=== PATIENT | male | born 1945 | race Caucasian/White ===

== ENCOUNTER 2021-04-29 19:44 | Inpatient (IN) ==
--- NOTE | 2021-04-29 19:47 | Emergency Department Note ---
Impression & Plan Fracture of hip, CKD (chronic kidney disease), Fall, Leukocytosis ED Provider Note NAME: MICHEAL BERRIOS AGE: 75 SEX: M : 1945 ARRIVES VIA: Ambulance INFORMANT: Patient, ED PROVIDER(S): Mata Figueroa MD Chief Complaint: Fall, left hip and thigh pain HPI: She presents from home after a fall that occurred prior to arrival. The patient does complain of left-sided hip and thigh pain. The patient believes he may have struck his head but he is unsure. The patient states that he was walking along a slightly gravel area and did fall onto his left side. Patient denies any LOC or amnesia to the event. The patient denies any fevers chills chest pains or shortness of breath. The patient does not take any blood thinning medications. Patient denies any alcohol tobacco or drug use. Patient states that the pain is been constant worse with movement is primarily localized over the left hip with a chronic ache occasionally sharp in nature. Patient denies any sensory deficits ROS: See HPI for pertinent positives and negatives. A total of 10 systems were reviewed and otherwise negative. Past medical history: See below Surgical history: See below Social history: See below Physical Exam: GENERAL: NAD, [wearing glasses,][wearing a mask,] non-toxic. EYE EXAM: Normal conjunctiva. PERRL, no anisocoria and EOM's grossly intact w/o pain. Head: Normocephalic atraumatic without any laceration or obvious deformity. NECK: Supple, no nuchal rigidity, no adenopathy, non-tender. No signs of meningismus. No TTP or obvious deformity. LUNGS: Clear to auscultation. Normal chest wall mechanics. HEART: NSR, no MRG. ABDOMEN: Abdomen soft, non-tender, normo-active bowel sounds, no masses, no rebound or guarding. BACK: No CVA TTP. No pain to palpation or obvious deformity. SKIN: No rashes and no bruising. UPPER EXTREMITIES: Upper extremities are grossly normal. No TTP. LOWER EXTREMITIES: Left lower extremity held in flexion at the knee and they be slightly short compared to the right, neurovascular tact with good DP pulse and sensation to DP, SP, tibialis nerves. No pain to palpation of right lower extremity. NEURO EXAM: A&O x3, cranial nerves II-XII grossly intact, normal speech, moves all 4 extremities on command w/o issue. Differential diagnoses: Fracture, subluxation, dislocation, contusion, ligamentous injury, neurovascular, compartment syndrome, rhabdomyolysis, as well as other pathologies. Course: Patient was seen and evaluated the bedside. Full history physical exam was per formed. [EKG interpreted by me] Normal sinus rhythm, rate of 97, normal intervals, normal axis, T wave version in lead III, no obvious ST elevations. No significant change from comparison EKG November 2008 Imaging Studies: See Below [Cardiac monitoring: An order was placed for continuous cardiac monitoring. The monitor shows a rate of 89 with sinus rhythm.] MDM: Patient did present due to concern for fall and left-sided hip pain. Blood work was obtained along with left hip and femur x-rays. Patient did state that he had a mild head strike but denies any LOC and does not take blood thinners. Patient did have a CT of the head completed. Patient's blood shows a white count of 15 but is denied any infectious symptoms. The patient has a normal H&H and platelet count. Kidney function with a creat of 2.2. The patient's LFTs unremarkable. I did speak with the on-call hospitalist due to concern for the patient's left hip fracture Dr. Stone said that the patient would be evaluated in the morning. I did speak to the on-call hospitalist Dr. Knutson who and the patient was admitted to the medicine service. Past Med/Surg History Social History Smoking Status: Never smoker Feels Safe at Home: Yes Allergies Allergies Allergy/AdvReac Type Severity Reaction Status Date / Time No Known Allergies Allergy NONE Verified 04/29/21 21:45 Home Meds Home Medications Medication Instructions Recorded Confirmed aspirin 81 mg tablet,delayed 81 mg PO DAILY 04/29/21 04/29/21 release cholecalciferol (vitamin D3) 1,250 1,250 mcg PO WK 04/29/21 04/29/21 mcg (50,000 unit) capsule cyanocobalamin (vitamin B-12) 1,000 mcg PO DAILY 04/29/21 04/29/21 1,000 mcg tablet (Vitamin B-12) dulaglutide 0.75 mg/0.5 mL 0.75 mg SUBCUT WK 04/29/21 04/29/21 subcutaneous pen injector (Trulicity) furosemide 20 mg tablet 20 mg PO DAILY 04/29/21 04/29/21 lisinopril 10 mg tablet 10 mg PO DAILY 04/29/21 04/29/21 metformin 500 mg tablet,extended 500 mg PO DAILY 04/29/21 04/29/21 release 24 hr metoprolol tartrate 25 mg tablet 25 mg PO BID 04/29/21 04/29/21 simvastatin 40 mg tablet 40 mg PO HS 04/29/21 04/29/21 tamsulosin 0.4 mg capsule 0.4 mg PO DAILY 04/29/21 04/29/21 Results & Data (ED) Vital Signs Vital Signs - 24 hr 04/29/21 19:28 04/29/21 19:50 04/29/21 21:28 Temperature 36.7 C Temperature Source Oral Pulse Rate 87 Pulse Rate [Apical] 89 86 Respiratory Rate 20 20 18 Respiratory Effort / Characteristics Non-Labored Spontaneous Non-Labored Spontaneous Non-Labored Spontaneous Respiratory Depth Normal Normal Normal Respiratory Pattern Regular Regular Regular Blood Pressure 111/64 Blood Pressure [Right Arm] 108/58 L 106/56 L Blood Pressure Mean 79 Blood Pressure Mean [Right Arm] 74 72 Blood Pressure Position Sitting Blood Pressure Position [Right Arm] Sitting Sitting Pulse Oximetry 97 99 97 Oxygen Delivery Method Room Air Room Air Room Air Sepsis Recent Fever Within 48 Hours No Sepsis New/Unexplained Change in Mental Status No Sepsis Action Taken by Nursing No Action Required Home Medications Current Medication List: was personally reviewed by me Laboratory Data Attestation: I reviewed the patient's lab results. Result diagrams: 04/30/21 05:08 04/30/21 05:08 Lab Results 04/29/21 04/29/21 04/29/21 Range/Units 20:12 20:12 20:12 WBC 15.03 H (4.8-10.8) K/uL RBC 4.50 L (4.7-6.1) M/uL Hgb 14.5 (14.0-18.0) g/dL Hct 43.9 (42-52) % MCV 97.6 (80-100) fL MCH 32.2 (25-34) pg MCHC 33.0 (32-36) g/dL RDW Std Deviation 47.5 H (36.4-46.3) fL RDW Coeff of Zenaida 13.4 (11.5-14.5) % Plt Count 221 (130-400) K/uL MPV 10.7 H (7.4-10.4) fL Immature Gran % (Auto) 0.5 % Neut % (Auto) 66.1 % Lymph % (Auto) 24.8 % Amelia % (Auto) 6.7 % Eos % (Auto) 1.6 % Baso % (Auto) 0.3 % Neut # (Auto) 9.94 H (1.4-6.5) K/uL Lymph # (Auto) 3.73 H (1.2-3.4) K/uL Amelia # (Auto) 1.01 H (0.11-0.59) K/uL Eos # (Auto) 0.24 (0-0.5) K/uL Baso # (Auto) 0.04 (0-0.2) K/uL Immature Gran # (Auto) 0.07 H (0.00-0.02) K/uL PT 10.7 (9.0-12.0) Seconds INR 1.1 (0.9-1.1) APTT 25.7 (21.0-31.0) Seconds PTT Ratio 1.0 Sodium 134 L (136-145) mmol/L Potassium (3.5-5.1) mmol/L Chloride 102 (98-107) mmol/L Carbon Dioxide 22 (21-32) mmol/L Anion Gap 10 (3-11) BUN 32 H (6-23) mg/dl Creatinine 2.24 H (0.6-1.4) mg/dl Est Cr Clr Drug Dosing 39.8 ml/min Est GFR ( Amer) 32.0 ml/min Est GFR (Non-Af Amer) 27.6 ml/min BUN/Creatinine Ratio 14.3 (10-20) Glucose 260 H (70-99(Fasting)) mg/dl Calcium 9.0 (8.5-10.1) mg/dl Total Bilirubin 0.1 L (0.2-1.0) mg/dl AST (13-39) U/L ALT 13 (7-52) U/L Alkaline Phosphatase 46 (34-104) U/L Total Protein 7.0 (6.0-8.3) gm/dl Albumin 3.6 (3.4-5.0) gm/dl Globulin 3.4 (2.5-4.0) gm/dl Albumin/Globulin Ratio 1.1 (0.9-2) 04/29/21 Range/Units 21:00 WBC (4.8-10.8) K/uL RBC (4.7-6.1) M/uL Hgb (14.0-18.0) g/dL Hct (42-52) % MCV (80-100) fL MCH (25-34) pg MCHC (32-36) g/dL RDW Std Deviation (36.4-46.3) fL RDW Coeff of Zenaida (11.5-14.5) % Plt Count (130-400) K/uL MPV (7.4-10.4) fL Immature Gran % (Auto) % Neut % (Auto) % Lymph % (Auto) % Amelia % (Auto) % Eos % (Auto) % Baso % (Auto) % Neut # (Auto) (1.4-6.5) K/uL Lymph # (Auto) (1.2-3.4) K/uL Amelia # (Auto) (0.11-0.59) K/uL Eos # (Auto) (0-0.5) K/uL Baso # (Auto) (0-0.2) K/uL Immature Gran # (Auto) (0.00-0.02) K/uL PT (9.0-12.0) Seconds INR (0.9-1.1) APTT (21.0-31.0) Seconds PTT Ratio Sodium (136-145) mmol/L Potassium 4.4 (3.5-5.1) mmol/L Chloride (98-107) mmol/L Carbon Dioxide (21-32) mmol/L Anion Gap (3-11) BUN (6-23) mg/dl Creatinine (0.6-1.4) mg/dl Est Cr Clr Drug Dosing ml/min Est GFR ( Amer) ml/min Est GFR (Non-Af Amer) ml/min BUN/Creatinine Ratio (10-20) Glucose (70-99(Fasting)) mg/dl Calcium (8.5-10.1) mg/dl Total Bilirubin (0.2-1.0) mg/dl AST 21 (13-39) U/L ALT (7-52) U/L Alkaline Phosphatase (34-104) U/L Total Protein (6.0-8.3) gm/dl Albumin (3.4-5.0) gm/dl Globulin (2.5-4.0) gm/dl Albumin/Globulin Ratio (0.9-2) Administered Medications Aspirin (Aspirin 81 Mg Ectab) 81 mg PO DAILY SHAE Stop: 05/30/21 08:59 Last Admin: 04/30/21 09:16 Dose: 81 mg Documented by: [id number] Cyanocobalamin (Cyanocobalamin (B-12) 500 Mcg Tablet) 1,000 mcg PO DAILY SHAE Stop: 05/30/21 08:59 Last Admin: 04/30/21 09:16 Dose: 1,000 mcg Documented by: [id number] Gabapentin (Gabapentin 100 Mg Cap) 100 mg PO BID SHAE Stop: 05/30/21 10:29 Last Admin: 04/30/21 12:02 Dose: 100 mg Documented by: [id number] Sodium Chloride (Nss 1000ml) 1,000 mls @ 125 mls/hr IV .Q8H SHAE Stop: 05/30/21 06:59 Last Admin: 04/30/21 10:57 Dose: Not Given Documented by: [id number] Sodium Chloride (Nss 1000ml) 1,000 mls @ 125 mls/hr IV .Q8H [facility] Stop: 05/30/21 09:44 Last Admin: 04/30/21 11:25 Dose: 125 mls/hr Documented by: [id number] Insulin Aspart (Insulin Aspart Per Unit) 0 units SC Q6 SHAE Stop: 05/30/21 05:59 Last Admin: 04/30/21 05:24 Dose: 4 units Documented by: [id number] Cosigned by: [id number] Risperidone (Risperidone 0.5 Mg Tablet) 0.5 mg PO QAM SHAE Stop: 05/30/21 11:59 Last Admin: 04/30/21 12:27 Dose: 0.5 mg Documented by: [id number] Tamsulosin HCl (Tamsulosin Hcl 0.4 Mg Cap) 0.4 mg PO DAILY SHAE Stop: 05/30/21 08:59 Last Admin: 04/30/21 09:16 Dose: 0.4 mg Documented by: [id number] Tramadol HCl (Tramadol Hcl 50 Mg Tablet) 100 mg PO Q6 PRN PRN Reason: severe pain Stop: 05/30/21 11:59 Last Admin: 04/30/21 09:53 Dose: 100 mg Documented by: [id number] Discontinued Medications Acetaminophen (Acetaminophen 325 Mg Tab) 650 mg PO Q4H PRN PRN Reason: pain/fever Stop: 05/30/21 02:14 Last Admin: 04/30/21 04:15 Dose: 650 mg Documented by: [id number] Haloperidol Lactate (Haloperidol Lactate 5 Mg/Ml 1 Ml Vial) 2.5 mg IM NOW STA Stop: 04/30/21 01:11 Last Admin: 04/30/21 01:14 Dose: 2.5 mg Documented by: [id number] Hydromorphone HCl (Hydromorphone Inj 0.5 Mg/0.5 Ml Syr) 0.5 mg IV Q3H PRN PRN Reason: Pain Stop: 05/13/21 23:41 Last Admin: 04/29/21 23:45 Dose: 0.5 mg Documented by: [id number] Sodium Chloride (Nss 1000ml) 1,000 mls @ 999 mls/hr IV .Q1H1M SHAE Stop: 04/30/21 02:45 Last Infusion: 04/30/21 02:19 Dose: 0 mls/hr Documented by: [id number] Admin: 04/30/21 01:47 Dose: 999 mls/hr Documented by: [id number] Sodium Chloride (Nss 1000ml) 1,000 mls @ 80 mls/hr IV .[id number] [facility] Stop: 05/30/21 01:45 Last Admin: 04/30/21 01:48 Dose: 80 mls/hr Documented by: [id number] Piperacillin Sod/Tazobactam (Sod 4.5 gm/ Dextrose) 120 mls @ 200 mls/hr IV NOW STA; Protocol Stop: 04/30/21 06:37 Last Infusion: 04/30/21 08:00 Dose: 0 mls/hr Documented by: [id number] Admin: 04/30/21 06:38 Dose: 200 mls/hr Documented by: [id number] Magnesium Sulfate/Dextrose (Magnesium Sulfate / D5w) 1 gm in 100 mls @ 50 mls/hr IV Q2H SHAE Stop: 04/30/21 10:14 Last Admin: 04/30/21 09:16 Dose: 50 mls/hr Documented by: [id number] Infusion: 04/30/21 09:16 Dose: 50 mls/hr Documented by: [id number] Admin: 04/30/21 08:15 Dose: 50 mls/hr Documented by: [id number] Vancomycin HCl 1,000 mg/ (Sodium Chloride) 270 mls @ 200 mls/hr IV Q12H SHAE; Protocol Stop: 05/02/21 06:59 Last Admin: 04/30/21 09:30 Dose: Not Given Documented by: [id number] Sodium Chloride (Nss) 500 mls @ 500 mls/hr IV .Q1H SHAE Stop: 04/30/21 07:59 Last Infusion: 04/30/21 09:30 Dose: 0 mls/hr Documented by: [id number] Admin: 04/30/21 08:20 Dose: 500 mls/hr Documented by: [id number] Metoprolol Tartrate (Metoprolol Tartrate 25 Mg Tab) 25 mg PO BID SHAE Stop: 05/30/21 08:59 Last Admin: 04/30/21 09:07 Dose: Not Given Documented by: [id number] Morphine Sulfate (Morphine Sulfate 2 Mg/Ml Carp) 2 mg IV Q1H PRN PRN Reason: Moderate Pain (Rating 3,4,5,6) Stop: 05/13/21 19:59 Last Admin: 04/29/21 22:43 Dose: 2 mg Documented by: [id number] Admin: 04/29/21 20:16 Dose: 2 mg Documented by: [id number] Morphine Sulfate (Morphine Sulfate 4 Mg/Ml 1 Ml Carp\Vial) 4 mg IV NOW STA Stop: 04/29/21 20:49 Last Admin: 04/29/21 21:29 Dose: 4 mg Documented by: [id number] Imaging Data Radiologist's Impression: Head CT 04/29/21 21:31 CT head/brain wo con CLINICAL HISTORY: 75 years-old Male with fall. Acute head trauma status post fall TECHNIQUE: Multiple axial CT images of the head were obtained without contrast. A dose lowering technique was utilized adhering to the principles of ALARA. CT DOSE: 773.57 mGy.cm COMPARISON: None. FINDINGS: No acute intracranial hemorrhage, midline shift, intracranial mass, hydrocephalus, territorial ischemia or abnormal extra-axial collection. Age-rel ated involutional changes. Mild white matter hypodensities suggest chronic microvascular ischemic disease. Cerebral vascular calcifications. The study is mildly motion degraded. The calvarium is intact. The paranasal sinuses, mastoid air cells, and middle ear cavities are clear. IMPRESSION: No acute intracranial abnormality or calvarial fracture. ACT 112: Negative or not required by law. The above report was generated using voice recognition software. It may contain grammatical, syntax or spelling errors. Electronically signed by: Ryan Hood M.D. 04/30/2021 6:32 AM Femur X-Ray 04/29/21 20:00 XR pelvis 1-2V routine, XR femur LT 2V routine CLINICAL HISTORY: s/p fall TECHNIQUE: A single frontal view of the pelvis was obtained. 2 views of the left femur were obtained. Comparison: None available at the time of this dictation. FINDINGS: There is an impacted fracture of left femur below the trochanter. Overriding of fragments is seen.The pubic symphysis measures 6 mm in width. Degenerative changes are seen in the lower lumbar spine. No soft tissue abnormality is seen. IMPRESSION: Impacted fracture of the left femur below the trochanter. Likely distraction of the pubic symphysis. ACT 112: Negative or not required by law. Electronically signed by: Rishi Bowden M.D. 04/29/2021 8:54 PM Pelvis X-Ray 04/29/21 20:00 XR pelvis 1-2V routine, XR femur LT 2V routine CLINICAL HISTORY: s/p fall TECHNIQUE: A single frontal view of the pelvis was obtained. 2 views of the left femur were obtained. Comparison: None available at the time of this dictation. FINDINGS: There is an impacted fracture of left femur below the trochanter. Overriding of fragments is seen.The pubic symphysis measures 6 mm in width. Degenerative changes are seen in the lower lumbar spine. No soft tissue abnormality is seen. IMPRESSION: Impacted fracture of the left femur below the trochanter. Likely distraction of the pubic symphysis. ACT 112: Negative or not required by law. Electronically signed by: Rishi Bowden M.D. 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 Comparison: Comparison is made to chest one view 12/01/2018 FINDINGS: No lines and tubes are seen. Cardiomegaly is noted. The lungs are clear. No evidence of pleural effusion or pneumothorax. IMPRESSION: No acute chest disease. ACT 112: Negative or not required by law. Electronically signed by: Rishi Bowden M.D. 04/29/2021 8:[address] 04/29/21 21:31 CT head/brain wo con CLINICAL HISTORY: 75 years-old Male with fall. Acute head trauma status post fall TECHNIQUE: Multiple axial CT images of the head were obtained without contrast. A dose lowering technique was utilized adhering to the principles of ALARA. CT DOSE: 773.57 mGy.cm COMPARISON: None. FINDINGS: No acute intracranial hemorrhage, midline shift, intracranial mass, hydrocephalus, territorial ischemia or abnormal extra-axial collection. Age- related involutional changes. Mild white matter hypodensities suggest chronic microvascular ischemic disease. Cerebral vascular calcifications. The study is mildly motion degraded. The calvarium is intact. The paranasal sinuses, mastoid air cells, and middle ear cavities are clear. IMPRESSION: No acute intracranial abnormality or calvarial fracture. ACT 112: Negative or not required by law. The above report was generated using voice recognition software. It may contain grammatical, syntax or spelling errors. Electronically signed by: Ryan Hood M.D. 04/30/2021 6:32 AM Discharge Plan Visit Data Chief Complaint: Leg Injury/Pain ED Provider: Mata Figueroa Discharge Problem: Fracture of hip, CKD (chronic kidney disease), Fall, Leukocytosis Discharge Instructions Interventions: ED Discharge Assessment Last Done: 04/30/21 02:18
[2021-04-29] MEDS: MoRPHine SULFATE 2 MG/ML CARP IV PRN ×2 (20:16→22:43)
[2021-04-29 20:20] LABS: Basophils # (auto) 0.04 K/uL (0-0.2); Basophils % (auto) 0.3 %; Eosinophils # (auto) 0.24 K/uL (0-0.5); Eosinophils % (auto) 1.6 %; Hematocrit (blood only) 43.9 % (42-52); Hemoglobin 14.5 g/dL (14.0-18.0); Immature Granulocytes # (auto) 0.07 K/uL (0.00-0.02); Immature Granulocytes % (auto) 0.5 %; Lymphocytes # (auto) 3.73 K/uL (1.2-3.4); Lymphocytes % (auto) 24.8 %; Mean Corpuscular Hemoglobin 32.2 pg (25-34); Mean Corpuscular Volume 97.6 fL (80-100); Mean Platelet Volume 10.7 fL (7.4-10.4); Monocytes # (auto) 1.01 K/uL (0.11-0.59); Monocytes % (auto) 6.7 %; Neutrophils # (auto) 9.94 K/uL (1.4-6.5); Neutrophils % (auto) 66.1 %; Platelet Count 221 K/uL (130-400); RDW Coefficient of Variation 13.4 % (11.5-14.5); RDW Standard Deviation 47.5 fL (36.4-46.3); White Blood Count 15.03 K/uL (4.8-10.8)
[2021-04-29 20:32] LABS: INR 1.1 (0.9-1.1); Partial Thromboplastin Time 25.7 Seconds (21.0-31.0); Prothrombin Time 10.7 Seconds (9.0-12.0)
[2021-04-29 20:45] LABS: Albumin Globulin Ratio 1.1 (0.9-2); Albumin Level 3.6 gm/dl (3.4-5.0); BUN Creatinine Ratio 14.3 (10-20); Bilirubin,Total 0.1 mg/dl (0.2-1.0); Creatinine Clr Calc Pharmacy 39.8 ml/min; Est GFR (Non-African American) 27.6 ml/min; Globulin 3.4 gm/dl (2.5-4.0)
[2021-04-29] MEDS ORDERED: MoRPHine SULFATE 4 MG/ML 1 ML CARP\\VIAL IV STA (20:48)
--- NOTE | 2021-04-29 20:52 | XRay Report ---
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 Comparison: Comparison is made to chest one view 12/01/2018 FINDINGS: No lines and tubes are seen. Cardiomegaly is noted. The lungs are clear. No evidence of pleural effus ion or pneumothorax. IMPRESSION: No acute chest disease. ACT 112: Negative or not required by law. Electronically signed by: Rishi Bowden M.D. 04/29/2021 8:50 PM
--- NOTE | 2021-04-29 20:55 | XRay Report ---
XR pelvis 1-2V routine, XR femur LT 2V routine CLINICAL HISTORY: s/p fall TECHNIQUE: A single frontal view of the pelvis was obtained. 2 views of the left femur were obtained. Comparison: None available at the time of this dictation. FINDINGS: There is an impacted fracture of left femur below the trochanter. Overriding of fragments is seen.The pubic symphysis measures 6 mm in width. Degenerative changes are seen in the lower lumbar spine. No soft tissue abnormality is seen. IMPRESSION: Impacted fracture of the left femur below the trochanter. Likely distraction of the pubic symphysis. ACT 112: Negative or not required by law. Electronically signed by: Rishi Bowden M.D. 04/29/2021 8:54 PM
[2021-04-29 21:29] LABS: Potassium 4.4 mmol/L (3.5-5.1)
[2021-04-29] MEDS ORDERED: HYDROmorphone INJ 0.5 MG/0.5 ML SYR IV PRN (23:42)
[2021-04-30] MEDS ORDERED: HALOPERIDOL LACTATE 5 MG/ML 1 ML VIAL IM STA (01:10)
--- NOTE | 2021-04-30 01:36 | History and Physical Report ---
DATE OF ADMISSION: 04/29/2021. CHIEF COMPLAINT: Status post fall, left hip fracture. HISTORY OF PRESENT ILLNESS: This is a 75-year-old male with past medical history significant for type 2 diabetes, hyperlipidemia, obstructive sleep apnea, hypertension, paroxysmal atrial fibrillation, vitamin B12 deficiency, morbid obesity, stage III chronic kidney disease, history of dementia, who presents with a fall. The patient states he slipped on the grass in his yard and fell down and could not get up. Family helped him p and brought him here and found to have left hip fracture. The patient states he did not lose any consciousness, did not hit his head. Denies any chest pain. He has some mild headache. No blurred visions, no earache, no runny nose, no sore throat, no cough, no nausea, no abdominal pain, no chest pain, no shortness of breath. Normal bowel and bladder movements. Appetite is okay. Currently, hemodynamically stable. ALLERGIES: No known drug allergies. PAST MEDICAL HISTORY: As mentioned above. PAST SURGICAL HISTORY: Appendectomy. MEDICATIONS: The patient is on aspirin 81 mg p.o. daily, vitamin D 1250 mcg p.o. weekly, vitamin B12 1000 mcg p.o. daily, Trulicity 0.75 mg subcutaneous weekly, furosemide 20 mg p.o. daily, lisinopril 10 mg p.o. daily, metformin 500 mg p.o. daily, metoprolol tartrate 25 mg p.o. b.i.d., simvastatin 40 mg p.o. at bedtime, Flomax 0.4 mg p.o. daily. FAMILY HISTORY: Significant for brother had cancer, father has Alzheimer's disease. SOCIAL HISTORY: , no smoking, no alcohol, no drug use. REVIEW OF SYSTEMS: As per HPI. Rest of review of systems is negative. PHYSICAL EXAMINATION: GENERAL: The patient is morbidly obese, not in acute distress. VITAL SIGNS: Temperature 36.7, pulse 86, respiratory rate 18, blood pressure 106/56, oxygen 97% on room air. HEENT: Pupils equal, round and reactive to light. Oral mucosa moist. NECK: No JVD, no neck masses. CARDIOVASCULAR: S1 and S2 heard. Regular rate and rhythm. No murmur, no gallop. RESPIRATORY SYSTEM: Normal AP diameter. No accessory muscle use. No wheezing, no crackles. ABDOMEN: Soft, bowel sounds present, nontender, no distention. CENTRAL NERVOUS SYSTEM: Cranial nerves II through XII are grossly intact, nonfocal. EXTREMITIES: Left lower extremity shortened and externally rotated. No edema seen, no erythema seen. LABORATORY DATA: WBC 15, hemoglobin 14.5, hematocrit 43.9, platelets 221. PT 10.7, INR 1.1, APTT 25.7. Sodium 134, potassium 4.4, chloride 102, bicarbonate 22, BUN 32, creatinine 2.2, serum glucose 216, calcium 9, total bilirubin 0.1, AST 21, ALT 13, alkaline phosphatase 46. IMAGING DATA: Chest x-ray, no acute disease in the chest. Pelvic x-ray, impacted fracture of the left femur below the trochanter, likely distraction of the pubic symphysis. Left femur x-ray, impacted fracture of the left femur below the trochanter. CT of the head, preliminary report, no acute findings. ASSESSMENT AND PLAN: This is a 75-year-old male who presents with fall and found to have left femur fracture. 1. Left femur fracture, mechanical fracture: Pain control. Will keep him n.p.o., IV fluids, gentle fluids. Consult orthopedics in the a.m. The patient says he ambulated fine before the fall. . Monitor in the medical floor. His chest x-ray and labs are okay. Needs EKG prior to the procedure. If EKG looks okay, he will be an acceptable risk to proceed with surgery. 2. History of atrial fibrillation: The patient was initially diagnosed with atrial fibrillation in 2008. He was initially placed on Cardizem and metoprolol. He underwent direct cardioversion and BLAKE and he had a 7-day monitor performed in October of 2010 that revealed no evidence of atrial fibrillation or atrial flutter. At that point, Coumadin was stopped and transitioned to aspirin. Currently on aspirin and metoprolol. Will monitor. 3. Hyperlipidemia: On statin. 4. Hypertension: On metoprolol . Holding lisinopril for GABRIELLA. Monitor the blood pressure. 5. Diabetes: Will hold his metformin and Trulicity. Will place on insulin sliding scale. Will follow the blood sugars. 6. Morbid obesity: Sleep apnea. Will place him on CPAP at bedtime. 7. Acute kidney injury on chronic kidney disease stage III: Baseline creatinine of 1.5-1.7, currently creatinine of 2.2. Getting gentle fluids. Will hold lisinopril and Lasix. Monitor the labs in the a.m. 8. History of dementia without behavioral disturbance: Monitor for any delirium. 9. Deep venous thrombosis prophylaxis: Could not give anticoagulation in anticipation of any procedure. Could not place on sequential compression devices because of left femur fracture. Anticoagulation as per orthopedics. DISPOSITION: Closely monitor in the medical floor. PT/OT prior to discharge. Social service to help with discharge planning. Level 1 full code. Addendum: Patient later became confused Received a dose of Haldol. His BP dropped and received fluid bolus. Morning labs showed worsening leukocytosis and also CR increased to 3.1. Ordered lactic acid, ct abd/pelvis, blood culture, UA and empirically started on iv Zosyn. Needs close monitor. Job ID: [id number] MTDD
[2021-04-30] MEDS ORDERED: SODIUM CHLORIDE 0.9% 1000ML 1,000 ML IV SCH ×2 (01:45→01:46)
[2021-04-30] MEDS ORDERED: ACETAMINOPHEN 325 MG TAB PO PRN (02:15)
[2021-04-30] MEDS ORDERED: POLYETHYLENE (MIRALAX) 17 GM PACK PO PRN (02:15)
[2021-04-30] MEDS ORDERED: GLUCOSE 10 TABS/TUBE PO PRN (03:00)
[2021-04-30] MEDS ORDERED: DEXTROSE 50% 50 ML SYRINGE IV PRN (03:00)
[2021-04-30] MEDS ORDERED: CARBOHYDRATES FOR HYPOGLYCEMIA PO PRN (03:00)
[2021-04-30] MEDS ORDERED: GLUCAGON FOR INJ 1 MG VIAL IM PRN (03:00)
[2021-04-30] MEDS ORDERED: GLUCOSE 40% GEL 15 GM TUBE PO PRN (03:00)
[2021-04-30] MEDS: INSULIN ASPART PER UNIT SC SCH ×4 (05:24→23:45)
[2021-04-30 05:31] LABS: Basophils # (auto) 0.02 K/uL (0-0.2); Basophils % (auto) 0.1 %; Eosinophils # (auto) 0.01 K/uL (0-0.5); Hematocrit (blood only) 36.7 % (42-52); Hemoglobin 11.8 g/dL (14.0-18.0); Immature Granulocytes # (auto) 0.05 K/uL (0.00-0.02); Immature Granulocytes % (auto) 0.2 %; Lymphocytes # (auto) 3.18 K/uL (1.2-3.4); Lymphocytes % (auto) 15.9 %; Mean Corpuscular Hemoglobin 31.6 pg (25-34); Mean Corpuscular Hgb Conc 32.2 g/dL (32-36); Mean Corpuscular Volume 98.4 fL (80-100); Mean Platelet Volume 10.7 fL (7.4-10.4); Monocytes # (auto) 2.04 K/uL (0.11-0.59); Monocytes % (auto) 10.2 %; Neutrophils # (auto) 14.73 K/uL (1.4-6.5); Neutrophils % (auto) 73.6 %; Platelet Count 233 K/uL (130-400); RDW Coefficient of Variation 13.6 % (11.5-14.5); RDW Standard Deviation 48.7 fL (36.4-46.3); Red Blood Count 3.73 M/uL (4.7-6.1); White Blood Count 20.03 K/uL (4.8-10.8)
[2021-04-30] MEDS ORDERED: PIPERACILL/TAZOBAC CONSULT ACTIVE PRN (05:42)
[2021-04-30 05:52] LABS: BUN Creatinine Ratio 11.5 (10-20); Calcium 7.9 mg/dl (8.5-10.1); Creatinine Clr Calc Pharmacy 28.5 ml/min; Est GFR (African American) 21.4 ml/min; Est GFR (Non-African American) 18.4 ml/min; Magnesium 1.4 mg/dl (1.7-2.4); Potassium 4.7 mmol/L (3.5-5.1)
[2021-04-30] MEDS ORDERED: PIPERACILLIN/TAZOBACTAM 4.5 GM in DEXTROSE 5% 100 ML IV STA (06:02)
--- NOTE | 2021-04-30 06:34 | CT Scan Report ---
CT head/brain wo con CLINICAL HISTORY: 75 years-old Male with fall. Acute head trauma status post fall TECHNIQUE: Multiple axial CT images of the head were obtained without contrast. A dose lowering tech nique was utilized adhering to the principles of ALARA. CT DOSE: 773.57 mGy.cm COMPARISON: None. FINDINGS: No acute intracranial hemorrhage, midline shift, intracranial mass, hydrocephalus, territorial ischem ia or abnormal extra-axial collection. Age-related involutional changes. Mild white matter hypodensit ies suggest chronic microvascular ischemic disease. Cerebral vascular calcifications. The study is mi ldly motion degraded. The calvarium is intact. The paranasal sinuses, mastoid air cells, and middle ear cavities are clear . IMPRESSION: No acute intracranial abnormality or calvarial fracture. ACT 112: Negative or not required by law. The above report was generated using voice recognition software. It may contain grammatical, syntax o r spelling errors. Electronically signed by: Ryan Hood M.D. 04/30/2021 6:32 AM
[2021-04-30] MEDS ORDERED: VANCOMYCIN CONSULT ACTIVE PRN (06:51)
[2021-04-30] MEDS ORDERED: SODIUM CHLORIDE 0.9% 500 ML IV SCH (07:00)
[2021-04-30] MEDS ORDERED: VANCOMYCIN HCL 1,000 MG in SODIUM CHLORIDE 0.9% 250 ML IV SCH (07:00)
[2021-04-30 07:37] LABS: Appearance Urine Cloudy (Clear); Bilirubin Urine Negative (Negative); Blood Urine 2+ (Negative); Color Urine Dark Yellow; Epithelial Cell Urine Auto >30 /lpf (0-5); Glucose Urine UA Negative (Negative); Ketones Urine Trace (Negative); Leukocyte Esterase Urine 2+ (Negative); Nitrite Urine Negative (Negative); Protein Urine Trace (Negative); RBC Urine Automated >30 /hpf (0-4); Specific Gravity Urine 1.019 (1.000-1.030); Urobilinogen Urine Negative (Negative)
[2021-04-30 07:41] LABS: Estimated Average Glucose 171 mg/dl; Hemoglobin A1C 7.6 % (4.5-5.6)
[2021-04-30 07:49] LABS: Bacteria Urine Automated 1+ (Negative); Calcium Oxalate Crystals Urine Present (None Prsent)
--- NOTE | 2021-04-30 07:58 | Hospitalist Progress Note ---
Date of Service April 30, 2021 Assessment & Plan Admission and Anticipated Discharge Date Admission Date: April 29, 2021 Subjective Patient seems to be in Sepsis. To hold surgery for now until patient is more stable. IV abx vanco and zosyn. will follow cultures. Follow repeat lactic acid, iv fluids.Transferring to [facility].Thank you Results & Data Results & Data ([facility]) Vital Signs (Past 12 Hours) Vital Signs Pulse Pulse Resp BP Pulse Ox 04/30/21 03:41 98 H 16 100 04/30/21 03:37 97 H 20 95/57 L 98 04/30/21 01:30 87 20 86/59 L 96 04/29/21 23:55 89 20 84/60 L 96 04/29/21 21:28 86 18 106/56 L 97
[2021-04-30] MEDS: MAGNESIUM SULFATE / D5W 1 GM/100 ML BAG IV SCH ×2 (08:15→09:16)
--- NOTE | 2021-04-30 08:21 | CT Scan Report ---
CT abd pelvis wo con CLINICAL HISTORY: mario, sepsis? TECHNIQUE: Helical axial images of the abdomen and pelvis were obtained. Automated dose lowering tech niques and/or adjustment according to patient size were utilized for this exam. This exam was perfor med without intravenous contrast. COMPARISON: Comparison is made to pelvis and humeral radiographs 04/29/2021 FINDINGS: Lower chest: No acute abnormality Liver: Unremarkable. No focal lesions are seen. Gallbladder and biliary tree: No calcified gallstones. Normal caliber wall. No intra- or extrahepatic biliary ductal dilation. Pancreas: Unremarkable, no focal lesions. Spleen: Unremarkable. Adrenals: Unremarkable. Kidneys and ureters: Unremarkable. Bladder: Limited evaluation due to underdistention. Reproductive organs: Prostatic calcifications are seen which may represent prior hemorrhage or granul omatous disease. Bowel: Unremarkable. Lymph nodes Retroperitoneal: Unremarkable. Mesenteric: Unremarkable. Pelvic: Unremarkable. Peritoneum: Normal. Vessels: Atherosclerotic calcifications are seen. Abdominal wall: A fat-containing umbilical hernia is seen. Bones: Degenerative changes in the visualized spine. Redemonstration of a comminuted and impacted fra cture of the left femur at the level of the greater trochanter. Distraction of the pubic symphysis is less evident on this exam. IMPRESSION: Redemonstration of comminuted fracture of the left femur. Distraction of the pubic symphysis is less evident on this exam and may have been artifactual. No acute intra-abdominal abnormality is seen. ACT 112: Negative or not required by law. Electronically signed by: Rishi Bowden M.D. 04/30/2021 8:19 AM
[2021-04-30] MEDS ORDERED: METOPROLOL TARTRATE 25 MG TAB PO SCH (09:00)
[2021-04-30] MEDS: TAMSULOSIN HCL 0.4 MG CAP PO SCH (09:16)
[2021-04-30] MEDS: CYANOCOBALAMIN (B-12) 500 MCG TABLET PO SCH (09:16)
[2021-04-30] MEDS: ASPIRIN 81 MG ECTAB PO SCH (09:16)
[2021-04-30] MEDS: traMADol HCL 50 MG TABLET PO PRN ×2 (09:53→18:55)
--- NOTE | 2021-04-30 10:05 | Hospitalist Progress Note ---
Date of Service April 30, 2021 Assessment & Plan Plan: Concern for severe sepsis -Present on admission with Leukocytosis, hypotension, elevated lactic acid and evidence of end organ damage (GABRIELLA) -No clear source of infection. UA appears contaminated -s/p zosyn. Vancomycin was ordered--> will discontinue Vancomycin and zosyn to avoid worsening renal failure. Will continue on Cefepime for empiric coverage for now -s/p 1L NSS in ER. Another 1L bolus is underway. Will then place on NSS 125 cc/hr -repeat lactic later today, blood culture and urine culture pending -covid scren negative -will obtain TTE to help with fluid management Left hip fracture -Surgical management per Surgery -Patient appears to be an unreliable historian, unable to reach for additional history. Will attempt later. -He currently is at least a moderate risk (renal failure) for surgery, final risk stratification pending additional history if family can be reached later today. -will need further optimization prior to OR -Inadequate pain control, avoid IV narcotics for now due to hypotension and risk for delirum. Start Acetaminophen 1000mg TID, gabapentin 100mg BID. D/c IV dilaudid. Start Tramadol 50-100mg PO Q6PRN for mod-severe pain. On day of surgery, can switch back to IV dilaudid. GABRIELLA on CKD stage 3 -Appears prerenal based on exam -CT A/P without contrast shows unremarkable bilateral kidneys and ureter -Send urine studies and repeat BMP later this afternoon -avoid nephrotoxins, avoid hypotension HTN -hold lisinopril, metoprolol, lasixfor now due to sepsis, hypotension, GABRIELLA T2DM -hold metformin, trulicity -basal/bolus insuln HLD-continue statin BPH -continue flomax -s/p felix--will continue for accurate I/O and while he is immobilized. Can d/c felix post op History of Dementia -listed on chart, at risk for delirium. Risperdal PRN for agitation. Avoid BZDs. AMBER -cpap ordered Morbid Obesity -BMI 43. Would benefit from [facility] weight loss counseling DVT ppx SCDs for now in anticipation of OR tomorrow Admission and Anticipated Discharge Date Admission Date: April 29, 2021 Subjective Per Nursing, overnight he received Haldol (presumably for agitation) with resulting hypotension Patient reports left hip pain. Denies chest pain, shortness of breath, fever, chills, urinary problems, or recent illness Reports diarrhea but can not quantify or elaborate on duration/frequency Unable to reach for collaboratory history Physical Exam Physical Exam: Morbidly obese, appears restless, non toxic ENMT: mucous membrane dry, neck thick, normocephalic/atraumatic Respiratory: breathing comfortably on room air, no wheezing/rhonchi/rales Cardiovascular: regular rate and rhythm, no murmurs/rubs/gallops Gastrointestinal (Abdomen): obese, soft, non tender, non distended Musculoskeletal: no edema, left hip tender Neurologic: awake, spontaneously moving extremities, poor historian Psychiatric: calm Results & Data Results & Data ([facility]) Vital Signs (Past 12 Hours) Vital Signs Temp Pulse Pulse Resp BP Pulse Ox 04/30/21 09:31 99 H 20 90/38 L 95 04/30/21 07:59 36.4 C L 102 H 100/80 95 04/30/21 03:41 98 H 16 100 04/30/21 03:37 97 H 20 95/57 L 98 04/30/21 01:30 87 20 86/59 L 96 04/29/21 23:55 89 20 84/60 L 96 Laboratory Results Short CBC 04/29/21 04/30/21 Range/Units 20:12 05:08 WBC 15.03 H 20.03 H (4.8-10.8) K/uL Hgb 14.5 11.8 L (14.0-18.0) g/dL Hct 43.9 36.7 L (42-52) % Plt Count 221 233 (130-400) K/uL BMP 04/29/21 04/29/21 04/30/21 20:12 21:00 05:08 Sodium 134 L 134 L Potassium 4.4 4.7 Chloride 102 104 Carbon Dioxide 22 18 L BUN 32 H 36 H Creatinine 2.24 H 3.13 H D Glucose 260 H 248 H Calcium 9.0 7.9 L Liver Function 04/29/21 04/29/21 Range/Units 20:12 21:00 Total Bilirubin 0.1 L (0.2-1.0) mg/dl AST 21 (13-39) U/L ALT 13 (7-52) U/L Alkaline Phosphatase 46 (34-104) U/L Albumin 3.6 (3.4-5.0) gm/dl Urine 04/30/21 Range/Units 07:25 Urine Color Dark Yellow Urine Appearance Cloudy A (Clear) Urine pH 5.0 (4.5-7.5) Ur Specific [place] 1.019 (1.000-1.030) Urine Protein Trace H (Negative) Urine Glucose (UA) Negative (Negative) Medications Administered Current Inpatient Medications Acetaminophen (Acetaminophen 500 Mg Tab) 1,000 mg PO TID SHAE Stop: 05/30/21 13:59 Aspirin (Aspirin 81 Mg Ectab) 81 mg PO DAILY SHAE Stop: 05/30/21 08:59 Last Admin: 04/30/21 09:16 Dose: 81 mg Documented by: Cyanocobalamin (Cyanocobalamin (B-12) 500 Mcg Tablet) 1,000 mcg PO DAILY SHAE Stop: 05/30/21 08:59 Last Admin: 04/30/21 09:16 Dose: 1,000 mcg Documented by: Dextrose (Dextrose 50% 50 Ml Syringe) 25 - 50 ml IV UD PRN; Protocol PRN Reason: Hypoglycemia Protocol Stop: 05/30/21 02:59 Ergocalciferol (Ergocalciferol 50,000 Units 1250 Mcg Cap) 50,000 units PO Mo@0900 SHAE Stop: 06/03/21 08:59 Gabapentin (Gabapentin 100 Mg Cap) 100 mg PO BID SHAE Stop: 05/30/21 20:59 Glucagon (Glucagon For Inj 1 Mg Vial) 1 mg IM UD PRN; Protocol PRN Reason: Hypoglycemia Protocol Stop: 05/30/21 02:59 Glucose (Glucose 40% Gel 15 Gm Tube) 15 - 30 gm PO UD PRN; Protocol PRN Reason: Hypoglycemia Protocol Stop: 05/30/21 02:59 Glucose (Glucose 10 Tabs/Tube) 4 - 8 tabs PO UD PRN; Protocol PRN Reason: Hypoglycemia Protocol Stop: 05/30/21 02:59 Magnesium Sulfate/Dextrose (Magnesium Sulfate / D5w) 1 gm in 100 mls @ 50 mls/hr IV Q2H SHAE Stop: 04/30/21 10:14 Last Admin: 04/30/21 09:16 Dose: 50 mls/hr Documented by: Sodium Chloride (Nss 1000ml) 1,000 mls @ 125 mls/hr IV .Q8H SHAE Stop: 05/30/21 06:59 Cefepime HCl 2,000 mg/ Syringe 20 mls @ 5 mls/min IV Q24H [facility]; Protocol Stop: 05/02/21 13:59 Sodium Chloride (Nss 1000ml) 1,000 mls @ 125 mls/hr IV .Q8H [facility] Stop: 05/30/21 09:44 Insulin Aspart (Insulin Aspart Per Unit) 0 units SC Q6 [facility] Stop: 05/30/21 05:59 Last Admin: 04/30/21 05:24 Dose: 4 units Documented by: Metoprolol Tartrate (Metoprolol Tartrate 25 Mg Tab) 25 mg PO BID [facility] Stop: 05/30/21 08:59 Last Admin: 04/30/21 09:07 Dose: Not Given Documented by: Miscellaneous (Carbohydrates For Hypoglycemia ) 15 - 30 gm PO UD PRN PRN Reason: Hypoglycemia Treatment Stop: 05/30/21 02:59 Ondansetron HCl (Ondansetron Inj 2 Mg/Ml 2 Ml Vial) 4 mg IV Q6H PRN PRN Reason: Nausea Stop: 05/30/21 02:14 Polyethylene Glycol (Polyethylene (Miralax) 17 Gm Pack) 17 gm PO DAILY PRN PRN Reason: Constipation Stop: 05/30/21 02:14 Saccharomyces Boulardii (Saccharomyces Boulardii 250 Mg Cap) 250 mg PO BID [facility] Stop: 05/30/21 20:59 Simvastatin (Simvastatin 40 Mg Tab) 40 mg PO HS [facility] Stop: 05/30/21 20:59 Tamsulosin HCl (Tamsulosin Hcl 0.4 Mg Cap) 0.4 mg PO DAILY [facility] Stop: 05/30/21 08:59 Last Admin: 04/30/21 09:16 Dose: 0.4 mg Documented by: Tramadol HCl (Tramadol Hcl 50 Mg Tablet) 100 mg PO Q6 PRN PRN Reason: severe pain Stop: 05/30/21 11:59 Last Admin: 04/30/21 09:53 Dose: 100 mg Documented by: Tramadol HCl (Tramadol Hcl 50 Mg Tablet) 50 mg PO Q6 PRN PRN Reason: moderate pain Stop: 05/30/21 11:59 Critical Care Time Patient is at high risk for further deterioration. A total of 35 minutes crit ical care time was spent. 50% of time was spent on direct patient encounter. 50% of time was spent on coordination of care.
[2021-04-30] MEDS: SODIUM CHLORIDE 0.9% 1000ML 1,000 ML IV SCH ×3 (10:57→18:51)
[2021-04-30] MEDS ORDERED: risperiDONE 0.5 MG TABLET PO SCH (11:15)
[2021-04-30] MEDS ORDERED: PIPERACILLIN/TAZOBACTAM 4.5 GM in DEXTROSE 5% 100 ML IV SCH (12:00)
[2021-04-30] MEDS: GABAPENTIN 100 MG CAP PO SCH ×2 (12:02→21:43)
[2021-04-30] MEDS: risperiDONE 0.5 MG TABLET PO SCH (12:27)
--- NOTE | 2021-04-30 14:26 | Electrocardiogram Report ---
Test Reason : Blood Pressure : / mmHG Vent. Rate : 097 BPM Atrial Rate : 097 BPM P-R Int : 138 ms QRS Dur : 082 ms QT Int : 350 ms P-R-T Axes : 013 004 004 degrees QTc Int : 444 ms Normal sinus rhythm Low voltage QRS Nonspecific ST abnormality antlt Abnormal ECG When compared with ECG of 01-DEC-2008 06:50, Nonspecific ST abnormality Anterolateral leads now present Confirmed by Gurpreet Mars ([id number]) on 04/30/2021 2:26:25 PM Referred By: REFERRED SELF Confirmed By:Gurpreet Mars
[2021-04-30] MEDS: ONDANSETRON INJ 2 MG/ML 2 ML VIAL IV PRN ×2 (14:31→20:05)
[2021-04-30] MEDS: CEFEPIME 2,000 MG in SYRINGE 0 ML IV SCH (14:32)
[2021-04-30] MEDS: ACETAMINOPHEN 500 MG TAB PO SCH ×2 (14:33→20:05)
--- NOTE | 2021-04-30 14:44 | Orthopedic Consultation ---
Date of Consultation April 30, 2021 Assessment & Plan (1) Fracture of hip: Left proximal femur fracture with subtrochanteric extension. Question of pubic symphysis widening on plain film however CT scan showing less of widening and likely artifactual. X-rays reviewed. Patient will require a long trochanteric femoral nail. Possible need for cable device as well. I have discussed the case with Dr. Brannon. They are currently doing a sepsis work-up for the patient at this time. No surgery for the patient at this time until he is cleared by the medicine team. I will discuss the case with Dr. Stone who will be here tomorrow. If patient is cleared for surgery, we can plan for the OR tomorrow at some point if time and OR availability exists. Supervising Physician Co-Signing Physician Notes Patient seen and examined. Agree with MAAME Padron's note as above. He is morbidly obese, with a significantly displaced and comminuted left hip intertrochanteric/subtrochanteric femur fracture. This will require surgical fixation. However, patient is currently septic with hypotension, high lactic acid, and renal failure. These medical issues are being managed by the internal medicine team, and he is not yet cleared to go to the OR for surgical fixation of his fracture. He currently has a one-on-one sitter due to confusion, trying to get out of bed, removing his monitors, etc. We will plan to proceed with surgical fixation of his fracture once cleared by the internal medicine team. History of Present Illness Reason for Consultation: Left proximal femur fracture with subtrochanteric extension Attending Physician: Jeet Brannon MD History of Present Illness Patient is a 75-year-old male with past medical history significant for type 2 diabetes, hyperlipidemia, obstructive sleep apnea, hypertension, paroxysmal atrial fibrillation, vitamin B12 deficiency, morbid obesity, stage III chronic kidney disease, history of dementia, who presents with a fall. Patient states that he was walking up through the yard and ended up slipping and falling onto his left side. He denies any loss of consciousness at the time. Denies any shortness of breath, chest pain, lightheaded prior to the fall. He states that he was somewhat dizzy after the fall. He had moderate pain in his left thigh and was unable to ambulate. His family apparently was trying to help him and was brought into the emergency room here. X-rays were taken and was found that he had a left proximal femur fracture. [facility] was felt that the patient was possibly septic. They are in the process of a septic work-up. Patient is currently awake and alert and states he does not have much in the way of pain in the left thigh unless he tries to move his leg. He had some mild nausea prior to my entering the room. Nursing is present and just gave him some Zofran. Allergies Allergy/AdvReac Type Severity Reaction Status Date / Time No Known Allergies Allergy NONE Verified 04/29/21 21:45 Home Medications Medication Instructions Recorded Confirmed Type aspirin 81 mg tablet,delayed 81 mg PO DAILY 04/29/21 04/29/21 History release cholecalciferol (vitamin D3) 1,250 1,250 mcg PO WK 04/29/21 04/29/21 History mcg (50,000 unit) capsule cyanocobalamin (vitamin B-12) 1,000 mcg PO DAILY 04/29/21 04/29/21 History 1,000 mcg tablet (Vitamin B-12) dulaglutide 0.75 mg/0.5 mL 0.75 mg SUBCUT WK 04/29/21 04/29/21 History subcutaneous pen injector (Trulicity) furosemide 20 mg tablet 20 mg PO DAILY 04/29/21 04/29/21 History lisinopril 10 mg tablet 10 mg PO DAILY 04/29/21 04/29/21 History metformin 500 mg tablet,extended 500 mg PO DAILY 04/29/21 04/29/21 History release 24 hr metoprolol tartrate 25 mg tablet 25 mg PO BID 04/29/21 04/29/21 History simvastatin 40 mg tablet 40 mg PO HS 04/29/21 04/29/21 History tamsulosin 0.4 mg capsule 0.4 mg PO DAILY 04/29/21 04/29/21 History Patient History Social History Smoking Status: Never smoker Feels Safe at Home: Yes Physical Exam Physical Exam: Patient is a 75-year-old obese white male who is currently awake and alert. He is oriented to person and place. No acute distress, pleasant and cooperative. On examination of his left lower extremity, it is shortened and externally rotated compared to the right. No attempts were made to do left hip or knee range of motion secondary to proximal femur fracture. His left knee is nontender at this time on palpation. There is no noted effusion. He has good range of motion of his left ankle and toes. He states he has some slight tingling in his toes at this time but it sensation is otherwise intact. Right lower extremity is unaffected and range of motion is within normal limits. Upper extremities are unaffected at this time and he is nontender at the shoulders, elbows, and wrists. 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 Distal pulses are equal bilaterally of the upper and lower extremities. There is no gross motor or sensory loss at this time. Results & Data ([facility]) Vital Signs (Past 12 Hours) Vital Signs Temp Pulse Pulse Resp BP Pulse Ox 04/30/21 14:00 86 16 70/40 L 96 04/30/21 09:31 99 H 20 90/38 L 95 04/30/21 07:59 36.4 C L 102 H 100/80 95 04/30/21 03:41 98 H 16 100 04/30/21 03:37 97 H 20 95/57 L 98 Diagnostic Findings Laboratory Results WBC 20.03 K/uL (4.8-10.8) H 04/30/21 05:08 RBC 3.73 M/uL (4.7-6.1) L 04/30/21 05:08 Hgb 11.8 g/dL (14.0-18.0) L 04/30/21 05:08 Hct 36.7 % (42-52) L 04/30/21 05:08 MCV 98.4 fL (80-100) 04/30/21 05:08 MCH 31.6 pg (25-34) 04/30/21 05:08 MCHC 32.2 g/dL (32-36) 04/30/21 05:08 RDW Std Deviation 48.7 fL (36.4-46.3) H 04/30/21 05:08 RDW Coeff of [place] 13.6 % (11.5-14.5) 04/30/21 05:08 Plt Count 233 K/uL (130-400) 04/30/21 05:08 MPV 10.7 fL (7.4-10.4) H 04/30/21 05:08 Immature Gran % (Auto) 0.2 % 04/30/21 05:08 Neut % (Auto) 73.6 % 04/30/21 05:08 Lymph % (Auto) 15.9 % 04/30/21 05:08 Hall % (Auto) 10.2 % 04/30/21 05:08 Eos % (Auto) 0.0 % 04/30/21 05:08 Baso % (Auto) 0.1 % 04/30/21 05:08 Neut # (Auto) 14.73 K/uL (1.4-6.5) H 04/30/21 05:08 Lymph # (Auto) 3.18 K/uL (1.2-3.4) 04/30/21 05:08 Hall # (Auto) 2.04 K/uL (0.11-0.59) H 04/30/21 05:08 Eos # (Auto) 0.01 K/uL (0-0.5) 04/30/21 05:08 Baso # (Auto) 0.02 K/uL (0-0.2) 04/30/21 05:08 Immature Gran # (Auto) 0.05 K/uL (0.00-0.02) H 04/30/21 05:08 PT 10.7 Seconds (9.0-12.0) 04/29/21 20:12 INR 1.1 (0.9-1.1) 04/29/21 20:12 APTT 25.7 Seconds (21.0-31.0) 04/29/21 20:12 PTT Ratio 1.0 04/29/21 20:12 Sodium 134 mmol/L (136-145) L 04/30/21 05:08 Potassium 4.7 mmol/L (3.5-5.1) 04/30/21 05:08 Chloride 104 mmol/L (98-107) 04/30/21 05:08 Carbon Dioxide 18 mmol/L (21-32) L 04/30/21 05:08 Anion Gap 12 (3-11) H 04/30/21 05:08 BUN 36 mg/dl (6-23) H 04/30/21 05:08 Creatinine 3.13 mg/dl (0.6-1.4) H D 04/30/21 05:08 Est Cr Clr Drug Dosing 28.5 ml/min 04/30/21 05:08 Est GFR ( Amer) 21.4 ml/min 04/30/21 05:08 Est GFR (Non-Af Amer) 18.4 ml/min 04/30/21 05:08 BUN/Creatinine Ratio 11.5 (10-20) 04/30/21 05:08 Glucose 248 mg/dl (70-99(Fasting)) H 04/30/21 05:08 POC Glucose 197 mg/dl (70-99) H 04/30/21 12:41 Estimat Average Glucose 171 mg/dl 04/30/21 05:08 Hemoglobin A1c 7.6 % (4.5-5.6) H 04/30/21 05:08 Lactate 4.8 mmol/L (0.4-2.0) H* 04/30/21 08:07 Calcium 7.9 mg/dl (8.5-10.1) L 04/30/21 05:08 Magnesium 1.4 mg/dl (1.7-2.4) L 04/30/21 05:08 Total Bilirubin 0.1 mg/dl (0.2-1.0) L 04/29/21 20:12 AST 21 U/L (13-39) 04/29/21 21:00 ALT 13 U/L (7-52) 04/29/21 20:12 Alkaline Phosphatase 46 U/L (34-104) 04/29/21 20:12 Total Protein 7.0 gm/dl (6.0-8.3) 04/29/21 20:12 Albumin 3.6 gm/dl (3.4-5.0) 04/29/21 20:12 Globulin 3.4 gm/dl (2.5-4.0) 04/29/21 20:12 Albumin/Globulin Ratio 1.1 (0.9-2) 04/29/21 20:12 Urine Color Dark Yellow 04/30/21 07:25 Urine Appearance Cloudy (Clear) A 04/30/21 07:25 Urine pH 5.0 (4.5-7.5) 04/30/21 07:25 Ur Specific [place] 1.019 (1.000-1.030) 04/30/21 07:25 Urine Protein Trace (Negative) H 04/30/21 07:25 Urine Glucose (UA) Negative (Negative) 04/30/21 07:25 Urine Ketones Trace (Negative) H 04/30/21 07:25 Urine Blood 2+ (Negative) H 04/30/21 07:25 Urine Nitrite Negative (Negative) 04/30/21 07:25 Urine Bilirubin Negative (Negative) 04/30/21 07:25 Urine Urobilinogen Negative (Negative) 04/30/21 07:25 Ur Leukocyte Esterase 2+ (Negative) H 04/30/21 07:25 Urine WBC (Auto) 10-30 /hpf (0-5) H 04/30/21 07:25 Urine RBC (Auto) >30 /hpf (0-4) H 04/30/21 07:25 U Hyaline Cast (Auto) 5-10 /lpf (0-5) H 04/30/21 07:25 U Epithel Cells (Auto) >30 /lpf (0-5) H 04/30/21 07:25 Urine Bacteria (Auto) 1+ (Negative) H 04/30/21 07:25 Ur Renal Epithelial Cell Not Reportable 04/30/21 07:25 Calcium Oxalate Crystal Present (None Prsent) A 04/30/21 07:25 SARS-CoV-2, RNA, NAAT NEGATIVE (NEGATIVE) 04/30/21 02:00 Impressions Femur X-Ray 04/29/21 20:00 XR pelvis 1-2V routine, XR femur LT 2V routine CLINICAL HISTORY: s/p fall TECHNIQUE: A single frontal view of the pelvis was obtained. 2 views of the left femur were obtained. Comparison: None available at the time of this dictation. FINDINGS: There is an impacted fracture of left femur below the trochanter. Overriding of fragments is seen.The pubic symphysis measures 6 mm in width. Degenerative changes are seen in the lower lumbar spine. No soft tissue abnormality is seen. IMPRESSION: Impacted fracture of the left femur below the trochanter. Likely distraction of the pubic symphysis. ACT 112: Negative or not required by law. Electronically signed by: Rishi Bowden M.D. 04/29/2021 8:54 PM Pelvis X-Ray 04/29/21 20:00 XR pelvis 1-2V routine, XR femur LT 2V routine CLINICAL HISTORY: s/p fall TECHNIQUE: A single frontal view of the pelvis was obtained. 2 views of the left femur were obtained. Comparison: None available at the time of this dictation. FINDINGS: There is an impacted fracture of left femur below the trochanter. Overriding of fragments is seen.The pubic symphysis measures 6 mm in width. Degenerative changes are seen in the lower lumbar spine. No soft tissue abnormality is seen. IMPRESSION: Impacted fracture of the left femur below the trochanter. Likely distraction of the pubic symphysis. ACT 112: Negative or not required by law. Abdomen/Pelvis CT 04/30/21 06:09 CT abd pelvis wo con CLINICAL HISTORY: mario, sepsis? TECHNIQUE: Helical axial images of the abdomen and pelvis were obtained. Automated dose lowering techniques and/or adjustment according to patient size were utilized for this exam. This exam was performed without intravenous contrast. COMPARISON: Comparison is made to pelvis and humeral radiographs 04/29/2021 FINDINGS: Lower chest: No acute abnormality Liver: Unremarkable. No focal lesions are seen. Gallbladder and biliary tree: No calcified gallstones. Normal caliber wall. No intra- or extrahepatic biliary ductal dilation. Pancreas: Unremarkable, no focal lesions. Spleen: Unremarkable. Adrenals: Unremarkable. Kidneys and ureters: Unremarkable. Bladder: Limited evaluation due to underdistention. Reproductive organs: Prostatic calcifications are seen which may represent prior hemorrhage or granulomatous disease. Bowel: Unremarkable. Lymph nodes Retroperitoneal: Unremarkable. Mesenteric: Unremarkable. Pelvic: Unremarkable. Peritoneum: Normal. Vessels: Atherosclerotic calcifications are seen. Abdominal wall: A fat-containing umbilical hernia is seen. Bones: Degenerative changes in the visualized spine. Redemonstration of a comminuted and impacted fracture of the left femur at the level of the greater trochanter. Distraction of the pubic symphysis is less evident on this exam. IMPRESSION: Redemonstration of comminuted fracture of the left femur. Distraction of the pubic symphysis is less evident on this exam and may have been artifactual. No acute intra-abdominal abnormality is seen. ACT 112: Negative or not required by law. Electronically signed by: Rishi Bowden M.D. 04/30/2021 8:19 AM (1) Fracture of hip Encounter type: initial encounter Fracture type: closed Laterality: left Q ualified Code(s): S72.002A - Fracture of unspecified part of neck of left femur, initial encounter for closed fracture
[2021-04-30 14:47] LABS: BUN Creatinine Ratio 10.6 (10-20); Calcium 7.5 mg/dl (8.5-10.1); Creatinine Clr Calc Pharmacy 24.2 ml/min; Est GFR (African American) 17.5 ml/min; Est GFR (Non-African American) 15.1 ml/min; Potassium 4.8 mmol/L (3.5-5.1)
[2021-04-30 20:17] LABS: Creatinine Urine Random 268.2 mg/dl
[2021-04-30] MEDS ORDERED: SIMVASTATIN 40 MG TAB PO SCH (21:00)
[2021-04-30] MEDS ORDERED: GABAPENTIN 100 MG CAP PO SCH (21:00)
[2021-04-30] MEDS: SACCHAROMYCES BOULARDII 250 MG CAP PO SCH (21:43)
[2021-04-30] MEDS ORDERED: oxyCODONE HCL IR 5 MG TAB (IMMEDIATE RELEASE) PO STA (23:28)
[2021-05-01] MEDS: traMADol HCL 50 MG TABLET PO PRN (01:15)
[2021-05-01] MEDS: SODIUM CHLORIDE 0.9% 1000ML 1,000 ML IV SCH ×4 (02:51→17:50)
[2021-05-01] MEDS: INSULIN ASPART PER UNIT SC SCH ×3 (05:34→18:33)
[2021-05-01 06:28] LABS: Basophils # (auto) 0.03 K/uL (0-0.2); Basophils % (auto) 0.1 %; Eosinophils # (auto) 0.04 K/uL (0-0.5); Eosinophils % (auto) 0.2 %; Hematocrit (blood only) 28.5 % (42-52); Hemoglobin 9.4 g/dL (14.0-18.0); Immature Granulocytes # (auto) 0.04 K/uL (0.00-0.02); Immature Granulocytes % (auto) 0.2 %; Lymphocytes # (auto) 3.72 K/uL (1.2-3.4); Lymphocytes % (auto) 16.6 %; Mean Corpuscular Volume 96.9 fL (80-100); Mean Platelet Volume 10.3 fL (7.4-10.4); Monocytes # (auto) 2.16 K/uL (0.11-0.59); Monocytes % (auto) 9.6 %; Neutrophils # (auto) 16.48 K/uL (1.4-6.5); Neutrophils % (auto) 73.3 %; Platelet Count 186 K/uL (130-400); RDW Coefficient of Variation 13.9 % (11.5-14.5); RDW Standard Deviation 48.9 fL (36.4-46.3); Red Blood Count 2.94 M/uL (4.7-6.1); White Blood Count 22.47 K/uL (4.8-10.8)
[2021-05-01 06:39] LABS: INR 1.1 (0.9-1.1); Prothrombin Time 11.4 Seconds (9.0-12.0)
[2021-05-01 06:56] LABS: BUN Creatinine Ratio 10.5 (10-20); Calcium 7.5 mg/dl (8.5-10.1); Creatinine Clr Calc Pharmacy 21.1 ml/min; Est GFR (African American) 14.7 ml/min; Est GFR (Non-African American) 12.7 ml/min; Potassium 4.6 mmol/L (3.5-5.1)
--- NOTE | 2021-05-01 07:48 | Nephrology Consultation ---
Date of Consultation May 01, 2021 Assessment & Plan (1) Acute renal failure superimposed on stage 3 chronic kidney disease: baseline creatinine 1.5-1.7 as recently as 01/2021. Presented at creatinine 2.2 and has climbed ever since. no I/0 charted until this am when he had 350 mL UOP so not likely oliguric though difficult to say. inflamed urinalysis with no bacteria; imaging unremarkable from standpoint. No IV contrast, no obviously nephrotoxic meds have been given. 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 concern at this time for lactic or other acidosis; mild hyponatremia likely prerenal, c/w uptrend in BUN as well >support BP to maintain map >65; hydrate as aggressively as tolerated -needs strict I/O; keep felix >no indication for urgent dialysis at this time but cannot rule out need this admission -labs as below and f/u cxs Care coordinated w/ Dr Brannon (2) Lactic acidosis: -recommend rechecking lactate levels stat and ABG, CK; add liver enzymes to today's labs; AG on lower side (3) At risk for septic shock: no source of infection identified; but he has elevated lactate, worsening GABRIELLA on CKD, hypotension, climbing WBC. -repeat CXR -low threshold for ICU transfer/BP support; push IVF -on empiric cefepime/dapto; f/u pending cxs History of Present Illness Reason for Consultation: Renal failure Requesting Physician: Dr Brannon Attending Physician: Jeet Brannon MD History of Present Illness 75-year-old male whom I am asked to evaluate for renal failure was admitted late April 29 with a left hip fracture after a fall. Past medical history includes stage III CKD, diabetes, hypertension, paroxysmal atrial fibrillation, class III obesity, dementia. Concern for sepsis shortly after presentation: His white count was 15,000 on presentation and has climbed to 22,000 today. Lactate 5.8 AM after presentation. He has been afebrile but insistently hypotensive with blood pressures in the 70s to 90s generally since presentation with about 5 hours of readings in the 100s evening. SBP as OP run consistently in 120s. He is currently receiving normal saline 1 L bolus and since yesterday a.m. same IVF at 125 an hour; also started on albumin this morning. Zosyn was changed to cefepime yesterday. Vanco changed to dapto to be added this AM. I/O incomplete > felix placed yesterday am w/ 50 ML uop; this AM first UOP documented as 350 mL. Echocardiogram done last evening was clinically challenging, particularly with regard to evaluating valves but did show grossly normal LV function. However imaging not sufficient to evaluate regional wall motion or right ventricle. His baseline creatinine is 1.5-1.7 stable 05/2019 through 01/2021 and with 300 mg proteinuria; does not follow w/ nephro as OP. He presented with a creatinine of 2.2. This has rapidly increased since admission to 4.3 this morning. Felix catheter was placed today. Orthopedics is following and long trochanteric femoral nail plus or minus cable device is under consideration once patient is cleared for surgery. he was quite confused and combative / non compliant per report yesterday >> this AM he is calm; c/o warm temp in room and some L hip pain; denies sob/cough/w heeze; denies n/v; + thirst; no chest pain or palpitations. has been in NSR yesterday/ON/today. no rash/itch/edema reported. Allergies Allergy/AdvReac Type Severity Reaction Status Date / Time No Known Allergies Allergy NONE Verified 04/29/21 21:45 Home Medications Medication Instructions Recorded Confirmed Type aspirin 81 mg tablet,delayed 81 mg PO DAILY 04/29/21 04/29/21 History release cholecalciferol (vitamin D3) 1,250 1,250 mcg PO WK 04/29/21 04/29/21 History mcg (50,000 unit) capsule cyanocobalamin (vitamin B-12) 1,000 mcg PO DAILY 04/29/21 04/29/21 History 1,000 mcg tablet (Vitamin B-12) dulaglutide 0.75 mg/0.5 mL 0.75 mg SUBCUT WK 04/29/21 04/29/21 History subcutaneous pen injector (Trulicity) furosemide 20 mg tablet 20 mg PO DAILY 04/29/21 04/29/21 History lisinopril 10 mg tablet 10 mg PO DAILY 04/29/21 04/29/21 History metformin 500 mg tablet,extended 500 mg PO DAILY 04/29/21 04/29/21 History release 24 hr metoprolol tartrate 25 mg tablet 25 mg PO BID 04/29/21 04/29/21 History simvastatin 40 mg tablet 40 mg PO HS 04/29/21 04/29/21 History tamsulosin 0.4 mg capsule 0.4 mg PO DAILY 04/29/21 04/29/21 History Patient History Medical History (Updated 05/01/21 @ 10:13 by Meredith Tejada MD, PhD) Atrial fibrillation CKD (chronic kidney disease) stage 3, GFR 30-59 ml/min Dementia Diabetes mellitus Hyperlipidemia Obesity BMI 44 04/2021 Obstructive sleep apnea reports he wears no cpap/bipap Surgical History History of appendectomy Family History Father Alzheimer disease Brother Cancer Social History Smoking Status: Never smoker Second Hand Exposure: No; Hx Alcohol Use: Yes Alcohol type: beer and hard liquor Hx Substance Use: No Preferred Language: Russian Communication Ability: Effective Receiver Bulk System Required: No Beliefs That Will Affect Care: None Current Living Situation: Spouse and Family Feels Safe at Home: Yes Assistive Devices: Glasses Review of Systems Review of Systems: All systems reviewed & are unremarkable except as noted in HPI & below Physical Exam Constitutional: well developed, well nourished, + morbidly obese and cooperati ve; no acute distress Eyes: EOM intact bilaterally ENMT: Ears: no external ear abnormality Nose: no external nose abnormality Mouth: + dry oral mucous membranes Neck: no nuchal rigidity Respiratory: normal respiratory effort Auscultation: + diminished lung sounds Cardiovascular: Rate/Rhythm: regular rate and regular rhythm Extremities: no edema Gastrointestinal (Abdomen): Inspection/Auscultation: normal bowel sounds Percussion/Palpation: abdomen soft; abdomen nontender Musculoskeletal: Extremities: strength 5/5 throughout Skin: no rashes, warm and dry Neurologic: santos, fluent speech, no tremor Psychiatric: Orientation: oriented to person, oriented to place and cooperative Genitourinary: felix w/ scant urine Results & Data ([facility]) Vital Signs (Past 12 Hours) Vital Signs Temp Pulse Pulse Resp BP BP Pulse Ox 05/01/21 07:45 37.1 C 87 16 93/69 L 95 05/01/21 04:16 36.6 C 76 18 98/60 L 96 05/01/21 02:53 83 04/30/21 23:10 36.7 C 82 18 102/60 04/30/21 22:19 85 Laboratory Results 05/01/21 05:56 05/01/21 05:56 Urinalysis April 30 Dark yellow cloudy urine with a pH of 5 specific gravity 1019. Trace protein no glucose trace ketones 2+ blood. 2+ leukocyte Estrace 10-30 white cells greater than 30 red cells greater than 30 epithelial cells 1+ bacteria no Treitz bilirubin or urobilinogen. No renal epithelial cells. Random urine sodium 44 No urine osmolality blood, urine cxs ngtd Diagnostic Findings CT a/p no con FINDINGS: Lower chest: No acute abnormality Liver: Unremarkable. No focal lesions are seen. Gallbladder and biliary tree: No calcified gallstones. Normal caliber wall. No intra- or extrahepatic biliary ductal dilation. Pancreas: Unremarkable, no focal lesions. Spleen: Unremarkable. Adrenals: Unremarkable. Kidneys and ureters: Unremarkable. Bladder: Limited evaluation due to underdistention. Reproductive organs: Prostatic calcifications are seen which may represent prior hemorrhage or granulomatous disease. Bowel: Unremarkable. Lymph nodes Retroperitoneal: Unremarkable. Mesenteric: Unremarkable. Pelvic: Unremarkable. Peritoneum: Normal. Vessels: Atherosclerotic calcifications are seen. Abdominal wall: A fat-containing umbilical hernia is seen. Bones: Degenerative changes in the visualized spine. Redemonstration of a commin uted and impacted fracture of the left femur at the level of the greater trochanter. Distraction of the pubic symphysis is less evident on this exam. IMPRESSION: Redemonstration of comminuted fracture of the left femur. Distraction of the pubic symphysis is less evident on this exam and may have been artifactual. No acute intra-abdominal abnormality is seen.
[2021-05-01] MEDS ORDERED: SODIUM CHLORIDE 0.9% 1000ML 1,000 ML IV ONE ×2 (08:45→13:22)
[2021-05-01] MEDS ORDERED: VANCOMYCIN CONSULT ACTIVE PRN (08:47)
[2021-05-01 09:50] LABS: Troponin I 0.03 ng/ml (0-0.04)
[2021-05-01] MEDS ORDERED: DAPTOmycin 600 MG in SYRINGE 0 ML IV SCH (10:00)
[2021-05-01 10:21] LABS: Albumin Level 2.7 gm/dl (3.4-5.0); BUN Creatinine Ratio 9.8 (10-20); Bilirubin,Total 0.7 mg/dl (0.2-1.0); Calcium 7.2 mg/dl (8.5-10.1); Creatinine Clr Calc Pharmacy 19.7 ml/min; Est GFR (African American) 13.5 ml/min; Est GFR (Non-African American) 11.7 ml/min; Globulin 2.6 gm/dl (2.5-4.0); Total Protein 5.3 gm/dl (6.0-8.3)
[2021-05-01] MEDS: CYANOCOBALAMIN (B-12) 500 MCG TABLET PO SCH (10:39)
[2021-05-01] MEDS: ASPIRIN 81 MG ECTAB PO SCH (10:40)
[2021-05-01] MEDS: risperiDONE 0.5 MG TABLET PO SCH (10:40)
[2021-05-01] MEDS: SACCHAROMYCES BOULARDII 250 MG CAP PO SCH (10:41)
[2021-05-01] MEDS: ACETAMINOPHEN 500 MG TAB PO SCH (10:41)
[2021-05-01 10:42] LABS: Base Excess ABG -8.1 mEq/L (-9-1.8); HCO3 ABG 17 mmol/L (19-24); PCO2 ABG 31 mmHg (35-46); PO2 ABG 80 mmHg (80-95); pH ABG 7.35 (7.35-7.45)
[2021-05-01] MEDS: TAMSULOSIN HCL 0.4 MG CAP PO SCH (10:42)
[2021-05-01] MEDS: GABAPENTIN 100 MG CAP PO SCH ×2 (10:42→21:25)
[2021-05-01 10:43] LABS: Allen Test Pos (Pos)
[2021-05-01] MEDS: ALBUMIN 25% 100 mL 25 GM/100 ML VIAL IV SCH ×2 (11:27→16:53)
[2021-05-01] MEDS ORDERED: STAT IV STA (11:28)
[2021-05-01] MEDS ORDERED: STAT IV Infusion **Titration per Protocol STA (11:30)
[2021-05-01] MEDS ORDERED: PHENYLEPHRINE HCL 20 MG in DEXTROSE 5% 500 ML IV SCH (11:40)
[2021-05-01] MEDS ORDERED: fentaNYL citrate 100 MCG/2 ML VIAL ONE (11:41)
[2021-05-01] MEDS ORDERED: CALCIUM GLUCONATE 10% 3,000 MG in DEXTROSE 5% 100 ML IV ONE (11:45)
[2021-05-01] MEDS ORDERED: SODIUM BICARB 8.4% INJ 50 MEQ/50 ML SYR IV ONE (11:45)
--- NOTE | 2021-05-01 12:01 | Hospitalist Progress Note ---
Date of Service May 01, 2021 Assessment & Plan Plan: Concern for severe sepsis and shock -Present on admission with Leukocytosis, hypotension, elevated lactic acid and evidence of end organ damage (GABRIELLA) -No clear source of infection. UA appears contaminated -continue cefepime, daptomycin added -TTE shows grossly normal LV but was otherwise poor study -consented for central access, will transfer to ICU for pressor support Left hip fracture -Surgical management per Surgery -patient not medically stable for surgery GABRIELLA on CKD stage 3 -Appears prerenal based on exam but with ongoing hypotension likely component of ATN as well -appreciate nephrology input HTN -hold lisinopril, metoprolol, lasix due to sepsis, hypotension, GABRIELLA T2DM -hold metformin, trulicity -basal/bolus insuln HLD-continue statin BPH -continue flomax -s/p felix--will continue for accurate I/O and while he is immobilized. History of Dementia -listed on chart, at risk for delirium. Risperdal PRN for agitation. Avoid BZDs. AMBER -cpap ordered Morbid Obesity -BMI 43. Would benefit from terminal manager weight loss counseling DVT ppx SCDs Family was updated on care plan throughout the day Admission and Anticipated Discharge Date Admission Date: April 29, 2021 Subjective Patient reports ongoing left hip pain More alert today--Consented for PICC. Confirmed with him he is full code Physical Exam Physical Exam: Obese, no acute distress, answering questions appropriately Respiratory: breathing comfortably on room air, no wheezing/rhonchi/rales Cardiovascular: regular rate and rhythm Gastrointestinal (Abdomen): Obese, soft, non tender Musculoskeletal: no edema, left hip tenderness Neurologic: awake, alert, (knows he is in the hospital, knows his full name, knows it is 2021) Psychiatric: affect normal, speech linear, non pressured Results & Data Results & Data ([place]) Vital Signs (Past 12 Hours) Vital Signs Temp Pulse Pulse Resp BP BP Pulse Ox 05/01/21 09:03 80/50 L 05/01/21 09:00 70/50 L 05/01/21 08:47 62/40 L 05/01/21 08:46 84/55 L 74/51 L 05/01/21 07:45 37.1 C 87 16 93/69 L 95 05/01/21 04:16 36.6 C 76 18 98/60 L 96 05/01/21 02:53 83 Laboratory Results Short CBC 05/01/21 Range/Units 05:56 WBC 22.47 H (4.8-10.8) K/uL Hgb 9.4 L (14.0-18.0) g/dL Hct 28.5 L (42-52) % Plt Count 186 (130-400) K/uL BMP 04/30/21 05/01/21 05/01/21 14:16 05:56 09:11 Sodium 131 L 130 L 130 L Potassium 4.8 4.6 5.0 Chloride 103 103 104 Carbon Dioxide 17 L 19 L 18 L BUN 39 H 45 H 45 H Creatinine 3.69 H D 4.27 H D 4.57 H* D Glucose 186 H 155 H 169 H Calcium 7.5 L 7.5 L 7.2 L Cardiac Enzymes 05/01/21 05/01/21 Range/Units 09:11 09:11 Total Creatine Kinase 807 H (30-223) U/L Troponin I 0.03 (0-0.04) ng/ml Liver Function 05/01/21 Range/Units 09:11 Total Bilirubin 0.7 D (0.2-1.0) mg/dl AST 27 (13-39) U/L ALT 12 (7-52) U/L Alkaline Phosphatase 26 L (34-104) U/L Albumin 2.7 L (3.4-5.0) gm/dl Medications Administered Current Inpatient Medications Acetaminophen (Acetaminophen 500 Mg Tab) 1,000 mg PO TID SHAE Stop: 05/30/21 13:59 Last Admin: 05/01/21 10:41 Dose: 1,000 mg Documented by: Aspirin (Aspirin 81 Mg Ectab) 81 mg PO DAILY SHAE Stop: 05/30/21 08:59 Last Admin: 05/01/21 10:40 Dose: 81 mg Documented by: Cyanocobalamin (Cyanocobalamin (B-12) 500 Mcg Tablet) 1,000 mcg PO DAILY SHAE Stop: 05/30/21 08:59 Last Admin: 05/01/21 10:39 Dose: 1,000 mcg Documented by: Dextrose (Dextrose 50% 50 Ml Syringe) 25 - 50 ml IV UD PRN; Protocol PRN Reason: Hypoglycemia Protocol Stop: 05/30/21 02:59 Ergocalciferol (Ergocalciferol 50,000 Units 1250 Mcg Cap) 50,000 units PO M o@0900 [facility] Stop: 06/03/21 08:59 Fentanyl Citrate (Fentanyl Citrate 100 Mcg/2 Ml Vial) 50 mcg IV Q15M PRN PRN Reason: Pain Stop: 05/15/21 11:39 Gabapentin (Gabapentin 100 Mg Cap) 100 mg PO BID SHAE Stop: 05/30/21 10:29 Last Admin: 05/01/21 10:42 Dose: 100 mg Documented by: Glucagon (Glucagon For Inj 1 Mg Vial) 1 mg IM UD PRN; Protocol PRN Reason: Hypoglycemia Protocol Stop: 05/30/21 02:59 Glucose (Glucose 40% Gel 15 Gm Tube) 15 - 30 gm PO UD PRN; Protocol PRN Reason: Hypoglycemia Protocol Stop: 05/30/21 02:59 Glucose (Glucose 10 Tabs/Tube) 4 - 8 tabs PO UD PRN; Protocol PRN Reason: Hypoglycemia Protocol Stop: 05/30/21 02:59 Cefepime HCl 2,000 mg/ Syringe 20 mls @ 5 mls/min IV Q24H [facility]; Protocol Stop: 05/02/21 13:59 Last Admin: 04/30/21 14:32 Dose: 5 mls/min Documented by: Sodium Chloride (Nss 1000ml) 1,000 mls @ 125 mls/hr IV .Q8H [facility] Stop: 05/30/21 09:44 Last Admin: 05/01/21 02:51 Dose: 125 mls/hr Documented by: Albumin Human (Albumin 25% 100 Ml) 25 gm in 100 mls @ 50 mls/hr IV Q8H [facility] Stop: 05/04/21 08:59 Last Admin: 05/01/21 11:27 Dose: 50 mls/hr Documented by: Daptomycin 600 mg/ Syringe 12 mls @ 6 mls/min IV Q48H [facility]; Protocol Stop: 05/08/21 09:59 Last Admin: 05/01/21 11:27 Dose: 6 mls/min Documented by: Calcium Gluconate 3,000 mg/ (Dextrose) 130 mls @ 65 mls/hr IV ONE ONE Stop: 05/01/21 13:44 Last Admin: 05/01/21 12:00 Dose: 65 mls/hr Documented by: Phenylephrine HCl 20 mg/ (Dextrose) 502 mls @ 105.044 mls/hr IV .Q4H47M [facility]; Protocol Stop: 05/31/21 11:39 Insulin Aspart (Insulin Aspart Per Unit) 0 units SC Q6 [facility] Stop: 05/30/21 05:59 Last Admin: 05/01/21 05:34 Dose: 1 units Documented by: Miscellaneous (Carbohydrates For Hypoglycemia ) 15 - 30 gm PO UD PRN PRN Reason: Hypoglycemia Treatment Stop: 05/30/21 02:59 Miscellaneous Information (Daptomycin Consult Active) 1 ea N/A UD PRN PRN Reason: Consult Stop: 05/31/21 09:29 Ondansetron HCl (Ondansetron Inj 2 Mg/Ml 2 Ml Vial) 4 mg IV Q6H PRN PRN Reason: Nausea Stop: 05/30/21 02:14 Last Admin: 04/30/21 20:05 Dose: 4 mg Documented by: Polyethylene Glycol (Polyethylene (Miralax) 17 Gm Pack) 17 gm PO DAILY PRN PRN Reason: Constipation Stop: 05/30/21 02:14 Risperidone (Risperidone 0.5 Mg Tablet) 0.5 mg PO QAM [facility] Stop: 05/30/21 11:59 Last Admin: 05/01/21 10:40 Dose: 0.5 mg Documented by: Saccharomyces Boulardii (Saccharomyces Boulardii 250 Mg Cap) 250 mg PO BID [facility] Stop: 05/30/21 20:59 Last Admin: 05/01/21 10:41 Dose: 250 mg Documented by: Tamsulosin HCl (Tamsulosin Hcl 0.4 Mg Cap) 0.4 mg PO DAILY [facility] Stop: 05/30/21 08:59 Last Admin: 05/01/21 10:42 Dose: 0.4 mg Documented by: Tramadol HCl (Tramadol Hcl 50 Mg Tablet) 100 mg PO Q6 PRN PRN Reason: severe pain Stop: 05/30/21 11:59 Last Admin: 05/01/21 01:15 Dose: 100 mg Documented by: Tramadol HCl (Tramadol Hcl 50 Mg Tablet) 50 mg PO Q6 PRN PRN Reason: moderate pain Stop: 05/30/21 11:59 Critical Care Time 45 minutes. At least 50% of time was spent on direct patient care. Remaining time was spent on coordination of care.
[2021-05-01] MEDS: fentaNYL citrate 100 MCG/2 ML VIAL IV PRN ×2 (12:05→12:58)
--- NOTE | 2021-05-01 12:35 | XRay Report ---
XR chest 1V portable CLINICAL HISTORY: central line TECHNIQUE: Single frontal radiograph of the chest was obtained. Comparison: Comparison is made to chest one view 04/29/2021 FINDINGS: A right jugular venous catheter tip is in the mid SVC. The cardiomediastinal silhouette is normal. Maria L ngs are underinflated but clear. No evidence of pleural effusion or pneumothorax. IMPRESSION: Satisfactory position of right jugular venous catheter. ACT 112: Negative or not required by law. Electronically signed by: Rishi Bowden M.D. 05/01/2021 12:33 PM
[2021-05-01 12:44] LABS: Basophils # (auto) 0.02 K/uL (0-0.2); Basophils % (auto) 0.1 %; Eosinophils # (auto) 0.05 K/uL (0-0.5); Eosinophils % (auto) 0.2 %; Hematocrit (blood only) 24.3 % (42-52); Immature Granulocytes # (auto) 0.05 K/uL (0.00-0.02); Immature Granulocytes % (auto) 0.2 %; Lymphocytes % (auto) 12.7 %; Mean Corpuscular Hemoglobin 31.7 pg (25-34); Mean Corpuscular Hgb Conc 32.9 g/dL (32-36); Mean Corpuscular Volume 96.4 fL (80-100); Monocytes # (auto) 2.39 K/uL (0.11-0.59); Monocytes % (auto) 11.3 %; Neutrophils % (auto) 75.5 %; Platelet Count 163 K/uL (130-400); RDW Standard Deviation 49.3 fL (36.4-46.3); Red Blood Count 2.52 M/uL (4.7-6.1); White Blood Count 21.21 K/uL (4.8-10.8)
[2021-05-01 12:54] LABS: Fibrinogen 411 mg/dl (184-400)
--- NOTE | 2021-05-01 13:05 | Procedure Note ---
Procedure Note Date of Service May 01, 2021 Note CENTRAL LINE PROCEDURE NOTE: Procedure: Central Line Placement Provider: Pankaj Francis MD Indication: Central Drug Administration, Poor Venous Access, Multiple Lab Draws Necessary, etc. Anesthesia: 4 mL lidocaine 1% Site: Right internal jugular Verbal consent was obtained from the patient prior to commencement of the procedure. Risks and benefits were explained. Questions were answered. He agreed to proceed. Due to urgency of the situation, written consent was not obtained. A time-out was completed verifying correct patient, procedure, site, positioning, and implants(s) or special equipment if applicable. Patients right neck was cleansed and draped in the typical sterile fashion using Chloraprep. The Internal Jugular Vein and Carotid Artery were identified using ultrasound. The internal jugular vein demonstrated complete collapse with respiration suggestive of low filling pressures. The superficial tissue was anesthetized using 4mL of 1% lidocaine without epinephrine under direct visualization with the ultrasound. After adequate anesthetization was achieved, the Internal Jugular vein was cannulated under direct ultrasound guidance using an introducer needle on a syringe. Good venous blood return was maintained prior to removal of syringe from introducer needle. Using Seldinger Technique, a guide wire was advanced through the introducer needle without resistance. The introducer needle was removed and ultrasound images were obtained of the guide wire within the Internal Jugular Vein and saved to the patients medical record. A small incision was made in penetrating fashion at the guide wire insertion site utilizing an 11 blade scalpel. The dilator was advanced to the vessel without resistance. The dilator was exchanged for the triple lumen catheter which was advanced into the vessel without resistance. The guide wire was removed intact from the catheter without issue. Claves were placed on each catheter tip with confirmation of good blood flow from each lumen. Each port was easily flushed with sterile saline. The catheter was placed at 15cm and sutured in place. BioPatch was applied to the catheter and a sterile Tegaderm dressing was applied over the catheter with careful attention to sterility. Patient tolerated procedure well. No immediate complications were met. Post procedure x-ray was completed, placement was appropriate and no pneumothorax was noted. Estimated blood loss: 5 mL Coding CPT Codes Tubes, Drains, and Vasc Access - Tubes, Drains, and Vasc Access: [id number] Place catheter in vein superior or inferior vena cava ([id number]) Tubes, Drains, and Vasc Access - Tubes, Drains, and Vasc Access: [id number] Ultrasound Guidance For Vascular ([id number]) [facility] Procedure Codes (Charges) Tubes, Drains, and Vasc Access Procedure 1: Tubes, Drains, and Vasc Access: [id number] Place catheter in vein superior or inferior vena cava Procedure 2: Tubes, Drains, and Vasc Access: [id number] Ultrasound Guidance For Vascular
--- NOTE | 2021-05-01 13:06 | Procedure Note ---
Procedure Note Date of Service May 01, 2021 Note ARTERIAL LINE PROCEDURE NOTE: Procedure: Arterial Line Placement Provider: Pankaj Francis MD Indication: Monitoring on Pressors Anesthesia: None Verbal consent was obtained from the patient. Due to urgency of the situation, written consent was not available. Questions were answered. Risks and benefits were discussed with the patient. A time-out was completed verifying correct patient, procedure, site, positioning, and implant(s) or special equipment if applicable. Allens test was performed to ensure adequate perfusion. Patients rightwrist was prepped and draped in the usual sterile fashion. Ultrasound guidance was used to aid needle placement. A 20g Arrow arterial line was introduced into the right radial artery. Catheter was threaded, and the needle was removed with appropriate blood return. Good waveform was observed. The patient tolerated the procedure well. Estimated blood loss: Less than 3 mL Coding CPT Codes Tubes, Drains, and Vasc Access - Tubes, Drains, and Vasc Access: [id number] Insertion Catheter, Artery ([id number]) Tubes, Drains, and Vasc Access - Tubes, Drains, and Vasc Access: [id number] Ultrasound Guidance For Vascular ([id number]) [facility] [place] Procedure Codes (Charges) Tubes, Drains, and Vasc Access Procedure 1: Tubes, Drains, and Vasc Access: [id number] Insertion Catheter, Artery Procedure 2: Tubes, Drains, and Vasc Access: [id number] Ultrasound Guidance For Vascular
--- NOTE | 2021-05-01 13:48 | Critical Care Consultation ---
Date of Consultation May 01, 2021 Assessment & Plan (1) Fall: (2) CKD (chronic kidney disease): (3) Fracture of hip: (4) Dementia: (5) Diabetes mellitus: (6) Acute renal failure superimposed on stage 3 chronic kidney disease: (7) Leukocytosis: This is a 75-year-old male status post fall 1930 6 hours ago resulting in a left femur fracture. Patient's blood pressure has been low with a mean arterial pressure in the mid 50s despite resuscitation efforts with fluid boluses. Patient ultimately had a central line as well as an arterial line placed for large fluid resuscitation and pressure monitoring. Patient is currently stabilized on fluids and phenylephrine. Neuro: Patient seems to have a baseline dementia that could be exacerbated due to low perfusion as well as pain management. Will require PT and OT when stabilized and medically cleared by Ortho. Cardio: Patient arrived with a mean arterial pressure of 55 despite fluid resuscitation. A central venous line was placed and arterial line was established. Fluid bolus is currently running in the central venous line as well as phenylephrine for pressure support. Based off of physical exam and visualization of internal jugular vein collapse during inspiration, hypotension likely due to hypovolemia secondary to blood loss from hip fracture. Continue to monitor mean arterial pressure utilizing arterial line. Ordered CT of hip and femur to evaluate for hematoma, discussed with radiology, there is a hematoma present likely indicating active bleeding. Continue to hold blood pressure medications. Respiratory: No problems at this time. Saturating well at 96% on room air. Renal: Patient has acute renal failure likely secondary to poor perfusion due to hypovolemia secondary to bleeding from femur fracture. Currently receiving fluid boluses and phenylephrine to maintain perfusion. Creatinine currently at 4.57. Nephrology is already consulted and will make recommendations regarding care and indications for dialysis. Appreciate recommendations. Continue to hold nephrotoxic agents. Infectious disease: Patient is only met one of the SIRS criteria. Patient has not been tachycardic, febrile, or tachypneic. Blood cultures have been drawn as well as urine cultures. Both of which have been negative within the first 24 hours. Due to current hypotension, however, will cover for urosepsis as patient had a white count as well as positive leuk esterase on UA. Discontinue cefepime, start Rocephin 2 g every 24 hour until cultures are negative after 48 hours. Heme-onc: Hemoglobin downtrending from 14.5 down to 8.0 most recently. Drop in hemoglobin due to active bleeding at femur fracture site resulting in hematoma. Due to active bleeding, consented patient to receive 1 unit of blood currently. Repeat H&H after blood transfusion. Repeat CBC in a.m. INR at 1.1. Platelets at 163. Fibrinogen pending. Endocrine: ICU glycemic protocol for his diabetes. TSH normal MSK: We will discuss fracture with active bleed with orthopedics as well as anesthesiology and discussed plan about what needs to be done about left femur fracture with associated bleed whether it needs to be fixation of the femur or embolization. Appreciate Ortho recommendations. May require transfer to higher level of care depending on recommendations. CODE STATUS: Full code Disposition: ICU for phenylephrine drip to maintain pressures Diet: N.p.o. until Ortho recommendations Supervising Physician Co-Signing Physician Notes Patient seen and examined. EMR reviewed. Discussed with family practice resident as well as with bedside critical care nurse. Agree with assessment plan as noted. I assessed the patient on arrival to the ICU. He had a wide pulse pressure. He had significant internal jugular venous collapse suggestive of volume depletion. Additional crystalloid was administered. He failed to respond and an arterial line and central line were placed. In light of his decreasing hemoglobin, CT of the thigh was performed which revealed extensive hematoma in the piriformis, left gluteus minimus, and left adductor compartment and quadriceps compartments. His coagulation panel and fibrinogen were normal. He received bicarb for mild acidosis. Discussed with nephrology. No plans for immediate dialysis. Calcium was repleted as well. Discussed with orthopedics. They would like to have CT angiogram and/or embol ization performed prior to consideration of surgery. Discussed with interventional cardiology who states this is not something that can be done here. They recommended interventional radiology. Again reviewed with orthopedics who agreed with transfer to facility capable of IR intervention. Discussed with hospitalist service recommendations to transfer to tertiary care facility. We will continue to monitor blood counts and wean pressors as tolerated. The patient may progress to renal failure requiring dialysis. I do not think the patient is in septic shock. Antibiotics will be deescalated and can likely be discontinued in the next 24 to 48 hours depending on culture data. A total of 95 minutes critical care time was spent in evaluation management and stabilization of this patient exclusive of procedures including discussion with multiple consultants. History of Present Illness Reason for Consultation: Hypotension despite fluid resuscitation. Attending Physician: Jeet Brannon MD History of Present Illness Patient is a 75-year-old male with past medical history for type 2 diabetes, hyperlipidemia, obstructive sleep apnea, hypertension, paroxysmal atrial fibrillation, vitamin B12 deficiency, morbid obesity, stage III chronic kidney disease, and dementia presenting to the hospital status post fall approximately 36 hours ago. The fall resulted in a left femur fracture. Patient was at home when he had taken the fall his had taken him to the emergency room where he was diagnosed. He was admitted to the hospital to have orthopedic consultation. While he was in the hospital he started having increasing creatinine as well as low blood pressures that were nonresponsive to fluid resuscitation. ICU services were consulted due to the fact that he was getting boluses of fluid (2 L as far as I had seen) without any response in hypotension. Patient is currently alert and oriented, however, there seems to be some baseline dementia and his history. He does remember having the fall but cannot accurately tell me when it was. He cannot tell me what he was feeling prior to the fall or if he hit his head. Patient is pleasant but seems to be a little bit confused about situation. Patient is reporting some pain in his left hip that he is saying is becoming unbearable. Otherwise patient reports that he is not having any shortness of breath or chest pain. No other complaints currently at this time. Allergies Allergy/AdvReac Type Severity Reaction Status Date / Time No Known Allergies Allergy NONE Verified 04/29/21 21:45 Home Medications Medication Instructions Recorded Confirmed Type aspirin 81 mg tablet,delayed 81 mg PO DAILY 04/29/21 04/29/21 History release cholecalciferol (vitamin D3) 1,250 1,250 mcg PO WK 04/29/21 04/29/21 History mcg (50,000 unit) capsule cyanocobalamin (vitamin B-12) 1,000 mcg PO DAILY 04/29/21 04/29/21 History 1,000 mcg tablet (Vitamin B-12) dulaglutide 0.75 mg/0.5 mL 0.75 mg SUBCUT WK 04/29/21 04/29/21 History subcutaneous pen injector (Trulicity) furosemide 20 mg tablet 20 mg PO DAILY 04/29/21 04/29/21 History lisinopril 10 mg tablet 10 mg PO DAILY 04/29/21 04/29/21 History metformin 500 mg tablet,extended 500 mg PO DAILY 04/29/21 04/29/21 History release 24 hr metoprolol tartrate 25 mg tablet 25 mg PO BID 04/29/21 04/29/21 History simvastatin 40 mg tablet 40 mg PO HS 04/29/21 04/29/21 History tamsulosin 0.4 mg capsule 0.4 mg PO DAILY 04/29/21 04/29/21 History Patient History Medical History (Updated 05/01/21 @ 10:13 by Meredith Tejada MD, PhD) Atrial fibrillation CKD (chronic kidney disease) stage 3, GFR 30-59 ml/min Dementia Diabetes mellitus Hyperlipidemia Obesity BMI 44 04/2021 Obstructive sleep apnea reports he wears no cpap/bipap Surgical History History of appendectomy Family History Father Alzheimer disease Brother Cancer Social History Smoking Status: Never smoker Second Hand Exposure: No; Hx Alcohol Use: Yes Alcohol type: beer and hard liquor Hx Substance Use: No Preferred Language: Thai Communication Ability: Effective Network Technician Required: No Beliefs That Will Affect Care: None Current Living Situation: Spouse and Family Feels Safe at Home: Yes Assistive Devices: Glasses Review of Systems Review of Systems: All systems reviewed & are unremarkable except as noted in HPI & below Physical Exam Constitutional: well developed, well nourished, + ill appearing and + morbidly obese Eyes: PERRL, conjunctivae normal, anicteric sclerae ENMT: Mallampati Class: IV Throat: uvula midline Neck: trachea midline, no thyromegaly normal visual inspection Respiratory: normal respiratory effort, lungs clear to auscultation Cardiovascular: RRR, no murmur, no edema Vessels: no JVD Gastrointestinal (Abdomen): normal bowel sounds, soft, nontender, no hepatosplenomegaly Musculoskeletal: Head/Neck/Chest: normocephalic Increased tissue size and hyperemia of the thigh on the left compared to the right. Tenderness to palpation of the left hip. Skin: no rashes, warm and dry + turgor decreased Neurologic: moves all extremities Cranial Nerves: PERRL and tongue midline Psychiatric: Orientation: alert, oriented to person and cooperative Results & Data Results & Data ([facility]) Vital Signs (Past 12 Hours) Vital Signs Temp Pulse Pulse Resp BP BP Pulse Ox 05/01/21 09:03 80/50 L 05/01/21 09:00 70/50 L 05/01/21 08:47 62/40 L 05/01/21 08:46 84/55 L 74/51 L 05/01/21 07:45 37.1 C 87 16 93/69 L 95 05/01/21 04:16 36.6 C 76 18 98/60 L 96 05/01/21 02:53 83 Resident Activity Tracking Resident Involvement: Resident Care Provided Care Provided: Adult Hospital Medicine (1) Fracture of hip Encounter type: initial encounter Fracture type: closed Laterality: left Qualified Code(s): S72.002A - Fracture of unspecified part of neck of left femu r, initial encounter for closed fracture (2) Leukocytosis Leukocytosis type: unspecified Qualified Code(s): D72.829 - Elevated white blood cell count, unspecified (3) CKD (chronic kidney disease) Chronic kidney disease stage: unspecified stage Qualified Code(s): N18.9 - Chronic kidney disease, unspecified (4) Fall Encounter type: initial encounter Qualified Code(s): W19.XXXA - Unspecified fall, initial encounter
[2021-05-01] MEDS ORDERED: SODIUM CHLORIDE 0.9% 250 ML IV PRN (13:52)
[2021-05-01] MEDS ORDERED: ICU PROTOCOL FOR HYPERGLYCEMIA PRN (14:11)
[2021-05-01] MEDS: ONDANSETRON INJ 2 MG/ML 2 ML VIAL IV PRN (15:04)
[2021-05-01] MEDS: CEFEPIME 2,000 MG in SYRINGE 0 ML IV SCH (15:09)
--- NOTE | 2021-05-01 15:14 | CT Scan Report ---
CT abd pelvis wo con CLINICAL HISTORY: Recent fall with left hip fracture. Evaluate for hematoma. COMPARISON STUDY: 04/30/2021 CT DOSE: TECHNIQUE: Standard CT of the Abdomen and Pelvis was performed without IV contrast. The patient did not receive oral contrast. A dose lowering technique was utilized adhering to the principles of FIDENCIO Gagnon. FINDINGS: Lung base: There is minimal left basilar atelectasis. The lung bases are otherwise clear. Abdominal cavity: There is no evidence for abdominal mass, adenopathy or ascites. A small umbilical h ernia containing mesenteric fat is again seen. Liver: The liver is homogeneous in attenuation on these limited noncontrast images.. Spleen: The spleen is homogeneous in attenuation on these limited noncontrast images. Pancreas: The pancreas is homogeneous in attenuation on these limited noncontrast images. Gall Bladder: The gallbladder is well distended with no evidence for cholelithiasis, wall thickening or pericholecystic edema.. Adrenal glands: The adrenal glands are normal in size and attenuation on these limited noncontrast im ages. Kidneys: The kidneys are homogeneous in attenuation on these limited noncontrast images. There is no evidence for gross renal mass, calculus or hydronephrosis bilaterally. Bowel: The bowel loops are normally placed within the abdomen and pelvis without evidence for dilatat ion or obstruction. There is no evidence for mass lesion. There are no inflammatory changes present. There is no evidence for free air. Bladder: There is no evidence for focal bladder wall thickening, calculus or diverticulum. : There is no evidence for pelvic mass or adenopathy. Vasculature: There is no evidence for focal aneurysmal dilatation of the abdominal aorta. Osseous structures: Comminuted intertrochanteric fracture of the left femoral neck is again seen. The re is diffuse edema of the muscles surrounding the left hip. However, no focal fluid collection or he matoma is identified on these limited noncontrast images. IMPRESSION: 1. Comminuted, intertrochanteric fracture left femoral neck is again seen with diffuse edema of the m uscle surrounding the hip. However, no focal fluid collection or definite hematomas identified on the se limited noncontrast images. 2. Otherwise, no acute intra-abdominal or pelvic abnormality on these limited noncontrast images. 3. Additional nonacute findings are delineated above. ACT 112: Negative or not required by law. Electronically signed by: Andrew Jerez M.D. 05/01/2021 3:13 PM
--- NOTE | 2021-05-01 15:26 | CT Scan Report ---
CT SCAN OF THE LEFT FEMUR WITHOUT IV CONTRAST CLINICAL HISTORY: Femoral fracture. Drop in hematocrit. COMPARISON STUDY: Pelvic CT dated 04/30/2021. Left femoral radiographs dated 04/29/2021. TECHNIQUE: CT scan of the left femur is performed from the bony pelvis to the knee. Images are review ed in the axial, sagittal, and coronal planes. IV contrast was not administered for this examination. A dose lowering technique was utilized adhering to the principles of ALARA. CT DOSE: 3384.15 mGycm FINDINGS: The skeletal structures are osteopenic. Again seen is a comminuted intertrochanteric/subtrochanteric fracture of the left femur with displaced fragments and surrounding hemorrhage. There is likely exter nal rotation of the femoral shaft. The distal femur appears intact, as does the visualized left hemip lali. No lytic or blastic lesion is seen. Sclerotic change is noted in the left sacroiliac joint. There is generalized atrophy of the regional musculature. Intramuscular hemorrhage is seen involving the left piriformis muscle and the gluteus minimus muscle. There is significant hemorrhage throughout the adductor compartment/musculature, with milder hemorrhage seen throughout the quadriceps compartm ent. No free fluid is seen within the visualized pelvis. The bladder is decompressed around a Byrnes c atheter. IMPRESSION: 1. Again seen is a comminuted intertrochanteric/subtrochanteric fracture of the left femur with displ aced fragments and surrounding hemorrhage. 2. Intramuscular hemorrhage is noted within the left piriformis and the left gluteus minimus muscles. 3. There is also significant hemorrhage throughout the left adductor compartment with milder hemorrha ge throughout the quadriceps compartment. ACT 112: Negative or not required by law. Dictated: 05/01/2021 2:40 PM Transcribed: 05/01/2021 3:01 PM Veronica [id number] [email or web address] Electronically signed by: Bonifacio Kennedy M.D. 05/01/2021 3:25 PM
[2021-05-01] MEDS: PHENYLEPHRINE HCL 40 MG in DEXTROSE 5% 500 ML IV SCH ×3 (15:54→21:17)
--- NOTE | 2021-05-01 15:54 | Billing Data ---
Date of Service May 01, 2021 Coding Level of Care Code Critical Care ea addt'l 30 min Time Spent (min) 95 Comment [id number] and [id number]
[2021-05-01 15:58] LABS: Magnesium 1.7 mg/dl (1.7-2.4); Phosphorus 4.3 mg/dl (2.5-4.9)
[2021-05-01] MEDS ORDERED: cefTRIAXone SODIUM 2,000 MG in DEXTROSE 5% 50 ML IV SCH (16:00)
[2021-05-01] MEDS ORDERED: MAGNESIUM SULFATE / D5W 1 GM/100 ML BAG IV ONE (16:20)
[2021-05-01 17:22] LABS: Hematocrit (blood only) 29.3 % (42-52); Hemoglobin 9.7 g/dL (14.0-18.0)
[2021-05-01] MEDS ORDERED: OPTIRAY 320 125ml IV ONE (17:41)
[2021-05-01 17:48] LABS: Albumin Globulin Ratio 1.1 (0.9-2); Albumin Level 2.9 gm/dl (3.4-5.0); BUN Creatinine Ratio 10.4 (10-20); Bilirubin,Total 0.6 mg/dl (0.2-1.0); Calcium 7.4 mg/dl (8.5-10.1); Creatinine Clr Calc Pharmacy 21.7 ml/min; Est GFR (African American) 15.2 ml/min; Est GFR (Non-African American) 13.2 ml/min; Globulin 2.7 gm/dl (2.5-4.0); Potassium 4.6 mmol/L (3.5-5.1); Total Protein 5.6 gm/dl (6.0-8.3)
--- NOTE | 2021-05-01 18:40 | CT Scan Report ---
CT angio femur LT wo/w con HISTORY: 75 years-old Male concern for active bleed. [Extravasation COMPARISON: CT abdomen and pelvis and CT left femur of same day TECHNIQUE: CTA of the left femur was obtained both with and without the use of 120 mL Optiray 320. 3- D coronal and sagittal MIPS were obtained from the axial data set and were submitted for review. A do se lowering technique was used consistent with the principals of JIMY. FINDINGS: CTA: Patent imaged left external iliac artery with mild atherosclerosis. The common femoral, profunda femo ris, superficial femoral and popliteal arteries are patent. No high-grade stenosis or arterial occlus ion. No active extravasation. CT: A comminuted intertrochanteric/subtrochanteric fracture of the left femur is redemonstrated with disp laced fragments and surrounding soft tissue and intramuscular hemorrhage. Unchanged alignment from pr ior. Numerous tiny fracture fragments extend into the adjacent musculature as seen on image 143 for e xample which are unchanged. The distal femur appears intact. No acute fracture of the imaged left hem ipelvis. No lytic or blastic lesion is seen. Sclerotic change is noted in the left sacroiliac joint. There is generalized atrophy of the regional musculature. Intramuscular hemorrhage is seen involving the left piriformis muscle and the gluteus minimus muscle. There is significant hemorrhage throughout the adductor compartment/musculature, with less extensive hemorrhage seen throughout the quadriceps compartment. No free fluid is seen within the visualized pelvis. The bladder is decompressed around a Byrnes catheter. Left hydrocele. Atrophy of the hamstring musculature. Small left knee joint effusion . IMPRESSION: 1. Acute comminuted, displaced and angulated intertrochanteric/subtrochanteric fracture of the left f emur redemonstrated with unchanged alignment. 2. Left pelvic and thigh perifascial and intramuscular hemorrhage and edema redemonstrated. No eviden ce of active extravasation. ACT 112: Negative or not required by law. The above report was generated using voice recognition software. It may contain grammatical, syntax o r spelling errors. Electronically signed by: Ryan Hood M.D. 05/01/2021 6:39 PM
--- NOTE | 2021-05-01 19:17 | Communication Note ---
Date of Service: May 01, [address] Francis earlier this evening. Patient was having bleeding into his left thigh. Question of arterial bleed. Patient had dropped his hemoglobin down from 14-8 and was being transfused. Blood pressures remaining low. Patient currently with resting comfortably. CTA was performed. Results below. Dr. Stone to review the case this evening. CT angio femur LT wo/w con HISTORY: 75 years-old Male concern for active bleed. [Extravasation COMPARISON: CT abdomen and pelvis and CT left femur of same day TECHNIQUE: CTA of the left femur was obtained both with and without the use of 120 mL Optiray 320. 3-D coronal and sagittal MIPS were obtained from the axial data set and were submitted for review. A dose lowering technique was used consistent with the principals of JIMY. FINDINGS: CTA: Patent imaged left external iliac artery with mild atherosclerosis. The common femoral, profunda femoris, superficial femoral and popliteal arteries are patent. No high-grade stenosis or arterial occlusion. No active extravasation. CT: A comminuted intertrochanteric/subtrochanteric fracture of the left femur is redemonstrated with displaced fragments and surrounding soft tissue and intramuscular hemorrhage. Unchanged alignment from prior. Numerous tiny fracture fragments extend into the adjacent musculature as seen on image 143 for example which are unchanged. The distal femur appears intact. No acute fracture of the imaged left hemipelvis. No lytic or blastic lesion is seen. Sclerotic change is noted in the left sacroiliac joint. There is generalized atrophy of the regional musculature. Intramuscular hemorrhage is seen involving the left piriformis muscle and the gluteus minimus muscle. There is significant hemorrhage throughout the adductor compartment/musculature, with less extensive hemorrhage seen throughout the quadriceps compartment. No free fluid is seen within the visualized pelvis. The bladder is decompressed around a Byrnes catheter. Left hydrocele. Atrophy of the hamstring musculature. Small left knee joint effusion. IMPRESSION: 1. Acute comminuted, displaced and angulated intertrochanteric/subtrochanteric fracture of the left femur redemonstrated with unchanged alignment. 2. Left pelvic and thigh perifascial and intramuscular hemorrhage and edema re demonstrated. No evidence of active extravasation.
[2021-05-01] MEDS ORDERED: Nursing to Pharmacy Communication SCH (20:45)
[2021-05-01] MEDS: SODIUM BICARBONATE 8.4% 75 MEQ in SODIUM CHLORIDE 0.45 % 1,000 ML IV SCH (21:23)
[2021-05-01 22:42] LABS: Hematocrit (blood only) 29.5 % (42-52); Hemoglobin 9.7 g/dL (14.0-18.0)
[2021-05-01 23:00] LABS: BUN Creatinine Ratio 10.7 (10-20); Calcium 7.5 mg/dl (8.5-10.1); Creatinine Clr Calc Pharmacy 22.9 ml/min; Est GFR (African American) 16.2 ml/min; Magnesium 1.8 mg/dl (1.7-2.4); Phosphorus 4.1 mg/dl (2.5-4.9); Potassium 4.5 mmol/L (3.5-5.1)
[2021-05-02] MEDS: PHENYLEPHRINE HCL 40 MG in DEXTROSE 5% 500 ML IV SCH ×4 (00:30→06:12)
[2021-05-02] MEDS: INSULIN ASPART PER UNIT SC SCH ×4 (00:36→18:44)
[2021-05-02] MEDS: SODIUM CHLORIDE 0.9% 1000ML 1,000 ML IV SCH ×4 (00:42→18:22)
[2021-05-02] MEDS: ALBUMIN 25% 100 mL 25 GM/100 ML VIAL IV SCH ×3 (01:00→16:36)
[2021-05-02 02:24] LABS: Mean Corpuscular Hemoglobin 32.3 pg (25-34); Mean Corpuscular Hgb Conc 33.3 g/dL (32-36); Mean Corpuscular Volume 96.8 fL (80-100); Mean Platelet Volume 10.4 fL (7.4-10.4); Platelet Count 164 K/uL (130-400); RDW Coefficient of Variation 14.2 % (11.5-14.5); RDW Standard Deviation 50.5 fL (36.4-46.3); Red Blood Count 2.79 M/uL (4.7-6.1); White Blood Count 22.27 K/uL (4.8-10.8)
[2021-05-02 02:50] LABS: Albumin Level 3.1 gm/dl (3.4-5.0); Bilirubin Direct 0.2 mg/dl (0-0.2); Bilirubin,Total 0.7 mg/dl (0.2-1.0); Calcium 7.5 mg/dl (8.5-10.1); Creatinine Clr Calc Pharmacy 24.6 ml/min; Est GFR (African American) 17.8 ml/min; Est GFR (Non-African American) 15.3 ml/min; Magnesium 1.7 mg/dl (1.7-2.4); Phosphorus 3.6 mg/dl (2.5-4.9); Potassium 4.1 mmol/L (3.5-5.1); Total Protein 5.5 gm/dl (6.0-8.3)
[2021-05-02 02:53] LABS: Basophils # (auto) 0.03 K/uL (0-0.2); Basophils % (auto) 0.1 %; Eosinophils # (auto) 0.19 K/uL (0-0.5); Eosinophils % (auto) 0.9 %; Immature Granulocytes # (auto) 0.07 K/uL (0.00-0.02); Immature Granulocytes % (auto) 0.3 %; Lymphocytes # (auto) 3.06 K/uL (1.2-3.4); Lymphocytes % (auto) 13.7 %; Monocytes # (auto) 2.11 K/uL (0.11-0.59); Monocytes % (auto) 9.5 %; Neutrophils # (auto) 16.81 K/uL (1.4-6.5); Neutrophils % (auto) 75.5 %; RBC Morphology Unremarkable
[2021-05-02] MEDS ORDERED: STAT IV STA (03:21)
[2021-05-02] MEDS: SODIUM BICARBONATE 8.4% 75 MEQ in SODIUM CHLORIDE 0.45 % 1,000 ML IV SCH ×2 (03:21→13:05)
[2021-05-02] MEDS ORDERED: CALCIUM GLUCONATE 10% 2,000 MG in DEXTROSE 5% 50 ML IV ONE (03:30)
[2021-05-02] MEDS ORDERED: PHENYLEPHRINE HCL 80 MG in DEXTROSE 5% 500 ML IV SCH (05:00)
[2021-05-02] MEDS: PHENYLEPHRINE HCL 80 MG in SODIUM CHLORIDE 0.9% 500 ML IV SCH ×8 (06:12→20:08)
[2021-05-02 06:44] LABS: Hematocrit (blood only) 27.7 % (42-52); Hemoglobin 9.3 g/dL (14.0-18.0)
[2021-05-02 07:14] LABS: BUN Creatinine Ratio 10.8 (10-20); Calcium 7.8 mg/dl (8.5-10.1); Creatinine Clr Calc Pharmacy 27.5 ml/min; Est GFR (African American) 19.8 ml/min; Est GFR (Non-African American) 17.1 ml/min; Magnesium 1.7 mg/dl (1.7-2.4); Phosphorus 3.3 mg/dl (2.5-4.9); Potassium 4.1 mmol/L (3.5-5.1)
[2021-05-02] MEDS: GABAPENTIN 100 MG CAP PO SCH ×3 (08:30→20:31)
--- NOTE | 2021-05-02 08:30 | Critical Care Progress Note ---
Date of Service May 02, 2021 Assessment & Plan (1) Fall: (2) CKD (chronic kidney disease): (3) Fracture of hip: (4) Dementia: (5) Diabetes mellitus: (6) Acute renal failure superimposed on stage 3 chronic kidney disease: (7) Leukocytosis: Plan: Impression: 75-year-old male status post fall resulting in a left femur fracture. Transferred to the ICU 05/01/2021 for progressive renal failure and hypotension. 24-hour events: Patient transferred to the ICU. Central line and arterial line were placed. Repeat imaging of the thigh demonstrated extensive hematoma. CT angiogram failed to demonstrate active extravasation. He was volume resuscitated and received 1 unit of packed cells. He was started on phenylephrine. Extensive discussions were held with interventional radiology, orthopedics, and the primary service. Tertiary facility was contacted for potential transfer however they felt transfer was not indicated. Orthopedics at [facility] recommended placing the patient in traction. Recommendations: Neuro: Likely underlying dementia. Appears to be doing well clinically. Continue to maintain sleep-wake cycles and avoid medications which could potentially add to the patient's delirium. Analgesia with fentanyl appears to be adequate. Cardio: Hemorrhagic shock secondary to bleeding in the thigh. No extravasation on CT scan in the patient's hemoglobin has been stable overnight. Continue to wean Jared-Synephrine as tolerated. Continue to hold all the patient's outpatient antihypertensive regimens. We will see if low-dose midodrine might be helpful in getting him off pressors. No indication for glucagon currently Respiratory: No current issues. Oxygen as needed Renal: Acute renal failure likely secondary to ATN and possible continued use of DOMENICA inhibitor in the outpatient setting. Urine output and creatinine are improving today. Continues on the bicarb infusion and will defer to nephrology. Will replace calcium this morning. Appreciate nephrology assistance Infectious disease: Cultures negative to date. Will discontinue antibiotics at this point time and follow clinically Heme-onc: Acute hemorrhage in the thigh. Hemoglobin hematocrit of been stable. Coagulation profiles are stable. Continue to follow clinically Endocrine: ICU glycemic protocol for his diabetes. Random cortisol at 25. As he does not appear septic, no indication for treatment of relative adrenal insufficiency. GI: Patient is currently n.p.o. pending decision regarding operative intervention of the hip fracture. Can restart diet MSK: Per orthopedic surgery. From a medical standpoint, the patient appears to be stabilized and from a critical care standpoint I think he is stable to undergo surgical repair of his hip fracture. Delaying repair would likely increase the patient's morbidity and mortality at this point time. CODE STATUS: Full code Disposition: ICU for phenylephrine drip to maintain pressures Diet: N.p.o. until Ortho recommendations Admission and Anticipated Discharge Date Admission Date: April 29, 2021 Subjective Patient reports that he is feeling better than yesterday. He denies chest pain palpitations or shortness of breath. No cough or sputum production. He continues to have pain at the femoral neck fracture site however this is improved with the use of fentanyl. He has been put in traction overnight Review of Systems Review of Systems: All systems reviewed & are unremarkable except as noted in Subjective Physical Exam Constitutional: WD/WN, vitals as above Neck: trachea midline, no thyromegaly Respiratory: normal respiratory effort, lungs clear to auscultation Cardiovascular: RRR, no murmur, no edema Gastrointestinal (Abdomen): normal bowel sounds, soft, nontender, no hepatosplenomegaly Musculoskeletal: Extremities: extremities normal to inspection Skin: no rashes, warm and dry Neurologic: Nonfocal exam Lymphatic: no cervical lymphadenopathy Results & Data Results & Data ([facility]) Vital Signs (Past 12 Hours) Vital Signs Temp Pulse Resp BP Pulse Ox 05/02/21 06:00 77 15 125/67 96 05/02/21 05:00 78 17 127/84 96 05/02/21 04:43 78 14 117/76 05/02/21 04:30 85 19 05/02/21 04:00 36.9 C 83 12 129/81 05/02/21 03:30 84 20 05/02/21 03:00 83 13 126/78 95 05/02/21 02:42 71 20 93 05/02/21 02:30 81 18 95 05/02/21 02:00 77 13 119/70 97 05/02/21 01:30 84 18 100 05/02/21 01:00 87 19 106/74 95 05/02/21 00:57 86 16 114/69 96 05/02/21 00:30 86 23 98 05/02/21 00:15 79 05/02/21 00:00 77 21 121/83 97 05/01/21 23:50 81 15 92 05/01/21 23:40 78 16 97 05/01/21 23:30 81 15 97 05/01/21 23:20 84 17 98 05/01/21 23:10 83 16 95 05/01/21 23:01 83 28 H 100/64 87 L 05/01/21 23:00 86 20 90 05/01/21 22:50 86 22 87 L 05/01/21 22:45 78 20 94 05/01/21 22:40 88 17 96 05/01/21 22:30 92 H 22 93 05/01/21 22:20 86 18 85 L 05/01/21 22:10 87 19 80 L 05/01/21 22:00 87 28 H 119/80 99 05/01/21 21:30 82 15 97 05/01/21 21:00 76 12 114/79 98 05/01/21 20:30 74 21 95 Critical Care Results & Data Vital Signs (Past 12 Hours) Vital Signs Temp Pulse Resp BP Pulse Ox 05/02/21 06:00 77 15 125/67 96 05/02/21 05:00 78 17 127/84 96 05/02/21 04:43 78 14 117/76 05/02/21 04:30 85 19 05/02/21 04:00 36.9 C 83 12 129/81 05/02/21 03:30 84 20 05/02/21 03:00 83 13 126/78 95 05/02/21 02:42 71 20 93 05/02/21 02:30 81 18 95 05/02/21 02:00 77 13 119/70 97 05/02/21 01:30 84 18 100 05/02/21 01:00 87 19 106/74 95 05/02/21 00:57 86 16 114/69 96 05/02/21 00:30 86 23 98 05/02/21 00:15 79 05/02/21 00:00 77 21 121/83 97 05/01/21 23:50 81 15 92 05/01/21 23:40 78 16 97 05/01/21 23:30 81 15 97 05/01/21 23:20 84 17 98 05/01/21 23:10 83 16 95 05/01/21 23:01 83 28 H 100/64 87 L 05/01/21 23:00 86 20 90 05/01/21 22:50 86 22 87 L 05/01/21 22:45 78 20 94 0218/22 22:40 88 17 96 05/01/21 22:30 92 H 22 93 05/01/21 22:20 86 18 85 L 05/01/21 22:10 87 19 80 L 05/01/21 22:00 87 28 H 119/80 99 05/01/21 21:30 82 15 97 05/01/21 21:00 76 12 114/79 98 05/01/21 20:30 74 21 95 Lab & Micro Results (Past 24 Hours) RBC 2.79 M/uL (4.7-6.1) L 05/02/21 WBC 22.27 K/uL (4.8-10.8) H 05/02/21 Hgb 9.3 g/dL (14.0-18.0) L 05/02/21 Hct 27.7 % (42-52) L 05/02/21 MCV 96.8 fL (80-100) 05/02/21 MCH 32.3 pg (25-34) 05/02/21 MCHC 33.3 g/dL (32-36) 05/02/21 RDW Standard Deviation 50.5 fL (36.4-46.3) H 05/02/21 RDW Coefficient of Variation 14.2 % (11.5-14.5) 05/02/21 Plt Count 164 K/uL (130-400) 05/02/21 MPV 10.4 fL (7.4-10.4) 05/02/21 Neutrophils (%) (Auto) 75.5 % 05/02/21 Lymphocytes (%) (Auto) 13.7 % 05/02/21 Monocytes # (Auto) 2.11 K/uL (0.11-0.59) H 05/02/21 Eosinophils # (Auto) 0.19 K/uL (0-0.5) 05/02/21 Immature Granulocyte % (Auto) 0.3 % 05/02/21 Neutrophils # (Auto) 16.81 K/uL (1.4-6.5) H 05/02/21 Lymphocytes # (Auto) 3.06 K/uL (1.2-3.4) 05/02/21 Monocytes # (Auto) 2.11 K/uL (0.11-0.59) H 05/02/21 Eosinophils # (Auto) 0.19 K/uL (0-0.5) 05/02/21 Basophils # (Auto) 0.03 K/uL (0-0.2) 05/02/21 Immature Granulocyte # (Auto) 0.07 K/uL (0.00-0.02) H 05/02/21 Red Blood Cell Morphology Unremarkable 05/02/21 Na 128 mmol/L (136-145) L 05/02/21 K 4.1 mmol/L (3.5-5.1) 05/02/21 Cl 103 mmol/L (98-107) 05/02/21 CO2 18 mmol/L (21-32) L 05/02/21 Anion Gap 7 (3-11) 05/02/21 BUN 36 mg/dl (6-23) H 05/02/21 Creatinine 3.34 mg/dl (0.6-1.4) H 05/02/21 Estimated GFR ( Amer) 19.8 ml/min 05/02/21 Estimated GFR (Non-Af Amer) 17.1 ml/min 05/02/21 BUN/Creatinine Ratio 10.8 (10-20) 05/02/21 Glu 218 mg/dl (70-99(Fasting)) H 05/02/21 Ca 7.8 mg/dl (8.5-10.1) L 05/02/21 Phosphorus Level 3.3 mg/dl (2.5-4.9) 05/02/21 Total Bilirubin 0.7 mg/dl (0.2-1.0) 05/02/21 Direct Bilirubin 0.2 mg/dl (0-0.2) 05/02/21 AST 21 U/L (13-39) 05/02/21 ALT 9 U/L (7-52) 05/02/21 Alkaline Phosphatase 28 U/L (34-104) L 05/02/21 TP 5.5 gm/dl (6.0-8.3) L 05/02/21 Albumin 3.1 gm/dl (3.4-5.0) L 05/02/21 Globulin 2.7 gm/dl (2.5-4.0) 05/01/21 Albumin/Globulin Ratio 1.1 (0.9-2) 05/01/21 Mg 1.7 mg/dl (1.7-2.4) 05/02/21 06:31 05/02/21 Calcium Level 7.8 mg/dl (8.5-10.1) L 05/02/21 06:31 05/02/21 Blood Gas Barometric Pressure 731.6 mm/Hg 05/01/21 10:29 05/01/21 Arterial Blood pH 7.35 (7.35-7.45) 05/01/21 10:29 05/01/21 Arterial Blood Partial Pressure CO2 31 mmHg (35-46) L 05/01/21 10:29 05/01/21 Arterial Blood Partial Pressure O2 80 mmHg (80-95) 05/01/21 10:05/01/21 Arterial Blood HCO3 17 mmol/L (19-24) L 05/01/21 10:05/01/21 Arterial Blood Base Excess -8.1 mEq/L (-9-1.8) 05/01/21 10:29 05/01/21 Arterial Blood Oxygen Saturation 96.0 % (90-95) H 05/01/21 10:29 05/01/21 Blood Gas Oxygen Given RA 05/01/21 10:29 05/01/21 David Test Pos (Pos) 05/01/21 10:29 05/01/21 Blood Gas Barometric Pressure 731.6 mm/Hg 05/01/21 10:29 05/01/21 Microbiology 04/30/21 06:11 Aerobic Blood Culture - Preliminary Blood No growth in Aerobic bottle after 48 hours. Anaerobic Blood Culture - Preliminary No growth in Anaerobic bottle after 48 hours. 04/30/21 06:06 Aerobic Blood Culture - Preliminary Blood No growth in Aerobic bottle after 48 hours. Anaerobic Blood Culture - Preliminary No growth in Anaerobic bottle after 48 hours. 04/30/21 07:25 Urine Culture - Preliminary Urine,Straight Cath No growth - Less than 1,000 colonies/mL, Final report to follow. Diagnostic Findings (Past 24 Hours) Abdomen/Pelvis CT 05/01/21 11:35 CT abd pelvis wo con CLINICAL HISTORY: Recent fall with left hip fracture. Evaluate for hematoma. COMPARISON STUDY: 04/30/2021 CT DOSE: TECHNIQUE: Standard CT of the Abdomen and Pelvis was performed without IV contrast. The patient did not receive oral contrast. A dose lowering technique was utilized adhering to the principles of ALARA. FINDINGS: Lung base: There is minimal left basilar atelectasis. The lung bases are otherwise clear. Abdominal cavity: There is no evidence for abdominal mass, adenopathy or ascites. A small umbilical hernia containing mesenteric fat is again seen. Liver: The liver is homogeneous in attenuation on these limited noncontrast images.. Spleen: The spleen is homogeneous in attenuation on these limited noncontrast images. Pancreas: The pancreas is homogeneous in attenuation on these limited noncontrast images. Gall Bladder: The gallbladder is well distended with no evidence for cholelithiasis, wall thickening or pericholecystic edema.. Adrenal glands: The adrenal glands are normal in size and attenuation on these limited noncontrast images. Kidneys: The kidneys are homogeneous in attenuation on these limited noncontrast images. There is no evidence for gross renal mass, calculus or hydronephrosis bilaterally. Bowel: The bowel loops are normally placed within the abdomen and pelvis without evidence for dilatation or obstruction. There is no evidence for mass lesion. There are no inflammatory changes present. There is no evidence for free air. Bladder: There is no evidence for focal bladder wall thickening, calculus or diverticulum. : There is no evidence for pelvic mass or adenopathy. Vasculature: There is no evidence for focal aneurysmal dilatation of the abdominal aorta. Osseous structures: Comminuted intertrochanteric fracture of the left femoral neck is again seen. There is diffuse edema of the muscles surrounding the left hip. However, no focal fluid collection or hematoma is identified on these limited noncontrast images. IMPRESSION: 1. Comminuted, intertrochanteric fracture left femoral neck is again seen with diffuse edema of the muscle surrounding the hip. However, no focal fluid collection or definite hematomas identified on these limited noncontrast images. 2. Otherwise, no acute intra-abdominal or pelvic abnormality on these limited noncontrast images. 3. Additional nonacute findings are delineated above. ACT 112: Negative or not required by law. Electronically signed by: Andrew Jerez M.D. 05/01/2021 3:[address] 05/01/21 11:35 CT SCAN OF THE LEFT FEMUR WITHOUT IV CONTRAST CLINICAL HISTORY: Femoral fracture. Drop in hematocrit. COMPARISON STUDY: Pelvic CT dated 04/30/2021. Left femoral radiographs dated 04/29/2021. TECHNIQUE: CT scan of the left femur is performed from the bony pelvis to the knee. Images are reviewed in the axial, sagittal, and coronal planes. IV contrast was not administered for this examination. A dose lowering technique was utilized adhering to the principles of ALARA. CT DOSE: 3384.15 mGycm FINDINGS: The skeletal structures are osteopenic. Again seen is a comminuted intertrochanteric/subtrochanteric fracture of the left femur with displaced fragments and surrounding hemorrhage. There is likely external rotation of the femoral shaft. The distal femur appears intact, as does the visualized left hemipelvis. No lytic or blastic lesion is seen. Sclerotic change is noted in the left sacroiliac joint. There is generalized atrophy of the regional musculature. Intramuscular hemorrhage is seen involving the left piriformis muscle and the gluteus minimus muscle. There is significant hemorrhage throughout the adductor compartment/musculature, with milder hemorrhage seen throughout the quadriceps compartment. No free fluid is seen within the visualized pelvis. The bladder is decompressed around a Byrnes catheter. IMPRESSION: 1. Again seen is a comminuted intertrochanteric/subtrochanteric fracture of the left femur with displaced fragments and surrounding hemorrhage. 2. Intramuscular hemorrhage is noted within the left piriformis and the left gluteus minimus muscles. 3. There is also significant hemorrhage throughout the left adductor compartment with milder hemorrhage throughout the quadriceps compartment. ACT 112: Negative or not required by law. Dictated: 05/01/2021 2:40 PM Transcribed: 05/01/2021 3:01 PM Veronica [id number] [email or web address] Electronically signed by: Bonifacio Kennedy M.D. 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 Comparison: Comparison is made to chest one view 04/29/2021 FINDINGS: A right jugular venous catheter tip is in the mid SVC. The cardiomediastinal silhouette is normal. Lungs are underinflated but clear. No evidence of pleural effusion or pneumothorax. IMPRESSION: Satisfactory position of right jugular venous catheter. ACT 112: Negative or not required by law. Electronically signed by: Rishi Bowden M.D. 05/01/2021 12:33 PM Lower Extremity CTA 05/01/21 16:56 CT angio femur LT wo/w con HISTORY: 75 years-old Male concern for active bleed. [Extravasation COMPARISON: CT abdomen and pelvis and CT left femur of same day TECHNIQUE: CTA of the left femur was obtained both with and without the use of 120 mL Optiray 320. 3-D coronal and sagittal MIPS were obtained from the axial data set and were submitted for review. A dose lowering technique was used consistent with the principals of JIMY. FINDINGS: CTA: Patent imaged left external iliac artery with mild atherosclerosis. The common femoral, profunda femoris, superficial femoral and popliteal arteries are patent. No high-grade stenosis or arterial occlusion. No active extravasation. CT: A comminuted intertrochanteric/subtrochanteric fracture of the left femur is redemonstrated with displaced fragments and surrounding soft tissue and intramuscular hemorrhage. Unchanged alignment from prior. Numerous tiny fracture fragments extend into the adjacent musculature as seen on image 143 for example which are unchanged. The distal femur appears intact. No acute fracture of the imaged left hemipelvis. No lytic or blastic lesion is seen. Sclerotic change is noted in the left sacroiliac joint. There is generalized atrophy of the regional musculature. Intramuscular hemorrhage is seen involving the left piriformis muscle and the gluteus minimus muscle. There is significant hemorrhage throughout the adductor compartment/musculature, with less extensive hemorrhage seen throughout the quadriceps compartment. No free fluid is seen within the visualized pelvis. The bladder is decompressed around a Byrnes catheter. Left hydrocele. Atrophy of the hamstring musculature. Small left knee joint effusion. IMPRESSION: 1. Acute comminuted, displaced and angulated intertrochanteric/subtrochanteric fracture of the left femur redemonstrated with unchanged alignment. 2. Left pelvic and thigh perifascial and intramuscular hemorrhage and edema redemonstrated. No evidence of active extravasation. ACT 112: Negative or not required by law. The above report was generated using voice recognition software. It may contain grammatical, syntax or spelling errors. Electronically signed by: Ryan Hood M.D. 05/01/2021 6:39 PM I & O Totals 24 Hours 05/01/21 05/02/21 05/03/21 06:59 06:59 06:59 Intake Total 4093.750 / 4093.750 8393.000 / 8393.000 210.417 / 210.417 Output Total 350 / 350 2800 / 2800 Balance 3743.750 / 3743.750 5593.000 / 5593.000 210.417 / 210.417 Cumulative 04/29/21 19:28 thru 05/02/21 08:17 Intake Total 96149.167 Output Total 3150 Balance 27191.167 RT Ventilator Mngmt (Last Documented) Ventilator Ordered Settings Respiratory Rate 15 05/02/21 06:00 Ventilator - PT Measurements Respiratory Rate 15 Coding Level of Care Code 19646 Subseq Hosp Care Lvl 3 Diagnoses Fall W19.XXXA Encounter type: initial encounter CKD (chronic kidney disease) N18.9 Chronic kidney disease stage: unspecified stage Fracture of hip S72.002A Encounter type: initial encounter Fracture type: closed Laterality: left Dementia F03.90 Diabetes mellitus E11.9 Acute renal failure superimposed on stage 3 chronic kidney disease N17.9; N18.30 Leukocytosis D72.829 Leukocytosis type: unspecified (1) Fall Encounter type: initial encounter Qualified Code(s): W19.XXXA - Unspecified fall, initial encounter (2) CKD (chronic kidney disease) Chronic kidney disease stage: unspecified stage Qualified Code(s): N18.9 - Chronic kidney disease, unspecified (3) Fracture of hip Encounter type: initial encounter Fracture type: closed Laterality: left Qualified Code(s): S72.002A - Fracture of unspecified part of neck of left femur, initial encounter for closed fracture (4) Leukocytosis Leukocytosis type: unspecified Qualified Code(s): D72.829 - Elevated white blood cell count, unspecified
[2021-05-02] MEDS ORDERED: CALCIUM CHLORIDE 10% 1,000 MG in DEXTROSE 5% 50 ML IV STA (08:32)
[2021-05-02] MEDS: TAMSULOSIN HCL 0.4 MG CAP PO SCH ×2 (08:36→16:33)
[2021-05-02] MEDS: CYANOCOBALAMIN (B-12) 500 MCG TABLET PO SCH ×2 (08:36→13:04)
[2021-05-02] MEDS: risperiDONE 0.5 MG TABLET PO SCH ×2 (08:38→16:32)
[2021-05-02 09:01] LABS: Urea Nitrogen, Random Urine 301 mg/dL
--- NOTE | 2021-05-02 09:48 | Anesthesiology Consultation ---
Date of Service May 02, 2021 Assessment & Plan (1) Encounter for pre-operative examination: Chart Review Chart Review: entry manager initiated History Surgery Operation Date: 05/02/21 11:00 Proposed Procedures p Intramedullary Felipe Femur Left Long(Left) - Pascual Stone DO Height/Weight Height: 5 ft 10 in Weight: 144.4 kg Allergies Allergy/AdvReac Type Severity Reaction Status Date / Time No Known Allergies Allergy NONE Verified 04/29/21 21:45 Medications Home Medications Medication Instructions Recorded Confirmed Last Taken aspirin 81 mg tablet,delayed 81 mg PO DAILY 04/29/21 04/29/21 04/29/21 release cholecalciferol (vitamin D3) 1,250 1,250 mcg PO WK 04/29/21 04/29/21 04/27/21 mcg (50,000 unit) capsule cyanocobalamin (vitamin B-12) 1,000 mcg PO DAILY 04/29/21 04/29/21 04/29/21 1,000 mcg tablet (Vitamin B-12) dulaglutide 0.75 mg/0.5 mL 0.75 mg SUBCUT WK 04/29/21 04/29/21 04/27/21 subcutaneous pen injector (Trulicity) furosemide 20 mg tablet 20 mg PO DAILY 04/29/21 04/29/21 04/29/21 lisinopril 10 mg tablet 10 mg PO DAILY 04/29/21 04/29/21 04/29/21 metformin 500 mg tablet,extended 500 mg PO DAILY 04/29/21 04/29/21 04/29/21 release 24 hr metoprolol tartrate 25 mg tablet 25 mg PO BID 04/29/21 04/29/21 04/29/21 simvastatin 40 mg tablet 40 mg PO HS 04/29/21 04/29/21 04/28/21 tamsulosin 0.4 mg capsule 0.4 mg PO DAILY 04/29/21 04/29/21 04/29/21 Active Medications Generic Name Dose Route Start Last Admin Trade Name Freq PRN Reason Stop Dose Admin Cyanocobalamin 1,000 mcg 04/30/21 09:00 05/01/21 10:39 Cyanocobalamin (B-12) 500 Mcg Tablet PO 05/30/21 08:59 1,000 mcg DAILY SHAE Administration Fentanyl Citrate 50 mcg 05/01/21 11:40 05/01/21 12:58 Fentanyl Citrate 100 Mcg/2 Ml Vial IV 05/15/21 11:39 50 mcg Q15M PRN Administration Pain Gabapentin 100 mg 04/30/21 10:30 05/01/21 21:25 Gabapentin 100 Mg Cap PO 05/30/21 10:29 100 mg BID SHAE Administration Sodium Chloride 1,000 mls @ 150 mls/hr 04/30/21 09:45 05/02/21 00:42 Nss 1000ml IV 05/30/21 09:44 Not Given .Q6H40M SHAE Albumin Human 25 gm in 100 mls @ 50 mls/hr 05/01/21 09:00 05/02/21 08:26 Albumin 25% 100 Ml IV 05/04/21 08:59 50 mls/hr Q8H SHAE Administration Sodium Bicarbonate 75 meq/ 1,075 mls @ 100 mls/hr 05/01/21 19:30 05/02/21 03:21 Sodium Chloride IV 05/31/21 19:29 150 mls/hr .[id number] SHAE Administration Phenylephrine HCl 80 mg/ 508 mls @ 122.244 mls/hr 05/02/21 05:00 05/02/21 09:44 Sodium Chloride IV 06/01/21 04:59 2.3 mcg/kg/min .Q4H10M SHAE 122.2 mls/hr Titration Protocol 2.3 MCG/KG/MIN Insulin Aspart 0 units 04/30/21 06:00 05/02/21 06:19 Insulin Aspart Per Unit SC 05/30/21 05:59 3 units Q6 SHAE Administration Ondansetron HCl 4 mg 04/30/21 02:15 05/01/21 15:04 Ondansetron Inj 2 Mg/Ml 2 Ml Vial IV 05/30/21 02:14 4 mg Q6H PRN Administration Nausea Risperidone 0.5 mg 04/30/21 12:00 05/01/21 10:40 Risperidone 0.5 Mg Tablet PO 05/30/21 11:59 0.5 mg QAM SHAE Administration Tamsulosin HCl 0.4 mg 04/30/21 09:00 05/01/21 10:42 Tamsulosin Hcl 0.4 Mg Cap PO 05/30/21 08:59 0.4 mg DAILY SHAE Administration Tramadol HCl 100 mg 04/30/21 09:37 05/01/21 01:15 Tramadol Hcl 50 Mg Tablet PO 05/30/21 11:59 100 mg Q6 PRN Administration severe pain Past Medical History Medical History Atrial fibrillation CKD (chronic kidney disease) stage 3, GFR 30-59 ml/min Dementia Diabetes mellitus Hyperlipidemia Obesity BMI 44 04/2021 Obstructive sleep apnea reports he wears no cpap/bipap Past Family History Family History Father Alzheimer disease Brother Cancer Past Surgical History Surgical History History of appendectomy Social History Smoking Status: Never smoker Do You Dip or Chew Tobacco: No Hx Alcohol Use: Yes Alcohol type: beer and hard liquor alcohol intake frequency: holidays/special occasions only Hx Substance Use: No Physical Exam Vital Signs Last Vital Signs Temp 98.4 F 05/02/21 09:00 Pulse 90 05/02/21 08:23 Resp 27 H 05/02/21 08:23 BP 109/43 L 05/02/21 08:23 Pulse Ox 91 05/02/21 08:23 Testing Laboratory Results 05/02/21 06:31 05/02/21 06:31 PT 11.4 Seconds (9.0-12.0) 05/01/21 05:56 INR 1.1 (0.9-1.1) 05/01/21 05:56 APTT 25.7 Seconds (21.0-31.0) 04/29/21 20:12 Hemoglobin A1c 7.6 % (4.5-5.6) H 04/30/21 05:08 Urine Color Dark Yellow 04/30/21 07:25 Urine Appearance Cloudy (Clear) A 04/30/21 07:25 Urine pH 5.0 (4.5-7.5) 04/30/21 07:25 Ur Specific Rock 1.019 (1.000-1.030) 04/30/21 07:25 Urine Protein Trace (Negative) H 04/30/21 07:25 Urine Glucose (UA) Negative (Negative) 04/30/21 07:25 Urine Ketones Trace (Negative) H 04/30/21 07:25 Urine Nitrite Negative (Negative) 04/30/21 07:25 Ur Leukocyte Esterase 2+ (Negative) H 04/30/21 07:25 Urine WBC (Auto) 10-30 /hpf (0-5) H 04/30/21 07:25 Urine RBC (Auto) >30 /hpf (0-4) H 04/30/21 07:25 U Hyaline Cast (Auto) 5-10 /lpf (0-5) H 04/30/21 07:25 U Epithel Cells (Auto) >30 /lpf (0-5) H 04/30/21 07:25 Urine Bacteria (Auto) 1+ (Negative) H 04/30/21 07:25 Blood Type O Positive 05/01/21 05:56 Antibody Screen NEGATIVE 05/01/21 05:56 04/30/21 06:11 Aerobic Blood Culture - Preliminary Blood No growth in Aerobic bottle after 48 hours. Anaerobic Blood Culture - Preliminary No growth in Anaerobic bottle after 48 hours. 04/30/21 06:06 Aerobic Blood Culture - Preliminary Blood No growth in Aerobic bottle after 48 hours. Anaerobic Blood Culture - Preliminary No growth in Anaerobic bottle after 48 hours. 04/30/21 07:25 Urine Culture - Preliminary Urine,Straight Cath No growth - Less than 1,000 colonies/mL, Final report to follow. 05/02/21 05/02/21 06:10 00:31 POC Glucose (other) 225 H 197 H Laboratory Tests 04/30/21 02:00 SARS-CoV-2, RNA, NAAT NEGATIVE Electrocardiogram Date: 04/30/21 Normal sinus rhythm, rate 97 bpm Low voltage QRS Nonspecific ST abnormality Abnormal ECG When compared with ECG of 01-DEC-2008 06:50, Nonspecific ST abnormality Anterolateral leads now present Confirmed by Gurpreet Mars ([id number]) on 04/30/2021 2:26:25 PM Chest X-Ray Date: 05/01/21 FINDINGS: A right jugular venous catheter tip is in the mid SVC. The cardiomediastinal silhouette is normal. Lungs are underinflated but clear. No evidence of pleural effusion or pneumothorax. IMPRESSION: Satisfactory position of right jugular venous catheter. Echocardiogram Date: 04/30/21 Study is technically limited due to patient characteristics, poor acoustic windows. LV systolic function is grossly normal on technically limited evaluation. The images are insufficient to allow for analysis of regional wall motion. RV is not well visualized The study is technically insufficient to allow comment with regards to valvular structure and function
--- NOTE | 2021-05-02 10:18 | Nephrology Progress Note ---
Date of Service May 02, 2021 Assessment & Plan (1) Acute renal failure superimposed on stage 3 chronic kidney disease: Plan: baseline creatinine 1.5-1.7 as recently as 01/2021. Presented at creatinine 2.2 and has climbed ever since., inflamed urinalysis with no bacteria; imaging unremarkable from standpoint. 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 - concern at this time for lactic or other acidosis; mild hyponatremia likely prerenal, c/w uptrend in BUN as well -Thankfully renal functions have started showing signs of improvement. -Sodium should improve once he becomes fluid replete. >support BP to maintain map >65; hydrate as aggressively as tolerated -needs strict I/O; keep felix -Continue with sodium bicarb drip for a total of 1 L, can start normal saline after this to maintain MAP more than 65. -He is making good amounts of urine and volume should not be an issue >no indication for urgent dialysis and I do not think so he will need IT. Care coordinated w/ Dr Brannon (2) Lactic acidosis: (3) At risk for septic shock: Plan: no source of infection identified; but he has elevated lactate, worsening GABRIELLA on CKD, hypotension, climbing WBC. -on empiric cefepime/dapto; f/u pending cxs Admission and Anticipated Discharge Date Admission Date: April 29, 2021 Subjective Patient reports that he is feeling better than yesterday. Pain better Making good amounts of urine Still on pressor support Review of Systems Review of Systems: Comfortable, not in distress No pedal edema Passing urine Physical Exam Physical Exam: GENERAL: Comfortable, not in distress EYE EXAM: normal conjunctiva, PERRL and EOM's grossly intact OROPHARYNX: Dry mucous membrane LUNGS: Clear to auscultation. Normal chest wall mechanics, no w/r/r HEART: no murmurs, S1 normal and S2 normal ABDOMEN: abdomen soft, non-tender, normo-active bowel sounds LOWER EXTREMITIES: No pitting edema. Leg in traction NEURO EXAM: Alert oriented. Results & Data ([facility]) Vital Signs (Past 12 Hours) Vital Signs Temp Pulse Resp BP Pulse Ox 02/19/22 09:00 36.9 C 05/02/21 08:23 90 27 H 109/43 L 91 05/02/21 08:01 84 24 149/95 H 91 05/02/21 07:01 89 17 136/106 H 90 05/02/21 06:00 77 15 125/67 96 05/02/21 05:00 78 17 127/84 96 05/02/21 04:43 78 14 117/76 05/02/21 04:30 85 19 05/02/21 04:00 36.9 C 83 12 129/81 05/02/21 03:30 84 20 05/02/21 03:00 83 13 126/78 95 05/02/21 02:42 71 20 93 05/02/21 02:30 81 18 95 05/02/21 02:00 77 13 119/70 97 05/02/21 01:30 84 18 100 05/02/21 01:00 87 19 106/74 95 05/02/21 00:57 86 16 114/69 96 05/02/21 00:30 86 23 98 05/02/21 00:15 79 05/02/21 00:00 77 21 121/83 97 05/01/21 23:50 81 15 92 05/01/21 23:40 78 16 97 05/01/21 23:30 81 15 97 05/01/21 23:20 84 17 98 05/01/21 23:10 83 16 95 05/01/21 23:01 83 28 H 100/64 87 L 05/01/21 23:00 86 20 90 05/01/21 22:50 86 22 87 L 05/01/21 22:45 78 20 94 05/01/21 22:40 88 17 96 05/01/21 22:30 92 H 22 93 05/01/21 22:20 86 18 85 L 05/01/21 22:10 87 19 80 L Laboratory Results 05/02/21 06:31 05/02/21 06:31
--- NOTE | 2021-05-02 11:06 | Hospitalist Progress Note ---
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 Risperdal PRN for agitation. Avoid BZDs. AMBER -cpap ordered (family denies this history), will need further investigation Morbid Obesity -BMI 43. Would benefit from [facility] weight [facility] counseling DVT ppx SCDs Admission and Anticipated Discharge Date Admission Date: April 29, 2021 Subjective Feels better Transferred to ICU yesterday s/p 1unit packed RBC yesterday Physical Exam Physical Exam: appears well, obese, non toxic Respiratory: breathing comfortably on room air, no wheezing/rhonchi/rales Cardiovascular: regular rate and rhythm, no murmurs/rubs/gallops Gastrointestinal (Abdomen): soft, non tender Musculoskeletal: left hip tenderness Neurologic: awake, spontaneously moving extremities Psychiatric: affect normal, speech linear Results & Data Results & Data ([facility]) Vital Signs (Past 12 Hours) Vital Signs Temp Pulse Resp BP Pulse Ox 05/02/21 10:30 91 H 22 105/67 95 05/02/21 10:01 91 H 21 96 05/02/21 10:00 90 26 H 119/79 99 05/02/21 09:30 92 H 22 121/80 94 05/02/21 09:02 88 21 98/53 L 93 05/02/21 09:00 36.9 C 05/02/21 08:23 90 27 H 109/43 L 91 05/02/21 08:01 84 24 149/95 H 91 05/02/21 07:01 89 17 136/106 H 90 05/02/21 06:00 77 15 125/67 96 05/02/21 05:00 78 17 127/84 96 05/02/21 04:43 78 14 117/76 05/02/21 04:30 85 19 05/02/21 04:00 36.9 C 83 12 129/81 05/02/21 03:30 84 20 05/02/21 03:00 83 13 126/78 95 05/02/21 02:42 71 20 93 05/02/21 02:30 81 18 95 05/02/21 02:00 77 13 119/70 97 05/02/21 01:30 84 18 100 05/02/21 01:00 87 19 106/74 95 05/02/21 00:57 86 16 114/69 96 05/02/21 00:30 86 23 98 05/02/21 00:15 79 05/02/21 00:00 77 21 121/83 97 05/01/21 23:50 81 15 92 05/01/21 23:40 78 16 97 05/01/21 23:30 81 15 97 05/01/21 23:20 84 17 98 05/01/21 23:10 83 16 95 Laboratory Results Short CBC 05/01/21 05/01/21 05/01/21 Range/Units 12:26 17:16 22:17 WBC 21.21 H (4.8-10.8) K/uL Hgb 8.0 L 9.7 L 9.7 L (14.0-18.0) g/dL Hct 24.3 L 29.3 L 29.5 L (42-52) % Plt Count 163 (130-400) K/uL 05/02/21 05/02/21 Range/Units 02:01 06:31 WBC 22.27 H (4.8-10.8) K/uL Hgb 9.0 L 9.3 L (14.0-18.0) g/dL Hct 27.0 L 27.7 L (42-52) % Plt Count 164 (130-400) K/uL BMP 05/01/21 05/01/21 05/02/21 17:16 22:17 02:01 Sodium 128 L 129 L 129 L Potassium 4.6 4.5 4.1 Chloride 103 104 104 Carbon Dioxide 17 L 17 L 18 L BUN 43 H 42 H 40 H Creatinine 4.14 H D 3.93 H 3.65 H Glucose 207 H 179 H 200 H Calcium 7.4 L 7.5 L 7.5 L 05/02/21 06:31 Sodium 128 L Potassium 4.1 Chloride 103 Carbon Dioxide 18 L BUN 36 H Creatinine 3.34 H D Glucose 218 H Calcium 7.8 L Cardiac Enzymes 05/01/21 Range/Units 09:11 Total Creatine Kinase 807 H (30-223) U/L Liver Function 05/01/21 05/02/21 Range/Units 17:16 02:01 Total Bilirubin 0.6 0.7 (0.2-1.0) mg/dl Direct Bilirubin 0.2 (0-0.2) mg/dl AST 27 21 (13-39) U/L ALT 11 9 (7-52) U/L Alkaline Phosphatase 28 L 28 L (34-104) U/L Albumin 2.9 L 3.1 L (3.4-5.0) gm/dl Medications Administered Current Inpatient Medications Cyanocobalamin (Cyanocobalamin (B-12) 500 Mcg Tablet) 1,000 mcg PO DAILY SHAE Stop: 05/30/21 08:59 Last Admin: 05/01/21 10:39 Dose: 1,000 mcg Documented by: Dextrose (Dextrose 50% 50 Ml Syringe) 25 - 50 ml IV UD PRN; Protocol PRN Reason: Hypoglycemia Protocol Stop: 05/30/21 02:59 Ergocalciferol (Ergocalciferol 50,000 Units 1250 Mcg Cap) 50,000 units PO Mo@0900 SHAE Stop: 06/03/21 08:59 Fentanyl Citrate (Fentanyl Citrate 100 Mcg/2 Ml Vial) 50 mcg IV Q15M PRN PRN Reason: Pain Stop: 05/15/21 11:39 Last Admin: 05/01/21 12:58 Dose: 50 mcg Documented by: Gabapentin (Gabapentin 100 Mg Cap) 100 mg PO BID SHAE Stop: 05/30/21 10:29 Last Admin: 05/02/21 10:29 Dose: Not Given Documented by: Glucagon (Glucagon For Inj 1 Mg Vial) 1 mg IM UD PRN; Protocol PRN Reason: Hypoglycemia Protocol Stop: 05/30/21 02:59 Glucose (Glucose 40% Gel 15 Gm Tube) 15 - 30 gm PO UD PRN; Protocol PRN Reason: Hypoglycemia Protocol Stop: 05/30/21 02:59 Glucose (Glucose 10 Tabs/Tube) 4 - 8 tabs PO UD PRN; Protocol PRN Reason: Hypoglycemia Protocol Stop: 05/30/21 02:59 Sodium Chloride (Nss 1000ml) 1,000 mls @ 150 mls/hr IV .Q6H40M [facility] Stop: 05/30/21 09:44 Last Admin: 05/02/21 00:42 Dose: Not Given Documented by: Albumin Human (Albumin 25% 100 Ml) 25 gm in 100 mls @ 50 mls/hr IV Q8H [facility] Stop: 05/04/21 08:59 Last Infusion: 05/02/21 10:29 Dose: Infused Documented by: Sodium Bicarbonate 75 meq/ (Sodium Chloride) 1,075 mls @ 100 mls/hr IV .[id number] [facility] Stop: 05/02/21 23:59 Last Admin: 05/02/21 03:21 Dose: 150 mls/hr Documented by: Phenylephrine HCl 80 mg/ (Sodium Chloride) 508 mls @ 122.244 mls/hr IV .Q4H10M [facility]; Protocol Stop: 06/01/21 04:59 Last Titration: 05/02/21 09:44 Dose: 2.3 mcg/kg/min, 122.2 mls/hr Documented by: Insulin Aspart (Insulin Aspart Per Unit) 0 units SC Q6 [facility] Stop: 05/30/21 05:59 Last Admin: 05/02/21 06:19 Dose: 3 units Documented by: Midodrine (Midodrine Hcl 2.5 Mg Tab) 5 mg PO TID@0800,1200,1700 [facility] Stop: 06/01/21 11:59 Miscellaneous (Carbohydrates For Hypoglycemia ) 15 - 30 gm PO UD PRN PRN Reason: Hypoglycemia Treatment Stop: 05/30/21 02:59 Miscellaneous (Icu Protocol For Hyperglycemia) 1 ea N/A PRN PRN; Protocol PRN Reason: Hyperglycemia Protocol Stop: 05/03/21 14:10 Ondansetron HCl (Ondansetron Inj 2 Mg/Ml 2 Ml Vial) 4 mg IV Q6H PRN PRN Reason: Nausea Stop: 05/30/21 02:14 Last Admin: 05/01/21 15:04 Dose: 4 mg Documented by: Polyethylene Glycol (Polyethylene (Miralax) 17 Gm Pack) 17 gm PO DAILY PRN PRN Reason: Constipation Stop: 05/30/21 02:14 Risperidone (Risperidone 0.5 Mg Tablet) 0.5 mg PO QAM [facility] Stop: 05/30/21 11:59 Last Admin: 05/01/21 10:40 Dose: 0.5 mg Documented by: Tamsulosin HCl (Tamsulosin Hcl 0.4 Mg Cap) 0.4 mg PO DAILY [facility] Stop: 05/30/21 08:59 Last Admin: 05/01/21 10:42 Dose: 0.4 mg Documented by: Tramadol HCl (Tramadol Hcl 50 Mg Tablet) 100 mg PO Q6 PRN PRN Reason: severe pain Stop: 05/30/21 11:59 Last Admin: 05/01/21 01:15 Dose: 100 mg Documented by: Tramadol HCl (Tramadol Hcl 50 Mg Tablet) 50 mg PO Q6 PRN PRN Reason: moderate pain Stop: 05/30/21 11:59
[2021-05-02] MEDS: MIDODRINE HCL 2.5 MG TAB PO SCH ×3 (11:35→20:30)
[2021-05-02] MEDS ORDERED: LIDOCAINE 2% 2 ML VIAL/AMP(20MG/ML) INFIL ONE (11:51)
[2021-05-02] MEDS ORDERED: fentaNYL citrate 100 MCG/2 ML VIAL ONE (11:51)
[2021-05-02] MEDS ORDERED: ONDANSETRON INJ 2 MG/ML 2 ML VIAL ONE (11:51)
[2021-05-02] MEDS ORDERED: CISATRACURIUM BESYLATE IV SOLN 2 MG/ML 10 ML VIAL IV ONE (11:51)
[2021-05-02] MEDS ORDERED: PROPOFOL IV EMULSION 10 MG/ML 20 ML VIAL IV ONE (11:51)
--- NOTE | 2021-05-02 12:03 | History & Physical Bridge Note ---
Date of Service May 02, 2021 History & Physical Bridge Note I have examined the patient, reviewed the History & Physical and in the interval since the performance of the History & Physical I have noted the following changes of clinical significance: We will require open reduction internal fixation left comminuted, displaced, impacted intertrochanteric/subtrochanteric proximal femur fracture with a long trochanteric fixation device.
[2021-05-02] MEDS ORDERED: CALCIUM CHLORIDE 10% 10 ML SYR IV ONE (12:23)
[2021-05-02] MEDS ORDERED: PHENYLEPHRINE 100MCG/ML 5ML SYR ONE (12:29)
[2021-05-02] MEDS ORDERED: VASOPRESSIN 20 UNIT/ML VIAL ONE (12:29)
[2021-05-02] MEDS ORDERED: KETAMINE 50 MG/5 ML SYRINGE ONE (12:29)
[2021-05-02] MEDS ORDERED: ETOMIDATE 2 MG/ML 20 ML VIAL IV ONE (13:04)
[2021-05-02] MEDS ORDERED: BUPIVACAINE 0.5 % 5 MG/1 ML MPF 30ML VIAL ONE (15:21)
--- NOTE | 2021-05-02 16:07 | Post Operative Brief Note ---
Immediate Post Op Note v1 Date of Surgery May 02, 2021 Pre & Post Diagnosis Operation Date: 05/02/21 11:00 Pre-Op Diagnosis: Left displaced, comminuted, impacted, subtrochanteric/inotrope femur fracture fracture of Left Hip Post-Op Diagnosis: Left displaced, comminuted, impacted, subtrochanteric/inotrope femur fracture fracture of Left Hip I identified the patient and participated in the time-out.: Yes Procedure Operation Date: 05/02/21 11:00 Actual Procedures p left open reduction internal fixation displaced, comminuted, impacted subtrochanteric/intertrochanteric femur fracture with Synthes long Intramedullary Felipe Left Femur(Left) - Pascual Stone DO Surgeon Pascual Stone DO [employer] Manager Pavan Olivarez PA-C Estimated Blood Loss 350 Findings Consistent with Post-Op Diagnosis Anesthesia Type General Regional Complications none Disposition Accompanied Patient To Recovery: No
[2021-05-02 16:30] LABS: iSTAT Hemoglobin 9.2 g/dl (14.0-18.0); iSTAT Ionized Calcium 1.37 mmol/l (1.12-1.32); iSTAT Potassium 4.4 mmol/L (3.3-5.0)
--- NOTE | 2021-05-02 16:36 | Anesthesiology Progress Note ---
Date of Service May 02, 2021 Anesthesia Post Procedure Vital Signs Vital Signs: Temp Pulse Resp BP Pulse Ox 05/02/21 16:26 81 17 137/114 H 95 05/02/21 16:21 82 18 151/104 H 95 05/02/21 16:20 82 17 99 05/02/21 16:17 83 16 118/74 74 L 05/02/21 16:15 85 23 96 05/02/21 16:11 85 19 111/67 95 05/02/21 16:10 82 16 96 05/02/21 16:06 82 17 139/68 95 05/02/21 16:05 86 18 95 05/02/21 16:04 80 17 117/78 92 05/02/21 16:02 95 05/02/21 16:00 97.9 F 05/02/21 12:02 92 H 23 90 05/02/21 12:00 94 H 23 110/78 90 05/02/21 11:30 93 H 21 107/72 95 05/02/21 11:00 93 H 20 110/63 93 05/02/21 10:30 91 H 22 105/67 95 05/02/21 10:01 91 H 21 96 05/02/21 10:00 90 26 H 119/79 99 05/02/21 09:30 92 H 22 121/80 94 05/02/21 09:02 88 21 98/53 L 93 05/02/21 09:00 98.4 F 05/02/21 08:23 90 27 H 109/43 L 91 05/02/21 08:01 84 24 149/95 H 91 05/02/21 07:01 89 17 136/106 H 90 05/02/21 06:00 77 15 125/67 96 05/02/21 05:00 78 17 127/84 96 05/02/21 04:43 78 14 117/76 05/02/21 04:30 85 19 05/02/21 04:00 98.4 F 83 12 129/81 05/02/21 03:30 84 20 05/02/21 03:00 83 13 126/78 95 05/02/21 02:42 71 20 93 05/02/21 02:30 81 18 95 05/02/21 02:00 77 13 119/70 97 05/02/21 01:30 84 18 100 05/02/21 01:00 87 19 106/74 95 05/02/21 00:57 86 16 114/69 96 05/02/21 00:30 86 23 98 05/02/21 00:15 79 05/02/21 00:00 77 21 121/83 97 05/01/21 23:50 81 15 92 05/01/21 23:40 78 16 97 05/01/21 23:30 81 15 97 05/01/21 23:20 84 17 98 05/01/21 23:10 83 16 95 05/01/21 23:01 83 28 H 100/64 87 L 05/01/21 23:00 86 20 90 05/01/21 22:50 86 22 87 L 05/01/21 22:45 78 20 94 05/01/21 22:40 88 17 96 05/01/21 22:30 92 H 22 93 05/01/21 22:20 86 18 85 L 05/01/21 22:10 87 19 80 L 05/01/21 22:00 87 28 H 119/80 99 05/01/21 21:30 82 15 97 05/01/21 21:00 76 12 114/79 98 05/01/21 20:30 74 21 95 05/01/21 20:00 73 15 123/80 97 05/01/21 19:30 97.9 F 81 16 99 05/01/21 19:00 83 12 107/79 98 05/01/21 18:00 87 18 99/71 L 95 05/01/21 17:56 83 14 99/61 L 97 05/01/21 17:09 87 17 116/59 L 95 05/01/21 17:00 80 26 H 115/80 98 Pain Intensity Left Knee: Pain Intensity: 7 Transfer of Care Handoff Completed per policy Notes Mental Status: alert / awake / arousable and participated in evaluation Patient Amnestic to Procedure: Yes Nausea / Vomiting: adequately controlled Pain: adequately controlled Airway Patency, RR, SpO2: stable & adequate BP & HR: stable & adequate Hydration State: stable & adequate Anesthetic Complications: no major complications apparent and Pt Satisfied with anesthetic care
--- NOTE | 2021-05-02 16:43 | Fluoroscopy Report ---
INTRAOPERATIVE RADIOGRAPHS CLINICAL HISTORY: Open reduction and internal fixation of the left proximal femur. Fluoroscopy time: 656 seconds. FINDINGS: 10 spot fluoroscopic views of the left femur are compared to radiographs dated 04/29/2021. I ntertrochanteric and intramedullary nails have been placed transfixing a comminuted fracture of the l eft proximal femur. Near-anatomic alignment is restored. 2 cortical lag screws transfix the distal en d of the intramedullary nail. The orthopedic hardware appears intact. IMPRESSION: Intraoperative images from open reduction and internal fixation of the left proximal femu r as above. Electronically signed by: Bonifacio Kennedy M.D. 05/02/2021 4:42 PM
--- NOTE | 2021-05-02 17:39 | XRay Report ---
LEFT FEMUR 2 VIEWS CLINICAL HISTORY: Postoperative examination. Open reduction and internal fixation of the left proxima l femur. FINDINGS: AP and crosstable lateral portable views of the left femur are compared to study dated 04/29. The skeletal structures are osteopenic. There has been intertrochanteric and intramedullary na il fixation of a comminuted intertrochanteric/subtrochanteric fracture of the left proximal femur. Ne ar-anatomic alignment has been restored. 2 cortical lag screws transfix the distal end of the nail. T he orthopedic hardware appears intact. The left hip and knee joints are grossly maintained. The visua lized left hemipelvis appears intact. Soft tissue edema, skin clips, and soft tissue gas throughout t he left thigh are expected postoperative findings. IMPRESSION: Expected postoperative findings status post open reduction and internal fixation of the l eft proximal femur. No new fracture is seen. Electronically signed by: Bonifacio Kennedy M.D. 05/02/2021 5:38 PM
--- NOTE | 2021-05-02 17:44 | Operative Report (OR) ---
DATE OF PROCEDURE: 05/02/2021. PREOPERATIVE DIAGNOSIS: Left displaced comminuted impacted subtrochanteric/intertrochanteric femur fracture. POSTOPERATIVE DIAGNOSIS: Left displaced comminuted impacted subtrochanteric/intertrochanteric femur fracture. PROCEDURE: Left open reduction and internal fixation of displaced, comminuted, impacted subtrochanteric/intertrochanteric femur fracture with a Synthes 360 mm x 11 mm long trochanteric fixation nail with an 11 mm x 120 mm helical blade and two 5.0 mm locking screws. SURGEON: Pascual Stone DO. MEAL ROOM HAND: Pavan Olivarez PA-C who was present for patient positioning, sterile prep and drape, management of retractors and instruments. He was present through the critical portions of the case including wound closure, application of sterile dressing and transport of the patient to recovery. ANESTHESIA: General, regional. SPECIMENS: None. DRAINS: None. COMPLICATIONS: None. BLOOD LOSS: 350 mL PERTINENT HISTORY: This is an obese 75-year-old gentleman who sustained a fall resulting in a displaced comminuted impacted subtrochanteric intertrochanteric femur fracture of the left lower extremity. Patient tried to walk on the extremity and fell again. He presented to [facility], possibly thought to be septic. He was in hypovolemic hemorrhagic shock. He was resuscitated in the ER and stabilized in the ICU. He had advanced imaging performed to determine whether there was active bleeding or not, there was noted to be no active bleeding. No compartment syndrome, and the patient was then stabilized with blood and fluid resuscitation to optimize for surgery. The patient was then scheduled for surgery as indicated when stable. All potential risks, benefits, complications, alternatives, rehab potential for incomplete relief of symptoms, need for further surgery, DVT, PE, , persistent pain, swelling, scarring, weakness, neurovascular injury, wound complications, hardware failure, nonunion, malunion, bone fracture were discussed with the patient. The patient decided to proceed with the procedure as indicated. PROCEDURE: The patient was transferred to the operative suite. The proper left operative site was identified. The consent was reviewed, the patient was then administered sedation and and then anesthetized. The patient then transferred to the fracture table where the left lower extremity was placed in fracture table traction and the nonoperative leg was placed in the well leg oliver. All bony prominences were properly padded and protected. The padded post was placed in the peroneal and the patient was positioned appropriately. Next the left leg was placed on traction and reduction of the fracture was performed under fluoroscopic control. Next the operative hip was then sterilely prepped and draped in the usual fashion. Next a 10-blade scalpel incision was used to make an incision proximal to the greater trochanter. The incision was deepened through the abundant adipose and subcutaneous tissue and fascia with a 10 blade scalpel and the tip of the greater trochanter was then palpated followed by placement of a guide pin under fluoroscopic control driven into the greater trochanter down to the level of the less trochanter. To accomplish passage of the sharp guidewire, an accessory incision had to be made under fluoroscopic control at the proximal aspect of the top of the subtrochanteric fracture to allow placement of a Fernández elevator to reduce the fracture and elevate the fracture fragment to allow passage of the guidewire. This was confirmed in AP and lateral projections followed by placement of the proximal reamer over the cannulated guide pin. Next the reamer was then removed using the soft tissue protector, which was also removed. Next the ball tip guide josh was placed into the proximal femur under fluoroscopic control confirmed with AP and lateral fluoroscope projections to the level of the knee. Next the trochanteric nail was then passed over the guide josh into the femur, to the level of the suprapatellar region of the knee. Measurement was performed for trochanteric nail length. Sequential reaming was performed to 12.5 mm. The guide josh was removed and then under fluoroscopic control appropriate level of the femoral nail was then placed in AP projections. Next the targeting device was then fixed to the driving handle and 10-blade scalpel incision was made in the lateral aspect of the thigh. Next the tissue protector and cannulated guide system was then passed into the soft tissue until it was securely fixed against a lateral aspect of the femoral cortex. This was also confirmed under C-arm. Next the guide pin for the spiral blade was driven into the lateral aspect of the femur confirming this with AP lateral projections until the guide pin was in the center of the femoral neck and head approximately 5 mm from the subcortical bone of the femur. Next the spiral blade was then measured and then the lateral cortex was then drilled with the cortex reamer followed by use of the triple reamer with the depth stop set at appropriate depth. In this case a Synthes 360 mm x 11 mm long trochanteric fixation nail with an 11 mm x 120 mm helical blade was then inserted over the cannulated guide josh under fluoroscopic control. This was seated appropriately then traction was reduced from the limb and the fracture was then gently compressed and then locked proximally with the flexible screwdriver. Next the spiral blade was then disengaged from its insertion handle, insertion handle was then removed and the guide pin was removed from the femoral neck and head. Next the C arm was positioned to achieve perfect circles of the distal locking screws at the level of the knee. Under fluoroscopic control freehand technique was utilized to target the screw holes with 2 percutaneous 10 blade scalpel incisions. Distal locking screws were applied to stabilize distal aspect of the nail and the static and dynamic holes. The insertion arm was then removed from the nail and final x-rays were obtained in AP and lateral projections. All incisions were then copiously irrigated with sterile normal saline. All incisions were injected with 0.5% Marcaine plain. The proximal gluteus fascia was then closed using interrupted #1 Vicryl, the dermis was closed using buried interrupted 2-0 Vicryl sutures in all 5 incisions and the skin was then closed using skin ortega. A sterile compressive dressing consisting of Xeroform gauze, sterile 4 x 4's and foam tape was applied. The patient was then awakened, transferred from the fracture table to the hospital bed and taken to recovery in stable condition. Job ID: [id number] [facility]
[2021-05-02] MEDS: traMADol HCL 50 MG TABLET PO PRN (20:34)
[2021-05-02 20:52] LABS: Hematocrit (blood only) 25.4 % (42-52); Hemoglobin 8.6 g/dL (14.0-18.0)
[2021-05-02 21:14] LABS: BUN Creatinine Ratio 10.6 (10-20); Calcium 8.4 mg/dl (8.5-10.1); Creatinine Clr Calc Pharmacy 33.5 ml/min; Est GFR (African American) 25.1 ml/min; Est GFR (Non-African American) 21.7 ml/min; Potassium 4.3 mmol/L (3.5-5.1)
[2021-05-02 23:59] LABS: Hematocrit (blood only) 25.4 % (42-52); Hemoglobin 8.4 g/dL (14.0-18.0)
[2021-05-03] MEDS: ALBUMIN 25% 100 mL 25 GM/100 ML VIAL IV SCH ×2 (00:02→07:48)
[2021-05-03] MEDS: INSULIN ASPART PER UNIT SC SCH ×5 (00:03→22:40)
[2021-05-03] MEDS: PHENYLEPHRINE HCL 80 MG in SODIUM CHLORIDE 0.9% 500 ML IV SCH ×5 (01:22→12:52)
[2021-05-03] MEDS: SODIUM CHLORIDE 0.9% 1000ML 1,000 ML IV SCH (04:09)
[2021-05-03 05:37] LABS: Basophils # (auto) 0.03 K/uL (0-0.2); Basophils % (auto) 0.2 %; Eosinophils # (auto) 0.27 K/uL (0-0.5); Eosinophils % (auto) 1.7 %; Hematocrit (blood only) 23.6 % (42-52); Hemoglobin 7.8 g/dL (14.0-18.0); Immature Granulocytes # (auto) 0.03 K/uL (0.00-0.02); Immature Granulocytes % (auto) 0.2 %; Lymphocytes # (auto) 2.17 K/uL (1.2-3.4); Lymphocytes % (auto) 13.8 %; Mean Corpuscular Hemoglobin 31.8 pg (25-34); Mean Corpuscular Hgb Conc 33.1 g/dL (32-36); Mean Corpuscular Volume 96.3 fL (80-100); Mean Platelet Volume 10.1 fL (7.4-10.4); Monocytes # (auto) 1.71 K/uL (0.11-0.59); Monocytes % (auto) 10.9 %; Neutrophils # (auto) 11.47 K/uL (1.4-6.5); Neutrophils % (auto) 73.2 %; Platelet Count 164 K/uL (130-400); RDW Coefficient of Variation 14.3 % (11.5-14.5); RDW Standard Deviation 49.2 fL (36.4-46.3); Red Blood Count 2.45 M/uL (4.7-6.1); White Blood Count 15.68 K/uL (4.8-10.8)
[2021-05-03 06:04] LABS: RBC Morphology Unremarkable
[2021-05-03 06:08] LABS: BUN Creatinine Ratio 11.8 (10-20); Calcium 8.2 mg/dl (8.5-10.1); Creatinine Clr Calc Pharmacy 40.2 ml/min; Est GFR (African American) 31.4 ml/min; Est GFR (Non-African American) 27.1 ml/min; Magnesium 1.5 mg/dl (1.7-2.4); Phosphorus 1.8 mg/dl (2.5-4.9)
[2021-05-03] MEDS ORDERED: SODIUM CHLORIDE 0.9% 250 ML IV PRN (06:24)
[2021-05-03] MEDS ORDERED: POTASSIUM PHOS 3 MMOL/1 ML INFUSION IV STA (06:24)
[2021-05-03] MEDS ORDERED: POTASSIUM PHOSPHATE 15 MMOL in SODIUM CHLORIDE 0.9% 250 ML IV ONE (07:30)
[2021-05-03] MEDS: CYANOCOBALAMIN (B-12) 500 MCG TABLET PO SCH (07:42)
[2021-05-03] MEDS: risperiDONE 0.5 MG TABLET PO SCH (07:42)
[2021-05-03] MEDS: GABAPENTIN 100 MG CAP PO SCH ×2 (07:43→20:25)
[2021-05-03] MEDS: TAMSULOSIN HCL 0.4 MG CAP PO SCH (07:43)
[2021-05-03] MEDS: MIDODRINE HCL 2.5 MG TAB PO SCH ×3 (07:43→17:59)
[2021-05-03] MEDS ORDERED: MAGNESIUM SULFATE / D5W 1 GM/100 ML BAG IV SCH (07:45)
[2021-05-03] MEDS: MAGNESIUM SULFATE / D5W 1 GM/100 ML BAG IV SCH ×2 (07:48→10:01)
[2021-05-03] MEDS: traMADol HCL 50 MG TABLET PO PRN ×2 (07:59→18:13)
--- NOTE | 2021-05-03 08:08 | Critical Care Progress Note ---
Date of Service May 03, 2021 Assessment & Plan (1) Fall: (2) CKD (chronic kidney disease): (3) Fracture of hip: (4) Dementia: (5) Diabetes mellitus: (6) Acute renal failure superimposed on stage 3 chronic kidney disease: (7) Leukocytosis: Plan: Impression: 75-year-old male status post fall resulting in a left femur fracture. Transferred to the ICU 05/01/2021 for progressive renal failure and hypotension. 24-hour events: Patient was taken to the OR yesterday for ORIF/nail placement. His pressor requirements have been weaned over the last 24 hours but he remains on low-dose Jared-Synephrine. Hemoglobin was low this morning. He is receiving additional transfusion currently. He is tolerating a diet. His pain control is adequate. Urine output remains good. Recommendations: Neuro: Some delirium over the last 24 hours, better this morning. Continue to maintain sleep-wake cycles and avoid medications which could potentially add to the patient's delirium. Analgesia with fentanyl appears to be adequate. Cardio: Hemorrhagic shock secondary to bleeding in the thigh. No extravasation on CT scan. Receiving an additional unit of packed cells this morning and will follow up with posttransfusion hematocrit Continue to wean Jared-Synephrine as tolerated. Continue to hold all the patient's outpatient antihypertensive regimens. Continue midodrine. Discontinue albumin infusions. Given the fact that he is taking adequate p.o. currently we will discontinue IV fluids and follow Respiratory: No current issues. Oxygen as needed Renal: Acute renal failure likely secondary to ATN and possible continued use of DOMENICA inhibitor in the outpatient setting. Urine output and creatinine are continue to improve. Off bicarb. Electrolytes being replaced. If kidney function continues to improve, will discontinue Byrnes catheter. Infectious disease: Cultures negative to date. Off antibiotics and following clinically. Low-grade fever this morning, however white count is decreasing. Continue to hold antibiotics and follow clinically Heme-onc: Acute hemorrhage in the thigh. Receiving additional packed cells this morning. We will repeat coagulation panel. SCDs in place. Holding additional DVT prophylaxis until bleeding issues appear stabilized Endocrine: ICU glycemic protocol for his diabetes. Random cortisol at 25. As he does not appear septic, no indication for treatment of relative adrenal insufficiency. GI: Tolerating diet. MSK: Status post ORIF. Per orthopedics. PT and OT. Out of bed to chair as tolerated. CODE STATUS: Full code Disposition: ICU for phenylephrine drip to maintain pressures. Once off of Jared- Synephrine, can transfer back to the floor. Critical care will sign off once he leaves ICU status Admission and Anticipated Discharge Date Admission Date: April 29, 2021 Subjective Patient complains of some mild pain in his left hip. No chest pain or palpitations. He is tolerating a diet. He is somewhat anxious about getting up and mobilizing. Review of Systems Review of Systems: All systems reviewed & are unremarkable except as noted in Subjective Physical Exam Constitutional: WD/WN, vitals as above Neck: trachea midline, no thyromegaly Respiratory: normal respiratory effort, lungs clear to auscultation Cardiovascular: RRR, no murmur, no edema Gastrointestinal (Abdomen): normal bowel sounds, soft, nontender, no hepatosplenomegaly Musculoskeletal: Left hip operative site dressed. The thigh is slightly tense compared to the right. No numbness and tingling in the lower extremities. Able to move toes appropriately. Skin: no rashes, warm and dry Lymphatic: no cervical lymphadenopathy Results & Data Results & Data ([facility]) Vital Signs (Past 12 Hours) Vital Signs Temp Pulse Resp BP Pulse Ox 05/03/21 07:29 37.8 C H 105 H 19 129/53 L 95 05/03/21 06:30 98 H 15 123/85 94 05/03/21 06:00 104 H 18 109/92 95 05/03/21 05:30 107 H 20 136/78 95 05/03/21 05:00 101 H 18 118/80 97 05/03/21 04:30 102 H 17 118/79 97 05/03/21 04:00 97 H 17 129/101 H 96 05/03/21 03:30 94 H 15 116/79 94 05/03/21 03:14 96 H 16 95 05/03/21 03:00 95 H 19 123/82 95 05/03/21 02:30 95 H 16 139/86 97 05/03/21 02:00 99 H 17 121/78 96 05/03/21 01:30 96 H 17 123/83 98 05/03/21 01:01 102 H 18 119/77 98 05/03/21 01:00 102 H 18 99 05/03/21 00:41 103 H 05/03/21 00:30 105 H 18 120/86 100 05/03/21 00:00 105 H 17 100 05/02/21 23:50 102 H 23 97 05/02/21 23:30 37 C 104 H 25 H 127/92 98 05/02/21 23:02 103 H 24 115/49 L 05/02/21 23:00 102 H 22 96 05/02/21 22:30 103 H 21 153/74 H 93 05/02/21 22:01 101 H 21 131/68 95 05/02/21 22:00 100 H 22 99 05/02/21 21:31 99 H 20 119/80 98 05/02/21 21:30 101 H 27 H 94 05/02/21 21:00 97 H 18 120/82 100 05/02/21 20:31 95 H 23 116/74 93 05/02/21 20:00 114/88 Critical Care Results & Data Vital Signs (Past 12 Hours) Vital Signs Temp Pulse Resp BP Pulse Ox 05/03/21 07:29 37.8 C H 105 H 19 129/53 L 95 05/03/21 06:30 98 H 15 123/85 94 05/03/21 06:00 104 H 18 109/92 95 05/03/21 05:30 107 H 20 136/78 95 05/03/21 05:00 101 H 18 118/80 97 05/03/21 04:30 102 H 17 118/79 97 05/03/21 04:00 97 H 17 129/101 H 96 05/03/21 03:30 94 H 15 116/79 94 05/03/21 03:14 96 H 16 95 05/03/21 03:00 95 H 19 123/82 95 05/03/21 02:30 95 H 16 139/86 97 05/03/21 02:00 99 H 17 121/78 96 05/03/21 01:30 96 H 17 123/83 98 05/03/21 01:01 102 H 18 119/77 98 05/03/21 01:00 102 H 18 99 05/03/21 00:41 103 H 05/03/21 00:30 105 H 18 120/86 100 05/03/21 00:00 105 H 17 100 05/02/21 23:50 102 H 23 97 05/02/21 23:30 37 C 104 H 25 H 127/92 98 05/02/21 23:02 103 H 24 115/49 L 05/02/21 23:00 102 H 22 96 05/02/21 22:30 103 H 21 153/74 H 93 05/02/21 22:01 101 H 21 131/68 95 05/02/21 22:00 100 H 22 99 05/02/21 21:31 99 H 20 119/80 98 05/02/21 21:30 101 H 27 H 94 05/02/21 21:00 97 H 18 120/82 100 05/02/21 20:31 95 H 23 116/74 93 Lab & Micro Results (Past 24 Hours) RBC 2.45 M/uL (4.7-6.1) L 05/03/21 WBC 15.68 K/uL (4.8-10.8) H 05/03/21 Hgb 7.8 g/dL (14.0-18.0) L 05/03/21 Hct 23.6 % (42-52) L 05/03/21 MCV 96.3 fL (80-100) 05/03/21 MCH 31.8 pg (25-34) 05/03/21 MCHC 33.1 g/dL (32-36) 05/03/21 RDW Standard Deviation 49.2 fL (36.4-46.3) H 05/03/21 RDW Coefficient of Variation 14.3 % (11.5-14.5) 05/03/21 Plt Count 164 K/uL (130-400) 05/03/21 MPV 10.1 fL (7.4-10.4) 05/03/21 Neutrophils (%) (Auto) 73.2 % 05/03/21 Lymphocytes (%) (Auto) 13.8 % 05/03/21 Monocytes # (Auto) 1.71 K/uL (0.11-0.59) H 05/03/21 Eosinophils # (Auto) 0.27 K/uL (0-0.5) 05/03/21 Immature Granulocyte % (Auto) 0.2 % 05/03/21 Neutrophils # (Auto) 11.47 K/uL (1.4-6.5) H 05/03/21 Lymphocytes # (Auto) 2.17 K/uL (1.2-3.4) 05/03/21 Monocytes # (Auto) 1.71 K/uL (0.11-0.59) H 05/03/21 Eosinophils # (Auto) 0.27 K/uL (0-0.5) 05/03/21 Basophils # (Auto) 0.03 K/uL (0-0.2) 05/03/21 Immature Granulocyte # (Auto) 0.03 K/uL (0.00-0.02) H 05/03/21 Red Blood Cell Morphology Unremarkable 05/03/21 Na 137 mmol/L (136-145) 05/03/21 K 4.0 mmol/L (3.5-5.1) 05/03/21 Cl 111 mmol/L (98-107) H 05/03/21 CO2 18 mmol/L (21-32) L 05/03/21 Anion Gap 8 (3-11) 05/03/21 BUN 27 mg/dl (6-23) H 05/03/21 Creatinine 2.28 mg/dl (0.6-1.4) H 05/03/21 Estimated GFR ( Amer) 31.4 ml/min 05/03/21 Estimated GFR (Non-Af Amer) 27.1 ml/min 05/03/21 BUN/Creatinine Ratio 11.8 (10-20) 05/03/21 Glu 166 mg/dl (70-99(Fasting)) H 05/03/21 Ca 8.2 mg/dl (8.5-10.1) L 05/03/21 Phosphorus Level 1.8 mg/dl (2.5-4.9) L 05/03/21 Mg 1.5 mg/dl (1.7-2.4) L 05/03/21 05:00 05/03/21 Calcium Level 8.2 mg/dl (8.5-10.1) L 05/03/21 05:00 05/03/21 Microbiology 04/30/21 07:25 Urine Culture - Final Urine,Straight Cath No growth - less than 1,000 colonies/mL. 04/30/21 06:11 Aerobic Blood Culture - Preliminary Blood No growth in Aerobic bottle after 48 hours. Anaerobic Blood Culture - Preliminary No growth in Anaerobic bottle after 48 hours. 04/30/21 06:06 Aerobic Blood Culture - Preliminary Blood No growth in Aerobic bottle after 48 hours. Anaerobic Blood Culture - Preliminary No growth in Anaerobic bottle after 48 hours. Diagnostic Findings (Past 24 Hours) Hip X-Ray 05/02/21 00:00 INTRAOPERATIVE RADIOGRAPHS CLINICAL HISTORY: Open reduction and internal fixation of the left proximal femur. Fluoroscopy time: 656 seconds. FINDINGS: 10 spot fluoroscopic views of the left femur are compared to radiographs dated 04/29/2021. Intertrochanteric and intramedullary nails have been placed transfixing a comminuted fracture of the left proximal femur. Near- anatomic alignment is restored. 2 cortical lag screws transfix the distal end of the intramedullary nail. The orthopedic hardware appears intact. IMPRESSION: Intraoperative images from open reduction and internal fixation of the left proximal femur as above. Electronically signed by: Bonifacio Kennedy M.D. 05/02/2021 4:42 PM Femur X-Ray 05/02/21 16:32 LEFT FEMUR 2 VIEWS CLINICAL HISTORY: Postoperative examination. Open reduction and internal fixation of the left proximal femur. FINDINGS: AP and crosstable lateral portable views of the left femur are compared to study dated 04/29/2021. The skeletal structures are osteopenic. There has been intertrochanteric and intramedullary nail fixation of a comminuted intertrochanteric/subtrochanteric fracture of the left proximal femur. Near- anatomic alignment has been restored. 2 cortical lag screws transfix the distal end of the nail. The orthopedic hardware appears intact. The left hip and knee joints are grossly maintained. The visualized left hemipelvis appears intact. Soft tissue edema, skin clips, and soft tissue gas throughout the left thigh are expected postoperative findings. IMPRESSION: Expected postoperative findings status post open reduction and internal fixation of the left proximal femur. No new fracture is seen. Electronically signed by: Bonifacio Kennedy M.D. 05/02/2021 5:38 PM I & O Totals 24 Hours 05/02/21 05/03/21 05/04/21 06:59 06:59 06:59 Intake Total 8393.000 / 8393.000 5924.256 / 5924.256 0 / 0 Output Total 2800 / 2800 3550 / 3550 Balance 5593.000 / 5593.000 2374.256 / 2374.256 0 / 0 Cumulative 04/29/21 19:28 thru 05/03/21 07:37 Intake Total 68666.006 Output Total 6700 Balance 74054.006 RT Ventilator Mngmt (Last Documented) Ventilator Ordered Settings Respiratory Rate 19 05/03/21 07:29 Ventilator - PT Measurements Respiratory Rate 19 Coding Level of Care Code 40389 Subseq Hosp Care Lvl 3 Diagnoses Fall W19.XXXA Encounter type: initial encounter CKD (chronic kidney disease) N18.9 Chronic kidney disease stage: unspecified stage Fracture of hip S72.002A Encounter type: initial encounter Fracture type: closed Laterality: left Dementia F03.90 Diabetes mellitus E11.9 Acute renal failure superimposed on stage 3 chronic kidney disease N17.9; N18.30 Leukocytosis D72.829 Leukocytosis type: unspecified (1) Fall Encounter type: initial encounter Qualified Code(s): W19.XXXA - Unspecified fall, initial encounter (2) CKD (chronic kidney disease) Chronic kidney disease stage: unspecified stage Qualified Code(s): N18.9 - Chronic kidney disease, unspecified (3) Fracture of hip Encounter type: initial encounter Fracture type: closed Laterality: left Qualified Code(s): S72.002A - Fracture of unspecified part of neck of left femur, initial encounter for closed fracture (4) Leukocytosis Leukocytosis type: unspecified Qualified Code(s): D72.829 - Elevated white blood cell count, unspecified
--- NOTE | 2021-05-03 08:08 | Orthopedic Progress Note ---
Date of Service May 03, 2021 Assessment & Plan (1) Fracture of hip: Plan: Postop day #1 left trochanteric femoral nailing -PT/OT: Toe-touch weightbearing left lower extremity -Pain management as written -DVT prophylaxis: SCDs, as per medicine -A.m. labs: Hemoglobin dropped to 7.8 this morning. Transfuse per medicine. Kidney function improving. -Discharge planning: Plan on discharge when stable, likely will need inpatient rehab versus SNF upon discharge. Admission and Anticipated Discharge Date Admission Date: April 29, 2021 Subjective Patient is postop day 1 left trochanteric femoral nailing. He is having some pain this morning but otherwise feels well. Denies any other complaints. No chest pain, shortness of breath, dizziness, headache, fever/chills. Review of Systems Review of Systems: All systems reviewed & are unremarkable except as noted in Subjective Physical Exam Physical Exam: Left hip: Dressings are clean dry and intact. No erythema. Moderate amount of swelling to left thigh. Compartments are soft. Minimal tenderness. No calf tenderness. Toes are mobile, good dorsiflexion. Distally neurovascular status and sensation intact. Constitutional: WD/WN, vitals as above Results & Data ([facility]) Vital Signs (Past 12 Hours) Vital Signs Temp Pulse Resp BP Pulse Ox 05/03/21 07:29 37.8 C H 105 H 19 129/53 L 95 05/03/21 06:30 98 H 15 123/85 94 05/03/21 06:00 104 H 18 109/92 95 05/03/21 05:30 107 H 20 136/78 95 05/03/21 05:00 101 H 18 118/80 97 05/03/21 04:30 102 H 17 118/79 97 05/03/21 04:00 97 H 17 129/101 H 96 05/03/21 03:30 94 H 15 116/79 94 05/03/21 03:14 96 H 16 95 05/03/21 03:00 95 H 19 123/82 95 05/03/21 02:30 95 H 16 139/86 97 05/03/21 02:00 99 H 17 121/78 96 05/03/21 01:30 96 H 17 123/83 98 05/03/21 01:01 102 H 18 119/77 98 05/03/21 01:00 102 H 18 99 05/03/21 00:41 103 H 05/03/21 00:30 105 H 18 120/86 100 05/03/21 00:00 105 H 17 100 05/02/21 23:50 102 H 23 97 05/02/21 23:30 37 C 104 H 25 H 127/92 98 05/02/21 23:02 103 H 24 115/49 L 05/02/21 23:00 102 H 22 96 05/02/21 22:30 103 H 21 153/74 H 93 05/02/21 22:01 101 H 21 131/68 95 05/02/21 22:00 100 H 22 99 05/02/21 21:31 99 H 20 119/80 98 05/02/21 21:30 101 H 27 H 94 05/02/21 21:00 97 H 18 120/82 100 05/02/21 20:31 95 H 23 116/74 93 (1) Fracture of hip Encounter type: initial encounter Fracture type: closed Laterality: left Qualified Code(s): S72.002A - Fracture of unspecified part of neck of left femur, initial encounter for closed fracture
[2021-05-03] MEDS ORDERED: CALCIUM CHLORIDE 10% 1,000 MG in DEXTROSE 5% 50 ML IV STA (08:18)
[2021-05-03] MEDS: fentaNYL citrate 100 MCG/2 ML VIAL IV PRN (08:53)
[2021-05-03] MEDS: POT PHOSPHATE MONOBASIC W/ SOD TAB PO SCH ×4 (08:54→20:25)
--- NOTE | 2021-05-03 12:10 | Hospitalist Progress Note ---
Date of Service May 03, 2021 Assessment & Plan Plan: Hemorrhagic Shock Left thigh hematoma -Hb 14--> 8 with left thigh and pelvis hematoma -CTA left LE shows large hematoma but no active extravasation -s/p 1 unit pRBC 05/01 with appropriate response -s/p 1 unit pRBC today -Surgical management per Surgery -s/p OR yesterday: Left open reduction and internal fixation of displaced, comminuted, impacted subtrochanteric/intertrochanteric femur fracture with a Synthes 360 mm x 11 mm long trochanteric fixation nail with an 11 mm x 120 mm helical blade and two 5.0 mm locking screws. Leukocytosis -likely reactive -no evidence of active infection -broad spectrum antibiotics discontinued GABRIELLA on CKD stage 3 -combination of prerenal and ATN from ongoing hypotension -s/p bicarbonate drip for SOLANGE ppx now discontinued -improved -appreciate Nephrology input HTN -hold lisinopril, metoprolol, lasix due to sepsis, hypotension, GABRIELLA T2DM -hold metformin, trulicity -correctional scale insulin ordered HLD-continue statin BPH -continue flomax -s/p felix--will continue for accurate I/O History of Dementia -listed on chart, at risk for delirium. -Was started Risperdal 0.5mg daily here due to delirium and attempts to climb out of bed, would continue for now--he is doing well on Risperdal. At discharge, would consider changing it to PRN AMBER -cpap ordered (family denies this history), will need further investigation Morbid Obesity -BMI 43. Would benefit from longterm weight loss counseling Hypomagnesemia Hypophosphatemia -repleted DVT ppx SCDs Admission and Anticipated Discharge Date Admission Date: April 29, 2021 Subjective OR yesterday Phenylephrine weaned down s/p 1 unit pRBC today Patient reports feeling terrible, ongoing left leg pain Physical Exam Physical Exam: appears in pain, non toxic Respiratory: breathing comfortably on room air, no wheezing/rhonchi/rales Cardiovascular: regular rate and rhythm, no murmurs/rubs/gallops Gastrointestinal (Abdomen): soft, non tender Musculoskeletal: no edema, left hip tenderness Neurologic: awake, alert Results & Data Results & Data ([facility]) Vital Signs (Past 12 Hours) Vital Signs Temp Pulse Resp BP Pulse Ox 05/03/21 10:30 104 H 21 122/80 93 02/20/22 10:15 37.6 C H 104 H 21 138/54 L 95 05/03/21 10:00 110 H 22 135/89 94 05/03/21 09:30 104 H 20 94 05/03/21 08:38 106 H 05/03/21 08:37 37.7 C H 110 H 20 103/43 L 96 05/03/21 08:30 107 H 24 135/81 96 05/03/21 08:07 37.4 C 106 H 21 109/48 L 94 05/03/21 08:00 108 H 23 152/93 H 96 05/03/21 07:52 37.4 C 106 H 21 106/48 L 94 05/03/21 07:30 119 H 29 H 91 05/03/21 07:29 37.8 C H 105 H 19 129/53 L 95 05/03/21 07:00 100 H 16 128/88 95 05/03/21 06:30 98 H 15 123/85 94 05/03/21 06:00 104 H 18 109/92 95 05/03/21 05:30 107 H 20 136/78 95 05/03/21 05:00 101 H 18 118/80 97 05/03/21 04:30 102 H 17 118/79 97 05/03/21 04:00 97 H 17 129/101 H 96 05/03/21 03:30 94 H 15 116/79 94 05/03/21 03:14 96 H 16 95 05/03/21 03:00 95 H 19 123/82 95 05/03/21 02:30 95 H 16 139/86 97 05/03/21 02:00 99 H 17 121/78 96 05/03/21 01:30 96 H 17 123/83 98 05/03/21 01:01 102 H 18 119/77 98 05/03/21 01:00 102 H 18 99 05/03/21 00:41 103 H 05/03/21 00:30 105 H 18 120/86 100 Laboratory Results Short CBC 05/02/21 05/02/21 05/03/21 Range/Units 20:44 23:46 05:00 WBC 15.68 H (4.8-10.8) K/uL Hgb 8.6 L 8.4 L 7.8 L (14.0-18.0) g/dL Hct 25.4 L 25.4 L 23.6 L (42-52) % Plt Count 164 (130-400) K/uL BMP 05/02/21 05/03/21 20:44 05:00 Sodium 134 L 137 Potassium 4.3 4.0 Chloride 109 H 111 H Carbon Dioxide 17 L 18 L BUN 29 H 27 H Creatinine 2.74 H D 2.28 H D Glucose 190 H 166 H Calcium 8.4 L 8.2 L Cardiac Enzymes 05/03/21 Range/Units 11:31 Total Creatine Kinase 771 H (30-223) U/L Medications Administered Current Inpatient Medications Cyanocobalamin (Cyanocobalamin (B-12) 500 Mcg Tablet) 1,000 mcg PO DAILY [facility] Stop: 05/30/21 08:59 Last Admin: 05/03/21 07:42 Dose: 1,000 mcg Documented by: Dextrose (Dextrose 50% 50 Ml Syringe) 25 - 50 ml IV UD PRN; Protocol PRN Reason: Hypoglycemia Protocol Stop: 05/30/21 02:59 Ergocalciferol (Ergocalciferol 50,000 Units 1250 Mcg Cap) 50,000 units PO Mo@0900 [facility] Stop: 06/03/21 08:59 Fentanyl Citrate (Fentanyl Citrate 100 Mcg/2 Ml Vial) 50 mcg IV Q15M PRN PRN Reason: Pain Stop: 05/15/21 11:39 Last Admin: 05/03/21 08:53 Dose: 50 mcg Documented by: Gabapentin (Gabapentin 100 Mg Cap) 100 mg PO BID SHAE Stop: 05/30/21 10:29 Last Admin: 05/03/21 07:43 Dose: 100 mg Documented by: Glucagon (Glucagon For Inj 1 Mg Vial) 1 mg IM UD PRN; Protocol PRN Reason: Hypoglycemia Protocol Stop: 05/30/21 02:59 Glucose (Glucose 40% Gel 15 Gm Tube) 15 - 30 gm PO UD PRN; Protocol PRN Reason: Hypoglycemia Protocol Stop: 05/30/21 02:59 Glucose (Glucose 10 Tabs/Tube) 4 - 8 tabs PO UD PRN; Protocol PRN Reason: Hypoglycemia Protocol Stop: 05/30/21 02:59 Phenylephrine HCl 80 mg/ (Sodium Chloride) 508 mls @ 15.945 mls/hr IV .Q24H SHAE; Protocol Stop: 06/01/21 04:59 Last Admin: 05/03/21 10:55 Dose: 0.3 mcg/kg/min, 15.9 mls/hr Documented by: Sodium Chloride (Nss) 250 mls @ 15 mls/hr IV .[id number] PRN PRN Reason: For Transfusion Stop: 05/03/21 16:25 Last Admin: 05/03/21 08:00 Dose: 15 mls/hr Documented by: Insulin Aspart (Insulin Aspart Per Unit) 0 units SC Q6 [facility] Stop: 05/30/21 05:59 Last Admin: 05/03/21 11:43 Dose: 8 units Documented by: Midodrine (Midodrine Hcl 2.5 Mg Tab) 5 mg PO TID@0800,1200,1700 [facility] Stop: 06/01/21 11:59 Last Admin: 05/03/21 11:43 Dose: 5 mg Documented by: Miscellaneous (Carbohydrates For Hypoglycemia ) 15 - 30 gm PO UD PRN PRN Reason: Hypoglycemia Treatment Stop: 05/30/21 02:59 Miscellaneous (Icu Protocol For Hyperglycemia) 1 ea N/A PRN PRN; Protocol PRN Reason: Hyperglycemia Protocol Stop: 05/03/21 14:10 Ondansetron HCl (Ondansetron Inj 2 Mg/Ml 2 Ml Vial) 4 mg IV Q6H PRN PRN Reason: Nausea Stop: 05/30/21 02:14 Last Admin: 05/01/21 15:04 Dose: 4 mg Documented by: Polyethylene Glycol (Polyethylene (Miralax) 17 Gm Pack) 17 gm PO DAILY PRN PRN Reason: Constipation Stop: 05/30/21 02:14 Potassium Phosphate (Pot Phosphate Monobasic W/ Sod Tab) 2 tab PO QID [facility] Stop: 05/04/21 08:59 Last Admin: 05/03/21 11:44 Dose: 2 tab Documented by: Risperidone (Risperidone 0.5 Mg Tablet) 0.5 mg PO QAM [facility] Stop: 05/30/21 11:59 Last Admin: 05/03/21 07:42 Dose: 0.5 mg Documented by: Tamsulosin HCl (Tamsulosin Hcl 0.4 Mg Cap) 0.4 mg PO DAILY [facility] Stop: 05/30/21 08:59 Last Admin: 05/03/21 07:43 Dose: 0.4 mg Documented by: Tramadol HCl (Tramadol Hcl 50 Mg Tablet) 100 mg PO Q6 PRN PRN Reason: severe pain Stop: 05/30/21 11:59 Last Admin: 05/03/21 07:59 Dose: 100 mg Documented by: Tramadol HCl (Tramadol Hcl 50 Mg Tablet) 50 mg PO Q6 PRN PRN Reason: moderate pain Stop: 05/30/21 11:59 Last Admin: 05/02/21 20:34 Dose: 50 mg Documented by:
[2021-05-03 12:21] LABS: Fibrinogen 550 mg/dl (184-400); INR 1.2 (0.9-1.1); Prothrombin Time 12.3 Seconds (9.0-12.0)
--- NOTE | 2021-05-03 14:41 | Nephrology Progress Note ---
Date of Service May 03, 2021 Assessment & Plan (1) Acute renal failure superimposed on stage 3 chronic kidney disease: Plan: baseline creatinine 1.5-1.7 as recently as 01/2021. Presented at creatinine 2.2 and has climbed ever since., inflamed urinalysis with no bacteria; imaging unremarkable from standpoint. 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 >support BP to maintain map >65 - No need for Iv alkalie therapy for now, can be started on sodium bicarbonate 650 mg BID, if his oral intake improves. >no indication for urgent dialysis and I do not think so he will need IT. (2) Lactic acidosis: (3) At risk for septic shock: Plan: no source of infection identified; but he has elevated lactate, worsening GABRIELLA on CKD, hypotension, climbing WBC. -on empiric cefepime/dapto; f/u pending cxs Admission and Anticipated Discharge Date Admission Date: April 29, 2021 Subjective c/o pain at the surgical site. s/p 1 unit pRBC today Review of Systems Review of Systems: Comfortable, not in distress, c/o pain at the surgical site, No pedal edema Passing urine Physical Exam Physical Exam: GENERAL: Comfortable, not in distress EYE EXAM: normal conjunctiva, PERRL and EOM's grossly intact OROPHARYNX: Dry mucous membrane LUNGS: Clear to auscultation. Normal chest wall mechanics, no w/r/r HEART: no murmurs, S1 normal and S2 normal ABDOMEN: abdomen soft, non-tender, normo-active bowel sounds LOWER EXTREMITIES: No pitting edema. no soaking at the surgical site, NEURO EXAM: Alert oriented. Results & Data ([facility]) Vital Signs (Past 12 Hours) Vital Signs Temp Pulse Resp BP Pulse Ox 05/03/21 13:45 92 05/03/21 10:30 104 H 21 122/80 93 05/03/21 10:15 37.6 C H 104 H 21 138/54 L 95 05/03/21 10:00 110 H 22 135/89 94 05/03/21 09:30 104 H 20 94 05/03/21 08:38 106 H 05/03/21 08:37 37.7 C H 110 H 20 103/43 L 96 05/03/21 08:30 107 H 24 135/81 96 05/03/21 08:07 37.4 C 106 H 21 109/48 L 94 05/03/21 08:00 108 H 23 152/93 H 96 05/03/21 07:52 37.4 C 106 H 21 106/48 L 94 05/03/21 07:30 119 H 29 H 91 05/03/21 07:29 37.8 C H 105 H 19 129/53 L 95 05/03/21 07:00 100 H 16 128/88 95 05/03/21 06:30 98 H 15 123/85 94 05/03/21 06:00 104 H 18 109/92 95 05/03/21 05:30 107 H 20 136/78 95 05/03/21 05:00 101 H 18 118/80 97 05/03/21 04:30 102 H 17 118/79 97 05/03/21 04:00 97 H 17 129/101 H 96 05/03/21 03:30 94 H 15 116/79 94 05/03/21 03:14 96 H 16 95 05/03/21 03:00 95 H 19 123/82 95 Laboratory Results 05/03/21 05:00 05/03/21 05:00
--- NOTE | 2021-05-03 20:00 | Hospitalist Progress Note ---
Date of Service May 03, 2021 Assessment & Plan Admission and Anticipated Discharge Date Admission Date: April 29, 2021 Subjective Patient being managed for acute renal failure with ATN Results & Data Results & Data ([facility]) Vital Signs (Past 12 Hours) Vital Signs Temp Pulse Resp BP Pulse Ox Pulse Ox 05/03/21 19:00 115 H 19 108/76 95 05/03/21 18:00 37 C 112 H 18 123/81 94 05/03/21 17:00 112 H 19 145/83 H 95 05/03/21 16:00 22 126/77 95 05/03/21 15:00 100 H 14 117/77 93 05/03/21 14:45 91 05/03/21 14:30 102 H 14 115/76 93 05/03/21 14:00 105 H 16 106/77 93 05/03/21 13:45 92 05/03/21 13:30 105 H 17 128/79 90 05/03/21 13:00 107 H 19 116/78 94 05/03/21 12:30 103 H 30 H 124/74 95 05/03/21 12:01 109 H 20 92 05/03/21 12:00 29 H 125/65 94 05/03/21 11:30 107 H 25 H 131/79 94 05/03/21 11:00 108 H 20 126/79 93 05/03/21 10:30 104 H 21 122/80 93 05/03/21 10:15 37.6 C H 104 H 21 138/54 L 95 05/03/21 10:00 110 H 22 135/89 94 05/03/21 09:30 104 H 20 94 05/03/21 08:38 106 H 05/03/21 08:37 37.7 C H 110 H 20 103/43 L 96 05/03/21 08:30 107 H 24 135/81 96 05/03/21 08:07 37.4 C 106 H 21 109/48 L 94 05/03/21 08:00 108 H 23 152/93 H 96
[2021-05-03 23:03] LABS: Hematocrit (blood only) 26.6 % (42-52); Hemoglobin 8.8 g/dL (14.0-18.0)
[2021-05-04 05:35] LABS: Basophils # (auto) 0.02 K/uL (0-0.2); Basophils % (auto) 0.1 %; Eosinophils # (auto) 0.72 K/uL (0-0.5); Eosinophils % (auto) 4.7 %; Hematocrit (blood only) 27.2 % (42-52); Immature Granulocytes # (auto) 0.04 K/uL (0.00-0.02); Immature Granulocytes % (auto) 0.3 %; Lymphocytes # (auto) 2.93 K/uL (1.2-3.4); Mean Corpuscular Hemoglobin 31.8 pg (25-34); Mean Corpuscular Hgb Conc 33.1 g/dL (32-36); Mean Corpuscular Volume 96.1 fL (80-100); Mean Platelet Volume 9.6 fL (7.4-10.4); Monocytes % (auto) 12.3 %; Neutrophils # (auto) 9.84 K/uL (1.4-6.5); Neutrophils % (auto) 63.6 %; Platelet Count 170 K/uL (130-400); RDW Coefficient of Variation 14.7 % (11.5-14.5); RDW Standard Deviation 50.9 fL (36.4-46.3); Red Blood Count 2.83 M/uL (4.7-6.1); White Blood Count 15.45 K/uL (4.8-10.8)
[2021-05-04 05:55] LABS: Calcium 8.1 mg/dl (8.5-10.1); Creatinine Clr Calc Pharmacy 53.7 ml/min; Est GFR (African American) 44.4 ml/min; Est GFR (Non-African American) 38.3 ml/min; Magnesium 1.5 mg/dl (1.7-2.4); Phosphorus 2.4 mg/dl (2.5-4.9); Potassium 3.5 mmol/L (3.5-5.1)
--- NOTE | 2021-05-04 07:41 | Orthopedic Progress Note ---
Date of Service May 04, 2021 Assessment & Plan (1) Fracture of hip: Plan: Postop day #2 left trochanteric femoral nailing -PT/OT: Toe-touch weightbearing left lower extremity -Pain management as written -DVT prophylaxis: SCDs, as per medicine -A.m. labs: Hemoglobin dropped to 7.8 yesterday received 1 unit of packed red blood cells. 9 this morning -Discharge planning: Plan on discharge when stable, likely will need inpatient rehab versus SNF upon discharge. Admission and Anticipated Discharge Date Admission Date: April 29, 2021 Subjective Patient is postop day #2 left hip. Pain is controlled. Denies other complaints. Not having any chest pain, shortness of breath, headache/dizziness, chills, nausea/vomitingdiarrhea. Review of Systems Review of Systems: All systems reviewed & are unremarkable except as noted in Subjective Physical Exam Physical Exam: Left hip: Dressings are clean dry and intact. No erythema. Moderate amount of swelling to left thigh. Compartments are soft. Minimal tenderness. No calf tenderness. Toes are mobile, good dorsiflexion. Distally neurovascular status and sensation intact. Constitutional: WD/WN, vitals as above Results & Data ([facility]) Vital Signs (Past 12 Hours) Vital Signs Pulse Resp BP Pulse Ox 05/04/21 04:00 115 H 113/76 05/04/21 00:00 115 H 113/76 05/03/21 23:41 107 H 05/03/21 23:00 115 H 17 113/76 93 05/03/21 22:33 16 94 05/03/21 22:00 105 H 21 107/53 L 93 05/03/21 21:00 103 H 13 134/80 96 05/03/21 20:00 102 H 13 120/72 95 (1) Fracture of hip Encounter type: initial encounter Fracture type: closed Laterality: left Qualified Code(s): S72.002A - Fracture of unspecified part of neck of left femur, initial encounter for closed fracture
[2021-05-04] MEDS ORDERED: SODIUM PHOSPHATE 3 MMOL/1 ML INFUSION IV STA (07:42)
[2021-05-04] MEDS ORDERED: SODIUM PHOSPHATE 15 MMOL in DEXTROSE 5% 250 ML IV ONE (08:00)
[2021-05-04] MEDS: MAGNESIUM SULFATE / D5W 1 GM/100 ML BAG IV SCH ×3 (08:19→11:12)
[2021-05-04] MEDS: INSULIN ASPART PER UNIT SC SCH ×4 (08:19→20:47)
[2021-05-04] MEDS: TAMSULOSIN HCL 0.4 MG CAP PO SCH (08:20)
[2021-05-04] MEDS: GABAPENTIN 100 MG CAP PO SCH ×2 (08:20→20:47)
[2021-05-04] MEDS: ERGOCALCIFEROL 50,000 UNITS 1250 MCG CAP PO SCH (08:20)
[2021-05-04] MEDS: risperiDONE 0.5 MG TABLET PO SCH (08:20)
[2021-05-04] MEDS: CYANOCOBALAMIN (B-12) 500 MCG TABLET PO SCH (08:20)
[2021-05-04] MEDS: MIDODRINE HCL 2.5 MG TAB PO SCH (08:20)
--- NOTE | 2021-05-04 08:44 | Critical Care Progress Note ---
Date of Service May 04, 2021 Assessment & Plan (1) Acute renal failure superimposed on stage 3 chronic kidney disease: (2) Obstructive sleep apnea: (3) Diabetes mellitus: (4) Atrial fibrillation: (5) Fracture of hip: Plan: This is a 75-year-old male status post fall resulting in a left femur fracture that has since been repaired with ORIF postop day 2. Patient has been receiving fluids and blood products due to hypovolemia secondary to left femur fracture. Patient was on phenylephrine up until yesterday, but this has been discontinued and patient is hemodynamically stable. Neuro: Patient seems to have a baseline dementia that could be exacerbated due to low perfusion as well as pain management. Will require PT and OT when stabilized and medically cleared by Ortho. Cardio: Hemorrhagic shock secondary to bleeding in the thigh. No extravasation on CT scan. Receiving an additional unit of packed cells this yesterday and AM hgb stable at 9.0. Jared-Synephrine successfully weaned at 9 PM yesterday. Discontinue midodrine. Continue to hold all the patient's outpatient antihypertensive regimens. Patient is net 14 L positive, so no IV fluids at this time. Will give 40 mg of Lasix to aid in pulling out fluid. Respiratory: Saturating well at 96% on room air. Supplemental oxygen at night for obstructive sleep apnea. Renal: Patient has acute renal failure likely secondary to poor perfusion due to hypovolemia secondary to bleeding from femur fracture. Status post fluid repletion. Creatinine currently at 1.7 which is near baseline. Nephrology continues to follow. RINKU Felix. Continue to recheck morning creatinine. Infectious disease: Patient is only met one of the SIRS criteria. Patient has not been tachycardic, febrile, or tachypneic. Blood cultures have been drawn as well as urine cultures. Both of which have been negative within the first 24 hours. Due to current hypotension, however, will cover for urosepsis as patient had a white count as well as positive leuk esterase on UA. Discontinue cefepime, start Rocephin 2 g every 24 hour until cultures are negative after 48 hours. Heme-onc: Hemoglobin responded to 1 unit of blood yesterday going from 7.8 to 9.0 this morning. Bleeding has stabilized. Coagulation panel and fibrinogen are within normal limits. Continue to withhold chemical DVT prophylaxis at this time. SCDs for DVT prophylaxis. Continue recheck morning CBC. Endocrine: ICU glycemic protocol for his diabetes. MSK: Status post ORIF of the left femur postop day 2. Follow recommendations per orthopedics. PT and OT orders in. Out of bed to chair as tolerated with toe- touch of the left lower extremity. CODE STATUS: Full code Disposition: Downgrade to telemetry as pressures and hemoglobin are stable. Critical care sign off. Diet: Carb consistent diet. Admission and Anticipated Discharge Date Admission Date: April 29, 2021 Supervising Physician Co-Signing Physician Notes Dr. Kern was resident physician during care of patient. I separately evaluated patient for rushing portions of the history and the exam. I was present during the critical portion of medical decision making, and I discussed the case with the resident. I generally agree with the findings and plan. D/C midodrine, 40mg Lasix x1 today. Off pressors over 12 hours. Stable for downgrade out of ICU. D/C felix later today, D/C CVC today. Subjective Patient seen at bedside this morning. No overnight events reported. Patient is status post left ORIF postop day 2. Since seeing him on Tuesday, patient seems to become more agitated than he was last week. Feels that the staff are trying to hurt him. Seems to be more confused than he typically is but is for the most part reasonable and able to be consoled. Reports that he is having some pain with changing positions in bed but otherwise if he is lying at rest does not have any pain. Patient denies any chest pain, shortness of breath, nausea, or vomiting at this time. Review of Systems Review of Systems: All systems reviewed & are unremarkable except as noted in HPI & below Physical Exam Constitutional: well developed, well nourished, + ill appearing and + morbidly obese Eyes: PERRL, conjunctivae normal, anicteric sclerae ENMT: Mallampati Class: IV Throat: uvula midline Neck: trachea midline, no thyromegaly normal visual inspection Respiratory: normal respiratory effort, lungs clear to auscultation Cardiovascular: Rate/Rhythm: regular rate and regular rhythm Heart Sounds: normal S1 and normal S2 Vessels: no JVD Extremities: + edema (3+ pitting edema on the L 2+ on the R) Gastrointestinal (Abdomen): normal bowel sounds, soft, nontender, no hepatosplenomegaly Musculoskeletal: Head/Neck/Chest: normocephalic Skin: no rashes, warm and dry Neurologic: moves all extremities Cranial Nerves: PERRL and tongue midline Psychiatric: Orientation: alert, oriented to person and cooperative Results & Data Results & Data ([facility]) Vital Signs (Past 12 Hours) Vital Signs Pulse Resp BP Pulse Ox 05/04/21 04:00 115 H 113/76 05/04/21 00:00 115 H 113/76 05/03/21 23:41 107 H 05/03/21 23:00 115 H 17 113/76 93 05/03/21 22:33 16 94 05/03/21 22:00 105 H 21 107/53 L 93 05/03/21 21:00 103 H 13 134/80 96 Resident Activity Tracking Resident Involvement: Resident Care Provided Care Provided: Adult Hospital Medicine (1) Fracture of hip Encounter type: initial encounter Fracture type: closed Laterality: left Qualified Code(s): S72.002A - Fracture of unspecified part of neck of left femur, initial encounter for closed fracture
[2021-05-04] MEDS ORDERED: FUROSEMIDE 40 MG/4 ML VIAL IV ONE ×2 (09:31→09:34)
[2021-05-04] MEDS: INSULIN GLARGINE SOLOSTAR 100 UNITS/ML 3 ML PEN SC SCH (10:33)
--- NOTE | 2021-05-04 10:48 | Nephrology Progress Note ---
Date of Service May 04, 2021 Assessment & Plan Admission and Anticipated Discharge Date Admission Date: April 29, 2021 Subjective [facility], [id number] Nephrology Progress Note Signed Patient:MICHEAL BERRIOS Admit Date:04/29/21 MR#:[id number] Att Phy:Salud Jeet MCMAHON Acct ID:[id number] Madeline Phy:PCP,NO Date:1945 Fam Phy: Age:75 Location:1E Sex:M Room/Bed:[facility] cc: ~ *NOTICE TO RECEIVING LIBERTARIAN/AGENCY This information is strictly Confidential and protected under [place] law. [place] law prohibits you from making any further disclosure of this information unless further disclosure is expressly permitted by the written consent of the person to whom it pertains or is authorized by law. A general authorization for the release of medical or other information is not sufficient for this purpose. Hospital accepts no responsibility if the information is made available to any other person, INCLUDING THE PATIENT. Assessment & Plan (1) Acute renal failure superimposed on stage 3 chronic kidney disease: Plan: baseline creatinine 1.5-1.7 as recently as 01/2021. Presented at creatinine 2.2 and has climbed ever since., inflamed urinalysis with no bacteria; imaging unremarkable from standpoint. Gabriella--Sec to ATN /Contrast caused by Persistent Hypotension. Creat has peaked and now getting better. UOP abput 1300 ml per day. Does have massive edema and + 15 kilo Wt gain. Agree with iv lasix./ getting 40 iv now. Can give 40 iv bid. Can give more if no increased UOP. Support BP and o2 level. mag, Phos k etc. 2 At risk for septic shock: no source of infection identified; but he has elevated lactate, worsening GABRIELLA on CKD, hypotension, climbing WBC. -on empiric cefepime/dapto; f/u pending cxs Admission and Anticipated Discharge Date Admission Date: April 29, 2021 Subjective Overall better. Urine +. Labs better. No pressors now. BP fine Review of Systems Review of Systems: Comfortable, not in distress, c/o pain at the surgical site, 1+ pedal edema Passing urine Physical Exam Physical Exam: GENERAL: Comfortable, not in distress EYE EXAM: normal conjunctiva, PERRL and EOM's grossly intact OROPHARYNX: Dry mucous membrane LUNGS: Clear to auscultation. Normal chest wall mechanics, no w/r/r HEART: no murmurs, S1 normal and S2 normal ABDOMEN: abdomen soft, non-tender, normo-active bowel sounds LOWER EXTREMITIES: No pitting edema. no soaking at the surgical site, NEURO EXAM: Alert oriented. Results & Data ([facility]) Vital Signs (Past 12 Hours) Vital Signs Pulse Resp BP Pulse Ox 05/04/21 09:01 109 H 17 108/86 95 05/04/21 09:00 118 H 17 93 05/04/21 08:01 129 H 25 H 146/81 H 05/04/21 08:00 153 H 25 H 05/04/21 07:00 120 H 17 110/71 92 05/04/21 06:00 113 H 15 107/84 92 05/04/21 05:00 22 133/96 92 05/04/21 04:10 115 H 22 148/98 H 96 05/04/21 04:00 108 H 24 113/76 94 05/04/21 03:01 109 H 18 133/78 93 05/04/21 03:00 124 H 17 92 05/04/21 02:00 97 H 14 103/80 94 05/04/21 01:00 104 H 13 115/73 94 05/04/21 00:00 100 H 14 120/96 93 05/03/21 23:41 112 H 27 H 115/86 97 05/03/21 23:00 115 H 17 113/76 93
--- NOTE | 2021-05-04 17:13 | Hospitalist Progress Note ---
Date of Service May 04, 2021 Assessment & Plan (1) Acute renal failure superimposed on stage 3 chronic kidney disease: (2) Femur fracture, left: (3) Acute blood loss anemia: Plan: 75-year-old male withPMH of type 2 diabetes, hyperlipidemia, obstructive sleep apnea, hypertension, paroxysmal atrial fibrillation, vitamin B12 deficiency, morbid obesity, stage III chronic kidney disease, history of dementia presented w/ fall 04/30/21. The patient states he slipped on the grass in his yard and fell down and could not get up. He is being managed for the following: #. Hemorrhagic Shock - resolved #. Left thigh hematoma #. Acute blood loss anemia - 04/15 above #. Left Femur Fracture #. Fall -Hb 14--> 8 with left thigh and pelvis hematoma -CTA left LE shows large hematoma but no active extravasation -s/p 1 unit pRBC 05/01 with appropriate response -s/p 1 unit pRBC 05/03 - Hb 9.0, continue to monitor daily or as needed. -Continue with pain management -Surgical management, PT/OT, DVT Px per Surgery -s/p OR 05/02:Left open reduction and internal fixation of displaced, comminuted, impacted subtrochanteric/intertrochanteric femur fracture with a Synthes 360 mm x 11 mm long trochanteric fixation nail with an 11 mm x 120 mm helical blade and two 5.0 mm locking screws. #. Leukocytosis -likely reactive -no evidence of active infection -broad spectrum antibiotics discontinued #. GABRIELLA on CKD stage 3 -combination of prerenal and ATN from ongoing hypotension -baseline Cr around 1.5-1.7; improving -appreciate Nephrology input HTN -hold lisinopril, lasix due to hypotension, GABRIELLA -Resume metoprolol as blood pressure is holding up T2DM -hold metformin, trulicity -correctional scale insulin ordered HLD-continue statin BPH -continue flomax -s/p felix--will continue for accurate I/O History of Dementia -listed on chart, at risk for delirium. -Was started Risperdal 0.5mg daily here due to delirium and attempts to climb out of bed, would continue for now--he is doing well on Risperdal. At discharge, would consider changing it to PRN AMBER -cpap ordered (family denies this history), will need further investigation Morbid Obesity -BMI 43. Would benefit from alf weight loss counseling Hypomagnesemia Hypophosphatemia -Replete and monitor as appropriate. DVT ppx SCDs Admission and Anticipated Discharge Date Admission Date: April 29, 2021 Subjective Patient seen and examined at bedside for left thigh hematoma and hemorrhagic shock. Patient lying in bed, on room air, NAD, no new acute events overnight. Patient reports feeling better. Patient reports pain at left thigh under control with pain medications. Patient denies any fever/chills/headache/chest pain/palpitation/cough/sore throat/belly pain/other review of symptoms. Per RN, no new acute events overnight, patient is off of midodrine, and is also off of Jared-Synephrine since 9 PM last night. Physical Exam Physical Exam: GENERAL: Alert and oriented x3. NAD, on RA. HEENT: No pallor, no icterus. Pupils equal, round and reactive to light. Oral mucosa moist. NECK: No JVD, no neck masses. HEART: S1 and S2 heard. Regular rate and rhythm. No murmur, no gallop. RESPIRATORY SYSTEM: Normal AP diameter. No accessory muscle use. No wheezing, no crackles. ABDOMEN: Soft, bowel sounds present, nontender, no distention. CENTRAL NERVOUS SYSTEM: No facial droop. Speech is clear. Obeys simple commands. Moves extremities. EXTREMITIES: 1-2+ LLE edema, 1+ RLE edema, no erythema seen. Left lateral thigh with clean dressing without soakage. Left thigh tenderness. Results & Data Results & Data ([facility]) Vital Signs (Past 12 Hours) Vital Signs Pulse Resp BP Pulse Ox 05/04/21 16:00 112 H 20 125/82 89 L 05/04/21 15:01 113 H 17 115/81 77 L 05/04/21 15:00 119 H 17 66 L 05/04/21 14:00 124 H 22 131/78 96 05/04/21 13:00 101 H 20 107/73 05/04/21 12:00 101 H 21 110/78 05/04/21 11:00 115 H 18 132/93 96 05/04/21 10:01 123 H 24 118/89 93 05/04/21 10:00 114 H 18 93 05/04/21 09:01 109 H 17 108/86 95 05/04/21 09:00 118 H 17 93 05/04/21 08:01 129 H 25 H 146/81 H 05/04/21 08:00 153 H 25 H 05/04/21 07:00 120 H 17 110/71 92 05/04/21 06:00 113 H 15 107/84 92
[2021-05-04] MEDS: METOPROLOL TARTRATE 25 MG TAB PO SCH (20:47)
[2021-05-05 05:56] LABS: Basophils # (auto) 0.02 K/uL (0-0.2); Basophils % (auto) 0.1 %; Eosinophils # (auto) 0.23 K/uL (0-0.5); Eosinophils % (auto) 1.3 %; Hematocrit (blood only) 29.5 % (42-52); Hemoglobin 9.8 g/dL (14.0-18.0); Immature Granulocytes # (auto) 0.08 K/uL (0.00-0.02); Immature Granulocytes % (auto) 0.5 %; Lymphocytes % (auto) 17.2 %; Mean Corpuscular Hemoglobin 31.8 pg (25-34); Mean Corpuscular Hgb Conc 33.2 g/dL (32-36); Mean Corpuscular Volume 95.8 fL (80-100); Mean Platelet Volume 9.8 fL (7.4-10.4); Monocytes # (auto) 1.81 K/uL (0.11-0.59); Monocytes % (auto) 10.4 %; Neutrophils # (auto) 12.28 K/uL (1.4-6.5); Neutrophils % (auto) 70.5 %; Platelet Count 186 K/uL (130-400); RDW Coefficient of Variation 14.9 % (11.5-14.5); RDW Standard Deviation 51.2 fL (36.4-46.3); Red Blood Count 3.08 M/uL (4.7-6.1); White Blood Count 17.42 K/uL (4.8-10.8)
[2021-05-05] MEDS: traMADol HCL 50 MG TABLET PO PRN ×2 (05:57→15:59)
[2021-05-05 06:17] LABS: BUN Creatinine Ratio 16.7 (10-20); Calcium 7.9 mg/dl (8.5-10.1); Creatinine Clr Calc Pharmacy 61.5 ml/min; Est GFR (Non-African American) 44.9 ml/min; Magnesium 1.6 mg/dl (1.7-2.4); Phosphorus 2.6 mg/dl (2.5-4.9); Potassium 3.4 mmol/L (3.5-5.1)
[2021-05-05] MEDS: risperiDONE 0.5 MG TABLET PO SCH (07:44)
[2021-05-05] MEDS: GABAPENTIN 100 MG CAP PO SCH ×2 (07:45→20:16)
[2021-05-05] MEDS: CYANOCOBALAMIN (B-12) 500 MCG TABLET PO SCH (07:45)
[2021-05-05] MEDS: METOPROLOL TARTRATE 25 MG TAB PO SCH ×2 (07:45→20:18)
[2021-05-05] MEDS: INSULIN GLARGINE SOLOSTAR 100 UNITS/ML 3 ML PEN SC SCH (07:45)
[2021-05-05] MEDS: TAMSULOSIN HCL 0.4 MG CAP PO SCH (07:45)
[2021-05-05] MEDS ORDERED: POTASSIUM CHLORIDE CRTAB 20 MEQ TABCR PO STA (07:53)
[2021-05-05] MEDS: MAGNESIUM OXIDE 400 MG TAB PO SCH ×2 (08:44→20:16)
[2021-05-05] MEDS: INSULIN ASPART PER UNIT SC SCH ×4 (08:44→20:21)
[2021-05-05] MEDS: MAGNESIUM SULFATE / D5W 1 GM/100 ML BAG IV SCH ×3 (08:45→12:19)
[2021-05-05] MEDS: lisinopril 10 MG TAB PO SCH (10:28)
--- NOTE | 2021-05-05 10:31 | Nephrology Progress Note ---
Date of Service May 05, 2021 Assessment & Plan Admission and Anticipated Discharge Date Admission Date: April 29, 2021 Subjective Assessment & Plan (1) Acute renal failure superimposed on stage 3 chronic kidney disease: Plan: baseline creatinine 1.5-1.7 as recently as 01/2021. Presented at creatinine 2.2 and has climbed ever since., inflamed urinalysis with no bacteria; imaging unremarkable from standpoint. Miguel--Sec to ATN /Contrast caused by Persistent Hypotension. Creat has peaked and now getting better. UOP went up to 3500 ml yesterday Does have massive edema and + 15 kilo Wt gain. Agree with iv lasix. Can give 40 iv bid for few doses and then record changer tester to home dose Support BP and o2 level. mag, Phos k etc. Subjective Overall better. Urine +. Labs better. No pressors now. BP fine Review of Systems Review of Systems: Comfortable, not in distress, c/o pain at the surgical site, 2+ pedal edema Passing urine Physical Exam Physical Exam: GENERAL: Comfortable, not in distress EYE EXAM: normal conjunctiva, PERRL and EOM's grossly intact OROPHARYNX: Dry mucous membrane LUNGS: Clear to auscultation. Normal chest wall mechanics, no w/r/r HEART: no murmurs, S1 normal and S2 normal ABDOMEN: abdomen soft, non-tender, normo-active bowel sounds LOWER EXTREMITIES: No pitting edema. no soaking at the surgical site, NEURO EXAM: Alert oriented. Results & Data ([facility]) Vital Signs (Past 12 Hours) Vital Signs Temp Pulse Resp BP Pulse Ox 05/05/21 09:01 97 H 18 130/89 97 05/05/21 08:00 104 H 20 141/85 H 05/05/21 07:00 98 H 15 127/82 96 05/05/21 06:12 37 C 96 H 18 130/87 97 05/05/21 06:00 96 H 18 130/87 97 05/05/21 05:50 100 H 15 97 05/05/21 05:40 105 H 23 96 05/05/21 05:30 106 H 20 96 05/05/21 05:20 94 H 27 H 96 05/05/21 05:10 100 H 19 93 05/05/21 05:00 103 H 20 88 L 05/05/21 04:50 92 H 18 95 02/22/22 04:40 110 H 18 98 02/22 04:30 105 H 23 99 02/22 04:20 98 H 19 96 22 04:10 100 H 18 96 05/05/22 04:00 90 23 111/79 93 22 03:50 110 H 23 96 02/22 03:40 106 H 18 97 05/05/22 03:30 100 H 20 97 0222 03:20 100 H 18 96 05/05/22 03:10 103 H 22 96 0222 03:00 102 H 20 131/75 97 05/05/21 02:50 105 H 31 H 97 05/05/ 02:40 93 H 18 96 05/05/21 02:30 103 H 23 96 05/05/21 02:20 91 H 20 97 05/05/21 02:10 105 H 23 97 05/05/21 02:00 95 H 27 H 122/83 96 05/05/21 01:50 99 H 20 96 05/05/21 01:40 90 24 98 22 01:30 106 H 17 98 05/05/21 01:20 98 H 25 H 97 05/05/22 01:10 99 H 18 97 05/05/22 01:00 100 H 21 134/84 05/05/ 00:50 110 H 15 94 05/05/22 00:40 100 H 31 H 97 05/05/22 00:30 104 H 18 97 02/22 00:20 92 H 19 97 02/22 00:10 101 H 23 97 05/05/22 00:01 99 H 19 141/88 H 97 0222/22 00:00 101 H 16 97 0221/22 23:50 99 H 16 96 02/21/22 23:40 100 H 16 96 0221/22 23:30 99 H 24 96 0221/22 23:29 108 H 02/22 23:20 105 H 16 96 0221/22 23:10 104 H 28 H 96 02/22 23:00 90 19 109/76 90 0221/22 22:50 100 H 19 96 0221/22 22:40 97 H 17 97
[2021-05-05] MEDS ORDERED: FUROSEMIDE 40 MG/4 ML VIAL IV ONE (10:45)
--- NOTE | 2021-05-05 12:30 | Orthopedic Progress Note ---
Date of Service May 05, 2021 Assessment & Plan (1) Fracture of hip: Plan: Postop day #3 left trochanteric femoral nailing -PT/OT: Toe-touch weightbearing left lower extremity -Pain management as written -DVT prophylaxis: SCDs, as per medicine -A.m. labs: Hgb 9.8, other labs as noted below. -Discharge planning: Plan on discharge when stable, likely will need inpatient rehab versus SNF upon discharge. Admission and Anticipated Discharge Date Admission Date: April 29, 2021 Subjective POD 3 Pt sitting up in bed awake, alert. States having pain when getting in and out of Bed. No other complaints currently. States not much of an appetite. Physical Exam Physical Exam: Dressings changed by nursing this AM. Team states mild serous drainage noted. Drainage consistent with surgery and hematoma. Calves soft, NT. NV intact. Toes mobile. Results & Data ([facility]) Vital Signs (Past 12 Hours) Vital Signs Temp Pulse Resp BP Pulse Ox 05/05/21 12:13 97 H 05/05/21 09:01 97 H 18 130/89 97 05/05/21 08:00 104 H 20 141/85 H 05/05/21 07:00 98 H 15 127/82 96 05/05/21 06:12 37 C 96 H 18 130/87 97 05/05/21 06:00 96 H 18 130/87 97 05/05/21 05:50 100 H 15 97 05/05/21 05:40 105 H 23 96 05/05/21 05:30 106 H 20 96 05/05/21 05:20 94 H 27 H 96 05/05/21 05:10 100 H 19 93 05/05/21 05:00 103 H 20 88 L 05/05/21 04:50 92 H 18 95 05/05/21 04:40 110 H 18 98 05/05/21 04:30 105 H 23 99 05/05/21 04:20 98 H 19 96 05/05/21 04:10 100 H 18 96 05/05/21 04:00 90 23 111/79 93 05/05/21 03:50 110 H 23 96 05/05/21 03:40 106 H 18 97 05/05/21 03:30 100 H 20 97 05/05/21 03:20 100 H 18 96 05/05/21 03:10 103 H 22 96 05/05/21 03:00 102 H 20 131/75 97 05/05/21 02:50 105 H 31 H 97 05/05/21 02:40 93 H 18 96 05/05/21 02:30 103 H 23 96 05/05/21 02:20 91 H 20 97 05/05/21 02:10 105 H 23 97 05/05/21 02:00 95 H 27 H 122/83 96 05/05/21 01:50 99 H 20 96 05/05/21 01:40 90 24 98 05/05/21 01:30 106 H 17 98 05/05/21 01:20 98 H 25 H 97 05/05/21 01:10 99 H 18 97 05/05/21 01:00 100 H 21 134/84 05/05/21 00:50 110 H 15 94 05/05/21 00:40 100 H 31 H 97 05/05/21 00:30 104 H 18 97 Laboratory Results 05/05/21 05/05/21 05/05/21 Range/Units 11:27 08:16 07:35 WBC (4.8-10.8) K/uL RBC (4.7-6.1) M/uL Hgb (14.0-18.0) g/dL Hct (42-52) % MCV (80-100) fL MCH (25-34) pg MCHC (32-36) g/dL RDW Std Deviation (36.4-46.3) fL RDW Coeff of Zenaida (11.5-14.5) % Plt Count (130-400) K/uL MPV (7.4-10.4) fL Immature Gran % (Auto) % Neut % (Auto) % Lymph % (Auto) % [place] % (Auto) % Eos % (Auto) % Baso % (Auto) % Neut # (Auto) (1.4-6.5) K/uL Lymph # (Auto) (1.2-3.4) K/uL [place] # (Auto) (0.11-0.59) K/uL Eos # (Auto) (0-0.5) K/uL Baso # (Auto) (0-0.2) K/uL Immature Gran # (Auto) (0.00-0.02) K/uL Sodium (136-145) mmol/L Potassium (3.5-5.1) mmol/L Chloride (98-107) mmol/L Carbon Dioxide (21-32) mmol/L Anion Gap (3-11) BUN (6-23) mg/dl Creatinine (0.6-1.4) mg/dl Est Cr Clr Drug Dosing ml/min Est GFR ( Amer) ml/min Est GFR (Non-Af Amer) ml/min BUN/Creatinine Ratio (10-20) Glucose (70-99(Fasting)) mg/dl POC Glucose 182 H 185 H (70-99) mg/dl POC Glucose (other) (70-99) mg/dl Calcium (8.5-10.1) mg/dl Phosphorus (2.5-4.9) mg/dl Magnesium (1.7-2.4) mg/dl Procalcitonin 0.54 H (0-0.5) ng/ml 05/05/21 05/05/21 05/04/21 Range/Units 05:09 05:09 20:34 WBC 17.42 H (4.8-10.8) K/uL RBC 3.08 L (4.7-6.1) M/uL Hgb 9.8 L (14.0-18.0) g/dL Hct 29.5 L (42-52) % MCV 95.8 (80-100) fL MCH 31.8 (25-34) pg MCHC 33.2 (32-36) g/dL RDW Std Deviation 51.2 H (36.4-46.3) fL RDW Coeff of Zenaida 14.9 H (11.5-14.5) % Plt Count 186 (130-400) K/uL MPV 9.8 (7.4-10.4) fL Immature Gran % (Auto) 0.5 % Neut % (Auto) 70.5 % Lymph % (Auto) 17.2 % [place] % (Auto) 10.4 % Eos % (Auto) 1.3 % Baso % (Auto) 0.1 % Neut # (Auto) 12.28 H (1.4-6.5) K/uL Lymph # (Auto) 3.00 (1.2-3.4) K/uL [place] # (Auto) 1.81 H (0.11-0.59) K/uL Eos # (Auto) 0.23 (0-0.5) K/uL Baso # (Auto) 0.02 (0-0.2) K/uL Immature Gran # (Auto) 0.08 H (0.00-0.02) K/uL Sodium 137 (136-145) mmol/L Potassium 3.4 L (3.5-5.1) mmol/L Chloride 107 (98-107) mmol/L Carbon Dioxide 22 (21-32) mmol/L Anion Gap 8 (3-11) BUN 25 H (6-23) mg/dl Creatinine 1.50 H (0.6-1.4) mg/dl Est Cr Clr Drug Dosing 61.5 ml/min Est GFR ( Amer) 52.0 ml/min Est GFR (Non-Af Amer) 44.9 ml/min BUN/Creatinine Ratio 16.7 (10-20) Glucose 169 H (70-99(Fasting)) mg/dl POC Glucose 196 H (70-99) mg/dl POC Glucose (other) (70-99) mg/dl Calcium 7.9 L (8.5-10.1) mg/dl Phosphorus 2.6 (2.5-4.9) mg/dl Magnesium 1.6 L (1.7-2.4) mg/dl Procalcitonin (0-0.5) ng/ml 05/04/21 05/02/21 Range/Units 16:31 23:57 WBC (4.8-10.8) K/uL RBC (4.7-6.1) M/uL Hgb (14.0-18.0) g/dL Hct (42-52) % MCV (80-100) fL MCH (25-34) pg MCHC (32-36) g/dL RDW Std Deviation (36.4-46.3) fL RDW Coeff of Zenaida (11.5-14.5) % Plt Count (130-400) K/uL MPV (7.4-10.4) fL Immature Gran % (Auto) % Neut % (Auto) % Lymph % (Auto) % [place] % (Auto) % Eos % (Auto) % Baso % (Auto) % Neut # (Auto) (1.4-6.5) K/uL Lymph # (Auto) (1.2-3.4) K/uL [place] # (Auto) (0.11-0.59) K/uL Eos # (Auto) (0-0.5) K/uL Baso # (Auto) (0-0.2) K/uL Immature Gran # (Auto) (0.00-0.02) K/uL Sodium (136-145) mmol/L Potassium (3.5-5.1) mmol/L Chloride (98-107) mmol/L Carbon Dioxide (21-32) mmol/L Anion Gap (3-11) BUN (6-23) mg/dl Creatinine (0.6-1.4) mg/dl Est Cr Clr Drug Dosing ml/min Est GFR ( Amer) ml/min Est GFR (Non-Af Amer) ml/min BUN/Creatinine Ratio (10-20) Glucose (70-99(Fasting)) mg/dl POC Glucose 168 H (70-99) mg/dl POC Glucose (other) 186 H (70-99) mg/dl Calcium (8.5-10.1) mg/dl Phosphorus (2.5-4.9) mg/dl Magnesium (1.7-2.4) mg/dl Procalcitonin (0-0.5) ng/ml (1) Fracture of hip Encounter type: initial encounter Fracture type: closed Laterality: left Qualified Code(s): S72.002A - Fracture of unspecified part of neck of left femur, initial encounter for closed fracture
[2021-05-05] MEDS: FUROSEMIDE 40 MG/4 ML VIAL IV SCH (16:00)
[2021-05-05] MEDS ORDERED: PIPERACILL/TAZOBAC CONSULT ACTIVE PRN (17:02)
--- NOTE | 2021-05-05 17:14 | Hospitalist Progress Note ---
Date of Service May 05, 2021 Assessment & Plan (1) Acute renal failure superimposed on stage 3 chronic kidney disease: (2) Femur fracture, left: (3) Acute blood loss anemia: Plan: 75-year-old male withPMH of type 2 diabetes, hyperlipidemia, obstructive sleep apnea, hypertension, paroxysmal atrial fibrillation, vitamin B12 deficiency, morbid obesity, stage III chronic kidney disease, history of dementia presented w/ fall 04/30/21. The patient states he slipped on the grass in his yard and fell down and could not get up. He is being managed for the following: #. Hemorrhagic Shock - resolved #. Left thigh hematoma #. Acute blood loss anemia - 04/15 above #. Left Femur Fracture #. Fall -Hb 14--> 8 with left thigh and pelvis hematoma -CTA left LE shows large hematoma but no active extravasation -s/p 1 unit pRBC 05/01 with appropriate response -s/p 1 unit pRBC 05/03 - Hb stable, continue to monitor daily or as needed. -Continue with pain management -Surgical management, PT/OT, DVT Px per Surgery -s/p OR 05/02:Left open reduction and internal fixation of displaced, comminuted, impacted subtrochanteric/intertrochanteric femur fracture with a Synthes 360 mm x 11 mm long trochanteric fixation nail with an 11 mm x 120 mm helical blade and two 5.0 mm locking screws. #. Leukocytosis -No source of infection as of now, procalcitonin elevated, WBC up trended again, was initially on broad-spectrum antibiotic which was discontinued [04/30 blood and urine culture negative for growth] -CXR, blood culture, urine analysis with reflex culture, Zosyn -Follow daily, continue to monitor. #. GABRIELLA on CKD stage 3 -combination of prerenal and ATN from ongoing hypotension -baseline Cr around 1.5-1.7; improved -appreciate Nephrology input, continue with IV Lasix for now for few doses and then change to home dose. HTN -Resume BP meds as able. -Continue with metoprolol. T2DM -hold metformin, trulicity -correctional scale insulin HLD-continue statin BPH -continue flomax -s/p felix--will continue for accurate I/O History of Dementia -listed on chart, at risk for delirium. -Was started Risperdal 0.5mg daily here due to delirium and attempts to climb out of bed, would continue for now--he is doing well on Risperdal. At discharge, would consider changing it to PRN AMBER -cpap ordered (family denies this history), will need further investigation Morbid Obesity -BMI 43. Would benefit from assisted weight loss counseling #. Hypomagnesemia #. Hypophosphatemia -Replete and monitor as appropriate. DVT ppx SCDs, Heparin Admission and Anticipated Discharge Date Admission Date: April 29, 2021 Subjective Patient seen and examined at bedside for left thigh hematoma and hemorrhagic shock. Patient lying in bed, on room air, NAD, no new acute events overnight. Patient reports feeling better. Patient reports improved pain at left thigh. Patient denies any fever/chills/headache/chest pain/palpitation/cough/sore throat/belly pain/other review of symptoms. Per RN, no new acute events overnight. Patient reports eating and moving bowels okay. Physical Exam Physical Exam: GENERAL: Alert and oriented x3. NAD, on RA. HEENT: No pallor, no icterus. Pupils equal, round and reactive to light. Oral mucosa moist. NECK: No JVD, no neck masses. HEART: S1 and S2 heard. Regular rate and rhythm. No murmur, no gallop. RESPIRATORY SYSTEM: Normal AP diameter. No accessory muscle use. No wheezing, no crackles. ABDOMEN: Soft, bowel sounds present, nontender, no distention. CENTRAL NERVOUS SYSTEM: No facial droop. Speech is clear. Obeys simple commands. Moves extremities. EXTREMITIES: 1-2+ LLE edema, 1+ RLE edema, no erythema seen. Left lateral thigh with clean dressing without soakage. Left thigh tenderness improving Results & Data Results & Data ([facility]) Vital Signs (Past 12 Hours) Vital Signs Temp Pulse Pulse Resp BP BP Pulse Ox 05/05/21 16:04 36.8 C 103 H 19 104/84 96 05/05/21 13:32 101 H 21 114/80 96 05/05/21 13:00 91 H 21 102/87 05/05/21 12:13 97 H 05/05/21 12:00 23 131/94 96 05/05/21 11:01 54 L 16 132/91 97 05/05/21 10:01 16 100/72 94 05/05/21 10:00 16 96 05/05/21 09:01 97 H 18 130/89 97 05/05/21 08:00 104 H 20 141/85 H 05/05/21 07:00 98 H 15 127/82 96 05/05/21 06:12 37 C 96 H 18 130/87 97 05/05/21 06:00 96 H 18 130/87 97 05/05/21 05:50 100 H 15 97 05/05/21 05:40 105 H 23 96 05/05/21 05:30 106 H 20 96 05/05/21 05:20 94 H 27 H 96 05/05/21 05:10 100 H 19 93
[2021-05-05] MEDS ORDERED: PIPERACILLIN/TAZOBACTAM 3.375 GM in DEXTROSE 5% 100 ML IV ONE (17:30)
[2021-05-05 19:01] LABS: Appearance Urine Clear (Clear); Bacteria Urine Automated Negative (Negative); Bilirubin Urine Negative (Negative); Blood Urine 1+ (Negative); Color Urine Yellow; Epithelial Cell Urine Auto 0-5 /lpf (0-5); Glucose Urine UA Negative (Negative); Ketones Urine Negative (Negative); Leukocyte Esterase Urine 1+ (Negative); Nitrite Urine Negative (Negative); Protein Urine Negative (Negative); Specific Gravity Urine 1.008 (1.000-1.030); Urobilinogen Urine Negative (Negative)
[2021-05-05] MEDS: HEPARIN SOD 5,000 UNIT/0.5 ML VIAL SQ SCH (20:17)
--- NOTE | 2021-05-05 20:23 | XRay Report ---
SINGLE VIEW CHEST CLINICAL HISTORY: Dyspnea. FINDINGS: An AP, portable, upright chest radiograph is compared to study dated 05/01/2021. The a right internal jugular central venous catheter has been removed. The heart is enlarged. The pulmonary vasc ulature is noncongested. Atelectasis is seen at the lung bases. The lungs and pleural spaces are othe rwise clear. No pneumothorax is seen. The skeletal structures are osteopenic. The bony thorax is humberto sly intact. Advanced arthritic change is noted in the shoulders. Distended bowel loops are noted in t he upper abdomen. IMPRESSION: 1. Cardiomegaly with no active disease in the chest. 2. Distended bowel loops are noted in the upper abdomen. Correlate clinically for evidence of ileus. ACT 112: Negative or not required by law. Electronically signed by: Bonifacio Kennedy M.D. 05/05/2021 8:22 PM
[2021-05-05] MEDS: PIPERACILLIN/TAZOBACTAM 4.5 GM in DEXTROSE 5% 100 ML IV SCH (21:15)
[2021-05-06] MEDS: ONDANSETRON INJ 2 MG/ML 2 ML VIAL IV PRN (03:25)
[2021-05-06] MEDS: PIPERACILLIN/TAZOBACTAM 4.5 GM in DEXTROSE 5% 100 ML IV SCH ×2 (05:03→14:10)
[2021-05-06 05:11] LABS: Hematocrit (blood only) 28.5 % (42-52); Hemoglobin 9.5 g/dL (14.0-18.0); Mean Corpuscular Hemoglobin 31.9 pg (25-34); Mean Corpuscular Hgb Conc 33.3 g/dL (32-36); Mean Corpuscular Volume 95.6 fL (80-100); Mean Platelet Volume 9.4 fL (7.4-10.4); Platelet Count 206 K/uL (130-400); RDW Coefficient of Variation 14.8 % (11.5-14.5); RDW Standard Deviation 51.2 fL (36.4-46.3); Red Blood Count 2.98 M/uL (4.7-6.1); White Blood Count 18.21 K/uL (4.8-10.8)
[2021-05-06 05:45] LABS: BUN Creatinine Ratio 17.7 (10-20); Calcium 7.7 mg/dl (8.5-10.1); Creatinine Clr Calc Pharmacy 58.4 ml/min; Est GFR (African American) 48.9 ml/min; Est GFR (Non-African American) 42.2 ml/min; Magnesium 1.7 mg/dl (1.7-2.4); Potassium 3.2 mmol/L (3.5-5.1)
[2021-05-06] MEDS: traMADol HCL 50 MG TABLET PO PRN ×2 (05:48→19:54)
[2021-05-06] MEDS: METOPROLOL TARTRATE 25 MG TAB PO SCH ×2 (06:02→19:54)
[2021-05-06] MEDS: CYANOCOBALAMIN (B-12) 500 MCG TABLET PO SCH (09:37)
[2021-05-06] MEDS ORDERED: POTASSIUM CHLORIDE CRTAB 20 MEQ TABCR PO STA ×2 (09:38→16:21)
[2021-05-06] MEDS: FUROSEMIDE 40 MG/4 ML VIAL IV SCH (09:40)
[2021-05-06] MEDS: GABAPENTIN 100 MG CAP PO SCH ×2 (09:40→19:54)
[2021-05-06] MEDS: HEPARIN SOD 5,000 UNIT/0.5 ML VIAL SQ SCH ×2 (09:41→21:02)
[2021-05-06] MEDS: lisinopril 10 MG TAB PO SCH (09:42)
[2021-05-06] MEDS: INSULIN GLARGINE SOLOSTAR 100 UNITS/ML 3 ML PEN SC SCH (09:42)
[2021-05-06] MEDS: MAGNESIUM OXIDE 400 MG TAB PO SCH ×2 (09:43→19:54)
[2021-05-06] MEDS: risperiDONE 0.5 MG TABLET PO SCH (09:43)
[2021-05-06] MEDS: TAMSULOSIN HCL 0.4 MG CAP PO SCH (09:43)
[2021-05-06] MEDS: INSULIN ASPART PER UNIT SC SCH ×4 (09:44→20:34)
[2021-05-06] MEDS ORDERED: MAGNESIUM SULFATE / D5W 1 GM/100 ML BAG IV ONE (10:00)
[2021-05-06 10:55] LABS: Procalcitonin 0.43 ng/ml (0-0.5)
[2021-05-06 11:01] LABS: Lyme Ab IgG w/WB Rflx Negative (Negative); Lyme Ab IgM w/WB Rflx Negative (Negative)
--- NOTE | 2021-05-06 13:08 | Nephrology Progress Note ---
Date of Service May 06, 2021 Assessment & Plan Admission and Anticipated Discharge Date Admission Date: April 29, 2021 Subjective Assessment & Plan (1) Acute renal failure superimposed on stage 3 chronic kidney disease: Plan: baseline creatinine 1.5-1.7 as recently as 01/2021. Presented at creatinine 2.2 and has climbed ever since., inflamed urinalysis with no bacteria; imaging unremarkable from standpoint. Miguel--Sec to ATN /Contrast caused by Persistent Hypotension. Creat has peaked and now back to baseline. UOPis good. Does have massive edema and + 15 kilo Wt gain. 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 Hold Lisinopril for now. Will restart in few days after some more diuresis Support BP and o2 level. mag, Phos k etc replacement Subjective Overall better. Urine +. Labs stable. No pressors now. BP fine Review of Systems Review of Systems: Comfortable, not in distress, c/o pain at the surgical site, 2+ pedal edemaPassing urine Physical Exam Physical Exam: GENERAL: Comfortable, not in distress EYE EXAM: normal conjunctiva, PERRL and EOM's grossly intact OROPHARYNX: Dry mucous membrane LUNGS: Clear to auscultation. Normal chest wall mechanics, no w/r/r HEART: no murmurs, S1 normal and S2 normal ABDOMEN: abdomen soft, non-tender, normo-active bowel sounds LOWER EXTREMITIES: No pitting edema. no soaking at the surgical site, NEURO EXAM: Alert oriented. Results & Data ([facility]) Vital Signs (Past 12 Hours) Vital Signs Temp Pulse Resp BP Pulse Ox 05/06/21 11:50 36.4 C L 91 H 22 105/68 94 05/06/21 07:57 36.7 C 83 22 114/63 97 05/06/21 04:00 36.8 C 105 H 19 120/74 94
--- NOTE | 2021-05-06 16:34 | Hospitalist Progress Note ---
Date of Service May 06, 2021 Assessment & Plan (1) Acute renal failure superimposed on stage 3 chronic kidney disease: (2) Femur fracture, left: (3) Acute blood loss anemia: Plan: 75-year-old male withPMH of type 2 diabetes, hyperlipidemia, obstructive sleep apnea, hypertension, paroxysmal atrial fibrillation, vitamin B12 deficiency, morbid obesity, stage III chronic kidney disease, history of dementia presented w/ fall 04/30/21. The patient states he slipped on the grass in his yard and fell down and could not get up. He is being managed for the following: #. Hemorrhagic Shock - resolved #. Left thigh hematoma #. Acute blood loss anemia - 04/15 above #. Left Femur Fracture #. Fall -Hb 14--> 8 with left thigh and pelvis hematoma -CTA left LE shows large hematoma but no active extravasation -s/p 1 unit pRBC 05/01 with appropriate response -s/p 1 unit pRBC 05/03 - Hb stable, continue to monitor daily or as needed. -Continue with pain management -Surgical management, PT/OT, DVT Px per Surgery -s/p OR 05/02:Left open reduction and internal fixation of displaced, comminuted, impacted subtrochanteric/intertrochanteric femur fracture with a Synthes 360 mm x 11 mm long trochanteric fixation nail with an 11 mm x 120 mm helical blade and two 5.0 mm locking screws. #. Leukocytosis -No source of infection as of now, procalcitonin elevated --> downtrending today, WBC up trended again though minimally, was initially on broad-spectrum antibiotic which was discontinued [04/30 blood and urine culture negative for growth] -05/05 CXR with no active pulmonary disease, follow-up with 05/05 blood culture -05/06 Lyme screen negative, remove Byrnes catheter 05/06, patient remains AOx4 -05/06 examination of operative wound reveals clean/stable/nonerythematous/nontender/healthy looking operative wound. -Continue with Zosyn 05/06, -Infectious disease consult -Follow daily, continue to monitor. #. GABRIELLA on CKD stage 3 -combination of prerenal and ATN from ongoing hypotension -baseline Cr around 1.5-1.7; improved -appreciate Nephrology input, p.o. Lasix increased dose, hold lisinopril --restart in few days. #. Other chronic medical conditions: HTN, T2DM, HLD, BPH, HTN, Dementia, AMBER on CPAP Resume/continue with BP meds with holding parameter Hold T2DM meds, correctional scale insulin Continue other meds as and when appropriate. Given history of dementia, patient at risk for delirium --> Was started Risperdal 0.5mg daily here due to delirium and attempts to climb out of bed, would continue for now-->he is doing well on Risperdal. At discharge, would consider changing it to PRN #. Hypomagnesemia #. Hypophosphatemia -Replete and monitor as appropriate. DVT ppx SCDs, Heparin Admission and Anticipated Discharge Date Admission Date: April 29, 2021 Subjective Patient seen and examined at bedside for left thigh hematoma and hemorrhagic shock. Patient lying in bed, on room air, NAD, no new acute events overnight. AOx4, Patient reports feeling better. Patient reports improved pain at left thigh. Per RN, no acute events overnight and no concern of overt signs and symptoms of infection. Patient denies any fever/chills/headache/chest pain/pa lpitation/cough/sore throat/belly pain/other review of symptoms.Patient reports eating and moving bowels okay. Physical Exam Physical Exam: GENERAL: Alert and oriented x3. NAD, on RA. HEENT: No pallor, no icterus. Pupils equal, round and reactive to light. Oral mucosa moist. NECK: No JVD, no neck masses. HEART: S1 and S2 heard. Regular rate and rhythm. No murmur, no gallop. RESPIRATORY SYSTEM: Normal AP diameter. No accessory muscle use. No wheezing, no crackles. ABDOMEN: Soft, bowel sounds present, nontender, no distention. CENTRAL NERVOUS SYSTEM: No facial droop. Speech is clear. Obeys simple commands. Moves extremities. EXTREMITIES: 1-2+ LLE edema, 1+ RLE edema, no erythema seen. Left lateral thigh --operative wounds clean, stapled, no erythema, no tenderness on exam. UC with yellow urine collection noted. Results & Data Results & Data ([facility]) Vital Signs (Past 12 Hours) Vital Signs Temp Pulse Resp BP Pulse Ox 05/06/21 15:59 36.6 C 84 20 95/72 L 99 05/06/21 11:50 36.4 C L 91 H 22 105/68 94 05/06/21 07:57 36.7 C 83 22 114/63 97
[2021-05-06] MEDS: FUROSEMIDE 40 MG TAB PO SCH (17:24)
[2021-05-06] MEDS: ceFAZolin 2000MG 2,000 MG/15 ML SYR IV SCH (20:53)
[2021-05-07] MEDS ORDERED: COUGH DROP (SUGAR FREE) LOZ 24 LOZ/1 BOX BUCCAL ONE (02:17)
[2021-05-07] MEDS ORDERED: COUGH DROP (SUGAR FREE) LOZ 24 LOZ/1 BOX BUCCAL PRN (04:17)
[2021-05-07] MEDS: ceFAZolin 2000MG 2,000 MG/15 ML SYR IV SCH ×3 (04:24→20:07)
[2021-05-07 05:44] LABS: Hematocrit (blood only) 27.6 % (42-52); Hemoglobin 9.7 g/dL (14.0-18.0); Mean Corpuscular Hemoglobin 33.9 pg (25-34); Mean Corpuscular Hgb Conc 35.1 g/dL (32-36); Mean Corpuscular Volume 96.5 fL (80-100); Mean Platelet Volume 9.5 fL (7.4-10.4); Platelet Count 252 K/uL (130-400); RDW Coefficient of Variation 15.2 % (11.5-14.5); Red Blood Count 2.86 M/uL (4.7-6.1)
[2021-05-07 06:14] LABS: BUN Creatinine Ratio 18.1 (10-20); Calcium 7.7 mg/dl (8.5-10.1); Creatinine Clr Calc Pharmacy 46.1 ml/min; Est GFR (Non-African American) 31.9 ml/min; Magnesium 1.9 mg/dl (1.7-2.4); Phosphorus 3.4 mg/dl (2.5-4.9); Potassium 3.4 mmol/L (3.5-5.1)
[2021-05-07] MEDS ORDERED: POTASSIUM CHLORIDE CRTAB 20 MEQ TABCR PO STA (07:24)
[2021-05-07] MEDS: INSULIN ASPART PER UNIT SC SCH ×4 (07:41→20:20)
[2021-05-07] MEDS: GABAPENTIN 100 MG CAP PO SCH ×2 (09:06→20:09)
[2021-05-07] MEDS: CYANOCOBALAMIN (B-12) 500 MCG TABLET PO SCH (09:06)
[2021-05-07] MEDS: FUROSEMIDE 40 MG TAB PO SCH (09:06)
[2021-05-07] MEDS: INSULIN GLARGINE SOLOSTAR 100 UNITS/ML 3 ML PEN SC SCH (09:07)
[2021-05-07] MEDS: HEPARIN SOD 5,000 UNIT/0.5 ML VIAL SQ SCH ×2 (09:07→20:10)
[2021-05-07] MEDS: METOPROLOL TARTRATE 25 MG TAB PO SCH ×2 (09:08→20:10)
[2021-05-07] MEDS: MAGNESIUM OXIDE 400 MG TAB PO SCH ×2 (09:08→20:10)
[2021-05-07] MEDS: risperiDONE 0.5 MG TABLET PO SCH (09:09)
[2021-05-07] MEDS: TAMSULOSIN HCL 0.4 MG CAP PO SCH (09:09)
--- NOTE | 2021-05-07 11:00 | Nephrology Progress Note ---
Date of Service May 07, 2021 Assessment & Plan Admission and Anticipated Discharge Date Admission Date: April 29, 2021 Subjective Assessment & Plan (1) Acute renal failure superimposed on stage 3 chronic kidney disease: Plan: baseline creatinine 1.5-1.7 as recently as 01/2021. Presented at creatinine 2.2 and has climbed ever since., inflamed urinalysis with no bacteria; imaging unremarkable from standpoint. Miguel--Sec to ATN /Contrast caused by Persistent Hypotension. Creat has peaked and now back to baseline. UOPis good. Does have massive edema and + 15 kilo Wt gain. Should get better with recovery of MIGUEL ARF was getting better but now with new bacteremia and rising WBC creat is up again. Stop lasix for now. Hold Lisinopril for now. Support BP and o2 level. mag, Phos k etc replacements needed Subjective Seems more confused as he did not know Urine + but now no felix so not sure amount. Labs stable. No pressors now. BP fine Review of Systems Review of Systems: Comfortable, not in distress, c/o pain at the surgical site, 2+ pedal edema Passing urine Physical Exam Physical Exam: GENERAL: Comfortable, not in distress EYE EXAM: normal conjunctiva, PERRL and EOM's grossly intact OROPHARYNX: Dry mucous membrane LUNGS: Clear to auscultation. Normal chest wall mechanics, no w/r/r HEART: no murmurs, S1 normal and S2 normal ABDOMEN: abdomen soft, non-tender, normo-active bowel sounds LOWER EXTREMITIES: No pitting edema. no soaking at the surgical site, NEURO EXAM: Confused. Results & Data ([facility]) Vital Signs (Past 12 Hours) Vital Signs Temp Pulse Pulse Resp BP Pulse Ox 05/07/21 09:12 103 H 109/87 05/07/21 08:00 36.6 C 88 15 126/79 97 05/07/21 04:16 36.4 C L 107/68 05/07/21 04:10 83 10 L 05/07/21 04:00 75 14 05/07/21 03:50 63 14 05/07/21 03:40 85 14 05/07/21 03:30 95 H 13 05/07/21 03:20 85 13 05/07/21 03:10 53 L 15 05/07/21 03:00 77 15 05/07/21 02:50 77 13 05/07/21 02:40 79 18 05/07/21 02:30 82 15 05/07/21 02:20 79 13 05/07/21 02:10 80 13 05/07/21 02:00 72 13 05/07/21 01:50 76 14 05/07/21 01:40 73 14 05/07/21 01:30 82 16 05/07/21 01:20 70 17 05/07/21 01:10 64 19 05/07/21 01:00 81 21 05/07/21 00:50 71 16 05/07/21 00:40 69 17 05/07/21 00:30 70 15 05/07/21 00:20 67 14 05/07/21 00:10 76 14 05/07/21 00:00 72 13 05/06/21 23:57 67 05/06/21 23:50 70 14 05/06/21 23:40 14 05/06/21 23:30 78 14 05/06/21 23:20 67 20 05/06/21 23:10 65 16 05/06/21 23:00 71 10 L
--- NOTE | 2021-05-07 13:12 | Hospitalist Progress Note ---
Date of Service May 07, 2021 Assessment & Plan (1) Acute renal failure superimposed on stage 3 chronic kidney disease: (2) Femur fracture, left: (3) Acute blood loss anemia: Plan: 75-year-old male withPMH of type 2 diabetes, hyperlipidemia, obstructive sleep apnea, hypertension, paroxysmal atrial fibrillation, vitamin B12 deficiency, morbid obesity, stage III chronic kidney disease, history of dementia presented w/ fall 04/30/21. The patient states he slipped on the grass in his yard and fell down and could not get up. He is being managed for the following: #. Hemorrhagic Shock - resolved #. Left thigh hematoma #. Acute blood loss anemia - 04/15 above #. Left Femur Fracture #. Fall -Hb 14--> 8 with left thigh and pelvis hematoma -CTA left LE shows large hematoma but no active extravasation -s/p 1 unit pRBC 05/01 with appropriate response -s/p 1 unit pRBC 05/03 - Hb stable, continue to monitor daily or as needed. -Continue with pain management -Surgical management, PT/OT, DVT Px per Surgery -s/p OR 05/02:Left open reduction and internal fixation of displaced, comminuted, impacted subtrochanteric/intertrochanteric femur fracture with a Synthes 360 mm x 11 mm long trochanteric fixation nail with an 11 mm x 120 mm helical blade and two 5.0 mm locking screws. #. Leukocytosis -No source of infection as of now, procalcitonin elevated --> f/u after antibiotic downtrending, WBC downtrending today though minimally, was initially on broad-spectrum antibiotic which was discontinued [04/30 blood and urine culture negative for growth] -05/05 CXR with no active pulmonary disease, follow-up with 05/05 blood culture -->GPC positive on 05/06--> 05/05 zosyn changed to cefazolin on 05/06 (MRSA negative)---> 05/07 f/u on Culture, likely contaminant but WBC downtrending, will continue with Cefazolin 05/06 until ID evals. -05/06 Lyme screen negative, removed Felix catheter 05/06, patient remains AOx3 -05/06 examination of operative wound reveals clean/stable/nonerythematou s/nontender/healthy looking operative wound. -Genitalia remains edematous but non tender / non erythematous. -Infectious disease consult, await recs -Follow daily, continue to monitor. #. GABRIELLA on CKD stage 3 -combination of prerenal and ATN from hypotension early in the course -baseline Cr around 1.5-1.7; Worsening again, 1.99 today. -d/w Nephrology 05/07 -- hold lasix and lisinopril -pt remains volume overloaded - low threshold for putting back felix. #. Other chronic medical conditions: HTN, T2DM, HLD, BPH, HTN, Dementia, AMBER on CPAP Resume/continue with BP meds with holding parameter Hold T2DM meds, correctional scale insulin Continue other meds as and when appropriate. Given history of dementia, patient at risk for delirium --> Was started Risperdal 0.5mg daily here due to delirium and attempts to climb out of bed, would continue for now-->he is doing well on Risperdal. At discharge, would consider changing it to PRN #. Hypomagnesemia #. Hypophosphatemia -Replete and monitor as appropriate. DVT ppx SCDs, Heparin 05/07--> patient's Dtr Neva was given a phone call and updated about current status of the patient, answered all her questions, she voiced understanding and was agreeable to the plan of care. Admission and Anticipated Discharge Date Admission Date: April 29, 2021 Subjective Patient seen and examined at bedside for left thigh hematoma and hemorrhagic shock. Patient sitting up in bed eating his lunch, on room air, NAD, no new acute events overnight. AOx3, Patient reports feeling same. Denies discomfort or pain, wanted to pee and I held the urinal (200ml urine output). Per RN, no acute events overnight and no concern of overt signs and symptoms of infection.Also per RN, not able to bladder scan properly given his body habitus and swelling. low threshold for felix back. Patient denies any fever/chills/headache/chest pain/palpitation/cough/sore throat/belly pain/other review of symptoms.Patient reports eating and moving bowels okay. Physical Exam Physical Exam: GENERAL: Alert and oriented x3. NAD, on RA. HEENT: No pallor, no icterus. Pupils equal, round and reactive to light. Oral mucosa moist. NECK: No JVD, no neck masses. HEART: S1 and S2 heard. Regular rate and rhythm. No murmur, no gallop. RESPIRATORY SYSTEM: Normal AP diameter. No accessory muscle use. No wheezing, no crackles. ABDOMEN: Soft, bowel sounds present, nontender, no distention. CENTRAL NERVOUS SYSTEM: No facial droop. Speech is clear. Obeys simple commands. Moves extremities. EXTREMITIES: 1-2+ LLE edema, 1+ RLE edema, no erythema seen. Left lateral thigh -- clean dressing without soakage. Non tender. UC with yellow urine collection noted. Swollen genitalia, non tender/non erythematous. Results & Data Results & Data ([facility]) Vital Signs (Past 12 Hours) Vital Signs Temp Pulse Pulse Resp BP Pulse Ox 05/07/21 12:14 36.6 C 85 16 128/87 99 05/07/21 09:12 103 H 109/87 05/07/21 08:00 36.6 C 88 15 126/79 97 05/07/21 04:16 36.4 C L 107/68 05/07/21 04:10 83 10 L 05/07/21 04:00 75 14 05/07/21 03:50 63 14 05/07/21 03:40 85 14 05/07/21 03:30 95 H 13 05/07/21 03:20 85 13 05/07/21 03:10 53 L 15 05/07/21 03:00 77 15 05/07/21 02:50 77 13 05/07/21 02:40 79 18 05/07/21 02:30 82 15 05/07/21 02:20 79 13 05/07/21 02:10 80 13 05/07/21 02:00 72 13 05/07/21 01:50 76 14 05/07/21 01:40 73 14 05/07/21 01:30 82 16 05/07/21 01:20 70 17 05/07/21 01:10 64 19
[2021-05-07] MEDS: ADVANCED PROBIOTIC 1250 MG CAPSULE PO SCH (14:35)
[2021-05-07] MEDS: traMADol HCL 50 MG TABLET PO PRN (17:36)
[2021-05-08] MEDS: ceFAZolin 2000MG 2,000 MG/15 ML SYR IV SCH ×2 (03:56→12:29)
[2021-05-08 04:52] LABS: Hematocrit (blood only) 28.3 % (42-52); Hemoglobin 9.2 g/dL (14.0-18.0); Mean Corpuscular Hemoglobin 31.5 pg (25-34); Mean Corpuscular Hgb Conc 32.5 g/dL (32-36); Mean Corpuscular Volume 96.9 fL (80-100); Mean Platelet Volume 9.4 fL (7.4-10.4); Platelet Count 266 K/uL (130-400); RDW Coefficient of Variation 15.1 % (11.5-14.5); RDW Standard Deviation 53.2 fL (36.4-46.3); Red Blood Count 2.92 M/uL (4.7-6.1); White Blood Count 13.54 K/uL (4.8-10.8)
[2021-05-08 05:17] LABS: BUN Creatinine Ratio 22.1 (10-20); Calcium 7.7 mg/dl (8.5-10.1); Est GFR (African American) 47.1 ml/min; Est GFR (Non-African American) 40.6 ml/min; Potassium 3.4 mmol/L (3.5-5.1)
[2021-05-08] MEDS ORDERED: POTASSIUM CHLORIDE CRTAB 20 MEQ TABCR PO STA (07:29)
[2021-05-08] MEDS: INSULIN ASPART PER UNIT SC SCH ×4 (07:45→20:42)
[2021-05-08] MEDS: traMADol HCL 50 MG TABLET PO PRN ×2 (07:46→20:26)
--- NOTE | 2021-05-08 08:27 | Billing Data ---
Date of Service May 04, 2021 Coding Level of Care Code Critical Care 1st - mins
[2021-05-08] MEDS: MAGNESIUM OXIDE 400 MG TAB PO SCH ×2 (08:31→20:19)
[2021-05-08] MEDS: CYANOCOBALAMIN (B-12) 500 MCG TABLET PO SCH (08:31)
[2021-05-08] MEDS: METOPROLOL TARTRATE 25 MG TAB PO SCH ×2 (08:31→20:15)
[2021-05-08] MEDS: risperiDONE 0.5 MG TABLET PO SCH (08:32)
[2021-05-08] MEDS: TAMSULOSIN HCL 0.4 MG CAP PO SCH (08:32)
[2021-05-08] MEDS: ADVANCED PROBIOTIC 1250 MG CAPSULE PO SCH (08:32)
[2021-05-08] MEDS: GABAPENTIN 100 MG CAP PO SCH ×2 (08:32→20:19)
[2021-05-08] MEDS: INSULIN GLARGINE SOLOSTAR 100 UNITS/ML 3 ML PEN SC SCH (08:37)
[2021-05-08] MEDS: HEPARIN SOD 5,000 UNIT/0.5 ML VIAL SQ SCH ×2 (09:15→20:20)
--- NOTE | 2021-05-08 12:06 | Nephrology Progress Note ---
Date of Service May 08, 2021 Assessment & Plan Admission and Anticipated Discharge Date Admission Date: April 29, 2021 Subjective Assessment & Plan (1) Acute renal failure superimposed on stage 3 chronic kidney disease: Plan: baseline creatinine 1.5-1.7 as recently as 01/2021. Presented at creatinine 2.2 and has climbed ever since., inflamed urinalysis with no bacteria; imaging unremarkable from standpoint. Miguel--Sec to ATN /Contrast caused by Persistent Hypotension. Creat has peaked and now back to baseline. UOPis good. Does have massive edema and + 15 kilo Wt gain. Should get better with recovery of MIGUEL ARF was getting better but with new bacteremia and rising WBC creat up again but today back to baseline Hold Lisinopril for now. Lasix 40 daily from now Support BP and o2 level. mag, Phos k etc replacements needed Also Needs bladder scan to make sure not Urine retention Subjective less confused today. Looks better. now no felix so not sure amount. Labs stable. No pressors now. BP fine Review of Systems Review of Systems: Comfortable, not in distress, c/o pain at the surgical site, 2+ pedal edema Passing urine Physical Exam Physical Exam: GENERAL: Comfortable, not in distress EYE EXAM: normal conjunctiva, PERRL and EOM's grossly intact OROPHARYNX: Dry mucous membrane LUNGS: Clear to auscultation. Normal chest wall mechanics, no w/r/r HEART: no murmurs, S1 normal and S2 normal ABDOMEN: abdomen soft, non-tender, normo-active bowel sounds LOWER EXTREMITIES: No pitting edema. no soaking at the surgical site, NEURO EXAM: Confused. Results & Data ([facility]) Vital Signs (Past 12 Hours) Vital Signs Temp Pulse Resp BP Pulse Ox 05/08/21 08:00 36.8 C 80 18 140/88 98 05/08/21 03:59 37 C 79 22 136/80 98
[2021-05-08] MEDS ORDERED: FUROSEMIDE 40 MG TAB PO ONE (14:46)
--- NOTE | 2021-05-08 15:18 | Hospitalist Progress Note ---
Date of Service May 08, 2021 Assessment & Plan (1) Acute renal failure superimposed on stage 3 chronic kidney disease: (2) Femur fracture, left: (3) Acute blood loss anemia: Plan: 75-year-old male withPMH of type 2 diabetes, hyperlipidemia, obstructive sleep apnea, hypertension, paroxysmal atrial fibrillation, vitamin B12 deficiency, morbid obesity, stage III chronic kidney disease, history of dementia presented w/ fall 04/30/21. The patient states he slipped on the grass in his yard and fell down and could not get up. He is being managed for the following: #. Hemorrhagic Shock - resolved #. Left thigh hematoma #. Acute blood loss anemia - 04/15 above #. Left Femur Fracture #. Fall -Hb 14--> 8 with left thigh and pelvis hematoma -CTA left LE shows large hematoma but no active extravasation -s/p 1 unit pRBC 05/01 with appropriate response -s/p 1 unit pRBC 05/03 - Hb stable, continue to monitor daily or as needed. -Continue with pain management -Surgical management, PT/OT, DVT Px per Ortho Surgery --> toe tough weight bearing -s/p OR 05/02:Left open reduction and internal fixation of displaced, comminuted, impacted subtrochanteric/intertrochanteric femur fracture with a Synthes 360 mm x 11 mm long trochanteric fixation nail with an 11 mm x 120 mm helical blade and two 5.0 mm locking screws. #. Leukocytosis -No source of infection as of now, procalcitonin elevated --> f/u after antibiotic downtrending, WBC downtrending today though minimally, was initially on broad-spectrum antibiotic which was discontinued [04/30 blood and urine culture negative for growth] -05/05 CXR with no active pulmonary disease, follow-up with 05/05 blood culture -->GPC positive on 05/06--> 05/05 zosyn changed to cefazolin on 05/06 (MRSA negative)---> 05/07 f/u on Culture, likely contaminant but WBC downtrending, will continue with Cefazolin 05/06 until ID evals. -05/06 Lyme screen negative, removed Byrnes catheter 05/06, patient remains AOx3 -05/06 examination of operative wound reveals clean/stable/nonerythematous/nontender/healthy looking operative wound. -Genitalia remains edematous but non tender / non erythematous. -Infectious disease consult, await recs - WBC trending down , Pt remains afebrile, Follow daily, continue to monitor. #. GABRIELLA on CKD stage 3 -combination of prerenal and ATN from hypotension early in the course -baseline Cr around 1.5-1.7; back to baseline today. -d/w Nephrology 05/08 -- resume lasix 40 mg daily and hold lisinopril -pt remains volume overloaded #. Other chronic medical conditions: HTN, T2DM, HLD, BPH, HTN, Dementia, AMBER on CPAP Resume/continue with BP meds with holding parameter Hold T2DM meds, correctional scale insulin Continue other meds as and when appropriate. Given history of dementia, patient at risk for delirium --> Was started Risperdal 0.5mg daily here due to delirium and attempts to climb out of bed, would continue for now-->he is doing well on Risperdal. At discharge, would consider changing it to PRN #. Hypomagnesemia #. Hypophosphatemia -Replete and monitor as appropriate. DVT ppx SCDs, Heparin 05/07--> patient's Dtr Neva was given a phone call and updated about current status of the patient, answered all her questions, she voiced understanding and was agreeable to the plan of care. Admission and Anticipated Discharge Date Admission Date: April 29, 2021 Subjective Patient seen and examined at bedside for left thigh hematoma and hemorrhagic shock. Patient sitting up in bed eating his lunch, on room air, NAD, no new acute events overnight. AOx3, Patient reports feeling same. Per RN, patient is making good urine output, overnight patient was incontinent. Per RN, no acute events overnight and no concern of overt signs and symptoms of infection. Patient reports eating okay and moving bowels okay. Patient denies any fever/chills/headache/chest pain/palpitation/cough/sore throat/belly pain/other review of symptoms. Patient does not have pain on palpation around the operative site. Physical Exam Physical Exam: GENERAL: Alert and oriented x3. NAD, on RA. HEENT: No pallor, no icterus. Pupils equal, round and reactive to light. Oral mucosa moist. NECK: No JVD, no neck masses. HEART: S1 and S2 heard. Regular rate and rhythm. No murmur, no gallop. RESPIRATORY SYSTEM: Normal AP diameter. No accessory muscle use. No wheezing, no crackles. ABDOMEN: Soft, bowel sounds present, nontender, no distention. CENTRAL NERVOUS SYSTEM: No facial droop. Speech is clear. Obeys simple commands. Moves extremities. EXTREMITIES: 1-2+ LLE edema, 1+ RLE edema, no erythema seen. Left lateral thigh -- clean dressing without soakage. Non tender. Swollen genitalia, non tender/non erythematous. Results & Data Results & Data ([facility]) Vital Signs (Past 12 Hours) Vital Signs Temp Pulse Resp BP Pulse Ox 05/08/21 08:00 36.8 C 80 18 140/88 98 05/08/21 03:59 37 C 79 22 136/80 98
[2021-05-08] MEDS: ONDANSETRON INJ 2 MG/ML 2 ML VIAL IV PRN (19:45)
[2021-05-09 05:40] LABS: Hematocrit (blood only) 30.1 % (42-52); Hemoglobin 9.6 g/dL (14.0-18.0); Mean Corpuscular Hemoglobin 31.3 pg (25-34); Mean Corpuscular Hgb Conc 31.9 g/dL (32-36); Mean Platelet Volume 10.2 fL (7.4-10.4); Platelet Count 290 K/uL (130-400); RDW Coefficient of Variation 15.3 % (11.5-14.5); RDW Standard Deviation 53.7 fL (36.4-46.3); Red Blood Count 3.07 M/uL (4.7-6.1)
[2021-05-09 06:04] LABS: BUN Creatinine Ratio 22.5 (10-20); Calcium 7.9 mg/dl (8.5-10.1); Creatinine Clr Calc Pharmacy 66.2 ml/min; Est GFR (African American) 57.6 ml/min; Est GFR (Non-African American) 49.7 ml/min; Magnesium 1.7 mg/dl (1.7-2.4); Potassium 3.4 mmol/L (3.5-5.1)
[2021-05-09] MEDS: INSULIN ASPART PER UNIT SC SCH ×4 (08:29→21:27)
[2021-05-09] MEDS: ADVANCED PROBIOTIC 1250 MG CAPSULE PO SCH (08:31)
[2021-05-09] MEDS: CYANOCOBALAMIN (B-12) 500 MCG TABLET PO SCH (08:31)
[2021-05-09] MEDS: TAMSULOSIN HCL 0.4 MG CAP PO SCH (08:31)
[2021-05-09] MEDS: risperiDONE 0.5 MG TABLET PO SCH (08:31)
[2021-05-09] MEDS: FUROSEMIDE 40 MG TAB PO SCH (08:31)
[2021-05-09] MEDS: GABAPENTIN 100 MG CAP PO SCH ×2 (08:31→21:27)
[2021-05-09] MEDS: MAGNESIUM OXIDE 400 MG TAB PO SCH ×2 (08:31→21:28)
[2021-05-09] MEDS: INSULIN GLARGINE SOLOSTAR 100 UNITS/ML 3 ML PEN SC SCH (08:32)
[2021-05-09] MEDS: HEPARIN SOD 5,000 UNIT/0.5 ML VIAL SQ SCH ×2 (08:34→21:28)
[2021-05-09] MEDS ORDERED: MAGNESIUM OXIDE 400 MG TAB PO SCH (09:00)
[2021-05-09] MEDS: POTASSIUM CHLORIDE CRTAB 20 MEQ TABCR PO SCH (10:26)
[2021-05-09] MEDS: METOPROLOL TARTRATE 25 MG TAB PO SCH ×2 (11:52→21:28)
--- NOTE | 2021-05-09 11:54 | Nephrology Progress Note ---
Date of Service May 09, 2021 Assessment & Plan (1) Acute renal failure superimposed on stage 3 chronic kidney disease: Plan: baseline creatinine 1.5-1.7 as recently as 01/2021. Presented at creatinine 2.2 and has climbed ever since., inflamed urinalysis with no bacteria; imaging unremarkable from standpoint. 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 Creatinine down to 1.4 which is close to his baseline. - Renal function continue to improve and his UOP is good. >support BP to maintain map >65 -Renal will sign off please reconsult if additional questions or concerns -Patient will need renal follow-up outpatient. Admission and Anticipated Discharge Date Admission Date: April 29, 2021 Subjective Seen in follow-up for acute kidney injury. Patient is making urine. No shortness of breath. Creatinine downtrending to 1.4 today. Review of Systems Review of Systems: All other systems were reviewed and negative except as noted in HPI Physical Exam Physical Exam: General exam: Appears comfortable, no acute distress HEENT: Pupils are equal and reactive to light Neck: No JVD, neck is supple trachea is midline Respiratory system: Clear breath sounds bilaterally. Gastrointestinal: Abdomen is soft, non distended, non tender, bowel sounds are present CVS: Regular rate and rhythm. No murmurs, rubs or gallops Musculoskeletal: No joint or muscle tenderness Extremities: Non tender, 1+ edema, peripheral pulses are present Neuro: Oriented, no tremors, no focal neurological deficits Skin: No rashes Results & Data ([facility]) Vital Signs (Past 12 Hours) Vital Signs Temp Pulse Pulse Resp BP BP Pulse Ox 05/09/21 08:12 36.7 C 81 20 104/67 97 05/09/21 07:24 86 05/09/21 04:00 82 21 165/103 H 98 05/09/21 00:25 77 05/09/21 00:00 36.8 C 80 21 129/83 98 Laboratory Results 05/09/21 05:09 05/09/21 05:09 WBC 15.80 H RBC 3.07 L MCV 98.0 MCH 31.3 MCHC 31.9 L RDW Std Deviation 53.7 H RDW Coeff of Zenaida 15.3 H Plt Count 290 MPV 10.2
--- NOTE | 2021-05-09 18:07 | Hospitalist Progress Note ---
Date of Service May 09, 2021 Assessment & Plan (1) Acute renal failure superimposed on stage 3 chronic kidney disease: (2) Femur fracture, left: (3) Acute blood loss anemia: Plan: 75-year-old male withPMH of type 2 diabetes, hyperlipidemia, obstructive sleep apnea, hypertension, paroxysmal atrial fibrillation, vitamin B12 deficiency, morbid obesity, stage III chronic kidney disease, history of dementia presented w/ fall 04/30/21. The patient states he slipped on the grass in his yard and fell down and could not get up. He is being managed for the following: #. Hemorrhagic Shock - resolved #. Left thigh hematoma #. Acute blood loss anemia - 04/15 above #. Left Femur Fracture #. Fall -Hb 14--> 8 with left thigh and pelvis hematoma -CTA left LE shows large hematoma but no active extravasation -s/p 1 unit pRBC 05/01 with appropriate response -s/p 1 unit pRBC 05/03 - Hb stable, continue to monitor daily or as needed. -Continue with pain management -Surgical management, PT/OT, DVT Px per Ortho Surgery --> toe touch weight bearing -s/p OR 05/02:Left open reduction and internal fixation of displaced, comminuted, impacted subtrochanteric/intertrochanteric femur fracture with a Synthes 360 mm x 11 mm long trochanteric fixation nail with an 11 mm x 120 mm helical blade and two 5.0 mm locking screws. #. Leukocytosis -For events upto 05/08, refer to progress note 05/08 -ID evaluated 05/08, monitoring patient off of ATB #. GABRIELLA on CKD stage 3 -combination of prerenal and ATN from hypotension early in the course -baseline Cr around 1.5-1.7; Resolved -d/w Nephrology 05/08 -- resume lasix 40 mg daily and hold lisinopril -pt remains volume overloaded -resume lisinopril when able, OP nephro f/u upon DC #. Other chronic medical conditions: HTN, T2DM, HLD, BPH, HTN, Dementia, AMBER on CPAP Resume/continue with BP meds with holding parameter Hold T2DM meds, correctional scale insulin Continue other meds as and when appropriate. Given history of dementia, patient at risk for delirium --> Was started Risperdal 0.5mg daily here due to delirium and attempts to climb out of bed, would continue for now-->he is doing well on Risperdal. At discharge, would consider changing it to PRN #. Hypomagnesemia #. Hypophosphatemia -Replete and monitor as appropriate. DVT ppx SCDs, Heparin 05/07--> patient's Dtr Neva was given a phone call and updated about current status of the patient, answered all her questions, she voiced understanding and was agreeable to the plan of care. Admission and Anticipated Discharge Date Admission Date: April 29, 2021 Subjective Patient seen and examined at bedside for left thigh hematoma and hemorrhagic shock. Patient lying in bed, on room air, NAD. Per RN, patient had five episodes of diarrhea overnight and 2 in the morning, C diff was sent and negative. AOx3, Patient reports feeling same. Patient reports eating okay. Patient denies any fever/chills/headache/chest pain/palpitation/cough/sore throat/belly pain/other review of symptoms. Patient does not have pain on palpation around the operative site. Physical Exam Physical Exam: GENERAL: Alert and oriented x3. NAD, on RA. HEENT: No pallor, no icterus. Pupils equal, round and reactive to light. Oral mucosa moist. NECK: No JVD, no neck masses. HEART: S1 and S2 heard. Regular rate and rhythm. No murmur, no gallop. RESPIRATORY SYSTEM: Normal AP diameter. No accessory muscle use. No wheezing, no crackles. ABDOMEN: Soft, bowel sounds present, nontender, no distention. CENTRAL NERVOUS SYSTEM: No facial droop. Speech is clear. Obeys simple commands. Moves extremities. EXTREMITIES: 1-2+ LLE edema, 1+ RLE edema, no erythema seen. Left lateral thigh -- clean dressing. Non tender. Swollen genitalia, non tender/non erythematous. Edema LE and scrotum ->improving Results & Data Results & Data ([facility]) Vital Signs (Past 12 Hours) Vital Signs Temp Pulse Pulse Resp BP Pulse Ox 05/09/21 15:35 36.7 C 76 20 126/79 97 05/09/21 15:00 75 05/09/21 12:27 36.6 C 85 19 114/73 98 05/09/21 08:12 36.7 C 81 20 104/67 97 05/09/21 07:24 86
[2021-05-10 07:11] LABS: BUN Creatinine Ratio 20.3 (10-20); Est GFR (Non-African American) 54.4 ml/min; Magnesium 1.7 mg/dl (1.7-2.4); Potassium 3.3 mmol/L (3.5-5.1)
[2021-05-10] MEDS ORDERED: POTASSIUM CHLORIDE CRTAB 20 MEQ TABCR PO STA (08:20)
[2021-05-10] MEDS: METOPROLOL TARTRATE 25 MG TAB PO SCH ×2 (08:58→21:10)
[2021-05-10] MEDS: ADVANCED PROBIOTIC 1250 MG CAPSULE PO SCH (08:59)
[2021-05-10] MEDS: MAGNESIUM OXIDE 400 MG TAB PO SCH ×2 (08:59→21:10)
[2021-05-10] MEDS: TAMSULOSIN HCL 0.4 MG CAP PO SCH (08:59)
[2021-05-10] MEDS: GABAPENTIN 100 MG CAP PO SCH ×2 (08:59→21:10)
[2021-05-10] MEDS: CYANOCOBALAMIN (B-12) 500 MCG TABLET PO SCH (08:59)
[2021-05-10] MEDS: POTASSIUM CHLORIDE CRTAB 20 MEQ TABCR PO SCH (08:59)
[2021-05-10] MEDS: FUROSEMIDE 40 MG TAB PO SCH (08:59)
[2021-05-10] MEDS: risperiDONE 0.5 MG TABLET PO SCH (08:59)
[2021-05-10] MEDS: HEPARIN SOD 5,000 UNIT/0.5 ML VIAL SQ SCH ×2 (09:00→21:11)
[2021-05-10] MEDS: INSULIN ASPART PER UNIT SC SCH ×4 (09:45→21:11)
[2021-05-10] MEDS: INSULIN GLARGINE SOLOSTAR 100 UNITS/ML 3 ML PEN SC SCH (09:46)
--- NOTE | 2021-05-10 18:48 | Hospitalist Progress Note ---
Date of Service May 10, 2021 Assessment & Plan (1) Acute renal failure superimposed on stage 3 chronic kidney disease: (2) Femur fracture, left: (3) Acute blood loss anemia: Plan: 75-year-old male withPMH of type 2 diabetes, hyperlipidemia, obstructive sleep apnea, hypertension, paroxysmal atrial fibrillation, vitamin B12 deficiency, morbid obesity, stage III chronic kidney disease, history of dementia presented w/ fall 04/30/21. The patient states he slipped on the grass in his yard and fell down and could not get up. He is being managed for the following: #. Hemorrhagic Shock - resolved #. Left thigh hematoma #. Acute blood loss anemia - 04/15 above #. Left Femur Fracture #. Fall -Hb 14--> 8 with left thigh and pelvis hematoma -CTA left LE shows large hematoma but no active extravasation -s/p 1 unit pRBC 05/01 with appropriate response -s/p 1 unit pRBC 05/03 - Hb stable, continue to monitor daily or as needed. -Continue with pain management -Surgical management, PT/OT, DVT Px per Ortho Surgery --> toe touch weight bearing -s/p OR 05/02:Left open reduction and internal fixation of displaced, comminuted, impacted subtrochanteric/intertrochanteric femur fracture with a Synthes 360 mm x 11 mm long trochanteric fixation nail with an 11 mm x 120 mm helical blade and two 5.0 mm locking screws. #. Leukocytosis -For events upto 05/08, refer to progress note 05/08 -ID evaluated 05/08, monitoring patient off of ATB #. GABRIELLA on CKD stage 3 -combination of prerenal and ATN from hypotension early in the course -baseline Cr around 1.5-1.7; Resolved -d/w Nephrology 05/08 -- resume lasix 40 mg daily and hold lisinopril -pt remains volume overloaded -resume lisinopril when able, OP nephro f/u upon DC #. Other chronic medical conditions: HTN, T2DM, HLD, BPH, HTN, Dementia, AMBER on CPAP Resume/continue with BP meds with holding parameter Hold T2DM meds, correctional scale insulin Continue other meds as and when appropriate. Given history of dementia, patient at risk for delirium --> Was started Risperdal 0.5mg daily here due to delirium and attempts to climb out of bed, would continue for now-->he is doing well on Risperdal. At discharge, would consider changing it to PRN #. Hypomagnesemia #. Hypophosphatemia -Replete and monitor as appropriate. DVT ppx SCDs, Heparin 05/07--> patient's Dtr Neva was given a phone call and updated about current status of the patient, answered all her questions, she voiced understanding and was agreeable to the plan of care. Admission and Anticipated Discharge Date Admission Date: April 29, 2021 Subjective Patient seen and examined at bedside for left thigh hematoma and hemorrhagic shock. Patient lying in bed, on room air, NAD. Per RN, patient incontinent of urine overnight, had diarrhea overnight but none in the morning. AOx3, Patient reports feeling same. Patient reports eating okay. Patient denies any fever/chills/headache/chest pain/palpitation/cough/sore thro at/belly pain/other review of symptoms. Patient does not have pain on palpation around the operative site. Physical Exam Physical Exam: GENERAL: Alert and oriented x3. NAD, on RA. HEENT: No pallor, no icterus. Pupils equal, round and reactive to light. Oral mucosa moist. NECK: No JVD, no neck masses. HEART: S1 and S2 heard. Regular rate and rhythm. No murmur, no gallop. RESPIRATORY SYSTEM: Normal AP diameter. No accessory muscle use. No wheezing, no crackles. ABDOMEN: Soft, bowel sounds present, nontender, no distention. CENTRAL NERVOUS SYSTEM: No facial droop. Speech is clear. Obeys simple commands. Moves extremities. EXTREMITIES: 1-2+ LLE edema, 1+ RLE edema, no erythema seen. Left lateral thigh -- clean dressing. Non tender. Swollen genitalia, non tender/non erythematous. Edema LE and scrotum ->improving Results & Data Results & Data ([facility]) Vital Signs (Past 12 Hours) Vital Signs Temp Pulse Pulse Resp BP BP Pulse Ox 05/10/21 16:00 36.9 C 05/10/21 15:34 37.6 C H 84 16 107/61 96 05/10/21 15:21 68 05/10/21 11:41 36.9 C 77 18 99/66 L 95 05/10/21 07:32 36.7 C 88 18 127/77 99 05/10/21 07:00 92 H
[2021-05-11 06:19] LABS: Hematocrit (blood only) 30.5 % (42-52); Hemoglobin 9.8 g/dL (14.0-18.0); Mean Corpuscular Hemoglobin 31.4 pg (25-34); Mean Corpuscular Hgb Conc 32.1 g/dL (32-36); Mean Corpuscular Volume 97.8 fL (80-100); Mean Platelet Volume 9.8 fL (7.4-10.4); Platelet Count 337 K/uL (130-400); RDW Coefficient of Variation 15.4 % (11.5-14.5); RDW Standard Deviation 53.8 fL (36.4-46.3); Red Blood Count 3.12 M/uL (4.7-6.1); White Blood Count 17.26 K/uL (4.8-10.8)
[2021-05-11 06:38] LABS: BUN Creatinine Ratio 17.8 (10-20); Calcium 7.8 mg/dl (8.5-10.1); Creatinine Clr Calc Pharmacy 76.5 ml/min; Est GFR (African American) 69.5 ml/min; Magnesium 1.6 mg/dl (1.7-2.4); Phosphorus 2.8 mg/dl (2.5-4.9); Potassium 2.9 mmol/L (3.5-5.1)
[2021-05-11] MEDS: HEPARIN SOD 5,000 UNIT/0.5 ML VIAL SQ SCH ×2 (08:23→20:57)
[2021-05-11] MEDS: MAGNESIUM OXIDE 400 MG TAB PO SCH ×2 (08:23→21:43)
[2021-05-11] MEDS: METOPROLOL TARTRATE 25 MG TAB PO SCH ×2 (08:23→21:43)
[2021-05-11] MEDS: FUROSEMIDE 40 MG TAB PO SCH (08:24)
[2021-05-11] MEDS: ADVANCED PROBIOTIC 1250 MG CAPSULE PO SCH (08:24)
[2021-05-11] MEDS: risperiDONE 0.5 MG TABLET PO SCH (08:24)
[2021-05-11] MEDS: TAMSULOSIN HCL 0.4 MG CAP PO SCH (08:24)
[2021-05-11] MEDS: CYANOCOBALAMIN (B-12) 500 MCG TABLET PO SCH (08:24)
[2021-05-11] MEDS: GABAPENTIN 100 MG CAP PO SCH ×2 (08:24→21:43)
[2021-05-11] MEDS: ERGOCALCIFEROL 50,000 UNITS 1250 MCG CAP PO SCH (08:24)
[2021-05-11] MEDS: POTASSIUM CHLORIDE CRTAB 20 MEQ TABCR PO SCH (08:24)
[2021-05-11] MEDS: INSULIN ASPART PER UNIT SC SCH ×4 (08:25→20:52)
[2021-05-11] MEDS: INSULIN GLARGINE SOLOSTAR 100 UNITS/ML 3 ML PEN SC SCH (08:25)
[2021-05-11] MEDS ORDERED: POTASSIUM CHLORIDE CRTAB 20 MEQ TABCR PO STA (09:33)
[2021-05-11] MEDS: traMADol HCL 50 MG TABLET PO PRN (09:50)
--- NOTE | 2021-05-11 17:59 | Hospitalist Progress Note ---
Date of Service May 11, 2021 Assessment & Plan (1) Acute renal failure superimposed on stage 3 chronic kidney disease: (2) Femur fracture, left: (3) Acute blood loss anemia: Plan: 75-year-old male withPMH of type 2 diabetes, hyperlipidemia, obstructive sleep apnea, hypertension, paroxysmal atrial fibrillation, vitamin B12 deficiency, morbid obesity, stage III chronic kidney disease, history of dementia presented w/ fall 04/30/21. The patient states he slipped on the grass in his yard and fell down and could not get up. He is being managed for the following: #. Hemorrhagic Shock - resolved #. Left thigh hematoma #. Acute blood loss anemia - 04/15 above #. Left Femur Fracture #. Fall -Hb 14--> 8 with left thigh and pelvis hematoma -CTA left LE shows large hematoma but no active extravasation -s/p 1 unit pRBC 05/01 with appropriate response -s/p 1 unit pRBC 05/03 - Hb stable, continue to monitor daily or as needed. -Continue with pain management -Surgical management, PT/OT, DVT Px per Ortho Surgery --> toe touch weight bearing -s/p OR 05/02:Left open reduction and internal fixation of displaced, comminuted, impacted subtrochanteric/intertrochanteric femur fracture with a Synthes 360 mm x 11 mm long trochanteric fixation nail with an 11 mm x 120 mm helical blade and two 5.0 mm locking screws. #. Leukocytosis -For events upto 05/08, refer to progress note 05/08 -ID evaluated 05/08, monitoring patient off of ATB #. GABRIELLA on CKD stage 3 -combination of prerenal and ATN from hypotension early in the course -baseline Cr around 1.5-1.7; Resolved -d/w Nephrology 05/08 -- c/w lasix 40 mg daily and hold lisinopril -pt remains volume overloaded, Potassium supplementation continued -resume lisinopril when able, OP nephro f/u upon DC #. Other chronic medical conditions: HTN, T2DM, HLD, BPH, HTN, Dementia, AMBER on CPAP Resume/continue with BP meds with holding parameter Hold T2DM meds, correctional scale insulin Continue other meds as and when appropriate. Given history of dementia, patient at risk for delirium --> Was started Risperdal 0.5mg daily here due to delirium and attempts to climb out of bed, would continue for now-->he is doing well on Risperdal. At discharge, would consider changing it to PRN #. Hypomagnesemia #. Hypophosphatemia -Replete and monitor as appropriate. DVT ppx SCDs, Heparin 05/07--> patient's Dtr Neva was given a phone call and updated about current status of the patient, answered all her questions, she voiced understanding and was agreeable to the plan of care. Admission and Anticipated Discharge Date Admission Date: April 29, 2021 Subjective Patient seen and examined at bedside for left thigh hematoma and hemorrhagic shock. Patient lying in bed, on room air, NAD. AOx3, Patient reports feeling same. Patient reports eating okay. Patient denies any fever/chills/headache/chest pain/palpitation/cough/sore throat/belly pain/other review of symptoms. Patient does not have pain on palpation around the operative site. Physical Exam Physical Exam: GENERAL: Alert and oriented x3. NAD, on RA. HEENT: No pallor, no icterus. Pupils equal, round and reactive to light. Oral mucosa moist. NECK: No JVD, no neck masses. HEART: S1 and S2 heard. Regular rate and rhythm. No murmur, no gallop. RESPIRATORY SYSTEM: Normal AP diameter. No accessory muscle use. No wheezing, no crackles. ABDOMEN: Soft, bowel sounds present, nontender, no distention. CENTRAL NERVOUS SYSTEM: No facial droop. Speech is clear. Obeys simple commands. Moves extremities. EXTREMITIES: 1-2+ LLE edema, 1+ RLE edema, no erythema seen. Left lateral thigh -- clean dressing. Non tender. Swollen genitalia, non tender/non erythematous. Edema LE and scrotum ->improving Results & Data Results & Data ([facility]) Vital Signs (Past 12 Hours) Vital Signs Temp Pulse Pulse Pulse Resp BP BP 05/11/21 15:29 37.2 C 96 H 18 114/77 05/11/21 15:28 89 05/11/21 14:58 36.5 C 96 H 16 106/67 05/11/21 14:55 89 05/11/21 10:49 37.5 C 87 20 110/73 05/11/21 07:01 37.4 C 90 18 121/68 Pulse Ox 05/11/21 15:29 95 05/11/21 15:28 05/11/21 14:58 96 05/11/21 14:55 05/11/21 10:49 97 05/11/21 07:01 96
[2021-05-12] MEDS: traMADol HCL 50 MG TABLET PO PRN ×2 (02:27→11:24)
[2021-05-12 07:09] LABS: BUN Creatinine Ratio 15.7 (10-20); Calcium 7.5 mg/dl (8.5-10.1); Creatinine Clr Calc Pharmacy 70.6 ml/min; Est GFR (African American) 63.6 ml/min; Est GFR (Non-African American) 54.9 ml/min; Magnesium 1.6 mg/dl (1.7-2.4); Potassium 2.8 mmol/L (3.5-5.1)
--- NOTE | 2021-05-12 08:06 | XRay Report ---
XR wrist LT min 3V routine CLINICAL HISTORY: Status post fall with pain. COMPARISON STUDY: No previous studies for comparison. TECHNIQUE: 3 left wrist views FINDINGS: Bones: There is no evidence for an acute fracture or dislocation. Degenerative cystic changes are pre sent within the scaphoid distal ulna. There is no lytic or blastic lesion. Joints: There is narrowing of the radiocarpal joint, the first CMC joint and triscaphe joint. The bon es are in anatomic alignment. Soft tissues: There is no focal soft tissue abnormality. There is no radiopaque foreign body. IMPRESSION: 1. No acute osseous pathology. 2. Osteoarthritis and degenerative changes. ACT 112: Negative or not required by law. Electronically signed by: Andrew Jerez M.D. 05/12/2021 8:05 AM
[2021-05-12] MEDS: INSULIN ASPART PER UNIT SC SCH ×4 (08:58→20:24)
[2021-05-12] MEDS: INSULIN GLARGINE SOLOSTAR 100 UNITS/ML 3 ML PEN SC SCH (09:00)
[2021-05-12] MEDS ORDERED: POTASSIUM CHLORIDE CRTAB 20 MEQ TABCR PO STA (09:21)
[2021-05-12] MEDS: METOPROLOL TARTRATE 25 MG TAB PO SCH ×3 (11:05→20:25)
[2021-05-12] MEDS: TAMSULOSIN HCL 0.4 MG CAP PO SCH (11:05)
[2021-05-12] MEDS: GABAPENTIN 100 MG CAP PO SCH ×2 (11:05→20:23)
[2021-05-12] MEDS: MAGNESIUM OXIDE 400 MG TAB PO SCH ×2 (11:06→20:24)
[2021-05-12] MEDS: ADVANCED PROBIOTIC 1250 MG CAPSULE PO SCH (11:06)
[2021-05-12] MEDS: HEPARIN SOD 5,000 UNIT/0.5 ML VIAL SQ SCH (11:17)
[2021-05-12] MEDS: risperiDONE 0.5 MG TABLET PO SCH (11:18)
[2021-05-12] MEDS: CYANOCOBALAMIN (B-12) 500 MCG TABLET PO SCH (11:18)
[2021-05-12] MEDS: FUROSEMIDE 40 MG TAB PO SCH (11:18)
[2021-05-12] MEDS: MAGNESIUM SULFATE / D5W 1 GM/100 ML BAG IV SCH ×2 (11:19→12:58)
[2021-05-12] MEDS: POTASSIUM CHLORIDE CRTAB 20 MEQ TABCR PO SCH (11:24)
[2021-05-12] MEDS ORDERED: METOPROLOL TARTRATE 1 MG/ML VIAL IV PRN (11:59)
[2021-05-12] MEDS ORDERED: Heparin IV Adult Wt-Based Standard *NO* Bolus Protocol IV STA (12:42)
[2021-05-12 12:50] LABS: Basophils # (auto) 0.03 K/uL (0-0.2); Basophils % (auto) 0.1 %; Eosinophils # (auto) 0.17 K/uL (0-0.5); Eosinophils % (auto) 0.8 %; Hematocrit (blood only) 30.1 % (42-52); Hemoglobin 9.6 g/dL (14.0-18.0); Immature Granulocytes # (auto) 0.15 K/uL (0.00-0.02); Immature Granulocytes % (auto) 0.7 %; Lymphocytes # (auto) 3.15 K/uL (1.2-3.4); Lymphocytes % (auto) 15.6 %; Mean Corpuscular Hemoglobin 31.2 pg (25-34); Mean Corpuscular Volume 97.7 fL (80-100); Mean Platelet Volume 10.4 fL (7.4-10.4); Monocytes # (auto) 2.18 K/uL (0.11-0.59); Monocytes % (auto) 10.8 %; Neutrophils # (auto) 14.48 K/uL (1.4-6.5); Platelet Count 374 K/uL (130-400); RDW Coefficient of Variation 15.4 % (11.5-14.5); RDW Standard Deviation 53.8 fL (36.4-46.3); Red Blood Count 3.08 M/uL (4.7-6.1); White Blood Count 20.16 K/uL (4.8-10.8)
[2021-05-12 12:54] LABS: Mean Corpuscular Hgb Conc 31.9 g/dL (32-36)
[2021-05-12] MEDS: DICLOFENAC SOD 1% GEL 100 GM TUBE EXT SCH ×3 (12:56→20:32)
--- NOTE | 2021-05-12 13:00 | Hospitalist Progress Note ---
Date of Service May 12, 2021 Assessment & Plan (1) Acute renal failure superimposed on stage 3 chronic kidney disease: (2) Femur fracture, left: (3) Acute blood loss anemia: Plan: 75-year-old male withPMH of type 2 diabetes, hyperlipidemia, obstructive sleep apnea, hypertension, paroxysmal atrial fibrillation, vitamin B12 deficiency, morbid obesity, stage III chronic kidney disease, history of dementia presented w/ fall 04/30/21. The patient states he slipped on the grass in his yard and fell down and could not get up. He is being managed for the following: #. Hemorrhagic Shock - resolved #. Left thigh hematoma #. Acute blood loss anemia - 04/15 above #. Left Femur Fracture #. Fall -Hb 14--> 8 with left thigh and pelvis hematoma -CTA left LE shows large hematoma but no active extravasation -s/p 1 unit pRBC 05/01 with appropriate response -s/p 1 unit pRBC 05/03 - Hb stable, continue to monitor daily or as needed. -Continue with pain management -Surgical management, PT/OT, DVT Px per Ortho Surgery --> toe touch weight bearing -s/p OR 05/02:Left open reduction and internal fixation of displaced, comminuted, impacted subtrochanteric/intertrochanteric femur fracture with a Synthes 360 mm x 11 mm long trochanteric fixation nail with an 11 mm x 120 mm helical blade and two 5.0 mm locking screws. -Will get BI LE doppler to r/o DVT. #. Left Wrist Pain #. Likely Gout flare up Patient has acute onset severe pain on left wrist overnight. Left wrist x-ray done, no acute findings. Osteoarthritis and degenerative changes present. 05/01 uric acid level 9.0, 05/12 uric acid level pending Discussed with orthopedics On examination, left wrist is warm and tender with movement and palpation. Some swelling present. No erythema noted. Pain management. Celecoxib. Oral steroid, taper once pain starts to be better over 7-10 days. PPI BID for GI protection #. A. fib RVR Patient turned A. fib RVR in 140s at 11:29 AM on 05/12/2021 He converted back to sinus rhythm at 12:32 PM on 05/12/2021 EKG stat done and reviewed. Stat labs sent, pending. Will get BI LE doppler to r/o DVT. Discussed with cardiology, will give iv metoprolol. Starting patient on heparin drip Replacing the electrolytes including potassium and magnesium #. Leukocytosis - For events upto 05/08, refer to progress note 05/08 - ID evaluated 05/08, monitoring patient off of ATB - Had one event of temp 38.4 C overnight, none before and after that. -Continue to monitor. #. GABRIELLA on CKD stage 3 -combination of prerenal and ATN from hypotension early in the course -baseline Cr around 1.5-1.7; Resolved -d/w Nephrology 05/12 -- c/w lasix 40 mg daily and ok w/ resuming lisinopril/KCL supplementation -pt remains volume overloaded, Potassium supplementation continued -lisinopril resumed, OP nephro f/u upon DC #. Other chronic medical conditions: HTN, T2DM, HLD, BPH, HTN, Dementia, AMBER on CPAP Resume/continue with BP meds with holding parameter Hold T2DM meds, correctional scale insulin Continue other meds as and when appropriate. Given history of dementia, patient at risk for delirium --> Was started Risperdal 0.5mg daily here due to delirium and attempts to climb out of bed, would continue for now-->he is doing well on Risperdal. At discharge, would consider changing it to PRN #. Hypomagnesemia #. Hypophosphatemia -Replete and monitor as appropriate. DVT ppx SCDs, Heparin 05/07--> patient's Dtr Neva was given a phone call and updated about current status of the patient, answered all her questions, she voiced understanding and was agreeable to the plan of care. 05/12 --> patient's daughter Neva was given a phone call to update about the current developments, went into voicemail, left voicemail to call us back and ask for Dr. Burgess. Also patient's was given a phone call, it kept on ringing for a long time, had to hang up, could not leave any voicemail. Admission and Anticipated Discharge Date Admission Date: April 29, 2021 Subjective Patient seen and examined at bedside for left thigh hematoma and hemorrhagic shock. Pt went into AFib at 11:29 am today, was on Sinus with PVCs overnight per telemetry review. Converted to sinus at 12:32 PM without metoprolol. Patient lying in bed, on room air, NAD. AOx3, Patient reports feeling same. Denies chest pain or "funny" sensation or palpitation. Patient reports eating okay. Patient denies any fever/chills/headache/chest pain/palpitation/cough/sore throat/belly pain/other review of symptoms. Physical Exam Physical Exam: GENERAL: Alert and oriented x3. NAD, on RA. HEENT: No pallor, no icterus. Pupils equal, round and reactive to light. Oral mucosa moist. NECK: No JVD, no neck masses. HEART: S1 and S2 heard. irregular rate and rhythm. No murmur, no gallop. RESPIRATORY SYSTEM: Normal AP diameter. No accessory muscle use. No wheezing, no crackles. ABDOMEN: Soft, bowel sounds present, nontender, no distention. CENTRAL NERVOUS SYSTEM: No facial droop. Speech is clear. Obeys simple commands. Moves extremities. EXTREMITIES: 1-2+ LLE edema, 1+ RLE edema, no erythema seen. Left lateral thigh -- clean dressing. Non tender. Swollen genitalia, non tender/non erythematous. Edema LE and scrotum ->improving Left wrist - tender, swollen minimally and decreased ROM. Non erythematous. Results & Data Results & Data ([facility]) Vital Signs (Past 12 Hours) Vital Signs Temp Pulse Resp BP Pulse Ox 05/12/21 08:23 37.4 C 94 H 18 137/81 96 05/12/21 03:35 36.9 C 80 20 112/71 95
--- NOTE | 2021-05-12 13:11 | Orthopedic Progress Note ---
Date of Service May 12, 2021 Assessment & Plan (1) Fracture of hip: Plan: No changes with hip fx instructions at this time Plan: Left wrist pain. X-ray results of the left wrist noted above. I have discussed the case with Dr. Burgess. Repeat laboratory values are being done at this time including a uric acid. This could likely be gout but we will have to watch it over the next several days. Would plan for elevation and warm moist compresses over the left wrist. Await uric acid level recheck. If uric acid continues to remain high consider initial dose of steroids. Consider MRI of left wrist with contrast if worsening symptoms or not resolving. Patient has been started on heparin IV drip after going back into A. fib, RVR. I have discussed the case with Dr. Greer who is seeing the patient for cardiology. Case we discussed with Dr. Stone as well. Admission and Anticipated Discharge Date Admission Date: April 29, 2021 Subjective Asked to see patient for left wrist pain. Patient currently sitting up in bed awake and alert. He states that he has had the pain in his left wrist for several days now. Patient is status post left IM TFN of femur fx and is postop day 10. He did not have the left wrist pain on his initial admission. He denies injuring hand during his stay. He states that it started to hurt several days ago and continued to progress. Patient with history of leukocytosis that he has had since his admission. Antibiotics were discontinued per infectious disease consult with no known source of infection. Denies fever or chills. Physical Exam Physical Exam: On examination of his left wrist, he has some noted swelling of the left wrist compared to the right. He has tenderness on palpation over the wrist joint and over some of the dorsum of the hand. The wrist and hand feel warmer to the touch compared to the right. Most of the pain on palpation is on the dorsum and the volar aspect does not seem to be as tender. Gentle passive range of motion of the left wrist causes him moderate pain. Patient is able to take his fingers through range of motion without difficulty. He states that it does cause some mild discomfort up into the wrist. No pain with passive extension or flexion of the fingers. He has 1 area that has some slight erythema over the distal ulna at the wrist. Otherwise there is no erythema noted. No overt pain in the forearm at this time on palpation. No pain in his left elbow. Continues with swelling of his left lower extremity secondary to fracture. Wound is well approximated. Results & Data ([facility]) Vital Signs (Past 12 Hours) Vital Signs Temp Pulse Resp BP Pulse Ox 05/12/21 11:15 36.8 C 78 20 143/73 H 97 05/12/21 08:23 37.4 C 94 H 18 137/81 96 05/12/21 03:35 36.9 C 80 20 112/71 95 Diagnostic Findings XR wrist LT min 3V routine CLINICAL HISTORY: Status post fall with pain. COMPARISON STUDY: No previous studies for comparison. TECHNIQUE: 3 left wrist views FINDINGS: Bones: There is no evidence for an acute fracture or dislocation. Degenerative cystic changes are present within the scaphoid distal ulna. There is no lytic or blastic lesion. Joints: There is narrowing of the radiocarpal joint, the first CMC joint and triscaphe joint. The bones are in anatomic alignment. Soft tissues: There is no focal soft tissue abnormality. There is no radiopaque foreign body. IMPRESSION: 1. No acute osseous pathology. 2. Osteoarthritis and degenerative changes. ACT 112: Negative or not required by law. Electronically signed by: Aurea Weiss (1) Fracture of hip Encounter type: initial encounter Fracture type: closed Laterality: left Qualified Code(s): S72.002A - Fracture of unspecified part of neck of left femur, initial encounter for closed fracture
--- NOTE | 2021-05-12 13:15 | Cardiology Consultation ---
Date of Consultation May 12, 2021 Assessment & Plan (1) Paroxysmal atrial fibrillation: (2) Hypokalemia: (3) Femur fracture, left: (4) Acute renal failure superimposed on stage 3 chronic kidney disease: (5) Leukocytosis: Patient is a 75-year-old male with convoluted course noted with ho spitalization following mechanical fall with femur fracture and left thigh hematoma. He carries a history of past paroxysmal atrial fibrillation with single episode in 2008 but today lapsed into atrial fibrillation transiently. Patient unable to give any additional information or symptoms. Baseline rhythm is sinus and sinus tachycardia with atrial ventricular ectopy. That may have been precipit ated by metabolic derangement with hypokalemia and hypomagnesemia. No hypoxia but patient at risk for thromboembolic disease Recommendations: IV metoprolol 5 mg given given frequent ectopy and elevated heart rate. We will increase metoprolol tartrate to 25 mg 3 times daily Supplement potassium magnesium. Additional 40 meq of potassium ordered If not contraindicated would anticoagulate patient at least during this admission and 30 days post Strong consideration for evaluation of thromboembolic disease. Patient compliance and recent acute renal insufficiency complicates evaluation. Agree with ultrasound of lower extremities. Presence of thrombus would indicate longer course of anticoagulant Cardiology will follow History of Present Illness Reason for Consultation: Paroxysmal atrial fibrillation Requesting Physician: Dr. Burgess Attending Physician: Rica Burgess MD History of Present Illness Patient is a 75-year-old male with complex recent history as well as underlying ongoing issues as noted below. Cardiac history is notable for 1. Remote paroxysmal atrial fibrillation 2008 2. Type 2 diabetes mellitus with stage IIIb chronic kidney disease 3. Dyslipidemia 4. Obstructive sleep apnea 5. Hypertension. 6. Morbid obesity Chart and records reviewed current course discussed with patient who is a poor historian. Patient notably suffered a mechanical fall on 04/30/2021 with femur fracture complicated by left thigh hematoma. Patient's been managed in hospital with extended stay due to debilitation and elevated white cell count Today patient lapsed into atrial fibrillation/flutter with rapid response but spontaneously returned to sinus rhythm. Baseline rhythm is sinus and sinus tachycardia with frequent atrial ventricular ectopy. Laboratory studies notable for persistent hypokalemia/hypomagnesemia Patient currently without complaint other than left wrist pain with focal tenderness and erythema Denies chest pains dizziness lightheadedness tachypalpitations. No overt history of bleeding, patient previously on warfarin for single episode of atrial fibrillation discontinued 2010 Allergies Allergy/AdvReac Type Severity Reaction Status Date / Time No Known Allergies Allergy NONE Verified 04/29/21 21:45 Home Medications Medication Instructions Recorded Confirmed Type aspirin 81 mg tablet,delayed 81 mg PO DAILY 04/29/21 04/29/21 History release cholecalciferol (vitamin D3) 1,250 1,250 mcg PO WK 04/29/21 04/29/21 History mcg (50,000 unit) capsule cyanocobalamin (vitamin B-12) 1,000 mcg PO DAILY 04/29/21 04/29/21 History 1,000 mcg tablet (Vitamin B-12) dulaglutide 0.75 mg/0.5 mL 0.75 mg SUBCUT WK 04/29/21 04/29/21 History subcutaneous pen injector (Trulicity) furosemide 20 mg tablet 20 mg PO DAILY 04/29/21 04/29/21 History lisinopril 10 mg tablet 10 mg PO DAILY 04/29/21 04/29/21 History metformin 500 mg tablet,extended 500 mg PO DAILY 04/29/21 04/29/21 History release 24 hr metoprolol tartrate 25 mg tablet 25 mg PO BID 04/29/21 04/29/21 History simvastatin 40 mg tablet 40 mg PO HS 04/29/21 04/29/21 History tamsulosin 0.4 mg capsule 0.4 mg PO DAILY 04/29/21 04/29/21 History Patient History Medical History Atrial fibrillation CKD (chronic kidney disease) stage 3, GFR 30-59 ml/min Dementia Diabetes mellitus Hyperlipidemia Obesity BMI 44 04/2021 Obstructive sleep apnea reports he wears no cpap/bipap Surgical History History of appendectomy Family History Father Alzheimer disease Brother Cancer Social History Smoking Status: Never smoker Second Hand Exposure: No; Hx Alcohol Use: Yes Alcohol type: beer and hard liquor Hx Substance Use: No Preferred Language: Gambian Communication Ability: Effective [place] Required: No Beliefs That Will Affect Care: None Current Living Situation: Spouse and Family Feels Safe at Home: Yes Assistive Devices: None Review of Systems Review of Systems: All systems reviewed & are unremarkable except as noted in HPI & below Physical Exam Constitutional: + obese; no acute distress Eyes: PERRL, conjunctivae normal, anicteric sclerae ENMT: external ear and nose normal, oropharynx normal Neck: trachea midline, no thyromegaly Respiratory: Auscultation: + diminished lung sounds Cardiovascular: Rate/Rhythm: regular rate and regular rhythm Heart Sounds: normal S1 and normal S2 Extremities: + edema (2-3+ left leg edema and presacral edema) Frequent atrial and ventricular ectopy are audible Chest (Breasts): normal inspection/palpation of breasts Gastrointestinal (Abdomen): normal bowel sounds, soft, nontender, no hepatosplenomegaly Musculoskeletal: Left wrist with focal erythema and tenderness to palpation Psychiatric: A+Ox3, euthymic affect Results & Data ([facility]) Vital Signs (Past 12 Hours) Vital Signs Temp Pulse Resp BP Pulse Ox 05/12/21 11:15 36.8 C 78 20 143/73 H 97 05/12/21 08:23 37.4 C 94 H 18 137/81 96 05/12/21 03:35 36.9 C 80 20 112/71 95 Laboratory Results Laboratory Results - last 24 hr 05/11/21 05/11/21 05/12/21 16:35 20:34 06:10 WBC RBC Hgb Hct MCV MCH MCHC RDW Std Deviation RDW Coeff of Zenaida Plt Count MPV Immature Gran % (Auto) Neut % (Auto) Lymph % (Auto) [place] % (Auto) Eos % (Auto) Baso % (Auto) Neut # (Auto) Lymph # (Auto) [place] # (Auto) Eos # (Auto) Baso # (Auto) Immature Gran # (Auto) PT INR Sodium 135 L Potassium 2.8 L Chloride 103 Carbon Dioxide 21 Anion Gap 11 BUN 20 Creatinine 1.27 Est Cr Clr Drug Dosing 70.6 Est GFR ( Amer) 63.6 Est GFR (Non-Af Amer) 54.9 BUN/Creatinine Ratio 15.7 Glucose 154 H POC Glucose 115 H 113 H Uric Acid Calcium 7.5 L Phosphorus Magnesium 1.6 L Total Bilirubin AST ALT Alkaline Phosphatase Troponin I Total Protein Albumin Globulin Albumin/Globulin Ratio Procalcitonin 05/12/21 05/12/2105/12/22 07:53 11:16 12:25 WBC 20.16 H RBC 3.08 L Hgb 9.6 L Hct 30.1 L MCV 97.7 MCH 31.2 MCHC 31.9 L RDW Std Deviation 53.8 H RDW Coeff of Zenaida 15.4 H Plt Count 374 MPV 10.4 Immature Gran % (Auto) 0.7 Neut % (Auto) 72.0 Lymph % (Auto) 15.6 [place] % (Auto) 10.8 Eos % (Auto) 0.8 Baso % (Auto) 0.1 Neut # (Auto) 14.48 H Lymph # (Auto) 3.15 [place] # (Auto) 2.18 H Eos # (Auto) 0.17 Baso # (Auto) 0.03 Immature Gran # (Auto) 0.15 H PT INR Sodium Potassium Chloride Carbon Dioxide Anion Gap BUN Creatinine Est Cr Clr Drug Dosing Est GFR ( Amer) Est GFR (Non-Af Amer) BUN/Creatinine Ratio Glucose POC Glucose 163 H 227 H Uric Acid Calcium Phosphorus Magnesium Total Bilirubin AST ALT Alkaline Phosphatase Troponin I Total Protein Albumin Globulin Albumin/Globulin Ratio Procalcitonin 05/12/21 05/12/21 05/12/21 12:25 13:14 13:14 WBC RBC Hgb Hct MCV MCH MCHC RDW Std Deviation RDW Coeff of Zenaida Plt Count MPV Immature Gran % (Auto) Neut % (Auto) Lymph % (Auto) [place] % (Auto) Eos % (Auto) Baso % (Auto) Neut # (Auto) Lymph # (Auto) [place] # (Auto) Eos # (Auto) Baso # (Auto) Immature Gran # (Auto) PT Pending INR Pending Sodium Pending Potassium Pending Chloride Pending Carbon Dioxide Pending Anion Gap Pending BUN Pending Creatinine Pending Est Cr Clr Drug Dosing Pending Est GFR ( Amer) Pending Est GFR (Non-Af Amer) Pending BUN/Creatinine Ratio Pending Glucose Pending POC Glucose Uric Acid Pending Calcium Pending Phosphorus Pending Magnesium Pending Total Bilirubin Pending AST Pending ALT Pending Alkaline Phosphatase Pending Troponin I Pending Total Protein Pending Albumin Pending Globulin Pending Albumin/Globulin Ratio Pending Procalcitonin Pending Diagnostic Findings Echocardiogram done this admission with severely limited windows grossly normal LV systolic function ECG Additional Comments: Atrial fibrillation 114 bpm with low voltage QRS (1) Leukocytosis Leukocytosis type: unspecified Qualified Code(s): D72.829 - Elevated white blood cell count, unspecified
[2021-05-12 13:23] LABS: Albumin Globulin Ratio 0.7 (0.9-2); Albumin Level 2.6 gm/dl (3.4-5.0); BUN Creatinine Ratio 16.5 (10-20); Bilirubin,Total 0.8 mg/dl (0.2-1.0); Calcium 8.3 mg/dl (8.5-10.1); Creatinine Clr Calc Pharmacy 70.6 ml/min; Est GFR (African American) 63.6 ml/min; Est GFR (Non-African American) 54.9 ml/min; Globulin 3.6 gm/dl (2.5-4.0); Magnesium 1.7 mg/dl (1.7-2.4); Phosphorus 2.8 mg/dl (2.5-4.9); Potassium 2.9 mmol/L (3.5-5.1); Total Protein 6.2 gm/dl (6.0-8.3); Uric Acid 5.7 mg/dl (2.6-7.2)
[2021-05-12] MEDS ORDERED: POTASSIUM CHLORIDE 20 MEQ/15 ML UDC PO ONE (13:30)
[2021-05-12 13:31] LABS: Troponin I 0.05 ng/ml (0-0.04)
[2021-05-12 13:32] LABS: INR 1.2 (0.9-1.1); Prothrombin Time 12.6 Seconds (9.0-12.0)
--- NOTE | 2021-05-12 13:34 | Electrocardiogram Report ---
Test Reason : Blood Pressure : / mmHG Vent. Rate : 114 BPM Atrial Rate : 129 BPM P-R Int : 000 ms QRS Dur : 092 ms QT Int : 350 ms P-R-T Axes : 000 001 -05 degrees QTc Int : 482 ms Atrial fibrillation with rapid ventricular response with premature ventricular or aberrantly conducte d complexes Low voltage QRS Nonspecific ST abnormality Abnormal ECG When compared with ECG of 30-APR-2021 08:58, Atrial fibrillation has replaced Sinus rhythm Confirmed by Kevin Cortez ([id number]) on 05/12/2021 1:34:03 PM Referred By: REFERRED SELF Confirmed By:Kevin Cortez
[2021-05-12] MEDS: predniSONE 20 MG TAB PO SCH ×2 (14:16→20:26)
[2021-05-12] MEDS: CeleBREX 200 MG CAP PO SCH ×2 (14:16→20:22)
[2021-05-12] MEDS: PANTOprazole 40 MG TAB PO SCH ×2 (14:16→20:26)
[2021-05-12] MEDS: HEPARIN SODIUM/DEXTROSE 25,000 UNITS/500 ML BAG IV SCH (14:17)
--- NOTE | 2021-05-12 15:17 | Ultrasound Report ---
US venous doppler LE BI CLINICAL HISTORY: Swelling and edema of the left leg COMPARISON: None available at the time of this dictation. TECHNIQUE: Left lower extremity real-time compression venous ultrasound with Color Doppler imaging. Utilizing real-time ultrasonic imaging multiple real time high-resolution ultrasonic images with comp ression and noncompression maneuvers of the deep venous system in addition to color doppler imaging w ere performed from the common femoral vein through the proximal calf veins. FINDINGS: Currently there is normal compressibility of the deep venous system from the common femoral vein thro ugh the proximal calf veins. No current evidence of acute thrombosis is identified. Impression: No evidence of deep venous thrombus. ACT 112: Negative or not required by law. Electronically signed by: Andrew Jerez M.D. 05/12/2021 3:16 PM
[2021-05-12] MEDS: MICONAZOLE NITRATE POWDER 43 GM EXT PRN (20:28)
[2021-05-12 20:31] LABS: Partial Thromboplastin Ratio 2.1
[2021-05-12 20:33] LABS: Partial Thromboplastin Time 56.4 Seconds (21.0-31.0)
[2021-05-13] MEDS: HEPARIN SODIUM/DEXTROSE 25,000 UNITS/500 ML BAG IV SCH ×2 (04:03→19:48)
[2021-05-13] MEDS: DICLOFENAC SOD 1% GEL 100 GM TUBE EXT SCH ×4 (04:42→22:26)
[2021-05-13 06:44] LABS: Hematocrit (blood only) 26.7 % (42-52); Hemoglobin 8.6 g/dL (14.0-18.0); Mean Corpuscular Hemoglobin 31.5 pg (25-34); Mean Corpuscular Hgb Conc 32.2 g/dL (32-36); Mean Corpuscular Volume 97.8 fL (80-100); Mean Platelet Volume 10.9 fL (7.4-10.4); Platelet Count 356 K/uL (130-400); RDW Coefficient of Variation 15.4 % (11.5-14.5); RDW Standard Deviation 54.3 fL (36.4-46.3); Red Blood Count 2.73 M/uL (4.7-6.1); White Blood Count 19.76 K/uL (4.8-10.8)
[2021-05-13 07:03] LABS: Partial Thromboplastin Ratio 1.5; Partial Thromboplastin Time 42.4 Seconds (21.0-31.0)
[2021-05-13] MEDS: lisinopril 10 MG TAB PO SCH (07:29)
[2021-05-13] MEDS: METOPROLOL TARTRATE 25 MG TAB PO SCH ×3 (07:29→20:31)
[2021-05-13] MEDS: TAMSULOSIN HCL 0.4 MG CAP PO SCH (07:29)
[2021-05-13] MEDS: CYANOCOBALAMIN (B-12) 500 MCG TABLET PO SCH (07:29)
[2021-05-13 07:30] LABS: BUN Creatinine Ratio 18.4 (10-20); Calcium 7.5 mg/dl (8.5-10.1); Creatinine Clr Calc Pharmacy 65.6 ml/min; Est GFR (African American) 58.6 ml/min; Est GFR (Non-African American) 50.5 ml/min; Magnesium 1.9 mg/dl (1.7-2.4); Phosphorus 3.3 mg/dl (2.5-4.9); Potassium 3.3 mmol/L (3.5-5.1)
[2021-05-13] MEDS: risperiDONE 0.5 MG TABLET PO SCH (07:30)
[2021-05-13] MEDS: ADVANCED PROBIOTIC 1250 MG CAPSULE PO SCH (07:30)
[2021-05-13] MEDS: FUROSEMIDE 40 MG TAB PO SCH (07:30)
[2021-05-13] MEDS: predniSONE 20 MG TAB PO SCH ×2 (07:31→20:35)
[2021-05-13] MEDS: GABAPENTIN 100 MG CAP PO SCH ×2 (07:31→20:27)
[2021-05-13] MEDS: MAGNESIUM OXIDE 400 MG TAB PO SCH ×2 (07:31→20:29)
[2021-05-13] MEDS: PANTOprazole 40 MG TAB PO SCH ×2 (07:31→20:32)
[2021-05-13] MEDS: CeleBREX 200 MG CAP PO SCH ×2 (07:32→20:26)
[2021-05-13] MEDS: POTASSIUM CHLORIDE CRTAB 20 MEQ TABCR PO SCH (07:42)
[2021-05-13] MEDS: INSULIN ASPART PER UNIT SC SCH ×4 (08:13→20:28)
[2021-05-13] MEDS: INSULIN GLARGINE SOLOSTAR 100 UNITS/ML 3 ML PEN SC SCH (08:14)
--- NOTE | 2021-05-13 08:44 | Cardiology Progress Note ---
Date of Service May 13, 2021 Assessment & Plan (1) Paroxysmal atrial fibrillation: (2) Hypokalemia: (3) Femur fracture, left: (4) Acute renal failure superimposed on stage 3 chronic kidney disease: (5) Leukocytosis: Plan: Patient is a 75-year-old male with convoluted course noted with hospitalization following mechanical fall with femur fracture and left thigh hematoma. He carries a history of past paroxysmal atrial fibrillation with single episode in 2008 but today lapsed into atrial fibrillation transiently. Patient unable to give any additional information or symptoms. Baseline rhythm is sinus and sinus tachycardia with atrial ventricular ectopy. That may have been precipitated by metabolic derangement with hypokalemia and hypomagnesemia. No hypoxia but patient at risk for thromboembolic disease Recommendations: Continue metoprolol tartrate to 25 mg 3 times daily Supplement potassium/mag as needed Continue IV heparin. If not contraindicated would anticoagulate patient at least during this admission and 30 days post. Cardiology will follow. Case discussed with cardiology. Admission and Anticipated Discharge Date Admission Date: April 29, 2021 Supervising Physician Co-Signing Physician Notes Patient seen and examined, chart medications reviewed. No further arrhythmias overnight. Patient appears clinically improved this morning possibly secondary to prednisone. No shortness of breath or chest discomfort. Plan as outlined above Would recommend supplementing potassium to greater than 4. Transition heparin to Coumadin for 30 to 90 days if no contraindication. Therapeutic INR not mandatory for as long as being followed Subjective Chart and records reviewed. Patient notably suffered a mechanical fall on 04/30/2021 with femur fracture complicated by left thigh hematoma. Patient's been managed in hospital with extended stay due to debilitation and elevated white cell count. Yesterday patient lapsed into atrial fibrillation/flutter with rapid response but spontaneously returned to sinus rhythm. Laboratory studies notable for persistent hypokalemia/hypomagnesemia Baseline rhythm is sinus and sinus tachycardia with frequent atrial/ventricular ectopy. DVT workup negative. Tele: SR with PVCs 80s, ? Junctional rhythm overnight, however appears that he is having short episodes of buried p-waves. No atrial fibrillation. Sodium: 135>>133>>133 Potassium: 2.8>>2.9>>3.3 (supplemented this am with 40 meq of KCL) Sitting up in bed, comfortable- no acute distress. No chest pain, shortness of breath, palpitations, dizziness, syncope or near syncope. No orthopnea, PND. Edema noted in the left leg, right leg improving. No overt history of bleeding, patient previously on warfarin for single episode of atrial fibrillation discontinued 2010 Review of Systems Review of Systems: All systems reviewed & are unremarkable except as noted in HPI & below Physical Exam Constitutional: + obese; no acute distress Eyes: PERRL, conjunctivae normal, anicteric sclerae ENMT: external ear and nose normal, oropharynx normal Neck: trachea midline, no thyromegaly Respiratory: Auscultation: + diminished lung sounds Cardiovascular: Rate/Rhythm: regular rate and regular rhythm Heart Sounds: normal S1 and normal S2 Extremities: + edema (2-3+ left leg edema and presacral edema) Chest (Breasts): normal inspection/palpation of breasts Gastrointestinal (Abdomen): normal bowel sounds, soft, nontender, no hepatosplenomegaly Psychiatric: A+Ox3, euthymic affect Results & Data ([facility]) Vital Signs (Past 12 Hours) Vital Signs Temp Pulse Pulse Resp BP Pulse Ox 05/13/21 07:43 36.5 C 67 20 113/62 96 05/13/21 03:45 36.5 C 70 20 126/81 97 05/12/21 23:10 37.0 C 76 20 121/80 95 05/12/21 22:28 78 Laboratory Results 05/13/21 05/13/21 05/13/21 Range/Units 07:28 05:49 05:49 WBC 19.76 H (4.8-10.8) K/uL RBC 2.73 L (4.7-6.1) M/uL Hgb 8.6 L (14.0-18.0) g/dL Hct 26.7 L (42-52) % MCV 97.8 (80-100) fL MCH 31.5 (25-34) pg MCHC 32.2 (32-36) g/dL RDW Std Deviation 54.3 H (36.4-46.3) fL RDW Coeff of Zenaida 15.4 H (11.5-14.5) % Plt Count 356 (130-400) K/uL MPV 10.9 H (7.4-10.4) fL Immature Gran % (Auto) % Neut % (Auto) % Lymph % (Auto) % [place] % (Auto) % Eos % (Auto) % Baso % (Auto) % Neut # (Auto) (1.4-6.5) K/uL Lymph # (Auto) (1.2-3.4) K/uL [place] # (Auto) (0.11-0.59) K/uL Eos # (Auto) (0-0.5) K/uL Baso # (Auto) (0-0.2) K/uL Immature Gran # (Auto) (0.00-0.02) K/uL PT (9.0-12.0) Seconds INR (0.9-1.1) APTT (21.0-31.0) Seconds PTT Ratio Sodium 133 L (136-145) mmol/L Potassium 3.3 L (3.5-5.1) mmol/L Chloride 103 (98-107) mmol/L Carbon Dioxide 21 (21-32) mmol/L Anion Gap 9 (3-11) BUN 25 H (6-23) mg/dl Creatinine 1.36 (0.6-1.4) mg/dl Est Cr Clr Drug Dosing 65.6 ml/min Est GFR ( Amer) 58.6 ml/min Est GFR (Non-Af Amer) 50.5 ml/min BUN/Creatinine Ratio 18.4 (10-20) Glucose 222 H (70-99(Fasting)) mg/dl POC Glucose 245 H (70-99) mg/dl Uric Acid (2.6-7.2) mg/dl Calcium 7.5 L (8.5-10.1) mg/dl Phosphorus 3.3 (2.5-4.9) mg/dl Magnesium 1.9 (1.7-2.4) mg/dl Total Bilirubin (0.2-1.0) mg/dl AST (13-39) U/L ALT (7-52) U/L Alkaline Phosphatase (34-104) U/L Troponin I (0-0.04) ng/ml Total Protein (6.0-8.3) gm/dl Albumin (3.4-5.0) gm/dl Globulin (2.5-4.0) gm/dl Albumin/Globulin Ratio (0.9-2) Procalcitonin (0-0.5) ng/ml 05/13/21 05/13/21 05/12/21 Range/Units 05:49 00:16 19:55 WBC (4.8-10.8) K/uL RBC (4.7-6.1) M/uL Hgb (14.0-18.0) g/dL Hct (42-52) % MCV (80-100) fL MCH (25-34) pg MCHC (32-36) g/dL RDW Std Deviation (36.4-46.3) fL RDW Coeff of Zenaida (11.5-14.5) % Plt Count (130-400) K/uL MPV (7.4-10.4) fL Immature Gran % (Auto) % Neut % (Auto) % Lymph % (Auto) % [place] % (Auto) % Eos % (Auto) % Baso % (Auto) % Neut # (Auto) (1.4-6.5) K/uL Lymph # (Auto) (1.2-3.4) K/uL [place] # (Auto) (0.11-0.59) K/uL Eos # (Auto) (0-0.5) K/uL Baso # (Auto) (0-0.2) K/uL Immature Gran # (Auto) (0.00-0.02) K/uL PT (9.0-12.0) Seconds INR (0.9-1.1) APTT 42.4 H (21.0-31.0) Seconds PTT Ratio 1.5 Sodium (136-145) mmol/L Potassium (3.5-5.1) mmol/L Chloride (98-107) mmol/L Carbon Dioxide (21-32) mmol/L Anion Gap (3-11) BUN (6-23) mg/dl Creatinine (0.6-1.4) mg/dl Est Cr Clr Drug Dosing ml/min Est GFR ( Amer) ml/min Est GFR (Non-Af Amer) ml/min BUN/Creatinine Ratio (10-20) Glucose (70-99(Fasting)) mg/dl POC Glucose 219 H (70-99) mg/dl Uric Acid (2.6-7.2) mg/dl Calcium (8.5-10.1) mg/dl Phosphorus (2.5-4.9) mg/dl Magnesium (1.7-2.4) mg/dl Total Bilirubin (0.2-1.0) mg/dl AST (13-39) U/L ALT (7-52) U/L Alkaline Phosphatase (34-104) U/L Troponin I 0.05 H* (0-0.04) ng/ml Total Protein (6.0-8.3) gm/dl Albumin (3.4-5.0) gm/dl Globulin (2.5-4.0) gm/dl Albumin/Globulin Ratio (0.9-2) Procalcitonin (0-0.5) ng/ml 05/12/21 05/12/21 05/12/21 Range/Units 19:51 19:51 16:34 WBC (4.8-10.8) K/uL RBC (4.7-6.1) M/uL Hgb (14.0-18.0) g/dL Hct (42-52) % MCV (80-100) fL MCH (25-34) pg MCHC (32-36) g/dL RDW Std Deviation (36.4-46.3) fL RDW Coeff of Zenaida (11.5-14.5) % Plt Count (130-400) K/uL MPV (7.4-10.4) fL Immature Gran % (Auto) % Neut % (Auto) % Lymph % (Auto) % [place] % (Auto) % Eos % (Auto) % Baso % (Auto) % Neut # (Auto) (1.4-6.5) K/uL Lymph # (Auto) (1.2-3.4) K/uL [place] # (Auto) (0.11-0.59) K/uL Eos # (Auto) (0-0.5) K/uL Baso # (Auto) (0-0.2) K/uL Immature Gran # (Auto) (0.00-0.02) K/uL PT (9.0-12.0) Seconds INR (0.9-1.1) APTT 56.4 H* (21.0-31.0) Seconds PTT Ratio 2.1 Sodium (136-145) mmol/L Potassium (3.5-5.1) mmol/L Chloride (98-107) mmol/L Carbon Dioxide (21-32) mmol/L Anion Gap (3-11) BUN (6-23) mg/dl Creatinine (0.6-1.4) mg/dl Est Cr Clr Drug Dosing ml/min Est GFR ( Amer) ml/min Est GFR (Non-Af Amer) ml/min BUN/Creatinine Ratio (10-20) Glucose (70-99(Fasting)) mg/dl POC Glucose 174 H (70-99) mg/dl Uric Acid (2.6-7.2) mg/dl Calcium (8.5-10.1) mg/dl Phosphorus (2.5-4.9) mg/dl Magnesium (1.7-2.4) mg/dl Total Bilirubin (0.2-1.0) mg/dl AST (13-39) U/L ALT (7-52) U/L Alkaline Phosphatase (34-104) U/L Troponin I 0.05 H* (0-0.04) ng/ml Total Protein (6.0-8.3) gm/dl Albumin (3.4-5.0) gm/dl Globulin (2.5-4.0) gm/dl Albumin/Globulin Ratio (0.9-2) Procalcitonin (0-0.5) ng/ml 05/12/21 05/12/21 05/12/21 Range/Units 13:14 13:14 12:25 WBC (4.8-10.8) K/uL RBC (4.7-6.1) M/uL Hgb (14.0-18.0) g/dL Hct (42-52) % MCV (80-100) fL MCH (25-34) pg MCHC (32-36) g/dL RDW Std Deviation (36.4-46.3) fL RDW Coeff of Zenaida (11.5-14.5) % Plt Count (130-400) K/uL MPV (7.4-10.4) fL Immature Gran % (Auto) % Neut % (Auto) % Lymph % (Auto) % [place] % (Auto) % Eos % (Auto) % Baso % (Auto) % Neut # (Auto) (1.4-6.5) K/uL Lymph # (Auto) (1.2-3.4) K/uL [place] # (Auto) (0.11-0.59) K/uL Eos # (Auto) (0-0.5) K/uL Baso # (Auto) (0-0.2) K/uL Immature Gran # (Auto) (0.00-0.02) K/uL PT 12.6 H (9.0-12.0) Seconds INR 1.2 H (0.9-1.1) APTT (21.0-31.0) Seconds PTT Ratio Sodium 133 L (136-145) mmol/L Potassium 2.9 L (3.5-5.1) mmol/L Chloride 101 (98-107) mmol/L Carbon Dioxide 22 (21-32) mmol/L Anion Gap 10 (3-11) BUN 21 (6-23) mg/dl Creatinine 1.27 (0.6-1.4) mg/dl Est Cr Clr Drug Dosing 70.6 ml/min Est GFR ( Amer) 63.6 ml/min Est GFR (Non-Af Amer) 54.9 ml/min BUN/Creatinine Ratio 16.5 (10-20) Glucose 203 H (70-99(Fasting)) mg/dl POC Glucose (70-99) mg/dl Uric Acid 5.7 (2.6-7.2) mg/dl Calcium 8.3 L (8.5-10.1) mg/dl Phosphorus 2.8 (2.5-4.9) mg/dl Magnesium 1.7 (1.7-2.4) mg/dl Total Bilirubin 0.8 (0.2-1.0) mg/dl AST 13 (13-39) U/L ALT 6 L (7-52) U/L Alkaline Phosphatase 58 (34-104) U/L Troponin I 0.05 H* (0-0.04) ng/ml Total Protein 6.2 (6.0-8.3) gm/dl Albumin 2.6 L (3.4-5.0) gm/dl Globulin 3.6 (2.5-4.0) gm/dl Albumin/Globulin Ratio 0.7 L (0.9-2) Procalcitonin 0.25 (0-0.5) ng/ml 05/12/21 05/12/21 Range/Units 12:25 11:16 WBC 20.16 H (4.8-10.8) K/uL RBC 3.08 L (4.7-6.1) M/uL Hgb 9.6 L (14.0-18.0) g/dL Hct 30.1 L (42-52) % MCV 97.7 (80-100) fL MCH 31.2 (25-34) pg MCHC 31.9 L (32-36) g/dL RDW Std Deviation 53.8 H (36.4-46.3) fL RDW Coeff of Zenaida 15.4 H (11.5-14.5) % Plt Count 374 (130-400) K/uL MPV 10.4 (7.4-10.4) fL Immature Gran % (Auto) 0.7 % Neut % (Auto) 72.0 % Lymph % (Auto) 15.6 % [place] % (Auto) 10.8 % Eos % (Auto) 0.8 % Baso % (Auto) 0.1 % Neut # (Auto) 14.48 H (1.4-6.5) K/uL Lymph # (Auto) 3.15 (1.2-3.4) K/uL [place] # (Auto) 2.18 H (0.11-0.59) K/uL Eos # (Auto) 0.17 (0-0.5) K/uL Baso # (Auto) 0.03 (0-0.2) K/uL Immature Gran # (Auto) 0.15 H (0.00-0.02) K/uL PT (9.0-12.0) Seconds INR (0.9-1.1) APTT (21.0-31.0) Seconds PTT Ratio Sodium (136-145) mmol/L Potassium (3.5-5.1) mmol/L Chloride (98-107) mmol/L Carbon Dioxide (21-32) mmol/L Anion Gap (3-11) BUN (6-23) mg/dl Creatinine (0.6-1.4) mg/dl Est Cr Clr Drug Dosing ml/min Est GFR ( Amer) ml/min Est GFR (Non-Af Amer) ml/min BUN/Creatinine Ratio (10-20) Glucose (70-99(Fasting)) mg/dl POC Glucose 227 H (70-99) mg/dl Uric Acid (2.6-7.2) mg/dl Calcium (8.5-10.1) mg/dl Phosphorus (2.5-4.9) mg/dl Magnesium (1.7-2.4) mg/dl Total Bilirubin (0.2-1.0) mg/dl AST (13-39) U/L ALT (7-52) U/L Alkaline Phosphatase (34-104) U/L Troponin I (0-0.04) ng/ml Total Protein (6.0-8.3) gm/dl Albumin (3.4-5.0) gm/dl Globulin (2.5-4.0) gm/dl Albumin/Globulin Ratio (0.9-2) Procalcitonin (0-0.5) ng/ml (1) Leukocytosis Leukocytosis type: unspecified Qualified Code(s): D72.829 - Elevated white blood cell count, unspecified
[2021-05-13] MEDS ORDERED: MENTHOL-ZINC OXIDE 360 APPLN/120 GM TUBE EXT SCH (10:30)
--- NOTE | 2021-05-13 12:52 | Orthopedic Progress Note ---
Date of Service May 13, 2021 Assessment & Plan (1) Fracture of hip: Plan: No changes with hip fx instructions at this time Plan: Left wrist pain. Marked improvement overnight. Prednisone started yesterday. Likely Gout vs Osteoarthritis flare. (Uric acid down to 5.9) Continue Prednisone for now. Wrist ROM as tolerated. Please call with any questions. Admission and Anticipated Discharge Date Admission Date: April 29, 2021 Subjective Pt sitting up in bed finishing his lunch. Pt noteably using his left hand and wrist today. He states it is feeling much better. He still has some mild pain with it but nothing like it was. Physical Exam Physical Exam: Pt markedly improved today with his left wrist pain. Swelling is noticeably less today. No erythema around the wrist. Much better ROM of the wrist today. Pt is able to use his left hand to eat his lunch. Sensation intact. Cap refill < 2 seconds. Results & Data ([facility]) Vital Signs (Past 12 Hours) Vital Signs Temp Pulse Pulse Resp BP BP Pulse Ox 05/13/21 12:14 36.4 C L 66 20 91/52 L 97 05/13/21 07:43 36.5 C 67 20 113/62 96 05/13/21 07:00 66 05/13/21 03:45 36.5 C 70 20 126/81 97 (1) Fracture of hip Encounter type: initial encounter Fracture type: closed Laterality: left Qualified Code(s): S72.002A - Fracture of unspecified part of neck of left femur, initial encounter for closed fracture
--- NOTE | 2021-05-13 13:48 | Hospitalist Progress Note ---
Date of Service May 13, 2021 Assessment & Plan (1) Acute renal failure superimposed on stage 3 chronic kidney disease: (2) Femur fracture, left: (3) Acute blood loss anemia: Plan: 75-year-old male withPMH of type 2 diabetes, hyperlipidemia, obstructive sleep apnea, hypertension, paroxysmal atrial fibrillation, vitamin B12 deficiency, morbid obesity, stage III chronic kidney disease, history of dementia presented w/ fall 04/30/21. The patient states he slipped on the grass in his yard and fell down and could not get up. He is being managed for the following: #. Hemorrhagic Shock - resolved #. Left thigh hematoma #. Acute blood loss anemia - 04/15 above #. Left Femur Fracture #. Fall -Hb 14--> 8 with left thigh and pelvis hematoma -CTA left LE shows large hematoma but no active extravasation -s/p 1 unit pRBC 05/01 with appropriate response -s/p 1 unit pRBC 05/03 - Hb stable, continue to monitor daily or as needed. -Continue with pain management -Surgical management, PT/OT, DVT Px per Ortho Surgery --> toe touch weight bearing -s/p OR 05/02:Left open reduction and internal fixation of displaced, comminuted, impacted subtrochanteric/intertrochanteric femur fracture with a Synthes 360 mm x 11 mm long trochanteric fixation nail with an 11 mm x 120 mm helical blade and two 5.0 mm locking screws. -BI LE doppler neg for DVT. #. Left Wrist Pain #. Likely Gout flare up Patient has acute onset severe pain on left wrist overnight. Left wrist x-ray done, no acute findings. Osteoarthritis and degenerative changes present. 05/01 uric acid level 9.0, 05/12 uric acid level pending Discussed with orthopedics On examination, left wrist is warm and tender with movement and palpation. Some swelling present. No erythema noted. Pain management. Celecoxib. Oral steroid, taper once pain starts to be better over 7-10 days. PPI BID for GI protection #. A. fib RVR Patient turned A. fib RVR in 140s at 11:29 AM on 05/12/2021 He converted back to sinus rhythm at 12:32 PM on 05/12/2021 EKG stat done and reviewed. Stat labs sent, pending. Will get BI LE doppler to r/o DVT. Discussed with cardiology, will give iv metoprolol. Starting patient on heparin drip Replacing the electrolytes including potassium and magnesium #. Leukocytosis - For events upto 05/08, refer to progress note 05/08 - ID evaluated 05/08, monitoring patient off of ATB -Continue to monitor. #. GABRIELLA on CKD stage 3 -combination of prerenal and ATN from hypotension early in the course -baseline Cr around 1.5-1.7; Resolved -d/w Nephrology 05/12 -- c/w lasix 40 mg daily and ok w/ resuming lisinopril/KCL supplementation -pt remains volume overloaded, Potassium supplementation continued -lisinopril resumed, OP nephro f/u upon DC #. Other chronic medical conditions: HTN, T2DM, HLD, BPH, HTN, Dementia, AMBER on CPAP Resume/continue with BP meds with holding parameter Hold T2DM meds, correctional scale insulin Continue other meds as and when appropriate. Given history of dementia, patient at risk for delirium --> Was started Risperdal 0.5mg daily here due to delirium and attempts to climb out of bed, would continue for now-->he is doing well on Risperdal. At discharge, would consider changing it to PRN #. Hypomagnesemia #. Hypophosphatemia -Replete and monitor as appropriate. DVT ppx SCDs, Heparin 05/07--> patient's Dtr Neva was given a phone call and updated about current status of the patient, answered all her questions, she voiced understanding and was agreeable to the plan of care. 05/12 --> patient's daughter Neva was given a phone call to update about the current developments, went into voicemail, left voicemail to call us back and ask for Dr. Burgess. Also patient's was given a phone call, it kept on ringing for a long time, had to hang up, could not leave any voicemail. Admission and Anticipated Discharge Date Admission Date: April 29, 2021 Subjective She is seen, resting comfortably in bed, feels a lot better than yesterday Results & Data Results & Data ([facility]) Vital Signs (Past 12 Hours) Vital Signs Temp Pulse Pulse Resp BP BP Pulse Ox 05/13/21 12:14 36.4 C L 66 20 91/52 L 97 05/13/21 07:43 36.5 C 67 20 113/62 96 05/13/21 07:00 66 05/13/21 03:45 36.5 C 70 20 126/81 97
[2021-05-13] MEDS: POTASSIUM CHLORIDE 20 MEQ/15 ML UDC PO SCH ×2 (15:42→20:32)
[2021-05-13 16:55] LABS: Partial Thromboplastin Ratio 3.3
[2021-05-13 16:59] LABS: Partial Thromboplastin Time 91.6 Seconds (21.0-31.0)
[2021-05-14 01:07] LABS: Partial Thromboplastin Ratio 3.3
[2021-05-14 01:15] LABS: Partial Thromboplastin Time 89.4 Seconds (21.0-31.0)
[2021-05-14] MEDS: DICLOFENAC SOD 1% GEL 100 GM TUBE EXT SCH ×4 (04:44→23:08)
[2021-05-14] MEDS: traMADol HCL 50 MG TABLET PO PRN (05:42)
[2021-05-14 06:08] LABS: Hematocrit (blood only) 27.4 % (42-52); Hemoglobin 8.8 g/dL (14.0-18.0); Mean Corpuscular Hemoglobin 31.2 pg (25-34); Mean Corpuscular Hgb Conc 32.1 g/dL (32-36); Mean Corpuscular Volume 97.2 fL (80-100); Mean Platelet Volume 10.5 fL (7.4-10.4); Platelet Count 367 K/uL (130-400); RDW Coefficient of Variation 15.2 % (11.5-14.5); Red Blood Count 2.82 M/uL (4.7-6.1); White Blood Count 17.87 K/uL (4.8-10.8)
[2021-05-14 06:34] LABS: BUN Creatinine Ratio 20.5 (10-20); Calcium 8.5 mg/dl (8.5-10.1); Est GFR (African American) 39.1 ml/min; Est GFR (Non-African American) 33.7 ml/min; Potassium 3.3 mmol/L (3.5-5.1)
[2021-05-14 06:36] LABS: Partial Thromboplastin Ratio 2.1
--- NOTE | 2021-05-14 08:07 | Cardiology Progress Note ---
Date of Service May 14, 2021 Assessment & Plan (1) Paroxysmal atrial fibrillation: (2) Hypokalemia: (3) Femur fracture, left: (4) Acute renal failure superimposed on stage 3 chronic kidney disease: (5) Leukocytosis: Plan: Patient is a 75-year-old male with convoluted course noted with hospitalization following mechanical fall with femur fracture and left thigh hematoma. He carries a history of past paroxysmal atrial fibrillation with single episode in 2008 but today lapsed into atrial fibrillation transiently. Patient unable to give any additional information or symptoms. Baseline rhythm is sinus and sinus tachycardia with atrial ventricular ectopy. That may have been precipitated by metabolic derangement with hypokalemia and hypomagnesemia. No hypoxia but patient at risk for thromboembolic disease Recommendations: Worsening renal function which seemed to improve while on prednisone. Recommend stopping Lisinopril and obtaining re-evaluation by nephrology to evaluate for possible tubular nephropathy. Ongoing hyponatremia and hypokalemia despite replacement. Supplement potassium to greater than 4- continue to trend renal function Continue metoprolol tartrate to 25 mg 3 times daily Recommend transitioning heparin to Coumadin for 30 to 90 days if no contraindication. Therapeutic INR not mandatory for discharge as long as being followed Cardiology will follow. Case discussed with Dr. Greer Admission and Anticipated Discharge Date Admission Date: April 29, 2021 Supervising Physician Co-Signing Physician Notes Patient seen and examined, chart reviewed. Assessment as above. Patient without complaint and looks good possibly in part response to corticosteroids. No further atrial arrhythmias Still with difficulties with hypokalemia despite aggressive replacement. Question tubular nephropathy post ATN. Renal function has worsened on resumption of lisinopril would hold Unless contraindicated patient should be begun on warfarin for 30 to 90 days suspect would benefit from orthopedic and mobility issues as well Subjective Chart and records reviewed. Patient notably suffered a mechanical fall on 04/30/2021 with femur fracture complicated by left thigh hematoma. Patient's been managed in hospital with extended stay due to debilitation and elevated white cell count. DVT workup negative. On 05/12 patient lapsed into atrial fibrillation/flutter with rapid response but spontaneously returned to sinus rhythm. Laboratory studies notable for persistent hypokalemia/hypomagnesemia. Baseline rhythm is sinus and sinus tachy cardia with frequent atrial/ventricular ectopy.No atrial arrhythmias over night. Patient has a remote history of PAF and was on Coumadin, dc'd in 2010. Tele: SR with PACs 70s, one short episode of PAT. No atrial fibrillation. Sodium: 135>>133>>133 >>131 Potassium: 2.8>>2.9>>3.3>>3.3 (K supplementation increased to 20 meq TID) Scr 1.36>>1.90 Sitting up in bed, comfortable- no acute distress. No chest pain, shortness of breath, palpitations, dizziness, syncope or near syncope. No orthopnea, PND. Edema noted in the left leg, right leg improving. No overt history of bleeding. Review of Systems Review of Systems: All systems reviewed & are unremarkable except as noted in HPI & below Physical Exam Constitutional: + obese; no acute distress Eyes: PERRL, conjunctivae normal, anicteric sclerae ENMT: external ear and nose normal, oropharynx normal Neck: trachea midline, no thyromegaly Respiratory: Auscultation: + diminished lung sounds Cardiovascular: Rate/Rhythm: regular rate and regular rhythm Heart Sounds: normal S1 and normal S2 Extremities: + edema (2-3+ left leg edema and presacral edema) Chest (Breasts): normal inspection/palpation of breasts Gastrointestinal (Abdomen): normal bowel sounds, soft, nontender, no hepatosplenomegaly Psychiatric: A+Ox3, euthymic affect Results & Data ([facility]) Vital Signs (Past 12 Hours) Vital Signs Temp Pulse Pulse Resp BP BP Pulse Ox 05/14/21 07:25 73 05/14/21 06:35 36.6 C 74 18 111/72 96 05/14/21 03:28 36.4 C L 72 16 99/60 L 96 05/13/21 23:05 36.6 C 74 18 92/58 L 97 05/13/21 22:29 72 Laboratory Results 05/14/21 05/14/21 05/14/21 Range/Units 07:19 05:37 05:37 WBC 17.87 H (4.8-10.8) K/uL RBC 2.82 L (4.7-6.1) M/uL Hgb 8.8 L (14.0-18.0) g/dL Hct 27.4 L (42-52) % MCV 97.2 (80-100) fL MCH 31.2 (25-34) pg MCHC 32.1 (32-36) g/dL RDW Std Deviation 54.0 H (36.4-46.3) fL RDW Coeff of Zenaida 15.2 H (11.5-14.5) % Plt Count 367 (130-400) K/uL MPV 10.5 H (7.4-10.4) fL APTT (21.0-31.0) Seconds PTT Ratio Sodium 131 L (136-145) mmol/L Potassium 3.3 L (3.5-5.1) mmol/L Chloride 101 (98-107) mmol/L Carbon Dioxide 21 (21-32) mmol/L Anion Gap 9 (3-11) BUN 39 H (6-23) mg/dl Creatinine 1.90 H D (0.6-1.4) mg/dl Est Cr Clr Drug Dosing 47.0 ml/min Est GFR ( Amer) 39.1 ml/min Est GFR (Non-Af Amer) 33.7 ml/min BUN/Creatinine Ratio 20.5 H (10-20) Glucose 219 H (70-99(Fasting)) mg/dl POC Glucose 237 H (70-99) mg/dl Calcium 8.5 (8.5-10.1) mg/dl 05/14/21 05/14/21 05/13/21 Range/Units 05:37 00:28 20:04 WBC (4.8-10.8) K/uL RBC (4.7-6.1) M/uL Hgb (14.0-18.0) g/dL Hct (42-52) % MCV (80-100) fL MCH (25-34) pg MCHC (32-36) g/dL RDW Std Deviation (36.4-46.3) fL RDW Coeff of Zenaida (11.5-14.5) % Plt Count (130-400) K/uL MPV (7.4-10.4) fL APTT 59.0 H* 89.4 H* (21.0-31.0) Seconds PTT Ratio 2.1 3.3 Sodium (136-145) mmol/L Potassium (3.5-5.1) mmol/L Chloride (98-107) mmol/L Carbon Dioxide (21-32) mmol/L Anion Gap (3-11) BUN (6-23) mg/dl Creatinine (0.6-1.4) mg/dl Est Cr Clr Drug Dosing ml/min Est GFR ( Amer) ml/min Est GFR (Non-Af Amer) ml/min BUN/Creatinine Ratio (10-20) Glucose (70-99(Fasting)) mg/dl POC Glucose 249 H (70-99) mg/dl Calcium (8.5-10.1) mg/dl 05/13/21 05/13/21 05/13/21 Range/Units 16:19 16:09 11:24 WBC (4.8-10.8) K/uL RBC (4.7-6.1) M/uL Hgb (14.0-18.0) g/dL Hct (42-52) % MCV (80-100) fL MCH (25-34) pg MCHC (32-36) g/dL RDW Std Deviation (36.4-46.3) fL RDW Coeff of Zenaida (11.5-14.5) % Plt Count (130-400) K/uL MPV (7.4-10.4) fL APTT 91.6 H* (21.0-31.0) Seconds PTT Ratio 3.3 Sodium (136-145) mmol/L Potassium (3.5-5.1) mmol/L Chloride (98-107) mmol/L Carbon Dioxide (21-32) mmol/L Anion Gap (3-11) BUN (6-23) mg/dl Creatinine (0.6-1.4) mg/dl Est Cr Clr Drug Dosing ml/min Est GFR ( Amer) ml/min Est GFR (Non-Af Amer) ml/min BUN/Creatinine Ratio (10-20) Glucose (70-99(Fasting)) mg/dl POC Glucose 274 H 222 H (70-99) mg/dl Calcium (8.5-10.1) mg/dl (1) Leukocytosis Leukocytosis type: unspecified Qualified Code(s): D72.829 - Elevated white blood cell count, unspecified
[2021-05-14] MEDS: risperiDONE 0.5 MG TABLET PO SCH (09:14)
[2021-05-14] MEDS: CeleBREX 200 MG CAP PO SCH ×2 (09:14→21:01)
[2021-05-14] MEDS: CYANOCOBALAMIN (B-12) 500 MCG TABLET PO SCH (09:14)
[2021-05-14] MEDS: ADVANCED PROBIOTIC 1250 MG CAPSULE PO SCH (09:15)
[2021-05-14] MEDS: lisinopril 10 MG TAB PO SCH (09:15)
[2021-05-14] MEDS: TAMSULOSIN HCL 0.4 MG CAP PO SCH (09:15)
[2021-05-14] MEDS: MAGNESIUM OXIDE 400 MG TAB PO SCH ×2 (09:16→21:03)
[2021-05-14] MEDS: PANTOprazole 40 MG TAB PO SCH ×2 (09:16→21:03)
[2021-05-14] MEDS: METOPROLOL TARTRATE 25 MG TAB PO SCH ×3 (09:16→21:03)
[2021-05-14] MEDS: predniSONE 20 MG TAB PO SCH ×2 (09:16→21:05)
[2021-05-14] MEDS: POTASSIUM CHLORIDE 20 MEQ/15 ML UDC PO SCH ×3 (09:17→21:04)
[2021-05-14] MEDS: INSULIN GLARGINE SOLOSTAR 100 UNITS/ML 3 ML PEN SC SCH (09:17)
[2021-05-14] MEDS: GABAPENTIN 100 MG CAP PO SCH ×2 (09:17→21:02)
[2021-05-14] MEDS: INSULIN ASPART PER UNIT SC SCH ×4 (09:19→21:02)
--- NOTE | 2021-05-14 12:56 | Hospitalist Progress Note ---
Date of Service May 14, 2021 Assessment & Plan (1) Acute renal failure superimposed on stage 3 chronic kidney disease: (2) Femur fracture, left: (3) Acute blood loss anemia: Plan: 75-year-old male with PMH of type 2 diabetes, hyperlipidemia, obstructive sleep apnea, hypertension, paroxysmal atrial fibrillation, vitamin B12 deficiency, morbid obesity, stage III chronic kidney disease, history of dementia presented w/ fall 04/30/21. The patient states he slipped on the grass in his yard and fell down and could not get up. He is being managed for the following: #. Hemorrhagic Shock - resolved #. Left thigh hematoma #. Acute blood loss anemia - 04/15 above #. Left Femur Fracture #. Fall -Hb 14--> 8 with left thigh and pelvis hematoma -CTA left LE shows large hematoma but no active extravasation -s/p 1 unit pRBC 05/01 with appropriate response -s/p 1 unit pRBC 05/03 - Hb stable, continue to monitor daily or as needed. -Continue with pain management -Surgical management, PT/OT, DVT Px per Ortho Surgery --> toe touch weight bearing -s/p OR 05/02:Left open reduction and internal fixation of displaced, comminuted, impacted subtrochanteric/intertrochanteric femur fracture with a Synthes 360 mm x 11 mm long trochanteric fixation nail with an 11 mm x 120 mm helical blade and two 5.0 mm locking screws. -BI LE doppler neg for DVT. #. Left Wrist Pain #. Likely Gout flare up Patient has acute onset severe pain on left wrist overnight. Left wrist x-ray done, no acute findings. Osteoarthritis and degenerative changes present. 05/01 uric acid level 9.0, 05/12 uric acid level pending Discussed with orthopedics On examination, left wrist is warm and tender with movement and palpation. Some swelling present. No erythema noted. Pain management. Celecoxib. Oral steroid, taper once pain starts to be better over 7-10 days. PPI BID for GI protection #. A. fib RVR Patient turned A. fib RVR in 140s at 11:29 AM on 05/12/2021 He converted back to sinus rhythm at 12:32 PM on 05/12/2021 EKG stat done and reviewed. Stat labs sent, pending. Will get BI LE doppler to r/o DVT. Discussed with cardiology, will give iv metoprolol. Starting patient on heparin drip Replacing the electrolytes including potassium and magnesium #. Leukocytosis - ID evaluated 05/08, monitoring patient off of ATB -Continue to monitor. #. GABRIELLA on CKD stage 3 -combination of prerenal and ATN from hypotension early in the course -baseline Cr around 1.5-1.7; Resolved -d/w Nephrology 05/12 -- c/w lasix 40 mg daily and ok w/ resuming lisinopril/KCL supplementation -pt remains volume overloaded, Potassium supplementation continued -lisinopril resumed, OP nephro f/u upon DC #. Other chronic medical conditions: HTN, T2DM, HLD, BPH, HTN, Dementia, AMBER on CPAP Resume/continue with BP meds with holding parameter Hold T2DM meds, correctional scale insulin Continue other meds as and when appropriate. Given history of dementia, patient at risk for delirium --> Was started Risperdal 0.5mg daily here due to delirium and attempts to climb out of bed, would continue for now-->he is doing well on Risperdal. At discharge, change to PRN #. Hypomagnesemia #. Hypophosphatemia -Replete and monitor as appropriate. DVT ppx SCDs, Heparin 05/07--> patient's Dtr Neva was given a phone call and updated about current status of the patient, answered all her questions, she voiced understanding and was agreeable to the plan of care. 05/12 --> patient's daughter Neva was given a phone call to update about the current developments, went into voicemail, left voicemail to call us back and ask for Dr. Burgess. Also patient's was given a phone call, it kept on ringing for a long time, had to hang up, could not leave any voicemail. PT/OT, DC Plan ROS-No Headache, No Visual Changes, No Nausea, No Vomiting, No Fever, No Chills, No Neck Pain or Stiffness, No Chest Pain, No Palpitations, No SOB, No WARE, No Cough, No Sputum, No Wheezing, No Abdominal Pain, No Diarrhea, No Hematemesis, No Hemoptysis, No Unexpected Weight Loss, No Flank pain, No Melena, No Hematochezia, No Frequency, No Urgency, No Burning, No Hematuria, No Rashes, No Diaphoresis. Appetite is Normal, LLE Pain Physical Exam Gen-AAO x 3, NAD, Afebrile, Obese Head-NCAT, EOMI, PERRLA, Anicteric Sclera, No Posterior Pharyngeal Erythema Neck-Supple, No JVD, No Thyromegaly, No Masses, No LAD, No Bruits Lungs-Clear to Auscultation Bilaterally, No Rales, No Rhonchi, No Wheezing, No Crepitus Chest-No S4, +S1, +S2, No S3, No Murmurs, No Rubs, No Gallops, No Ectopy Abdomen-Soft, Bowel Sounds Present, Non Tender, Non Distended, No Hepatomegaly, No Splenomegaly, No Palpable Masses, No Rebound, No Rigidity, No Guarding Musculoskeletal-Full Range of Motion Bilaterally, No CVAT, TTWB RLE Extremities-No Cyanosis, No Clubbing, No Edema Nuero-Cranial Nerves II-XII grossly intact, Motor WNL, DTRs WNL, Strength WNL, Non Focal Psych-Normal Mood Admission and Anticipated Discharge Date Admission Date: April 29, 2021 Subjective Patient more lucid, feels like he's improving each day Results & Data Results & Data ([facility]) Vital Signs (Past 12 Hours) Vital Signs Temp Pulse Pulse Resp BP BP Pulse Ox 05/14/21 10:48 36.5 C 84 19 105/66 98 05/14/21 07:25 73 05/14/21 06:35 36.6 C 74 18 111/72 96 05/14/21 03:28 36.4 C L 72 16 99/60 L 96
[2021-05-14] MEDS: HEPARIN SODIUM/DEXTROSE 25,000 UNITS/500 ML BAG IV SCH (13:48)
[2021-05-15] MEDS: HEPARIN SODIUM/DEXTROSE 25,000 UNITS/500 ML BAG IV SCH ×2 (04:56→17:12)
[2021-05-15] MEDS: DICLOFENAC SOD 1% GEL 100 GM TUBE EXT SCH ×3 (04:57→17:12)
--- NOTE | 2021-05-15 08:01 | Cardiology Progress Note ---
Date of Service May 15, 2021 Assessment & Plan (1) Paroxysmal atrial fibrillation: (2) Hypokalemia: (3) Femur fracture, left: (4) Acute renal failure superimposed on stage 3 chronic kidney disease: (5) Leukocytosis: Plan: Patient is a 75-year-old male with convoluted course noted with hospitalization following mechanical fall with femur fracture and left thigh hematoma. He carries a history of past paroxysmal atrial fibrillation with single episode in 2008 but today lapsed into atrial fibrillation transiently. Patient unable to give any additional information or symptoms. Baseline rhythm is sinus and sinus tachycardia with atrial ventricular ectopy. That may have been precipitated by metabolic derangement with hypokalemia and hypomagnesemia. No hypoxia but patient at risk for thromboembolic disease. Patient now confused. Recommendations: Renal function slightly improved, recommend continued hold on lisinopril obtaining re-evaluation by nephrology to evaluate for possible tubular nephropathy. Supplement potassium to greater than 4- continue to trend renal function Continue metoprolol tartrate to 25 mg 3 times daily Recommend transitioning heparin to Coumadin for 30 to 90 days if no cont raindication. Therapeutic INR not mandatory for discharge as long as being followed. No further cardiology recommendations at this time. Cardiology will follow. Case discussed with Dr. Greer Admission and Anticipated Discharge Date Admission Date: April 29, 2021 Supervising Physician Co-Signing Physician Notes Patient seen and examined, plan evaluation as well outlined above. Cardiology will sign off Subjective Chart and records reviewed. Patient notably suffered a mechanical fall on 04/30/2021 with femur fracture complicated by left thigh hematoma. Patient's been managed in hospital with extended stay due to debilitation and elevated white cell count. DVT workup negative. On 05/12 patient lapsed into atrial fibrillation/flutter with rapid response but spontaneously returned to sinus rhythm. Laboratory studies notable for persistent hypokalemia/hypomagnesemia. Baseline rhythm is sinus and sinus tachycardia with frequent atrial/ventricular ectopy.No atrial arrhythmias over night. Patient has a remote history of PAF and was on Coumadin, dc'd in 2010. Tele: SR with PACs 70s, one short episode of PAT. No atrial fibrillation. Sodium: 135>>133>>133 >>131>>133 Potassium: 2.8>>2.9>>3.3>>3.3>>3.6 Scr 1.36>>1.90>>1.66 Sitting up in bed, restless. Confused to place and time. No chest pain, shortness of breath, palpitations, dizziness, syncope or near syncope. No orthopnea, PND. Edema noted in the left leg, right leg improving. No overt history of bleeding. Review of Systems Review of Systems: All systems reviewed & are unremarkable except as noted in HPI & below Physical Exam Constitutional: + obese; no acute distress Eyes: PERRL, conjunctivae normal, anicteric sclerae ENMT: external ear and nose normal, oropharynx normal Neck: trachea midline, no thyromegaly Respiratory: Auscultation: + diminished lung sounds Cardiovascular: Rate/Rhythm: regular rate and regular rhythm Heart Sounds: normal S1 and normal S2 Extremities: + edema (2-3+ left leg edema and presacral edema) Chest (Breasts): normal inspection/palpation of breasts Gastrointestinal (Abdomen): normal bowel sounds, soft, nontender, no hepatosplenomegaly Psychiatric: A+Ox3, euthymic affect Results & Data ([facility]) Vital Signs (Past 12 Hours) Vital Signs Temp Pulse Pulse Resp BP Pulse Ox 05/15/21 07:13 36.5 C 74 20 115/71 98 05/15/21 04:01 36.6 C 104 H 18 99/62 L 97 05/14/21 23:22 36.7 C 108 H 18 98/63 L 95 05/14/21 22:28 59 L Laboratory Results 05/15/21 05/15/21 05/15/21 Range/Units 08:30 08:13 08:13 WBC 16.57 H (4.8-10.8) K/uL RBC 2.84 L (4.7-6.1) M/uL Hgb 8.9 L (14.0-18.0) g/dL Hct 27.8 L (42-52) % MCV 97.9 (80-100) fL MCH 31.3 (25-34) pg MCHC 32.0 (32-36) g/dL RDW Std Deviation 53.8 H (36.4-46.3) fL RDW Coeff of Zenaida 15.2 H (11.5-14.5) % Plt Count 361 (130-400) K/uL MPV 10.8 H (7.4-10.4) fL Immature Gran % (Auto) 0.6 % Neut % (Auto) 74.2 % Lymph % (Auto) 17.1 % [place] % (Auto) 8.0 % Eos % (Auto) 0.1 % Baso % (Auto) 0.0 % Neut # (Auto) 12.30 H (1.4-6.5) K/uL Lymph # (Auto) 2.83 (1.2-3.4) K/uL [place] # (Auto) 1.33 H (0.11-0.59) K/uL Eos # (Auto) 0.01 (0-0.5) K/uL Baso # (Auto) 0.00 (0-0.2) K/uL Immature Gran # (Auto) 0.10 H (0.00-0.02) K/uL APTT 62.1 H* (21.0-31.0) Seconds PTT Ratio 2.3 Sodium 133 L (136-145) mmol/L Potassium 3.8 (3.5-5.1) mmol/L Chloride 103 (98-107) mmol/L Carbon Dioxide 22 (21-32) mmol/L Anion Gap 8 (3-11) BUN 45 H (6-23) mg/dl Creatinine 1.66 H (0.6-1.4) mg/dl Est Cr Clr Drug Dosing 54.1 ml/min Est GFR ( Amer) 46.0 ml/min Est GFR (Non-Af Amer) 39.7 ml/min BUN/Creatinine Ratio 27.1 H (10-20) Glucose 231 H (70-99(Fasting)) mg/dl POC Glucose (70-99) mg/dl Fasting Glucose 231 H (70-99) mg/dl Calcium 7.8 L (8.5-10.1) mg/dl 05/15/21 05/14/21 05/14/21 Range/Units 07:24 20:07 16:40 WBC (4.8-10.8) K/uL RBC (4.7-6.1) M/uL Hgb (14.0-18.0) g/dL Hct (42-52) % MCV (80-100) fL MCH (25-34) pg MCHC (32-36) g/dL RDW Std Deviation (36.4-46.3) fL RDW Coeff of Zenaida (11.5-14.5) % Plt Count (130-400) K/uL MPV (7.4-10.4) fL Immature Gran % (Auto) % Neut % (Auto) % Lymph % (Auto) % [place] % (Auto) % Eos % (Auto) % Baso % (Auto) % Neut # (Auto) (1.4-6.5) K/uL Lymph # (Auto) (1.2-3.4) K/uL [place] # (Auto) (0.11-0.59) K/uL Eos # (Auto) (0-0.5) K/uL Baso # (Auto) (0-0.2) K/uL Immature Gran # (Auto) (0.00-0.02) K/uL APTT (21.0-31.0) Seconds PTT Ratio Sodium (136-145) mmol/L Potassium (3.5-5.1) mmol/L Chloride (98-107) mmol/L Carbon Dioxide (21-32) mmol/L Anion Gap (3-11) BUN (6-23) mg/dl Creatinine (0.6-1.4) mg/dl Est Cr Clr Drug Dosing ml/min Est GFR ( Amer) ml/min Est GFR (Non-Af Amer) ml/min BUN/Creatinine Ratio (10-20) Glucose (70-99(Fasting)) mg/dl POC Glucose 234 H 248 H 289 H (70-99) mg/dl Fasting Glucose (70-99) mg/dl Calcium (8.5-10.1) mg/dl 05/14/21 Range/Units 11:36 WBC (4.8-10.8) K/uL RBC (4.7-6.1) M/uL Hgb (14.0-18.0) g/dL Hct (42-52) % MCV (80-100) fL MCH (25-34) pg MCHC (32-36) g/dL RDW Std Deviation (36.4-46.3) fL RDW Coeff of Zenaida (11.5-14.5) % Plt Count (130-400) K/uL MPV (7.4-10.4) fL Immature Gran % (Auto) % Neut % (Auto) % Lymph % (Auto) % [place] % (Auto) % Eos % (Auto) % Baso % (Auto) % Neut # (Auto) (1.4-6.5) K/uL Lymph # (Auto) (1.2-3.4) K/uL [place] # (Auto) (0.11-0.59) K/uL Eos # (Auto) (0-0.5) K/uL Baso # (Auto) (0-0.2) K/uL Immature Gran # (Auto) (0.00-0.02) K/uL APTT (21.0-31.0) Seconds PTT Ratio Sodium (136-145) mmol/L Potassium (3.5-5.1) mmol/L Chloride (98-107) mmol/L Carbon Dioxide (21-32) mmol/L Anion Gap (3-11) BUN (6-23) mg/dl Creatinine (0.6-1.4) mg/dl Est Cr Clr Drug Dosing ml/min Est GFR ( Amer) ml/min Est GFR (Non-Af Amer) ml/min BUN/Creatinine Ratio (10-20) Glucose (70-99(Fasting)) mg/dl POC Glucose 266 H (70-99) mg/dl Fasting Glucose (70-99) mg/dl Calcium (8.5-10.1) mg/dl (1) Leukocytosis Leukocytosis type: unspecified Qualified Code(s): D72.829 - Elevated white blood cell count, unspecified
[2021-05-15] MEDS: INSULIN GLARGINE SOLOSTAR 100 UNITS/ML 3 ML PEN SC SCH (08:39)
[2021-05-15] MEDS: INSULIN ASPART PER UNIT SC SCH ×4 (08:41→20:10)
[2021-05-15] MEDS: predniSONE 20 MG TAB PO SCH ×2 (08:41→20:14)
[2021-05-15] MEDS: MAGNESIUM OXIDE 400 MG TAB PO SCH ×2 (08:41→20:13)
[2021-05-15] MEDS: METOPROLOL TARTRATE 25 MG TAB PO SCH ×3 (08:41→20:12)
[2021-05-15] MEDS: PANTOprazole 40 MG TAB PO SCH ×2 (08:41→20:11)
[2021-05-15] MEDS: CYANOCOBALAMIN (B-12) 500 MCG TABLET PO SCH (08:42)
[2021-05-15] MEDS: GABAPENTIN 100 MG CAP PO SCH ×2 (08:42→20:13)
[2021-05-15] MEDS: POTASSIUM CHLORIDE 20 MEQ/15 ML UDC PO SCH ×3 (08:42→20:14)
[2021-05-15] MEDS: TAMSULOSIN HCL 0.4 MG CAP PO SCH (08:42)
[2021-05-15] MEDS: CeleBREX 200 MG CAP PO SCH ×2 (08:42→20:12)
[2021-05-15] MEDS: ADVANCED PROBIOTIC 1250 MG CAPSULE PO SCH (08:42)
[2021-05-15] MEDS: risperiDONE 0.5 MG TABLET PO SCH (08:42)
[2021-05-15 08:49] LABS: Eosinophils # (auto) 0.01 K/uL (0-0.5); Eosinophils % (auto) 0.1 %; Hematocrit (blood only) 27.8 % (42-52); Hemoglobin 8.9 g/dL (14.0-18.0); Immature Granulocytes % (auto) 0.6 %; Lymphocytes # (auto) 2.83 K/uL (1.2-3.4); Lymphocytes % (auto) 17.1 %; Mean Corpuscular Hemoglobin 31.3 pg (25-34); Mean Corpuscular Volume 97.9 fL (80-100); Mean Platelet Volume 10.8 fL (7.4-10.4); Monocytes # (auto) 1.33 K/uL (0.11-0.59); Neutrophils % (auto) 74.2 %; Platelet Count 361 K/uL (130-400); RDW Coefficient of Variation 15.2 % (11.5-14.5); RDW Standard Deviation 53.8 fL (36.4-46.3); Red Blood Count 2.84 M/uL (4.7-6.1); White Blood Count 16.57 K/uL (4.8-10.8)
[2021-05-15 09:12] LABS: Partial Thromboplastin Ratio 2.3
[2021-05-15 09:16] LABS: BUN Creatinine Ratio 27.1 (10-20); Calcium 7.8 mg/dl (8.5-10.1); Creatinine Clr Calc Pharmacy 54.1 ml/min; Est GFR (Non-African American) 39.7 ml/min; Potassium 3.8 mmol/L (3.5-5.1)
[2021-05-15 09:24] LABS: Partial Thromboplastin Time 62.1 Seconds (21.0-31.0)
--- NOTE | 2021-05-15 12:12 | Hospitalist Progress Note ---
Date of Service May 15, 2021 Assessment & Plan (1) Acute renal failure superimposed on stage 3 chronic kidney disease: (2) Femur fracture, left: (3) Acute blood loss anemia: Plan: 75-year-old male withPMH of type 2 diabetes, hyperlipidemia, obstructive sleep apnea, hypertension, paroxysmal atrial fibrillation, vitamin B12 deficiency, morbid obesity, stage III chronic kidney disease, history of dementia presented w/ fall 04/30/21. The patient states he slipped on the grass in his yard and fell down and could not get up. He is being managed for the following: #. Hemorrhagic Shock - resolved #. Left thigh hematoma #. Acute blood loss anemia - 04/15 above #. Left Femur Fracture #. Fall -Hb 14--> 8 with left thigh and pelvis hematoma -CTA left LE shows large hematoma but no active extravasation -s/p 1 unit pRBC 05/01 with appropriate response -s/p 1 unit pRBC 05/03 - Hb stable, continue to monitor daily or as needed. -Continue with pain management -Surgical management, PT/OT, DVT Px per Ortho Surgery --> toe touch weight bearing -s/p OR 05/02:Left open reduction and internal fixation of displaced, comminuted, impacted subtrochanteric/intertrochanteric femur fracture with a Synthes 360 mm x 11 mm long trochanteric fixation nail with an 11 mm x 120 mm helical blade and two 5.0 mm locking screws. - BI LE doppler neg for DVT. #. Left Wrist Pain #. Likely Gout flare up Patient has acute onset severe pain on left wrist overnight. Left wrist x-ray done, no acute findings. Osteoarthritis and degenerative changes present. 05/01 uric acid level 9.0, 05/12 uric acid level pending Discussed with orthopedics On examination, left wrist is warm and tender with movement and palpation. Some swelling present. No erythema noted. Pain management. Celecoxib. Oral steroid, taper once pain starts to be better over 7-10 days. PPI BID for GI protection #. A. fib RVR Patient turned A. fib RVR in 140s at 11:29 AM on 05/12/2021 He converted back to sinus rhythm at 12:32 PM on 05/12/2021 EKG stat done and reviewed. Stat labs sent, pending. No DVT. Discussed with cardiology, will give iv metoprolol. Heparin drip Replacing the electrolytes including potassium and magnesium #. Leukocytosis - For events upto 05/08, refer to progress note 05/08 - ID evaluated 05/08, monitoring patient off of ATB - Continue to monitor. #. GABRIELLA on CKD stage 3 -combination of prerenal and ATN from hypotension early in the course -baseline Cr around 1.5-1.7; Resolved -d/w Nephrology 05/12 -- c/w lasix 40 mg daily and ok w/ resuming lisinopril/KCL supplementation -pt remains volume overloaded, Potassium supplementation continued -lisinopril resumed, OP nephro f/u upon DC #. Other chronic medical conditions: HTN, T2DM, HLD, BPH, HTN, Dementia, AMBER on CPAP Resume/continue with BP meds with holding parameter Hold T2DM meds, correctional scale insulin Continue other meds as and when appropriate. Given history of dementia, patient at risk for delirium --> Was started Risperdal 0.5mg daily here due to delirium and attempts to climb out of bed, would continue for now-->he is doing well on Risperdal. At discharge, would consider changing it to PRN #. Hypomagnesemia #. Hypophosphatemia -Replete and monitor as appropriate. DVT ppx SCDs, Heparin 05/07--> patient's Dtr Neva was given a phone call and updated about current status of the patient, answered all her questions, she voiced understanding and was agreeable to the plan of care. 05/12 --> patient's daughter Neva was given a phone call to update about the current developments, went into voicemail, left voicemail to call us back and ask for Dr. Burgess. Also patient's was given a phone call, it kept on ringing for a long time, had to hang up, could not leave any voicemail. Trying for SNF-Awaiting placement, no beds at [facility] until next week, PT/OT ROS-No Headache, No Visual Changes, No Nausea, No Vomiting, No Fever, No Chills, No Neck Pain or Stiffness, No Chest Pain, No Palpitations, No SOB, No WARE, No Cough, No Sputum, No Wheezing, No Abdominal Pain, No Diarrhea, No Hematemesis, No Hemoptysis, No Unexpected Weight Loss, No Flank pain, No Melena, No Hematochezia, No Frequency, No Urgency, No Burning, No Hematuria, No Rashes, No Diaphoresis. Appetite is Normal, Difficulty c TTWB Physical Exam Gen-AAO x 3, NAD, Afeb, Obese, Confused at times Head-NCAT, EOMI, PERRLA, Anicteric Sclera, No Posterior Pharyngeal Erythema Neck-Supple, No JVD, No Thyromegaly, No Masses, No LAD, No Bruits Lungs-Clear to Auscultation Bilaterally, No Rales, No Rhonchi, No Wheezing, No Crepitus Chest-No S4, +S1, +S2, No S3, No Murmurs, No Rubs, No Gallops, No Ectopy Abdomen-Soft, Bowel Sounds Present, Non Tender, Non Distended, No Hepatomegaly, No Splenomegaly, No Palpable Masses, No Rebound, No Rigidity, No Guarding Musculoskeletal-Full Range of Motion Bilaterally, No CVAT Extremities-No Cyanosis, No Clubbing, No Edema Nuero-Cranial Nerves II-XII grossly intact, Motor WNL, DTRs WNL, Strength WNL, Non Focal Psych-Normal Mood Admission and Anticipated Discharge Date Admission Date: April 29, 2021 Subjective Patient sitting up in Bed eating, No new issues Results & Data Results & Data ([facility]) Vital Signs (Past 12 Hours) Vital Signs Temp Pulse Pulse Resp BP Pulse Ox 05/15/21 10:39 59 L 05/15/21 10:35 36.5 C 71 19 103/67 98 05/15/21 07:13 36.5 C 74 20 115/71 98 05/15/21 04:01 36.6 C 104 H 18 99/62 L 97
[2021-05-15 12:49] LABS: INR 1.2 (0.9-1.1); Prothrombin Time 12.5 Seconds (9.0-12.0)
[2021-05-15] MEDS: WARFARIN SOD 5 MG TAB PO SCH (16:19)
[2021-05-16] MEDS: DICLOFENAC SOD 1% GEL 100 GM TUBE EXT SCH ×5 (00:07→23:20)
[2021-05-16] MEDS: traMADol HCL 50 MG TABLET PO PRN ×2 (07:55→15:13)
[2021-05-16] MEDS: GABAPENTIN 100 MG CAP PO SCH ×2 (07:56→20:42)
[2021-05-16] MEDS: METOPROLOL TARTRATE 25 MG TAB PO SCH ×3 (07:56→20:40)
[2021-05-16] MEDS: TAMSULOSIN HCL 0.4 MG CAP PO SCH (07:56)
[2021-05-16] MEDS: predniSONE 20 MG TAB PO SCH ×2 (07:56→20:43)
[2021-05-16] MEDS: CYANOCOBALAMIN (B-12) 500 MCG TABLET PO SCH (07:57)
[2021-05-16] MEDS: ADVANCED PROBIOTIC 1250 MG CAPSULE PO SCH (07:57)
[2021-05-16] MEDS: CeleBREX 200 MG CAP PO SCH ×2 (07:57→20:40)
[2021-05-16] MEDS: risperiDONE 0.5 MG TABLET PO SCH (07:57)
[2021-05-16] MEDS: PANTOprazole 40 MG TAB PO SCH ×2 (07:58→20:41)
[2021-05-16] MEDS: MAGNESIUM OXIDE 400 MG TAB PO SCH ×2 (07:58→20:40)
[2021-05-16] MEDS: POTASSIUM CHLORIDE 20 MEQ/15 ML UDC PO SCH ×3 (07:58→20:39)
[2021-05-16] MEDS: INSULIN ASPART PER UNIT SC SCH ×4 (08:13→20:45)
[2021-05-16] MEDS: INSULIN GLARGINE SOLOSTAR 100 UNITS/ML 3 ML PEN SC SCH (08:13)
[2021-05-16 08:35] LABS: Hematocrit (blood only) 28.4 % (42-52); Mean Corpuscular Hgb Conc 31.7 g/dL (32-36); Mean Corpuscular Volume 97.9 fL (80-100); Mean Platelet Volume 10.4 fL (7.4-10.4); Platelet Count 328 K/uL (130-400); RDW Coefficient of Variation 15.3 % (11.5-14.5); RDW Standard Deviation 54.1 fL (36.4-46.3); White Blood Count 15.94 K/uL (4.8-10.8)
[2021-05-16 08:56] LABS: BUN Creatinine Ratio 30.8 (10-20); Calcium 7.8 mg/dl (8.5-10.1); Creatinine Clr Calc Pharmacy 63.1 ml/min; Est GFR (African American) 55.1 ml/min; Est GFR (Non-African American) 47.6 ml/min; Potassium 3.7 mmol/L (3.5-5.1)
[2021-05-16 09:05] LABS: INR 1.2 (0.9-1.1); Partial Thromboplastin Ratio 3.6; Prothrombin Time 12.8 Seconds (9.0-12.0)
[2021-05-16 09:19] LABS: Partial Thromboplastin Time 98.2 Seconds (21.0-31.0)
--- NOTE | 2021-05-16 10:25 | Hospitalist Progress Note ---
Date of Service May 16, 2021 Assessment & Plan (1) Acute renal failure superimposed on stage 3 chronic kidney disease: (2) Femur fracture, left: (3) Acute blood loss anemia: Plan: 75-year-old male withPMH of type 2 diabetes, hyperlipidemia, obstructive sleep apnea, hypertension, paroxysmal atrial fibrillation, vitamin B12 deficiency, morbid obesity, stage III chronic kidney disease, history of dementia presented w/ fall 04/30/21. The patient states he slipped on the grass in his yard and fell down and could not get up. He is being managed for the following: #. Hemorrhagic Shock - resolved #. Left thigh hematoma #. Acute blood loss anemia - 04/15 above #. Left Femur Fracture #. Fall -Hb 14--> 8 with left thigh and pelvis hematoma -CTA left LE shows large hematoma but no active extravasation -s/p 1 unit pRBC 05/01 with appropriate response -s/p 1 unit pRBC 05/03 - Hb stable, continue to monitor daily or as needed. -Continue with pain management -Surgical management, PT/OT, DVT Px per Ortho Surgery --> toe touch weight bearing -s/p OR 05/02:Left open reduction and internal fixation of displaced, comminuted, impacted subtrochanteric/intertrochanteric femur fracture with a Synthes 360 mm x 11 mm long trochanteric fixation nail with an 11 mm x 120 mm helical blade and two 5.0 mm locking screws. - BI LE doppler neg for DVT. #. Left Wrist Pain #. Likely Gout flare up Patient has acute onset severe pain on left wrist overnight. Left wrist x-ray done, no acute findings. Osteoarthritis and degenerative changes present. 05/01 uric acid level 9.0, 05/12 uric acid level pending Discussed with orthopedics On examination, left wrist is warm and tender with movement and palpation. Some swelling present. No erythema noted. Pain management. Celecoxib. Oral steroid, taper once pain starts to be better over 7-10 days. PPI BID for GI protection #. A. fib RVR Patient turned A. fib RVR in 140s at 11:29 AM on 05/12/2021 He converted back to sinus rhythm at 12:32 PM on 05/12/2021 EKG stat done and reviewed. Stat labs sent, pending. No DVT. Discussed with cardiology, will give iv metoprolol. Heparin drip Replacing the electrolytes including potassium and magnesium #. Leukocytosis - For events upto 05/08, refer to progress note 05/08 - ID evaluated 05/08, monitoring patient off of ATB - Continue to monitor. #. GABRIELLA on CKD stage 3 -combination of prerenal and ATN from hypotension early in the course -baseline Cr around 1.5-1.7; Resolved -d/w Nephrology 05/12 -- c/w lasix 40 mg daily and ok w/ resuming lisinopril/KCL supplementation -pt remains volume overloaded, Potassium supplementation continued -lisinopril resumed, OP nephro f/u upon DC #. Other chronic medical conditions: HTN, T2DM, HLD, BPH, HTN, Dementia, AMBER on CPAP Resume/continue with BP meds with holding parameter Hold T2DM meds, correctional scale insulin Continue other meds as and when appropriate. Given history of dementia, patient at risk for delirium --> Was started Risperdal 0.5mg daily here due to delirium and attempts to climb out of bed, would continue for now-->he is doing well on Risperdal. At discharge, would consider changing it to PRN #. Hypomagnesemia #. Hypophosphatemia -Replete and monitor as appropriate. DVT ppx SCDs, Heparin 05/07--> patient's Dtr Neva was given a phone call and updated about current status of the patient, answered all her questions, she voiced understanding and was agreeable to the plan of care. 05/12 --> patient's daughter Neva was given a phone call to update about the current developments, went into voicemail, left voicemail to call us back and ask for Dr. Burgess. Also patient's was given a phone call, it kept on ringing for a long time, had to hang up, could not leave any voicemail. Trying for SNF-Awaiting placement, no beds at [facility] Tuesday, PT/OT ROS-No Headache, No Visual Changes, No Nausea, No Vomiting, No Fever, No Chills, No Neck Pain or Stiffness, No Chest Pain, No Palpitations, No SOB, No WARE, No Cough, No Sputum, No Wheezing, No Abdominal Pain, No Diarrhea, No Hematemesis, No Hemoptysis, No Unexpected Weight Loss, No Flank pain, No Melena, No Hematochezia, No Frequency, No Urgency, No Burning, No Hematuria, No Rashes, No Diaphoresis. Appetite is Normal, Difficulty c TTWB Physical Exam Gen-AAO x 3, NAD, Afeb, Obese, Confused at times Head-NCAT, EOMI, PERRLA, Anicteric Sclera, No Posterior Pharyngeal Erythema Neck-Supple, No JVD, No Thyromegaly, No Masses, No LAD, No Bruits Lungs-Clear to Auscultation Bilaterally, No Rales, No Rhonchi, No Wheezing, No Crepitus Chest-No S4, +S1, +S2, No S3, No Murmurs, No Rubs, No Gallops, No Ectopy Abdomen-Soft, Bowel Sounds Present, Non Tender, Non Distended, No Hepatomegaly, No Splenomegaly, No Palpable Masses, No Rebound, No Rigidity, No Guarding Musculoskeletal-Full Range of Motion Bilaterally, No CVAT Extremities-No Cyanosis, No Clubbing, No Edema Nuero-Cranial Nerves II-XII grossly intact, Motor WNL, DTRs WNL, Strength WNL, Non Focal Psych-Normal Mood Admission and Anticipated Discharge Date Admission Date: April 29, 2021 Subjective Patient sitting up in Bed eating, No new issues Results & Data Results & Data ([facility]) Vital Signs (Past 12 Hours) Vital Signs Temp Pulse Pulse Resp BP Pulse Ox 05/16/21 08:07 36.5 C 66 16 109/65 98 05/16/21 07:13 56 L 05/16/21 02:57 36.3 C L 68 20 104/71 97 05/15/21 23:01 36.7 C 58 L 20 109/74 97
[2021-05-16] MEDS: HEPARIN SODIUM/DEXTROSE 25,000 UNITS/500 ML BAG IV SCH (11:05)
[2021-05-16] MEDS: WARFARIN SOD 5 MG TAB PO SCH (16:54)
[2021-05-16 17:38] LABS: Partial Thromboplastin Ratio 2.7
[2021-05-16 17:46] LABS: Partial Thromboplastin Time 73.6 Seconds (21.0-31.0)
[2021-05-17 00:38] LABS: Partial Thromboplastin Ratio 2.5
[2021-05-17 00:45] LABS: Partial Thromboplastin Time 69.7 Seconds (21.0-31.0)
[2021-05-17] MEDS: DICLOFENAC SOD 1% GEL 100 GM TUBE EXT SCH ×4 (06:37→23:25)
[2021-05-17 07:32] LABS: Hematocrit (blood only) 28.8 % (42-52); Hemoglobin 9.2 g/dL (14.0-18.0); Mean Corpuscular Hemoglobin 31.4 pg (25-34); Mean Corpuscular Hgb Conc 31.9 g/dL (32-36); Mean Corpuscular Volume 98.3 fL (80-100); Mean Platelet Volume 10.6 fL (7.4-10.4); Platelet Count 324 K/uL (130-400); RDW Coefficient of Variation 15.3 % (11.5-14.5); RDW Standard Deviation 53.7 fL (36.4-46.3); Red Blood Count 2.93 M/uL (4.7-6.1); White Blood Count 17.16 K/uL (4.8-10.8)
[2021-05-17 08:00] LABS: Partial Thromboplastin Ratio 2.1
[2021-05-17 08:01] LABS: Partial Thromboplastin Time 56.4 Seconds (21.0-31.0)
[2021-05-17 08:10] LABS: BUN Creatinine Ratio 30.9 (10-20); Calcium 7.7 mg/dl (8.5-10.1); Creatinine Clr Calc Pharmacy 66.3 ml/min; Est GFR (African American) 58.6 ml/min; Est GFR (Non-African American) 50.5 ml/min; Potassium 4.2 mmol/L (3.5-5.1)
[2021-05-17] MEDS: HEPARIN SODIUM/DEXTROSE 25,000 UNITS/500 ML BAG IV SCH (08:13)
[2021-05-17] MEDS: INSULIN ASPART PER UNIT SC SCH ×4 (08:14→20:18)
[2021-05-17] MEDS: INSULIN GLARGINE SOLOSTAR 100 UNITS/ML 3 ML PEN SC SCH (08:15)
[2021-05-17] MEDS: GABAPENTIN 100 MG CAP PO SCH ×2 (08:15→20:20)
[2021-05-17] MEDS: METOPROLOL TARTRATE 25 MG TAB PO SCH ×3 (08:15→20:20)
[2021-05-17] MEDS: predniSONE 20 MG TAB PO SCH ×2 (08:15→20:19)
[2021-05-17] MEDS: POTASSIUM CHLORIDE 20 MEQ/15 ML UDC PO SCH ×3 (08:15→20:19)
[2021-05-17] MEDS: risperiDONE 0.5 MG TABLET PO SCH (08:16)
[2021-05-17] MEDS: PANTOprazole 40 MG TAB PO SCH ×2 (08:16→20:21)
[2021-05-17] MEDS: ADVANCED PROBIOTIC 1250 MG CAPSULE PO SCH (08:16)
[2021-05-17] MEDS: TAMSULOSIN HCL 0.4 MG CAP PO SCH (08:16)
[2021-05-17] MEDS: CYANOCOBALAMIN (B-12) 500 MCG TABLET PO SCH (08:16)
[2021-05-17] MEDS: CeleBREX 200 MG CAP PO SCH ×2 (08:17→20:22)
[2021-05-17] MEDS: MAGNESIUM OXIDE 400 MG TAB PO SCH ×2 (08:17→20:21)
[2021-05-17 12:04] LABS: INR 1.4 (0.9-1.1); Prothrombin Time 14.5 Seconds (9.0-12.0)
[2021-05-17] MEDS: traMADol HCL 50 MG TABLET PO PRN ×2 (14:14→20:18)
[2021-05-17] MEDS: WARFARIN SOD 5 MG TAB PO SCH (16:55)
[2021-05-18] MEDS: DICLOFENAC SOD 1% GEL 100 GM TUBE EXT SCH ×4 (05:16→22:37)
[2021-05-18] MEDS: HEPARIN SODIUM/DEXTROSE 25,000 UNITS/500 ML BAG IV SCH ×3 (07:20→21:36)
--- NOTE | 2021-05-18 07:53 | Discharge Summary ---
Date of Service May 18, 2021 Admission HPI Per Admitting Provider 75-year-old male with past medical history significant for type 2 diabetes, hyperlipidemia, obstructive sleep apnea, hypertension, paroxysmal atrial fibrillation, vitamin B12 deficiency, morbid obesity, stage III chronic kidney disease, history of dementia, who presents with a fall. The patient states he slipped on the grass in his yard and fell down and could not get up. Family helped him p and brought him here and found to have left hip fracture. The patient states he did not lose any consciousness, did not hit his head. Denies any chest pain. He has some mild headache. No blurred visions, no earache, no runny nose, no sore throat, no cough, no nausea, no abdominal pain, no chest pain, no shortness of breath. Normal bowel and bladder movements. Appetite is okay. Currently, hemodynamically stable. Admission Exam Per Admitting Provider GENERAL: The patient is morbidly obese, not in acute distress. VITAL SIGNS: Temperature 36.7, pulse 86, respiratory rate 18, blood pressure 106/56, oxygen 97% on room air. HEENT: Pupils equal, round and reactive to light. Oral mucosa moist. NECK: No JVD, no neck masses. CARDIOVASCULAR: S1 and S2 heard. Regular rate and rhythm. No murmur, no gallop. RESPIRATORY SYSTEM: Normal AP diameter. No accessory muscle use. No wheezing, no crackles. ABDOMEN: Soft, bowel sounds present, nontender, no distention. CENTRAL NERVOUS SYSTEM: Cranial nerves II through XII are grossly intact, nonfocal. EXTREMITIES: Left lower extremity shortened and externally rotated. No edema seen, no erythema seen. Principal Diagnosis Acute renal failure superimposed on stage 3 chronic kidney disease: Femur fracture, left: Acute blood loss anemia: #. Hemorrhagic Shock - resolved #. Left thigh hematoma #. Acute blood loss anemia - 2/2 above #. Left Femur Fracture #. Fall #. Left Wrist Pain #. Likely Gout flare up #. A. fib RVR #. Leukocytosis #. GABRIELLA on CKD stage 3 #. HTN, T2DM, HLD, BPH, HTN, Dementia, AMBER on CPAP #. Hypomagnesemia #. Hypophosphatemia Discharge Data Allergies Allergy/AdvReac Type Severity Reaction Status Date / Time No Known Allergies Allergy NONE Verified 04/29/21 21:45 Consultations 02/16/22 21:04 ED Decision to Admit Stat 04/30/21 08:00 Consult Orthopedic Surgery Routine 04/30/21 18:04 Consult Nephrology Routine 05/01/21 10:04 Consult Automatic Punch Press Operator Routine 05/01/21 13:53 Consult Automatic Punch Press Operator Routine 05/06/21 16:20 Consult Infectious Diseases Routine 05/12/21 12:08 Consult Cardiology Routine Current Diagnoses Acute posthemorrhagic anemia (04/29/21) Elevated white blood cell count, unspecified (04/29/21) Type 2 diabetes mellitus without complications (04/29/21) Acidosis (04/29/21) Hypokalemia (04/29/21) Unspecified dementia without behavioral disturbance (04/29/21) Obstructive sleep apnea (adult) (pediatric) (04/29/21) Paroxysmal atrial fibrillation (04/29/21) Unspecified atrial fibrillation (04/29/21) Acute kidney failure, unspecified (04/29/21) Chronic kidney disease, stage 3 unspecified (04/29/21) Chronic kidney disease, unspecified (04/29/21) Fracture of unspecified part of neck of left femur, initial encounter for closed fracture (04/29/21) Unspecified fracture of left femur, initial encounter for closed fracture (04/29/21) Unspecified fall, initial encounter (04/29/21) Encounter for other preprocedural examination (04/29/21) Other specified personal risk factors, not elsewhere classified (04/29/21) Allergies No Known Allergies Allergy (Verified 04/29/21 21:45) NONE Height/Weight/Isolation Height 5 ft 10 in Weight 140.2 kg Chemistry 05/16/21 05/17/21 08:21 07:11 Sodium 134 L 130 L Potassium 3.7 4.2 Chloride 104 102 Carbon Dioxide 23 24 Anion Gap 7 4 BUN 44 H 42 H Creatinine 1.43 H 1.36 Glucose 231 H 224 H Procedures Performed Operation Date: 05/02/21 11:00 Actual Procedures p Long Intramedullary Felipe Left Femur(Left) - Pascual Stone, Ordered Studies 04/29/21 21:31 CT head/brain wo con Urgent 04/30/21 06:09 CT abd pelvis wo con Urgent 05/01/21 11:35 CT abd pelvis wo con Urgent CT femur LT wo con Urgent 05/01/21 16:56 CT angio femur LT wo/w con Urgent 05/02/21 FL hip LT 2-3V Routine 05/12/21 12:43 US venous doppler LE BI Routine Hospital Course (1) Acute renal failure superimposed on stage 3 chronic kidney disease: (2) Femur fracture, left: (3) Acute blood loss anemia: 75-year-old male withPMH of type 2 diabetes, hyperlipidemia, obstructive sleep apnea, hypertension, paroxysmal atrial fibrillation, vitamin B12 deficiency, morbid obesity, stage III chronic kidney disease, history of dementia presented w/ fall 04/30/21. The patient states he slipped on the grass in his yard and fell down and could not get up. He is being managed for the following: #. Hemorrhagic Shock - resolved #. Left thigh hematoma #. Acute blood loss anemia - 04/15 above #. Left Femur Fracture #. Fall -Hb 14--> 8 with left thigh and pelvis hematoma -CTA left LE shows large hematoma but no active extravasation -s/p 1 unit pRBC 05/01 with appropriate response -s/p 1 unit pRBC 05/03 -Hb stable, continue to monitor daily or as needed. -Continue with pain management -Surgical management, PT/OT, DVT Px per Ortho Surgery --> toe touch weight bearing -s/p OR 05/02:Left open reduction and internal fixation of displaced, comminuted, impacted subtrochanteric/intertrochanteric femur fracture with a Synthes 360 mm x 11 mm long trochanteric fixation nail with an 11 mm x 120 mm helical blade and two 5.0 mm locking screws. - BI LE doppler neg for DVT. #. Left Wrist Pain #. Likely Gout flare up Patient has acute onset severe pain on left wrist overnight. Left wrist x-ray done, no acute findings. Osteoarthritis and degenerative changes present. 05/01 uric acid level 9.0, 05/12 uric acid level pending Discussed with orthopedics On examination, left wrist is warm and tender with movement and palpation. Some swelling present. No erythema noted. Pain management. Celecoxib. Oral steroid, taper once pain starts to be better over 7-10 days. PPI BID for GI protection #. A. fib RVR Patient turned A. fib RVR in 140s at 11:29 AM on 05/12/2021 He converted back to sinus rhythm at 12:32 PM on 05/12/2021 EKG stat done and reviewed. Stat labs sent, pending. No DVT. Discussed with cardiology, will give iv metoprolol. Heparin drip/Warfarin Replacing the electrolytes including potassium and magnesium #. Leukocytosis - For events upto 05/08, refer to progress note 05/08 - ID evaluated 05/08, monitoring patient off of ATB - Continue to monitor. #. GABRIELLA on CKD stage 3 -combination of prerenal and ATN from hypotension early in the course -baseline Cr around 1.5-1.7; Resolved -d/w Nephrology 05/12 -- c/w lasix 40 mg daily and ok w/ resuming lisinopril/KCL supplementation -pt remains volume overloaded, Potassium supplementation continued -lisinopril resumed, OP nephro f/u upon DC #. Other chronic medical conditions: HTN, T2DM, HLD, BPH, HTN, Dementia, AMBER on CPAP Resume/continue with BP meds with holding parameter Hold T2DM meds, correctional scale insulin Continue other meds as and when appropriate. Given history of dementia, patient at risk for delirium --> Was started Risperdal 0.5mg daily here due to delirium and attempts to climb out of bed, now prn #. Hypomagnesemia #. Hypophosphatemia -Replete and monitor as appropriate. DVT ppx SCDs, Heparin 05/07--> patient's Dtr Neva was given a phone call and updated about current status of the patient, answered all her questions, she voiced understanding and was agreeable to the plan of care. 05/12 --> patient's daughter Neva was given a phone call to update about the current developments, went into voicemail, left voicemail to call us back and ask for Dr. Burgess. Also patient's was given a phone call, it kept on ringing for a long time, had to hang up, could not leave any voicemail. [facility] today, PT/OT ROS-No Headache, No Visual Changes, No Nausea, No Vomiting, No Fever, No Chills, No Neck Pain or Stiffness, No Chest Pain, No Palpitations, No SOB, No WARE, No Cough, No Sputum, No Wheezing, No Abdominal Pain, No Diarrhea, No Hematemesis, No Hemoptysis, No Unexpected Weight Loss, No Flank pain, No Melena, No Hematochezia, No Frequency, No Urgency, No Burning, No Hematuria, No Rashes, No Diaphoresis. Appetite is Normal, Difficulty c TTWB Physical Exam Gen-AAO x 3, NAD, Afeb, Obese, Confused at times Head-NCAT, EOMI, PERRLA, Anicteric Sclera, No Posterior Pharyngeal Erythema Neck-Supple, No JVD, No Thyromegaly, No Masses, No LAD, No Bruits Lungs-Clear to Auscultation Bilaterally, No Rales, No Rhonchi, No Wheezing, No Crepitus Chest-No S4, +S1, +S2, No S3, No Murmurs, No Rubs, No Gallops, No Ectopy Abdomen-Soft, Bowel Sounds Present, Non Tender, Non Distended, No Hepatomegaly, No Splenomegaly, No Palpable Masses, No Rebound, No Rigidity, No Guarding Musculoskeletal-Full Range of Motion Bilaterally, No CVAT Extremities-No Cyanosis, No Clubbing, No Edema Nuero-Cranial Nerves II-XII grossly intact, Motor WNL, DTRs WNL, Strength WNL, Non Focal Psych-Normal Mood Total Time Total Time Spent Total Time Spent (In Minutes): 45 mins Total Time Includes: Examination of the Patient, Discharge Planning, Medication Reconciliation and Communication With Other Providers Discharge Plan Discharge Items Patient Disposition: Transfer Residential Fac Reason For Visit: FALL Discharge Diagnosis: Acute renal failure superimposed on stage 3 chronic kidney disease: Femur fracture, left: Acute blood loss anemia: #. Hemorrhagic Shock - resolved #. Left thigh hematoma #. Acute blood loss anemia - 2/2 above #. Left Femur Fracture #. Fall #. Left Wrist Pain #. Likely Gout flare up #. A. fib RVR #. Leukocytosis #. GABRIELLA on CKD stage 3 #. HTN, T2DM, HLD, BPH, HTN, Dementia, AMBER on CPAP #. Hypomagnesemia #. Hypophosphatemia Condition on Discharge: Fair Health Concerns: Confusion, nutrition Activity: Per Instructions section Lifting: None Bathing: Keep incision dry Exercise/Sports: None Weightbearing: Left toe touch Weightbearing Comment: with walker Non-emergency contact: Surgeon Call non-emergency contact if: your pain is not controlled, your temperature is above 101.5, your wound has increased redness and your wound has increased drainage Follow-up/Referrals: Pascual Stone DO [Surgeon] - (Call for appt) PCP,NO [Primary Care Provider] - Diet: Carb Consistent or DM2 Addtl Attending Provider Instructions: none Addtl Wound Nurse Provider Instructions: Toe touch weight bearing on the left foot. Use walker for ambulation Daily dressing changes. Continue to keep dressing over wound if still having serous drainage. Watch for wound changes including, increased pain, redness, swelling, or d rainage; Temp 101.5 or greater Call the office with any questions. [phone] Stone in 10-14 days from the day of surgery. [phone] Pending Studies at Discharge: No Stand-Alone Forms: My [facility] Skilled Items Patient informed of condition?: Yes DNR: No Discharge Level of Care: Skilled Communicable Disease: No Discharge Prognosis: Improving Lines: None Urinary Catheter: No Medications and DC Order Prescriptions: New celecoxib [Celebrex] 200 mg Capsule 200 mg PO BID Qty: 60 RF: 0 furosemide 40 mg Tablet 40 mg PO QAM Qty: 30 RF: 0 polyethylene glycol 3350 [Miralax] 17 gram Powder In Packet 17 g PO DAILY PRN (Reason: constipation) Qty: 30 RF: 0 tramadol 50 mg Tablet 100 mg PO Q6 PRN (Reason: pain) Qty: 90 RF: 0 magnesium oxide 400 mg (241.3 mg magnesium) Tablet 400 mg PO BID Qty: 20 RF: 0 pantoprazole 40 mg Tablet,Delayed Release (Dr/Ec) 40 mg PO BID Qty: 30 RF: 0 gabapentin 100 mg Capsule 100 mg PO BID Qty: 60 RF: 0 risperidone 0.5 mg Tablet 0.5 mg PO QAM PRN (Reason: delirium) Qty: 30 RF: 0 metoprolol tartrate 25 mg Tablet 25 mg PO TID Qty: 90 RF: 0 Lantus Solostar U-100 Insulin 100 unit/mL (3 mL) Insulin Pen 20 unit SC DAILY Qty: 10 RF: 0 diclofenac sodium [Voltaren Arthritis Pain] 1 % Gel 2 g EXT Q6H Qty: 60 RF: 0 Desenex 2 % Powder 1 applic EXT PRN PRN (Reason: Irritation) Qty: 30 RF: 0 menthol-zinc oxide [Calmoseptine] 0.44-20.6 % Ointment 1 applic EXT UD Qty: 30 RF: 0 prednisone 10 mg tablet 10 mg PO DAILY Qty: 42 RF: 0 warfarin 2 mg tablet 5 mg PO DAILY Qty: 90 RF: 0 enoxaparin [Lovenox] 100 mg/mL syringe 140 mg subcut Q12H Qty: 10 RF: 0 Continued cyanocobalamin (vitamin B-12) [Vitamin B-12] 1,000 mcg tablet 1,000 mcg PO DAILY RF: 0 simvastatin 40 mg tablet 40 mg PO HS RF: 0 tamsulosin 0.4 mg capsule 0.4 mg PO DAILY RF: 0 cholecalciferol (vitamin D3) 1,250 mcg (50,000 unit) capsule 1,250 mcg PO WK RF: 0 Trulicity 0.75 mg/0.5 mL pen injector 0.75 mg SUBCUT WK RF: 0 Discontinued lisinopril 10 mg tablet 10 mg PO DAILY RF: 0 furosemide 20 mg tablet 20 mg PO DAILY RF: 0 metformin 500 mg tablet extended release 24 hr 500 mg PO DAILY RF: 0 metoprolol tartrate 25 mg tablet 25 mg PO BID RF: 0 aspirin 81 mg Tablet,Delayed Release (Dr/Ec) 81 mg PO DAILY RF: 0 Discharge Orders: Discharge Order (Routine); Ordered 05/18/21 Ordered By: Caden Ledezma/Other Patient Handouts: Managing Type 2 Diabetes Admission Data Admit Date/Time: 04/29/21 23:42 Attending Provider: Caden Harrison Admit Provider: Juwan Knutson Primary Care Provider: PCP,NO Other Providers: Catrachita Bustamante ; Pankaj Francis ; Juwan Knutson ; Pascual Stone Carlos M. ; Derek Holm ; Aki Blackwell I. ; Jere Liu II ; Misty Live ; Theo Latif ; Garry Gaytan ; Vic Anthony
[2021-05-18 08:11] LABS: Hematocrit (blood only) 30.8 % (42-52); Hemoglobin 9.5 g/dL (14.0-18.0); Mean Corpuscular Hemoglobin 30.6 pg (25-34); Mean Corpuscular Hgb Conc 30.8 g/dL (32-36); Mean Corpuscular Volume 99.4 fL (80-100); Mean Platelet Volume 10.6 fL (7.4-10.4); Platelet Count 310 K/uL (130-400); RDW Coefficient of Variation 15.5 % (11.5-14.5); RDW Standard Deviation 55.6 fL (36.4-46.3)
[2021-05-18 08:37] LABS: BUN Creatinine Ratio 30.6 (10-20); Calcium 7.7 mg/dl (8.5-10.1); Creatinine Clr Calc Pharmacy 67.3 ml/min; Est GFR (African American) 59.6 ml/min; Est GFR (Non-African American) 51.5 ml/min; Potassium 4.4 mmol/L (3.5-5.1)
[2021-05-18 08:39] LABS: INR 2.4 (0.9-1.1); Partial Thromboplastin Ratio 2.4; Prothrombin Time 24.5 Seconds (9.0-12.0)
[2021-05-18 08:41] LABS: Partial Thromboplastin Time 66.6 Seconds (21.0-31.0)
[2021-05-18] MEDS ORDERED: ENOXAPARIN 150 MG/ML SYR SQ SCH (09:00)
[2021-05-18] MEDS: INSULIN ASPART PER UNIT SC SCH ×4 (09:17→21:32)
[2021-05-18] MEDS: GABAPENTIN 100 MG CAP PO SCH ×2 (09:19→20:26)
[2021-05-18] MEDS: MAGNESIUM OXIDE 400 MG TAB PO SCH ×2 (09:19→21:11)
[2021-05-18] MEDS: CYANOCOBALAMIN (B-12) 500 MCG TABLET PO SCH (09:19)
[2021-05-18] MEDS: ADVANCED PROBIOTIC 1250 MG CAPSULE PO SCH (09:19)
[2021-05-18] MEDS: PANTOprazole 40 MG TAB PO SCH ×2 (09:19→20:30)
[2021-05-18] MEDS: TAMSULOSIN HCL 0.4 MG CAP PO SCH (09:19)
[2021-05-18] MEDS: POTASSIUM CHLORIDE 20 MEQ/15 ML UDC PO SCH ×3 (09:20→20:30)
[2021-05-18] MEDS: CeleBREX 200 MG CAP PO SCH ×2 (09:20→20:26)
[2021-05-18] MEDS: INSULIN GLARGINE SOLOSTAR 100 UNITS/ML 3 ML PEN SC SCH (09:21)
[2021-05-18] MEDS: ERGOCALCIFEROL 50,000 UNITS 1250 MCG CAP PO SCH (09:21)
[2021-05-18] MEDS: predniSONE 20 MG TAB PO SCH ×2 (09:21→20:30)
--- NOTE | 2021-05-18 09:24 | Hospitalist Progress Note ---
Date of Service May 18, 2021 Assessment & Plan (1) Acute renal failure superimposed on stage 3 chronic kidney disease: (2) Femur fracture, left: (3) Acute blood loss anemia: Plan: 75-year-old male withPMH of type 2 diabetes, hyperlipidemia, obstructive sleep apnea, hypertension, paroxysmal atrial fibrillation, vitamin B12 deficiency, morbid obesity, stage III chronic kidney disease, history of dementia presented w/ fall 04/30/21. The patient states he slipped on the grass in his yard and fell down and could not get up. He is being managed for the following: #. Hemorrhagic Shock - resolved #. Left thigh hematoma #. Acute blood loss anemia - 04/15 above #. Left Femur Fracture #. Fall -Hb 14--> 8 with left thigh and pelvis hematoma -CTA left LE shows large hematoma but no active extravasation -s/p 1 unit pRBC 05/01 with appropriate response -s/p 1 unit pRBC 05/03 -Hb stable, continue to monitor daily or as needed. -Continue with pain management -Surgical management, PT/OT, DVT Px per Ortho Surgery --> toe touch weight bearing -s/p OR 05/02:Left open reduction and internal fixation of displaced, comminuted, impacted subtrochanteric/intertrochanteric femur fracture with a Synthes 360 mm x 11 mm long trochanteric fixation nail with an 11 mm x 120 mm helical blade and two 5.0 mm locking screws. - BI LE doppler neg for DVT. #. Left Wrist Pain #. Likely Gout flare up Patient has acute onset severe pain on left wrist overnight. Left wrist x-ray done, no acute findings. Osteoarthritis and degenerative changes present. 05/01 uric acid level 9.0, 05/12 uric acid level pending Discussed with orthopedics On examination, left wrist is warm and tender with movement and palpation. Some swelling present. No erythema noted. Pain management. Celecoxib. Oral steroid, taper once pain starts to be better over 7-10 days. PPI BID for GI protection #. A. fib RVR Patient turned A. fib RVR in 140s at 11:29 AM on 05/12/2021 He converted back to sinus rhythm at 12:32 PM on 05/12/2021 EKG stat done and reviewed. Stat labs sent, pending. No DVT. Discussed with cardiology, will give iv metoprolol. Heparin drip/Warfarin Replacing the electrolytes including potassium and magnesium #. Leukocytosis - For events upto 05/08, refer to progress note 05/08 - ID evaluated 05/08, monitoring patient off of ATB - Continue to monitor. #. GABRIELLA on CKD stage 3 -combination of prerenal and ATN from hypotension early in the course -baseline Cr around 1.5-1.7; Resolved -d/w Nephrology 05/12 -- c/w lasix 40 mg daily and ok w/ resuming lisinopril/KCL supplementation -pt remains volume overloaded, Potassium supplementation continued -lisinopril resumed, OP nephro f/u upon DC #. Other chronic medical conditions: HTN, T2DM, HLD, BPH, HTN, Dementia, AMBER on CPAP Resume/continue with BP meds with holding parameter Hold T2DM meds, correctional scale insulin Continue other meds as and when appropriate. Given history of dementia, patient at risk for delirium --> Was started Risperdal 0.5mg daily here due to delirium and attempts to climb out of bed, now prn #. Hypomagnesemia #. Hypophosphatemia -Replete and monitor as appropriate. DVT ppx SCDs, Heparin 05/07--> patient's Dtr Neva was given a phone call and updated about current status of the patient, answered all her questions, she voiced understanding and was agreeable to the plan of care. 05/12 --> patient's daughter Neva was given a phone call to update about the current developments, went into voicemail, left voicemail to call us back and ask for Dr. Burgess. Also patient's was given a phone call, it kept on ringing for a long time, had to hang up, could not leave any voicemail. [facility] When bed available, PT/OT ROS-No Headache, No Visual Changes, No Nausea, No Vomiting, No Fever, No Chills, No Neck Pain or Stiffness, No Chest Pain, No Palpitations, No SOB, No WARE, No Cough, No Sputum, No Wheezing, No Abdominal Pain, No Diarrhea, No Hematemesis, No Hemoptysis, No Unexpected Weight Loss, No Flank pain, No Melena, No Hematochezia, No Frequency, No Urgency, No Burning, No Hematuria, No Rashes, No Diaphoresis. Appetite is Normal, Difficulty c TTWB Physical Exam Gen-AAO x 3, NAD, Afeb, Obese, Confused at times Head-NCAT, EOMI, PERRLA, Anicteric Sclera, No Posterior Pharyngeal Erythema Neck-Supple, No JVD, No Thyromegaly, No Masses, No LAD, No Bruits Lungs-Clear to Auscultation Bilaterally, No Rales, No Rhonchi, No Wheezing, No Crepitus Chest-No S4, +S1, +S2, No S3, No Murmurs, No Rubs, No Gallops, No Ectopy Abdomen-Soft, Bowel Sounds Present, Non Tender, Non Distended, No Hepatomegaly, No Splenomegaly, No Palpable Masses, No Rebound, No Rigidity, No Guarding Musculoskeletal-Full Range of Motion Bilaterally, No CVAT Extremities-No Cyanosis, No Clubbing, No Edema Nuero-Cranial Nerves II-XII grossly intact, Motor WNL, DTRs WNL, Strength WNL, Non Focal Psych-Normal Mood Admission and Anticipated Discharge Date Admission Date: April 29, 2021 Subjective Patient sitting up in Bed eating, No new issues Results & Data Results & Data ([facility]) Vital Signs (Past 12 Hours) Vital Signs Temp Pulse Pulse Resp BP Pulse Ox 05/18/21 07:56 36.3 C L 56 L 16 110/70 97 05/17/21 22:55 36.7 C 66 18 108/70 99
[2021-05-18] MEDS: METOPROLOL TARTRATE 25 MG TAB PO SCH ×3 (10:36→20:41)
[2021-05-18] MEDS: UREA (UREA-NA) 15 GM PACK PO SCH ×2 (10:39→20:30)
[2021-05-18] MEDS ORDERED: WARFARIN SOD 4 MG TAB PO ONE (16:00)
[2021-05-19] MEDS: traMADol HCL 50 MG TABLET PO PRN ×2 (04:47→12:25)
[2021-05-19] MEDS: DICLOFENAC SOD 1% GEL 100 GM TUBE EXT SCH ×3 (04:48→17:41)
[2021-05-19] MEDS: CeleBREX 200 MG CAP PO SCH ×2 (08:27→21:45)
[2021-05-19] MEDS: CYANOCOBALAMIN (B-12) 500 MCG TABLET PO SCH (08:27)
[2021-05-19] MEDS: risperiDONE 0.5 MG TABLET PO PRN (08:27)
[2021-05-19] MEDS: PANTOprazole 40 MG TAB PO SCH ×2 (08:27→21:47)
[2021-05-19] MEDS: MAGNESIUM OXIDE 400 MG TAB PO SCH ×2 (08:27→21:45)
[2021-05-19] MEDS: TAMSULOSIN HCL 0.4 MG CAP PO SCH (08:27)
[2021-05-19] MEDS: ADVANCED PROBIOTIC 1250 MG CAPSULE PO SCH (08:27)
[2021-05-19 08:28] LABS: INR 3.4 (0.9-1.1); Prothrombin Time 34.2 Seconds (9.0-12.0)
[2021-05-19] MEDS: UREA (UREA-NA) 15 GM PACK PO SCH ×2 (08:28→21:44)
[2021-05-19] MEDS: INSULIN GLARGINE SOLOSTAR 100 UNITS/ML 3 ML PEN SC SCH (08:28)
[2021-05-19] MEDS: GABAPENTIN 100 MG CAP PO SCH ×2 (08:28→21:45)
[2021-05-19] MEDS: predniSONE 20 MG TAB PO SCH (08:28)
[2021-05-19] MEDS: POTASSIUM CHLORIDE 20 MEQ/15 ML UDC PO SCH ×3 (08:29→21:44)
[2021-05-19] MEDS: INSULIN ASPART PER UNIT SC SCH ×4 (08:35→21:44)
--- NOTE | 2021-05-19 12:00 | Hospitalist Progress Note ---
Date of Service May 19, 2021 Assessment & Plan (1) Femur fracture, left: Plan: (1) Acute renal failure superimposed on stage 3 chronic kidney disease: (2) Femur fracture, left: (3) Acute blood loss anemia: Plan: 75-year-old male withPMH of type 2 diabetes, hyperlipidemia, obstructive sleep apnea, hypertension, paroxysmal atrial fibrillation, vitamin B12 deficiency, morbid obesity, stage III chronic kidney disease, history of dementia presented w/ fall 04/30/21. The patient states he slipped on the grass in his yard and fell down and could not get up. He is being managed for the following: #. Hemorrhagic Shock - resolved #. Left thigh hematoma #. Acute blood loss anemia - 04/15 above #. Left Femur Fracture #. Fall -Hb 14--> 8 with left thigh and pelvis hematoma -CTA left LE shows large hematoma but no active extravasation -s/p 1 unit pRBC 05/01 with appropriate response -s/p 1 unit pRBC 05/03 -Hb stable, continue to monitor daily or as needed. -Continue with pain management -Surgical management, PT/OT, DVT Px per Ortho Surgery --> toe touch weight bearing -s/p OR 05/02:Left open reduction and internal fixation of displaced, comminuted, impacted subtrochanteric/intertrochanteric femur fracture with a Synthes 360 mm x 11 mm long trochanteric fixation nail with an 11 mm x 120 mm helical blade and two 5.0 mm locking screws. - BI LE doppler neg for DVT. #. Left Wrist Pain #. Likely Gout flare up Patient has acute onset severe pain on left wrist overnight. Left wrist x-ray done, no acute findings. Osteoarthritis and degenerative changes present. 05/01 uric acid level 9.0, 05/12 uric acid level pending Discussed with orthopedics On examination, left wrist is warm and tender with movement and palpation. Some swelling present. No erythema noted. Pain management. Celecoxib. Oral steroid, taper once pain starts to be better over 7-10 days. PPI BID for GI protection #. A. fib RVR Patient turned A. fib RVR in 140s at 11:29 AM on 05/12/2021 He converted back to sinus rhythm at 12:32 PM on 05/12/2021 EKG stat done and reviewed. Stat labs sent, pending. No DVT. Discussed with cardiology, will give iv metoprolol. Heparin drip/Warfarin Replacing the electrolytes including potassium and magnesium #. Leukocytosis - For events upto 05/08, refer to progress note 05/08 - ID evaluated 05/08, monitoring patient off of ATB - Continue to monitor. #. GABRIELLA on CKD stage 3 -combination of prerenal and ATN from hypotension early in the course -baseline Cr around 1.5-1.7; Resolved -d/w Nephrology 05/12 -- c/w lasix 40 mg daily and ok w/ resuming lisinopril/KCL supplementation -pt remains volume overloaded, Potassium supplementation continued -lisinopril resumed, OP nephro f/u upon DC #. Other chronic medical conditions: HTN, T2DM, HLD, BPH, HTN, Dementia, AMBER on CPAP Resume/continue with BP meds with holding parameter Hold T2DM meds, correctional scale insulin Continue other meds as and when appropriate. Given history of dementia, patient at risk for delirium --> Was started Risperdal 0.5mg daily here due to delirium and attempts to climb out of bed, now prn #. Hypomagnesemia #. Hypophosphatemia -Replete and monitor as appropriate. DVT ppx SCDs, Heparin 05/07--> patient's Dtr Neva was given a phone call and updated about current status of the patient, answered all her questions, she voiced understanding and was agreeable to the plan of care. 05/12 --> patient's daughter Neva was given a phone call to update about the current developments, went into voicemail, left voicemail to call us back and ask for Dr. Burgess. Also patient's was given a phone call, it kept on ringing for a long time, had to hang up, could not leave any voicemail. [facility] When bed available, PT/OT Lasix for B/L LE Edema ROS-No Headache, No Visual Changes, No Nausea, No Vomiting, No Fever, No Chills, No Neck Pain or Stiffness, No Chest Pain, No Palpitations, No SOB, No WARE, No Cough, No Sputum, No Wheezing, No Abdominal Pain, No Diarrhea, No Hematemesis, No Hemoptysis, No Unexpected Weight Loss, No Flank pain, No Melena, No Hematochezia, No Frequency, No Urgency, No Burning, No Hematuria, No Rashes, No Diaphoresis. Appetite is Normal, Difficulty c TTWB Physical Exam Gen-AAO x 3, NAD, Afeb, Obese, Confused at times Head-NCAT, EOMI, PERRLA, Anicteric Sclera, No Posterior Pharyngeal Erythema Neck-Supple, No JVD, No Thyromegaly, No Masses, No LAD, No Bruits Lungs-Clear to Auscultation Bilaterally, No Rales, No Rhonchi, No Wheezing, No Crepitus Chest-No S4, +S1, +S2, No S3, No Murmurs, No Rubs, No Gallops, No Ectopy Abdomen-Soft, Bowel Sounds Present, Non Tender, Non Distended, No Hepatomegaly, No Splenomegaly, No Palpable Masses, No Rebound, No Rigidity, No Guarding Musculoskeletal-Full Range of Motion Bilaterally, No CVAT Extremities-No Cyanosis, No Clubbing, +Edema Nuero-Cranial Nerves II-XII grossly intact, Motor WNL, DTRs WNL, Strength WNL, Non Focal Psych-Normal Mood Admission and Anticipated Discharge Date Admission Date: April 29, 2021 Subjective Patient sitting up in Bed eating, RN reports LE swelling and Bullae LLE Results & Data Results & Data ([facility]) Vital Signs (Past 12 Hours) Vital Signs Temp Pulse Resp BP Pulse Ox 05/19/21 07:33 36.9 C 53 L 16 104/59 L 96
[2021-05-19] MEDS: FUROSEMIDE 40 MG/4 ML VIAL IV SCH ×2 (12:23→21:46)
[2021-05-19] MEDS: METOPROLOL TARTRATE 25 MG TAB PO SCH ×3 (12:24→21:45)
[2021-05-19] MEDS: WARFARIN SOD 3 MG TAB PO SCH (17:39)
[2021-05-20] MEDS: DICLOFENAC SOD 1% GEL 100 GM TUBE EXT SCH ×5 (00:09→22:05)
[2021-05-20 07:13] LABS: INR 3.8 (0.9-1.1); Prothrombin Time 37.7 Seconds (9.0-12.0)
[2021-05-20] MEDS: INSULIN GLARGINE SOLOSTAR 100 UNITS/ML 3 ML PEN SC SCH (08:45)
[2021-05-20] MEDS: INSULIN ASPART PER UNIT SC SCH ×4 (08:45→22:02)
[2021-05-20] MEDS: MAGNESIUM OXIDE 400 MG TAB PO SCH ×2 (08:52→22:03)
[2021-05-20] MEDS: risperiDONE 0.5 MG TABLET PO PRN (08:52)
[2021-05-20] MEDS: ADVANCED PROBIOTIC 1250 MG CAPSULE PO SCH (08:52)
[2021-05-20] MEDS: PANTOprazole 40 MG TAB PO SCH ×2 (08:52→22:03)
[2021-05-20] MEDS: CeleBREX 200 MG CAP PO SCH ×2 (08:53→22:04)
[2021-05-20] MEDS: METOPROLOL TARTRATE 25 MG TAB PO SCH ×3 (08:53→22:04)
[2021-05-20] MEDS: GABAPENTIN 100 MG CAP PO SCH ×2 (08:53→22:04)
[2021-05-20] MEDS: FUROSEMIDE 40 MG/4 ML VIAL IV SCH ×2 (08:53→17:27)
[2021-05-20] MEDS: TAMSULOSIN HCL 0.4 MG CAP PO SCH (08:54)
[2021-05-20] MEDS: CYANOCOBALAMIN (B-12) 500 MCG TABLET PO SCH (08:54)
[2021-05-20] MEDS: predniSONE 20 MG TAB PO SCH (08:55)
[2021-05-20] MEDS: POTASSIUM CHLORIDE 20 MEQ/15 ML UDC PO SCH ×3 (08:55→22:01)
[2021-05-20] MEDS: UREA (UREA-NA) 15 GM PACK PO SCH ×2 (08:55→22:01)
[2021-05-20] MEDS: WARFARIN SOD 3 MG TAB PO SCH (15:52)
--- NOTE | 2021-05-20 18:34 | Hospitalist Progress Note ---
Date of Service May 20, 2021 Assessment & Plan (1) Femur fracture, left: Plan: (1) Acute renal failure superimposed on stage 3 chronic kidney disease: (2) Femur fracture, left: (3) Acute blood loss anemia: Plan: 75-year-old male withPMH of type 2 diabetes, hyperlipidemia, obstructive sleep apnea, hypertension, paroxysmal atrial fibrillation, vitamin B12 deficiency, morbid obesity, stage III chronic kidney disease, history of dementia presented w/ fall 04/30/21. The patient states he slipped on the grass in his yard and fell down and could not get up. He is being managed for the following: #. Hemorrhagic Shock - resolved #. Left thigh hematoma #. Acute blood loss anemia - 04/15 above #. Left Femur Fracture #. Fall -Hb 14--> 8 with left thigh and pelvis hematoma -CTA left LE shows large hematoma but no active extravasation -s/p 1 unit pRBC 05/01 with appropriate response -s/p 1 unit pRBC 05/03 -Hb stable, continue to monitor daily or as needed. -Continue with pain management -Surgical management, PT/OT, DVT Px per Ortho Surgery --> toe touch weight bearing -s/p OR 05/02:Left open reduction and internal fixation of displaced, comminuted, impacted subtrochanteric/intertrochanteric femur fracture with a Synthes 360 mm x 11 mm long trochanteric fixation nail with an 11 mm x 120 mm helical blade and two 5.0 mm locking screws. - BI LE doppler neg for DVT. #. Left Wrist Pain #. Likely Gout flare up Patient has acute onset severe pain on left wrist overnight. Left wrist x-ray done, no acute findings. Osteoarthritis and degenerative changes present. 05/01 uric acid level 9.0, 05/12 uric acid level pending Discussed with orthopedics On examination, left wrist is warm and tender with movement and palpation. Some swelling present. No erythema noted. Pain management. Celecoxib. Oral steroid, taper once pain starts to be better over 7-10 days. PPI BID for GI protection #. A. fib RVR Patient turned A. fib RVR in 140s at 11:29 AM on 05/12/2021 He converted back to sinus rhythm at 12:32 PM on 05/12/2021 No DVT. Cardiology on board Continue Metoprolol 25mg TID Heparin drip was transition to Warfarin for 30 to 90 days if no contraindication INR 3.8 today Continue K and Mg supplement to keep Potassium above 4 and Mg above 2 #. Leukocytosis - Possible related to Steroid - For events upto 05/08, refer to progress note 05/08 - ID evaluated 05/08, monitoring patient off of ABx - Continue to monitor. #. GABRIELLA on CKD stage 3 -combination of prerenal and ATN from hypotension early in the course -baseline Cr around 1.5-1.7; Resolved -d/w Nephrology 05/12 -- c/w lasix 40 mg daily and ok w/ resuming lisinopril/KCL supplementation -pt remains volume overloaded, Potassium supplementation continued -lisinopril resumed, OP nephro f/u upon DC #. Other chronic medical conditions: HTN, T2DM, HLD, BPH, HTN, Dementia, AMBER on CPAP Resume/continue with BP meds with holding parameter Hold T2DM meds, correctional scale insulin Continue other meds as and when appropriate. Given history of dementia, patient at risk for delirium --> Was started Risperdal 0.5mg daily here due to delirium and attempts to climb out of bed, now prn #. Hypomagnesemia #. Hypophosphatemia -Replete and monitor as appropriate. DVT ppx on coumadin Dis[facility] When bed available, PT/OT Admission and Anticipated Discharge Date Admission Date: April 29, 2021 Subjective Pt was seen and examined for follow up Lying in bed with no acute distress Patient said pain controlled Review of Systems Review of Systems: All systems reviewed & are unremarkable except as noted in Subjective Physical Exam Physical Exam: General- No acute distress Head- atraumatic Eyes- PERRL, EOMI, ENT- oropharynx clear Neck- supple, no JVD Lungs- +diminished BS Heart- regular rhythm; no murmur Abdomen- normal bowel sounds, soft, nontender Extremities- no calf tenderness, +edema Neuro- alert, oriented x 3; PERRL, EOMI; no facial palsy; no dysarthria Skin- warm & dry Results & Data Results & Data ([facility]) Vital Signs (Past 12 Hours) Vital Signs Temp Pulse Resp BP BP Pulse Ox 05/20/21 17:26 63 131/86 05/20/21 15:47 108/70 03/09/22 15:45 36.7 C 57 L 16 93/61 L 97 05/20/21 14:35 58 L 117/71 96 05/20/21 07:31 36.5 C 64 16 110/61 98
[2021-05-21] MEDS: DICLOFENAC SOD 1% GEL 100 GM TUBE EXT SCH ×4 (06:12→22:40)
[2021-05-21 07:29] LABS: Hematocrit (blood only) 32.2 % (42-52); Hemoglobin 10.1 g/dL (14.0-18.0); Mean Corpuscular Hemoglobin 31.3 pg (25-34); Mean Corpuscular Hgb Conc 31.4 g/dL (32-36); Mean Corpuscular Volume 99.7 fL (80-100); Mean Platelet Volume 10.7 fL (7.4-10.4); Platelet Count 265 K/uL (130-400); RDW Coefficient of Variation 15.9 % (11.5-14.5); RDW Standard Deviation 57.9 fL (36.4-46.3); Red Blood Count 3.23 M/uL (4.7-6.1); White Blood Count 14.54 K/uL (4.8-10.8)
[2021-05-21 07:38] LABS: INR 3.1 (0.9-1.1); Prothrombin Time 31.4 Seconds (9.0-12.0)
[2021-05-21 07:58] LABS: BUN Creatinine Ratio 35.6 (10-20); Calcium 7.6 mg/dl (8.5-10.1); Est GFR (African American) 52.5 ml/min; Est GFR (Non-African American) 45.3 ml/min; Magnesium 1.9 mg/dl (1.7-2.4)
[2021-05-21] MEDS: INSULIN ASPART PER UNIT SC SCH ×4 (08:30→21:28)
[2021-05-21] MEDS: INSULIN GLARGINE SOLOSTAR 100 UNITS/ML 3 ML PEN SC SCH (08:30)
[2021-05-21] MEDS: METOPROLOL TARTRATE 25 MG TAB PO SCH ×3 (08:33→21:24)
[2021-05-21] MEDS: PANTOprazole 40 MG TAB PO SCH ×2 (08:33→21:07)
[2021-05-21] MEDS: CeleBREX 200 MG CAP PO SCH ×2 (08:33→21:09)
[2021-05-21] MEDS: GABAPENTIN 100 MG CAP PO SCH ×2 (08:33→21:09)
[2021-05-21] MEDS: TAMSULOSIN HCL 0.4 MG CAP PO SCH (08:34)
[2021-05-21] MEDS: predniSONE 20 MG TAB PO SCH (08:34)
[2021-05-21] MEDS: MAGNESIUM OXIDE 400 MG TAB PO SCH ×2 (08:34→21:08)
[2021-05-21] MEDS: POTASSIUM CHLORIDE 20 MEQ/15 ML UDC PO SCH ×3 (08:35→21:10)
[2021-05-21] MEDS: ADVANCED PROBIOTIC 1250 MG CAPSULE PO SCH (08:35)
[2021-05-21] MEDS: CYANOCOBALAMIN (B-12) 500 MCG TABLET PO SCH (08:35)
[2021-05-21] MEDS: UREA (UREA-NA) 15 GM PACK PO SCH ×2 (08:36→21:07)
[2021-05-21] MEDS: WARFARIN SOD 3 MG TAB PO SCH (15:46)
--- NOTE | 2021-05-21 22:21 | Hospitalist Progress Note ---
Date of Service May 21, 2021 Assessment & Plan (1) Femur fracture, left: Plan: (1) Acute renal failure superimposed on stage 3 chronic kidney disease: (2) Femur fracture, left: (3) Acute blood loss anemia: Plan: 75-year-old male withPMH of type 2 diabetes, hyperlipidemia, obstructive sleep apnea, hypertension, paroxysmal atrial fibrillation, vitamin B12 deficiency, morbid obesity, stage III chronic kidney disease, history of dementia presented w/ fall 04/30/21. The patient states he slipped on the grass in his yard and fell down and could not get up. He is being managed for the following: #. Hemorrhagic Shock - resolved #. Left thigh hematoma #. Acute blood loss anemia - 04/15 above #. Left Femur Fracture #. Fall -Hb 14--> 8 with left thigh and pelvis hematoma -CTA left LE shows large hematoma but no active extravasation -s/p 1 unit pRBC 05/01 with appropriate response -s/p 1 unit pRBC 05/03 -Hb stable, continue to monitor daily or as needed. -Continue with pain management -Surgical management, PT/OT, DVT Px per Ortho Surgery --> toe touch weight bearing -s/p OR 05/02:Left open reduction and internal fixation of displaced, comminuted, impacted subtrochanteric/intertrochanteric femur fracture with a Synthes 360 mm x 11 mm long trochanteric fixation nail with an 11 mm x 120 mm helical blade and two 5.0 mm locking screws. - BI LE doppler neg for DVT. #. Left Wrist Pain #. Likely Gout flare up Patient has acute onset severe pain on left wrist overnight. Left wrist x-ray done, no acute findings. Osteoarthritis and degenerative changes present. 05/01 uric acid level 9.0, 05/12 uric acid level pending Discussed with orthopedics On examination, left wrist is warm and tender with movement and palpation. Some swelling present. No erythema noted. Pain management. Celecoxib. Oral steroid, taper once pain starts to be better over 7-10 days. PPI BID for GI protection #. A. fib RVR Patient turned A. fib RVR in 140s at 11:29 AM on 05/12/2021 He converted back to sinus rhythm at 12:32 PM on 05/12/2021 No DVT. Cardiology on board Continue Metoprolol 25mg TID Heparin drip was transition to Warfarin for 30 to 90 days if no contraindication INR 3.8 today Continue K and Mg supplement to keep Potassium above 4 and Mg above 2 #. Leukocytosis - Possible related to Steroid - For events upto 05/08, refer to progress note 05/08 - ID evaluated 05/08, monitoring patient off of ABx - Continue to monitor. #. GABRIELLA on CKD stage 3 -combination of prerenal and ATN from hypotension early in the course -baseline Cr around 1.5-1.7; Resolved -d/w Nephrology 05/12 -- c/w lasix 40 mg daily and ok w/ resuming lisinopril/KCL supplementation -pt remains volume overloaded, Potassium supplementation continued -lisinopril resumed, OP nephro f/u upon DC #. Other chronic medical conditions: HTN, T2DM, HLD, BPH, HTN, Dementia, AMBER on CPAP Resume/continue with BP meds with holding parameter Hold T2DM meds, correctional scale insulin Continue other meds as and when appropriate. Given history of dementia, patient at risk for delirium --> Was started Risperdal 0.5mg daily here due to delirium and attempts to climb out of bed, now prn #. Hypomagnesemia #. Hypophosphatemia -Replete and monitor as appropriate. DVT ppx on coumadin Disposition [facility] When bed available, PT/OT Admission and Anticipated Discharge Date Admission Date: April 29, 2021 Subjective Pt was seen and examined for follow up Lying in bed with no acute distress Patient said pain controlled Denies any chest pain, palpitation, dizziness and SOB Review of Systems Review of Systems: All systems reviewed & are unremarkable except as noted in Subjective Physical Exam Physical Exam: General- No acute distress Head- atraumatic Eyes- PERRL, EOMI, ENT- oropharynx clear Neck- supple, no JVD Lungs- +diminished BS Heart- regular rhythm; no murmur Abdomen- normal bowel sounds, soft, nontender Extremities- no calf tenderness, +edema Neuro- alert, oriented x 3; PERRL, EOMI; no facial palsy; no dysarthria Skin- warm & dry Results & Data Results & Data ([facility]) Vital Signs (Past 12 Hours) Vital Signs Temp Pulse Resp BP BP Pulse Ox 05/21/21 21:13 65 112/70 05/21/21 16:00 36.7 C 52 L 20 118/70 97 05/21/21 13:12 54 L 116/80
[2021-05-22] MEDS: DICLOFENAC SOD 1% GEL 100 GM TUBE EXT SCH ×4 (04:52→20:50)
[2021-05-22 06:16] LABS: INR 3.2 (0.9-1.1); Prothrombin Time 31.6 Seconds (9.0-12.0)
[2021-05-22 06:46] LABS: BUN Creatinine Ratio 34.6 (10-20); Calcium 8.4 mg/dl (8.5-10.1); Est GFR (African American) 60.2 ml/min; Est GFR (Non-African American) 51.9 ml/min; Potassium 4.1 mmol/L (3.5-5.1)
[2021-05-22] MEDS: PANTOprazole 40 MG TAB PO SCH ×2 (08:06→20:49)
[2021-05-22] MEDS: ADVANCED PROBIOTIC 1250 MG CAPSULE PO SCH (08:07)
[2021-05-22] MEDS: predniSONE 20 MG TAB PO SCH (08:07)
[2021-05-22] MEDS: CYANOCOBALAMIN (B-12) 500 MCG TABLET PO SCH (08:07)
[2021-05-22] MEDS: MAGNESIUM OXIDE 400 MG TAB PO SCH ×2 (08:07→20:49)
[2021-05-22] MEDS: CeleBREX 200 MG CAP PO SCH ×2 (08:08→20:48)
[2021-05-22] MEDS: GABAPENTIN 100 MG CAP PO SCH ×2 (08:08→20:48)
[2021-05-22] MEDS: POTASSIUM CHLORIDE 20 MEQ/15 ML UDC PO SCH ×3 (08:09→20:49)
[2021-05-22] MEDS: TAMSULOSIN HCL 0.4 MG CAP PO SCH (08:09)
[2021-05-22] MEDS: UREA (UREA-NA) 15 GM PACK PO SCH ×3 (08:10→20:54)
[2021-05-22] MEDS: METOPROLOL TARTRATE 25 MG TAB PO SCH ×3 (08:11→20:49)
[2021-05-22] MEDS: INSULIN GLARGINE SOLOSTAR 100 UNITS/ML 3 ML PEN SC SCH (08:15)
[2021-05-22] MEDS: INSULIN ASPART PER UNIT SC SCH ×4 (08:21→20:47)
[2021-05-22] MEDS: traMADol HCL 50 MG TABLET PO PRN ×2 (09:22→17:34)
--- NOTE | 2021-05-22 16:52 | Hospitalist Progress Note ---
Date of Service May 22, 2021 Assessment & Plan (1) Femur fracture, left: Plan: (1) Acute renal failure superimposed on stage 3 chronic kidney disease: (2) Femur fracture, left: (3) Acute blood loss anemia: Plan: 75-year-old male withPMH of type 2 diabetes, hyperlipidemia, obstructive sleep apnea, hypertension, paroxysmal atrial fibrillation, vitamin B12 deficiency, morbid obesity, stage III chronic kidney disease, history of dementia presented w/ fall 04/30/21. The patient states he slipped on the grass in his yard and fell down and could not get up. He is being managed for the following: #. Hemorrhagic Shock - resolved #. Left thigh hematoma #. Acute blood loss anemia - 04/15 above #. Left Femur Fracture #. Fall -Hb 14--> 8 with left thigh and pelvis hematoma -CTA left LE shows large hematoma but no active extravasation -s/p 1 unit pRBC 05/01 with appropriate response -s/p 1 unit pRBC 05/03 -Hb stable, continue to monitor daily or as needed. -Continue with pain management -Surgical management, PT/OT, DVT Px per Ortho Surgery --> toe touch weight bearing -s/p OR 05/02:Left open reduction and internal fixation of displaced, comminuted, impacted subtrochanteric/intertrochanteric femur fracture with a Synthes 360 mm x 11 mm long trochanteric fixation nail with an 11 mm x 120 mm helical blade and two 5.0 mm locking screws. - BI LE doppler neg for DVT. #. Left Wrist Pain #. Likely Gout flare up Patient has acute onset severe pain on left wrist overnight. Left wrist x-ray done, no acute findings. Osteoarthritis and degenerative changes present. 05/01 uric acid level 9.0, 05/12 uric acid level pending Discussed with orthopedics On examination, left wrist is warm and tender with movement and palpation. Some swelling present. No erythema noted. Pain management. Celecoxib. Oral steroid, taper once pain starts to be better over 7-10 days. PPI BID for GI protection #. A. fib RVR Patient turned A. fib RVR in 140s at 11:29 AM on 05/12/2021 He converted back to sinus rhythm at 12:32 PM on 05/12/2021 No DVT. Cardiology on board Continue Metoprolol 25mg TID Heparin drip was transition to Warfarin for 30 to 90 days if no contraindication INR 3.2 today Continue K and Mg supplement to keep Potassium above 4 and Mg above 2 #. Leukocytosis - Possible related to Steroid - For events upto 05/08, refer to progress note 05/08 - ID evaluated 05/08, monitoring patient off of ABx - Continue to monitor. #. GABRIELLA on CKD stage 3 -combination of prerenal and ATN from hypotension early in the course -baseline Cr around 1.5-1.7; Resolved -d/w Nephrology 05/12 -- c/w lasix 40 mg daily and ok w/ resuming lisinopril/KCL supplementation -pt remains volume overloaded, Potassium supplementation continued -lisinopril resumed, OP nephro f/u upon DC #. Other chronic medical conditions: HTN, T2DM, HLD, BPH, HTN, Dementia, AMBER on CPAP Resume/continue with BP meds with holding parameter Hold T2DM meds, correctional scale insulin Continue other meds as and when appropriate. Given history of dementia, patient at risk for delirium --> Was started Risperdal 0.5mg daily here due to delirium and attempts to climb out of bed, now prn #. Hypomagnesemia #. Hypophosphatemia -Replete and monitor as appropriate. DVT ppx on coumadin Disposition [facility] When bed available, PT/OT Admission and Anticipated Discharge Date Admission Date: April 29, 2021 Subjective Pt was seen and examined for follow up Lying in bed with no acute distress Denies any chest pain, palpitation, dizziness and SOB Review of Systems Review of Systems: All systems reviewed & are unremarkable except as noted in Subjective Physical Exam Physical Exam: General- No acute distress Head- atraumatic Eyes- PERRL, EOMI, ENT- oropharynx clear Neck- supple, no JVD Lungs- +diminished BS Heart- regular rhythm; no murmur Abdomen- normal bowel sounds, soft, nontender Extremities- no calf tenderness, +edema Neuro- alert, oriented x 3; PERRL, EOMI; no facial palsy; no dysarthria Skin- warm & dry Results & Data Results & Data ([facility]) Vital Signs (Past 12 Hours) Vital Signs Temp Pulse Resp BP Pulse Ox 05/22/21 14:40 36.6 C 66 22 109/70 100 05/22/21 07:38 36.6 C 55 L 16 103/74 97 05/22/21 04:54 36.8 C 56 L 18 100/65 96
[2021-05-22] MEDS: WARFARIN SOD 3 MG TAB PO SCH (17:06)
[2021-05-23] MEDS: DICLOFENAC SOD 1% GEL 100 GM TUBE EXT SCH ×4 (04:50→21:36)
[2021-05-23] MEDS: PANTOprazole 40 MG TAB PO SCH ×2 (07:46→19:58)
[2021-05-23] MEDS: MICONAZOLE NITRATE POWDER 43 GM EXT PRN (07:47)
[2021-05-23] MEDS: CeleBREX 200 MG CAP PO SCH ×2 (07:47→19:57)
[2021-05-23] MEDS: GABAPENTIN 100 MG CAP PO SCH ×2 (07:47→19:57)
[2021-05-23] MEDS: INSULIN GLARGINE SOLOSTAR 100 UNITS/ML 3 ML PEN SC SCH (08:24)
[2021-05-23] MEDS: INSULIN ASPART PER UNIT SC SCH ×4 (08:25→21:35)
[2021-05-23] MEDS: MAGNESIUM OXIDE 400 MG TAB PO SCH ×2 (08:25→19:58)
[2021-05-23] MEDS: METOPROLOL TARTRATE 25 MG TAB PO SCH ×3 (08:25→20:12)
[2021-05-23] MEDS: CYANOCOBALAMIN (B-12) 500 MCG TABLET PO SCH (08:26)
[2021-05-23] MEDS: TAMSULOSIN HCL 0.4 MG CAP PO SCH (08:26)
[2021-05-23] MEDS: predniSONE 20 MG TAB PO SCH (08:26)
[2021-05-23] MEDS: ADVANCED PROBIOTIC 1250 MG CAPSULE PO SCH (08:27)
[2021-05-23] MEDS: UREA (UREA-NA) 15 GM PACK PO SCH ×2 (08:46→19:59)
[2021-05-23] MEDS: POTASSIUM CHLORIDE 20 MEQ/15 ML UDC PO SCH ×3 (08:47→19:59)
[2021-05-23 09:36] LABS: INR 3.5 (0.9-1.1); Prothrombin Time 34.7 Seconds (9.0-12.0)
[2021-05-23] MEDS: traMADol HCL 50 MG TABLET PO PRN ×2 (12:39→20:21)
[2021-05-23] MEDS ORDERED: WARFARIN SOD 0.5 MG TAB PO STA (15:52)
--- NOTE | 2021-05-23 17:31 | Hospitalist Progress Note ---
Date of Service May 23, 2021 Assessment & Plan (1) Femur fracture, left: Plan: (1) Acute renal failure superimposed on stage 3 chronic kidney disease: (2) Femur fracture, left: (3) Acute blood loss anemia: Plan: 75-year-old male withPMH of type 2 diabetes, hyperlipidemia, obstructive sleep apnea, hypertension, paroxysmal atrial fibrillation, vitamin B12 deficiency, morbid obesity, stage III chronic kidney disease, history of dementia presented w/ fall 04/30/21. The patient states he slipped on the grass in his yard and fell down and could not get up. He is being managed for the following: #. Hemorrhagic Shock - resolved #. Left thigh hematoma #. Acute blood loss anemia - 04/15 above #. Left Femur Fracture #. Fall -Hb 14--> 8 with left thigh and pelvis hematoma -CTA left LE shows large hematoma but no active extravasation -s/p 1 unit pRBC 05/01 with appropriate response -s/p 1 unit pRBC 05/03 -Hb stable, continue to monitor daily or as needed. -Continue with pain management -Surgical management, PT/OT, DVT Px per Ortho Surgery --> toe touch weight bearing -s/p OR 05/02:Left open reduction and internal fixation of displaced, comminuted, impacted subtrochanteric/intertrochanteric femur fracture with a Synthes 360 mm x 11 mm long trochanteric fixation nail with an 11 mm x 120 mm helical blade and two 5.0 mm locking screws. - BI LE doppler neg for DVT. #. Left Wrist Pain #. Likely Gout flare up Patient has acute onset severe pain on left wrist overnight. Left wrist x-ray done, no acute findings. Osteoarthritis and degenerative changes present. 05/01 uric acid level 9.0, 05/12 uric acid level pending Discussed with orthopedics On examination, left wrist is warm and tender with movement and palpation. Some swelling present. No erythema noted. Pain management. Celecoxib. Oral steroid, taper once pain starts to be better over 7-10 days. PPI BID for GI protection #. A. fib RVR Patient turned A. fib RVR in 140s at 11:29 AM on 05/12/2021 He converted back to sinus rhythm at 12:32 PM on 05/12/2021 No DVT. Cardiology on board On Metoprolol 25mg TID, will consider to decrease to 25mg BID Heparin drip was transition to Warfarin for 30 to 90 days if no contraindication INR 3.5 today Continue K and Mg supplement to keep Potassium above 4 and Mg above 2 #. Leukocytosis - Possible related to Steroid - For events upto 05/08, refer to progress note 05/08 - ID evaluated 05/08, monitoring patient off of ABx - Continue to monitor. #. GABRIELLA on CKD stage 3 -combination of prerenal and ATN from hypotension early in the course -baseline Cr around 1.5-1.7; Resolved -d/w Nephrology 05/12 -- c/w lasix 40 mg daily and ok w/ resuming lisinopril/KCL supplementation -pt remains volume overloaded, Potassium supplementation continued -lisinopril resumed, OP nephro f/u upon DC #. Other chronic medical conditions: HTN, T2DM, HLD, BPH, HTN, Dementia, AMBER on CPAP Resume/continue with BP meds with holding parameter Hold T2DM meds, correctional scale insulin Continue other meds as and when appropriate. Given history of dementia, patient at risk for delirium --> Was started Risperdal 0.5mg daily here due to delirium and attempts to climb out of bed, now prn #. Hypomagnesemia #. Hypophosphatemia -Replete and monitor as appropriate. DVT ppx on coumadin Disposition [facility] When bed available, PT/OT Admission and Anticipated Discharge Date Admission Date: April 29, 2021 Subjective Pt was seen and examined for follow up Sitting in chair with no acute distress Denies any chest pain, palpitation, dizziness and SOB Review of Systems Review of Systems: All systems reviewed & are unremarkable except as noted in Subjective Physical Exam Physical Exam: General- No acute distress Head- atraumatic Eyes- PERRL, EOMI, ENT- oropharynx clear Neck- supple, no JVD Lungs- +diminished BS Heart- regular rhythm; no murmur Abdomen- normal bowel sounds, soft, nontender Extremities- no calf tenderness, +edema Neuro- alert, oriented x 3; PERRL, EOMI; no facial palsy; no dysarthria Skin- warm & dry Results & Data Results & Data ([facility]) Vital Signs (Past 12 Hours) Vital Signs Temp Pulse Resp BP Pulse Ox 05/23/21 14:51 36.4 C L 52 L 18 121/77 96 03/12/22 13:30 53 L 107/64 05/23/21 07:33 36.6 C 68 18 119/82 97
[2021-05-24] MEDS: DICLOFENAC SOD 1% GEL 100 GM TUBE EXT SCH ×4 (05:32→20:52)
[2021-05-24 06:03] LABS: Hematocrit (blood only) 32.6 % (42-52); Hemoglobin 10.4 g/dL (14.0-18.0); Mean Corpuscular Hemoglobin 31.8 pg (25-34); Mean Corpuscular Hgb Conc 31.9 g/dL (32-36); Mean Corpuscular Volume 99.7 fL (80-100); Mean Platelet Volume 10.8 fL (7.4-10.4); Platelet Count 246 K/uL (130-400); RDW Coefficient of Variation 15.4 % (11.5-14.5); RDW Standard Deviation 56.2 fL (36.4-46.3); Red Blood Count 3.27 M/uL (4.7-6.1); White Blood Count 14.52 K/uL (4.8-10.8)
[2021-05-24 06:20] LABS: INR 4.3 (0.9-1.1); Prothrombin Time 42.6 Seconds (9.0-12.0)
[2021-05-24] MEDS: UREA (UREA-NA) 15 GM PACK PO SCH ×2 (08:21→20:51)
[2021-05-24] MEDS: PANTOprazole 40 MG TAB PO SCH ×2 (08:21→20:50)
[2021-05-24] MEDS: predniSONE 20 MG TAB PO SCH (08:21)
[2021-05-24] MEDS: TAMSULOSIN HCL 0.4 MG CAP PO SCH (08:21)
[2021-05-24] MEDS: POTASSIUM CHLORIDE 20 MEQ/15 ML UDC PO SCH ×3 (08:21→20:51)
[2021-05-24] MEDS: MAGNESIUM OXIDE 400 MG TAB PO SCH ×2 (08:22→20:49)
[2021-05-24] MEDS: METOPROLOL TARTRATE 25 MG TAB PO SCH ×3 (08:22→20:58)
[2021-05-24] MEDS: INSULIN GLARGINE SOLOSTAR 100 UNITS/ML 3 ML PEN SC SCH (08:22)
[2021-05-24] MEDS: GABAPENTIN 100 MG CAP PO SCH ×2 (08:22→20:49)
[2021-05-24] MEDS: CYANOCOBALAMIN (B-12) 500 MCG TABLET PO SCH (08:22)
[2021-05-24] MEDS: CeleBREX 200 MG CAP PO SCH ×2 (08:22→20:48)
[2021-05-24] MEDS: ADVANCED PROBIOTIC 1250 MG CAPSULE PO SCH (08:22)
[2021-05-24] MEDS: INSULIN ASPART PER UNIT SC SCH ×4 (08:25→20:49)
[2021-05-24] MEDS ORDERED: WARFARIN SOD 2 MG TAB PO SCH (16:00)
--- NOTE | 2021-05-24 19:47 | Hospitalist Progress Note ---
Date of Service May 24, 2021 Assessment & Plan (1) Femur fracture, left: Plan: (1) Acute renal failure superimposed on stage 3 chronic kidney disease: (2) Femur fracture, left: (3) Acute blood loss anemia: 75-year-old male withPMH of type 2 diabetes, hyperlipidemia, obstructive sleep apnea, hypertension, paroxysmal atrial fibrillation, vitamin B12 deficiency, morbid obesity, stage III chronic kidney disease, history of dementia presented w/ fall 04/30/21. The patient states he slipped on the grass in his yard and fell down and could not get up. He is being managed for the following: #. Hemorrhagic Shock - resolved #. Left thigh hematoma #. Acute blood loss anemia - 04/15 above #. Left Femur Fracture #. Fall -Hb 14--> then dropped to 8 with left thigh and pelvis hematoma -CTA left LE shows large hematoma but no active extravasation - BI LE doppler neg for DVT. s/p OR 05/02:Left open reduction and internal fixation of displaced, comminuted, impacted subtrochanteric/intertrochanteric femur fracture with a [employer] 360 mm x 11 mm long trochanteric fixation nail with an 11 mm x 120 mm helical blade and two 5.0 mm locking screws. -Received 2 units PRBC during the hospital course (1 unit pRBC 05/01 and 05/03) -Hb stable, continue to monitor daily or as needed. -Continue with pain management -Surgical management, PT/OT, DVT Px per Ortho Surgery --> toe touch weight bearing #. Left Wrist Pain #. Likely Gout flare up Left wrist x-ray done, no acute findings. Osteoarthritis and degenerative changes present. Uric acid level 9.0, then trending down to 5.7 Discussed with orthopedics On examination, left wrist is warm and tender with movement and palpation. Some swelling present. No erythema noted. Pain management. Celecoxib. Oral steroid, taper once pain starts to be better over 7-10 days. PPI BID for GI protection #. A. fib RVR Patient turned A. fib RVR in 140s at 11:29 AM on 05/12/2021 He converted back to sinus rhythm at 12:32 PM on 05/12/2021 No DVT. Cardiology on board On Metoprolol 25mg TID, will consider to decrease to 25mg BID since has been bradycardia Heparin drip was discontinued then transition to Warfarin for 30 to 90 days if no contraindication INR 4.3 today Continue K and Mg supplement to keep Potassium above 4 and Mg above 2 #. Leukocytosis - Possible related to Steroid - For events upto 05/08, refer to progress note 05/08 - ID evaluated 05/08, monitoring patient off of ABx - Continue to monitor. #. GABRIELLA on CKD stage 3 -combination of prerenal and ATN from hypotension early in the course -baseline Cr around 1.5-1.7; Resolved -d/w Nephrology 05/12 -- c/w lasix 40 mg daily and ok w/ resuming lisinopril/KCL supplementation -pt remains volume overloaded, Potassium supplementation continued -lisinopril resumed, OP nephro f/u upon DC #. Other chronic medical conditions: HTN, T2DM, HLD, BPH, HTN, Dementia, AMBER on CPAP Resume/continue with BP meds with holding parameter Hold T2DM meds, correctional scale insulin Continue other meds as and when appropriate. Given history of dementia, patient at risk for delirium --> Was started Risperdal 0.5mg daily here due to delirium and attempts to climb out of bed, now prn #. Hypomagnesemia #. Hypophosphatemia -Replete and monitor as appropriate. DVT ppx coumadin on hold since INR 4.3 Disposition [facility] When bed available, PT/OT Admission and Anticipated Discharge Date Admission Date: April 29, 2021 Subjective Pt was seen and examined for follow up Sitting in chair with no acute distress watching TV Denies any chest pain, palpitation, dizziness and SOB Review of Systems Review of Systems: All systems reviewed & are unremarkable except as noted in Subjective Physical Exam Physical Exam: General- No acute distress Head- atraumatic Eyes- PERRL, EOMI, ENT- oropharynx clear Neck- supple, no JVD Lungs- +diminished BS Heart- regular rhythm; no murmur Abdomen- normal bowel sounds, soft, nontender Extremities- no calf tenderness, +edema Neuro- alert, oriented x 3; PERRL, EOMI; no facial palsy; no dysarthria Skin- warm & dry Results & Data Results & Data ([facility]) Vital Signs (Past 12 Hours) Vital Signs Temp Pulse Resp BP Pulse Ox 05/24/21 14:30 36.6 C 54 L 20 104/56 L 96 05/24/21 13:08 37 C 52 L 18 130/68 96
[2021-05-24] MEDS: traMADol HCL 50 MG TABLET PO PRN (20:58)
[2021-05-25 05:56] LABS: Hematocrit (blood only) 33.3 % (42-52); Hemoglobin 10.5 g/dL (14.0-18.0); Mean Corpuscular Hemoglobin 31.3 pg (25-34); Mean Corpuscular Hgb Conc 31.5 g/dL (32-36); Mean Corpuscular Volume 99.4 fL (80-100); Mean Platelet Volume 10.9 fL (7.4-10.4); Platelet Count 248 K/uL (130-400); RDW Coefficient of Variation 15.6 % (11.5-14.5); RDW Standard Deviation 56.7 fL (36.4-46.3); Red Blood Count 3.35 M/uL (4.7-6.1); White Blood Count 15.19 K/uL (4.8-10.8)
[2021-05-25] MEDS: DICLOFENAC SOD 1% GEL 100 GM TUBE EXT SCH ×2 (06:14→10:40)
[2021-05-25 06:19] LABS: INR 4.2 (0.9-1.1); Prothrombin Time 41.3 Seconds (9.0-12.0)
[2021-05-25 06:35] LABS: BUN Creatinine Ratio 41.9 (10-20); Calcium 8.8 mg/dl (8.5-10.1); Est GFR (African American) 70.3 ml/min; Est GFR (Non-African American) 60.6 ml/min; Potassium 4.7 mmol/L (3.5-5.1)
[2021-05-25] MEDS: ADVANCED PROBIOTIC 1250 MG CAPSULE PO SCH (08:32)
[2021-05-25] MEDS: TAMSULOSIN HCL 0.4 MG CAP PO SCH (08:32)
[2021-05-25] MEDS: risperiDONE 0.5 MG TABLET PO PRN (08:32)
[2021-05-25] MEDS: ERGOCALCIFEROL 50,000 UNITS 1250 MCG CAP PO SCH (08:32)
[2021-05-25] MEDS: MAGNESIUM OXIDE 400 MG TAB PO SCH (08:32)
[2021-05-25] MEDS: PANTOprazole 40 MG TAB PO SCH (08:32)
[2021-05-25] MEDS: METOPROLOL TARTRATE 25 MG TAB PO SCH (08:33)
[2021-05-25] MEDS: CeleBREX 200 MG CAP PO SCH (08:33)
[2021-05-25] MEDS: CYANOCOBALAMIN (B-12) 500 MCG TABLET PO SCH (08:33)
[2021-05-25] MEDS: GABAPENTIN 100 MG CAP PO SCH (08:33)
[2021-05-25] MEDS: UREA (UREA-NA) 15 GM PACK PO SCH (08:34)
[2021-05-25] MEDS: INSULIN GLARGINE SOLOSTAR 100 UNITS/ML 3 ML PEN SC SCH (08:35)
[2021-05-25] MEDS: INSULIN ASPART PER UNIT SC SCH ×2 (08:42→12:03)
[2021-05-25] MEDS ORDERED: POTASSIUM CHLORIDE 20 MEQ/15 ML UDC PO SCH (09:00)
[2021-05-25] MEDS ORDERED: predniSONE 10 MG TABLET PO SCH (09:00)
[2021-05-25] MEDS: traMADol HCL 50 MG TABLET PO PRN (10:37)
--- NOTE | 2021-05-25 11:39 | Discharge Summary ---
Date of Service May 25, 2021 Admission HPI Per Admitting Provider HISTORY OF PRESENT ILLNESS: This is a 75-year-old male with past medical history significant for type 2 diabetes, hyperlipidemia, obstructive sleep apnea, hypertension, paroxysmal atrial fibrillation, vitamin B12 deficiency, morbid obesity, stage III chronic kidney disease, history of dementia, who presents with a fall. The patient states he slipped on the grass in his yard and fell down and could not get up. Family helped him p and brought him here and found to have left hip fracture. The patient states he did not lose any consciousness, did not hit his head. Denies any chest pain. He has some mild headache. No blurred visions, no earache, no runny nose, no sore throat, no cough, no nausea, no abdominal pain, no chest pain, no shortness of breath. Normal bowel and bladder movements. Appetite is okay. Currently, hemodynamically stable. Admission Exam Per Admitting Provider PHYSICAL EXAMINATION: GENERAL: The patient is morbidly obese, not in acute distress. VITAL SIGNS: Temperature 36.7, pulse 86, respiratory rate 18, blood pressure 106/56, oxygen 97% on room air. HEENT: Pupils equal, round and reactive to light. Oral mucosa moist. NECK: No JVD, no neck masses. CARDIOVASCULAR: S1 and S2 heard. Regular rate and rhythm. No murmur, no gallop. RESPIRATORY SYSTEM: Normal AP diameter. No accessory muscle use. No wheezing, no crackles. ABDOMEN: Soft, bowel sounds present, nontender, no distention. CENTRAL NERVOUS SYSTEM: Cranial nerves II through XII are grossly intact, nonfocal. EXTREMITIES: Left lower extremity shortened and externally rotated. No edema seen, no erythema seen. Principal Diagnosis Acute renal failure superimposed on stage 3 chronic kidney disease: Femur fracture, left: Acute blood loss anemia: Hemorrhagic Shock - resolved Left thigh hematoma Acute blood loss anemia - 2/2 above Left Femur Fracture Fall Left Wrist Pain Likely Gout flare up A. fib RVR Leukocytosis GABRIELLA on CKD stage 3 Hypomagnesemia Hypophosphatemia Discharge Exam Gen: WD/WN, obese, elderly, M, A&O x3 HEENT: Normocephalic, atraumatic, conjunctivae moist, sclerae anicteric, mucous membranes moist. Lung: Clear to Auscultation bilaterally, no wheezes/rales/rhonchi Heart: Regular rate, regular rhythm, no murmurs, rubs, or gallops Abdomen: Soft, NT, ND +BS x 4 Extremities: Trace bilateral lower extremity edema Skin: Warm, no rash, negative turgor. Discharge Data Allergies Allergy/AdvReac Type Severity Reaction Status Date / Time No Known Allergies Allergy NONE Verified 04/29/21 21:45 Consultations 04/29/21 21:04 ED Decision to Admit Stat 04/30/21 08:00 Consult Orthopedic Surgery Routine 04/30/21 18:04 Consult Nephrology Routine 05/01/21 10:04 Consult Computer Game Programmer Routine 05/01/21 13:53 Consult Computer Game Programmer Routine 05/06/21 16:20 Consult Infectious Diseases Routine 05/12/21 12:08 Consult Cardiology Routine Procedures Performed Operation Date: 05/02/21 11:00 Actual Procedures p Long Intramedullary Felipe Left Femur(Left) - Pascual Stone, Ordered Studies Femur X-Ray 04/29/21 20:00 XR pelvis 1-2V routine, XR femur LT 2V routine CLINICAL HISTORY: s/p fall TECHNIQUE: A single frontal view of the pelvis was obtained. 2 views of the left femur were obtained. Comparison: None available at the time of this dictation. FINDINGS: There is an impacted fracture of left femur below the trochanter. Overriding of fragments is seen.The pubic symphysis measures 6 mm in width. Degenerative changes are seen in the lower lumbar spine. No soft tissue abnormality is seen. IMPRESSION: Impacted fracture of the left femur below the trochanter. Likely distraction of the pubic symphysis. ACT 112: Negative or not required by law. Electronically signed by: Rishi Bowden M.D. 04/29/2021 8:54 PM Pelvis X-Ray 04/29/21 20:00 XR pelvis 1-2V routine, XR femur LT 2V routine CLINICAL HISTORY: s/p fall TECHNIQUE: A single frontal view of the pelvis was obtained. 2 views of the left femur were obtained. Comparison: None available at the time of this dictation. FINDINGS: There is an impacted fracture of left femur below the trochanter. Overriding of fragments is seen.The pubic symphysis measures 6 mm in width. Degenerative changes are seen in the lower lumbar spine. No soft tissue abnormality is seen. IMPRESSION: Impacted fracture of the left femur below the trochanter. Likely distraction of the pubic symphysis. ACT 112: Negative or not required by law. Electronically signed by: Rishi Bowden M.D. 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 Comparison: Comparison is made to chest one view 12/01/2018 FINDINGS: No lines and tubes are seen. Cardiomegaly is noted. The lungs are clear. No evidence of pleural effusion or pneumothorax. IMPRESSION: No acute chest disease. ACT 112: Negative or not required by law. Electronically signed by: Rishi Bowden M.D. 04/29/2021 8:[address] 04/29/21 21:31 CT head/brain wo con CLINICAL HISTORY: 75 years-old Male with fall. Acute head trauma status post fall TECHNIQUE: Multiple axial CT images of the head were obtained without contrast. A dose lowering technique was utilized adhering to the principles of ALARA. CT DOSE: 773.57 mGy.cm COMPARISON: None. FINDINGS: No acute intracranial hemorrhage, midline shift, intracranial mass, hydrocephalus, territorial ischemia or abnormal extra-axial collection. Age- related involutional changes. Mild white matter hypodensities suggest chronic microvascular ischemic disease. Cerebral vascular calcifications. The study is mildly motion degraded. The calvarium is intact. The paranasal sinuses, mastoid air cells, and middle ear cavities are clear. IMPRESSION: No acute intracranial abnormality or calvarial fracture. ACT 112: Negative or not required by law. The above report was generated using voice recognition software. It may contain grammatical, syntax or spelling errors. Electronically signed by: Ryan Hood M.D. 04/30/2021 6:32 AM Abdomen/Pelvis CT 04/30/21 06:09 CT abd pelvis wo con CLINICAL HISTORY: gabriella, sepsis? TECHNIQUE: Helical axial images of the abdomen and pelvis were obtained. Automated dose lowering techniques and/or adjustment according to patient size were utilized for this exam. This exam was performed without intravenous contrast. COMPARISON: Comparison is made to pelvis and humeral radiographs 04/29/2021 FINDINGS: Lower chest: No acute abnormality Liver: Unremarkable. No focal lesions are seen. Gallbladder and biliary tree: No calcified gallstones. Normal caliber wall. No intra- or extrahepatic biliary ductal dilation. Pancreas: Unremarkable, no focal lesions. Spleen: Unremarkable. Adrenals: Unremarkable. Kidneys and ureters: Unremarkable. Bladder: Limited evaluation due to underdistention. Reproductive organs: Prostatic calcifications are seen which may represent prior hemorrhage or granulomatous disease. Bowel: Unremarkable. Lymph nodes Retroperitoneal: Unremarkable. Mesenteric: Unremarkable. Pelvic: Unremarkable. Peritoneum: Normal. Vessels: Atherosclerotic calcifications are seen. Abdominal wall: A fat-containing umbilical hernia is seen. Bones: Degenerative changes in the visualized spine. Redemonstration of a comminuted and impacted fracture of the left femur at the level of the greater trochanter. Distraction of the pubic symphysis is less evident on this exam. IMPRESSION: Redemonstration of comminuted fracture of the left femur. Distraction of the pubic symphysis is less evident on this exam and may have been artifactual. No acute intra-abdominal abnormality is seen. ACT 112: Negative or not required by law. Electronically signed by: Rishi Bowden M.D. 04/30/2021 8:19 AM Abdomen/Pelvis CT 05/01/21 11:35 CT abd pelvis wo con CLINICAL HISTORY: Recent fall with left hip fracture. Evaluate for hematoma. COMPARISON STUDY: 04/30/2021 CT DOSE: TECHNIQUE: Standard CT of the Abdomen and Pelvis was performed without IV contrast. The patient did not receive oral contrast. A dose lowering technique was utilized adhering to the principles of ALARA. FINDINGS: Lung base: There is minimal left basilar atelectasis. The lung bases are otherwise clear. Abdominal cavity: There is no evidence for abdominal mass, adenopathy or ascites. A small umbilical hernia containing mesenteric fat is again seen. Liver: The liver is homogeneous in attenuation on these limited noncontrast images.. Spleen: The spleen is homogeneous in attenuation on these limited noncontrast images. Pancreas: The pancreas is homogeneous in attenuation on these limited noncontrast images. Gall Bladder: The gallbladder is well distended with no evidence for cholelithiasis, wall thickening or pericholecystic edema.. Adrenal glands: The adrenal glands are normal in size and attenuation on these limited noncontrast images. Kidneys: The kidneys are homogeneous in attenuation on these limited noncontrast images. There is no evidence for gross renal mass, calculus or hydronephrosis bilaterally. Bowel: The bowel loops are normally placed within the abdomen and pelvis without evidence for dilatation or obstruction. There is no evidence for mass lesion. There are no inflammatory changes present. There is no evidence for free air. Bladder: There is no evidence for focal bladder wall thickening, calculus or diverticulum. : There is no evidence for pelvic mass or adenopathy. Vasculature: There is no evidence for focal aneurysmal dilatation of the abdominal aorta. Osseous structures: Comminuted intertrochanteric fracture of the left femoral neck is again seen. There is diffuse edema of the muscles surrounding the left hip. However, no focal fluid collection or hematoma is identified on these limited noncontrast images. IMPRESSION: 1. Comminuted, intertrochanteric fracture left femoral neck is again seen with diffuse edema of the muscle surrounding the hip. However, no focal fluid collection or definite hematomas identified on these limited noncontrast images. 2. Otherwise, no acute intra-abdominal or pelvic abnormality on these limited noncontrast images. 3. Additional nonacute findings are delineated above. ACT 112: Negative or not required by law. Electronically signed by: Andrew Jerez M.D. 05/01/2021 3:[address] 05/01/21 11:35 CT SCAN OF THE LEFT FEMUR WITHOUT IV CONTRAST CLINICAL HISTORY: Femoral fracture. Drop in hematocrit. COMPARISON STUDY: Pelvic CT dated 04/30/2021. Left femoral radiographs dated 04/29/2021. TECHNIQUE: CT scan of the left femur is performed from the bony pelvis to the knee. Images are reviewed in the axial, sagittal, and coronal planes. IV contrast was not administered for this examination. A dose lowering technique was utilized adhering to the principles of ALARA. CT DOSE: 3384.15 mGycm FINDINGS: The skeletal structures are osteopenic. Again seen is a comminuted intertrochanteric/subtrochanteric fracture of the left femur with displaced fragments and surrounding hemorrhage. There is likely external rotation of the femoral shaft. The distal femur appears intact, as does the visualized left hemipelvis. No lytic or blastic lesion is seen. Sclerotic change is noted in the left sacroiliac joint. There is generalized atrophy of the regional musculature. Intramuscular hemorrhage is seen involving the left piriformis muscle and the gluteus minimus muscle. There is significant hemorrhage throughout the adductor compartment/musculature, with milder hemorrhage seen throughout the quadriceps compartment. No free fluid is seen within the visualized pelvis. The bladder is decompressed around a Byrnes catheter. IMPRESSION: 1. Again seen is a comminuted intertrochanteric/subtrochanteric fracture of the left femur with displaced fragments and surrounding hemorrhage. 2. Intramuscular hemorrhage is noted within the left piriformis and the left gluteus minimus muscles. 3. There is also significant hemorrhage throughout the left adductor compartment with milder hemorrhage throughout the quadriceps compartment. ACT 112: Negative or not required by law. Dictated: 05/01/2021 2:40 PM Transcribed: 05/01/2021 3:01 PM Veronica [id number] Electronically signed by: Bonifacio Kennedy M.D. 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 Comparison: Comparison is made to chest one view 04/29/2021 FINDINGS: A right jugular venous catheter tip is in the mid SVC. The cardiomediastinal silhouette is normal. Lungs are underinflated but clear. No evidence of pleural effusion or pneumothorax. IMPRESSION: Satisfactory position of right jugular venous catheter. ACT 112: Negative or not required by law. Electronically signed by: Rishi Bowden M.D. 05/01/2021 12:33 PM Lower Extremity CTA 05/01/21 16:56 CT angio femur LT wo/w con HISTORY: 75 years-old Male concern for active bleed. [Extravasation COMPARISON: CT abdomen and pelvis and CT left femur of same day TECHNIQUE: CTA of the left femur was obtained both with and without the use of 120 mL Optiray 320. 3-D coronal and sagittal MIPS were obtained from the axial data set and were submitted for review. A dose lowering technique was used consistent with the principals of JIMY. FINDINGS: CTA: Patent imaged left external iliac artery with mild atherosclerosis. The common femoral, profunda femoris, superficial femoral and popliteal arteries are patent. No high-grade stenosis or arterial occlusion. No active extravasation. CT: A comminuted intertrochanteric/subtrochanteric fracture of the left femur is redemonstrated with displaced fragments and surrounding soft tissue and intramuscular hemorrhage. Unchanged alignment from prior. Numerous tiny fracture fragments extend into the adjacent musculature as seen on image 143 for example which are unchanged. The distal femur appears intact. No acute fracture of the imaged left hemipelvis. No lytic or blastic lesion is seen. Sclerotic change is noted in the left sacroiliac joint. There is generalized atrophy of the regional musculature. Intramuscular hemorrhage is seen involving the left piriformis muscle and the gluteus minimus muscle. There is significant hemorrhage throughout the adductor compartment/musculature, with less extensive hemorrhage seen throughout the quadriceps compartment. No free fluid is seen within the visualized pelvis. The bladder is decompressed around a Byrnes catheter. Left hydrocele. Atrophy of the hamstring musculature. Small left knee joint effusion. IMPRESSION: 1. Acute comminuted, displaced and angulated intertrochanteric/subtrochanteric fracture of the left femur redemonstrated with unchanged alignment. 2. Left pelvic and thigh perifascial and intramuscular hemorrhage and edema redemonstrated. No evidence of active extravasation. ACT 112: Negative or not required by law. The above report was generated using voice recognition software. It may contain grammatical, syntax or spelling errors. Electronically signed by: Ryan Hood M.D. 05/01/2021 6:39 PM Hip X-Ray 05/02/21 00:00 INTRAOPERATIVE RADIOGRAPHS CLINICAL HISTORY: Open reduction and internal fixation of the left proximal femur. Fluoroscopy time: 656 seconds. FINDINGS: 10 spot fluoroscopic views of the left femur are compared to radiographs dated 04/29/2021. Intertrochanteric and intramedullary nails have been placed transfixing a comminuted fracture of the left proximal femur. Near- anatomic alignment is restored. 2 cortical lag screws transfix the distal end of the intramedullary nail. The orthopedic hardware appears intact. IMPRESSION: Intraoperative images from open reduction and internal fixation of the left proximal femur as above. Electronically signed by: Bonifacio Kennedy M.D. 05/02/2021 4:42 PM Femur X-Ray 05/02/21 16:32 LEFT FEMUR 2 VIEWS CLINICAL HISTORY: Postoperative examination. Open reduction and internal fixation of the left proximal femur. FINDINGS: AP and crosstable lateral portable views of the left femur are compared to study dated 04/29/2021. The skeletal structures are osteopenic. There has been intertrochanteric and intramedullary nail fixation of a comminuted intertrochanteric/subtrochanteric fracture of the left proximal femur. Near- anatomic alignment has been restored. 2 cortical lag screws transfix the distal end of the nail. The orthopedic hardware appears intact. The left hip and knee joints are grossly maintained. The visualized left hemipelvis appears intact. Soft tissue edema, skin clips, and soft tissue gas throughout the left thigh are expected postoperative findings. IMPRESSION: Expected postoperative findings status post open reduction and internal fixation of the left proximal femur. No new fracture is seen. Electronically signed by: Bonifacio Kennedy M.D. 05/02/2021 5:38 PM Chest X-Ray 05/05/21 17:01 SINGLE VIEW CHEST CLINICAL HISTORY: Dyspnea. FINDINGS: An AP, portable, upright chest radiograph is compared to study dated 05/01/2021. The a right internal jugular central venous catheter has been removed. The heart is enlarged. The pulmonary vasculature is noncongested. Atelectasis is seen at the lung bases. The lungs and pleural spaces are otherwise clear. No pneumothorax is seen. The skeletal structures are osteopenic. The bony thorax is grossly intact. Advanced arthritic change is noted in the shoulders. Distended bowel loops are noted in the upper abdomen. IMPRESSION: 1. Cardiomegaly with no active disease in the chest. 2. Distended bowel loops are noted in the upper abdomen. Correlate clinically for evidence of ileus. ACT 112: Negative or not required by law. Electronically signed by: Bonifacio Kennedy M.D. 05/05/2021 8:22 PM Wrist X-Ray 05/12/21 02:48 XR wrist LT min 3V routine CLINICAL HISTORY: Status post fall with pain. COMPARISON STUDY: No previous studies for comparison. TECHNIQUE: 3 left wrist views FINDINGS: Bones: There is no evidence for an acute fracture or dislocation. Degenerative cystic changes are present within the scaphoid distal ulna. There is no lytic or blastic lesion. Joints: There is narrowing of the radiocarpal joint, the first CMC joint and triscaphe joint. The bones are in anatomic alignment. Soft tissues: There is no focal soft tissue abnormality. There is no radiopaque foreign body. IMPRESSION: 1. No acute osseous pathology. 2. Osteoarthritis and degenerative changes. ACT 112: Negative or not required by law. Electronically signed by: Andrew Jerez M.D. 05/12/2021 8:05 AM Venous Doppler Study 05/12/21 12:43 US venous doppler LE BI CLINICAL HISTORY: Swelling and edema of the left leg COMPARISON: None available at the time of this dictation. TECHNIQUE: Left lower extremity real-time compression venous ultrasound with Color Doppler imaging. Utilizing real-time ultrasonic imaging multiple real time high-resolution ultrasonic images with compression and noncompression maneuvers of the deep venous system in addition to color doppler imaging were performed from the common femoral vein through the proximal calf veins. FINDINGS: Currently there is normal compressibility of the deep venous system from the common femoral vein through the proximal calf veins. No current evidence of acute thrombosis is identified. Impression: No evidence of deep venous thrombus. ACT 112: Negative or not required by law. Electronically signed by: Andrew Jerez M.D. 05/12/2021 3:16 PM Diabetes Follow up A1C 7.6 04/30/21 Hospital Course (1) Femur fracture, left: (1) Acute renal failure superimposed on stage 3 chronic kidney disease: (2) Femur fracture, left: (3) Acute blood loss anemia: 75-year-old male withPMH of type 2 diabetes, hyperlipidemia, obstructive sleep apnea, hypertension, paroxysmal atrial fibrillation, vitamin B12 deficiency, morbid obesity, stage III chronic kidney disease, history of dementia presented w/ fall 04/30/21. The patient states he slipped on the grass in his yard and fell down and could not get up. Patient was diagnosed with acute hemorrhagic shock in setting of left thigh hematoma and acute blood loss anemia. He also suffered a left femur fracture. Due to acute blood loss patient did require 2 units of PRBC, 1 unit on 05/01 and 1 unit on 05/03. He also required surgical fixation with left ORIF of his displaced, comminuted, impacted subtrochanteric/intertrochanteric femur fracture with nail and screws. He was made toe-touch weightbearing and will require further orthopedic follow-up, PT and OT at discharge. His hospitalization was prolonged secondary to multiple comorbidities. Patient did develop atrial fibrillation with RVR on 05/12/2021 with spontaneous conversion to sinus rhythm 13 hours later. He was seen and evaluated by cardiology. He was initially started on metoprolol tartrate 25 mg 3 times daily. This was decreased back to twice daily due to episodes of bradycardia. He was initially started on heparin drip and transition to w arfarin. It is recommended he remain on warfarin for 30 to 90 days. This will be at the discretion of cardiology. On day of discharge his INR was supratherapeutic at 4.2. His Coumadin has been on hold. He complained of left wrist pain during admission. Uric acid level was obtained and was 9.0 and trended down to 5.7. It was felt he had a gout flare and was started on prednisone. He is being discharged on prednisone to complete taper. He was started on PPI for GI protection while on steroids. He did develop leukocytosis which was felt to be secondary to steroids. Early in the course of hospitalization he did have GABRIELLA on CKD stage III which is felt to be prerenal and ATN from hypotension. His Lasix and lisinopril were held. These are being resumed on discharge. He had hypophosphatemia and hypomagnesemia which were repleted. Cardiology recommends keeping potassium greater than 4 and magnesium greater than 2.0. During hospitalization his Trulicity Metformin was placed on hold. He was treated with Lantus. Renal function has returned to baseline and is at 1.17 at discharge. His Trulicity and Metformin are being resumed. Lastly hospitalization was complicated with delirium in setting of underlying dementia. He was placed on Risperdal as needed, but has no longer required this medication so it has been discontinued. At follow-up patient will need close outpatient follow-up with orthopedics, cardiology and nephrology. At discharge from [facility] he will also need PCP follow-up as well as [facility] pharmacy follow- up for warfarin management. On day of discharge he was in good spirits and his vital signs were otherwise stable and saturating well on room air. He was able to transfer from bed to bedside chair with assistance and walker. He is tolerating a diabetic easy to chew diet. He offers no acute concerns on day of discharge. Total Time Total Time Spent Total Time Spent (In Minutes): 75 minutes Total Time Includes: Examination of the Patient, Discharge Planning, Medication Reconciliation, Communication With Other Providers and Other Discharge Plan Discharge Items Patient Disposition: Transfer Long-Term Fac Reason For Visit: FALL Discharge Diagnosis: Acute renal failure superimposed on stage 3 chronic kidney disease: Femur fracture, left: Acute blood loss anemia: Hemorrhagic Shock - resolved Left thigh hematoma Acute blood loss anemia - 2/2 above Left Femur Fracture Fall Left Wrist Pain Likely Gout flare up A. fib RVR Leukocytosis GABRIELLA on CKD stage 3 Hypomagnesemia Hypophosphatemia Condition on Discharge: Fair Activity: Per Instructions section Lifting: None Bathing: Keep incision dry Exercise/Sports: None Weightbearing: Left toe touch Weightbearing Comment: with walker Non-emergency contact: Surgeon Call non-emergency contact if: your pain is not controlled, your temperature is above 101.5, your wound has increased redness and your wound has increased drainage Follow-up/Referrals: Pascual Stone DO [Surgeon] - (Call for appt) Trenton Greer MD [Physician] - (Follow up with Cardiology in 4 weeks) Shaheen Galicia MD [Physician] - (Please follow up in nephrology in 4 weeks) Kadi Monroy MD [Primary Care Provider] - (Please follow up with PCP after discharge from [facility]) PCP,NO [Physician] - Diet: Carb Consistent or DM2 Fluids: 1800ml (7 cups) Diet Texture: Easy to Chew Addtl Attending Provider Instructions: RECOMMENDATIONS FOR FOLLOW-UP: Please repeat PT/INR - tomorrow 05/26/21. Hold Warfarin today, 05/25/21, until INR reviewed by Provider tomorrow. INR on discharge was 4.2. When INR normalizes, between 2-3, resume warfarin at 2mg daily with frequent INR checks. Follow up with [facility] Coumadin clinic upon discharge from [facility]. Please follow up with Cardiology in 4 weeks - Cardiology is to determine duration of warfarin. 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 Please complete prednisone taper for gout flare. A1C on admission was 7.6, please resume outpatient diabetic regimen. CBC, BMP, MAG in 1 week. Please keep potassium > 4.0 and Magnesium > 2.0. Please follow up with Orthopedics as scheduled. Daily weights, Pt 136.8kg on day of discharge . OTHER INSTRUCTIONS: Seek medical attention if you have: * temperature above 101 * chest pain or trouble breathing * abdominal pain, nausea, vomiting * diarrhea, dark stools or bloody stools * any unanswered questions or concerns Call 911 if symptoms are severe. Please take good care of yourself. It has been a pleasure taking care of you. Please take care of yourself. If you have any questions regarding your recent hospitalization please contact [facility] and request Dianna Hospitalist @ [phone]. ROYER Vizcaino Java Development Manager Provider Instructions: Toe touch weight bearing on the left foot. Use walker for ambulation Daily dressing changes. Continue to keep dressing over wound if still having serous drainage. Watch for wound changes including, increased pain, redness, swelling, or drainage; Temp 101.5 or greater Call the office with any questions. [phone] Stone in 10-14 days from the day of surgery. [phone] Pending Studies at Discharge: No Stand-Alone Forms: My [facility] Skilled Items Patient informed of condition?: Yes DNR: No Discharge Level of Care: Skilled Communicable Disease: No Discharge Prognosis: Improving Lines: None Urinary Catheter: No Medications and DC Order Prescriptions: New prednisone 10 mg tablet See Rx Instructions .ROUTE .COMPLEX Qty: 4 RF: 0 tramadol 50 mg Tablet 100 mg PO Q6 PRN (Reason: pain) Qty: 15 RF: 0 potassium chloride 20 mEq/15 mL Liquid 20 meq PO DAILY Qty: 1200 RF: 0 gabapentin 100 mg Capsule 100 mg PO BID Qty: 60 RF: 0 metoprolol tartrate 25 mg Tablet 25 mg PO BID Qty: 60 RF: 0 polyethylene glycol 3350 [Miralax] 17 gram Powder In Packet 17 g PO DAILY PRN (Reason: constipation) Qty: 30 RF: 0 magnesium oxide 400 mg (241.3 mg magnesium) Tablet 400 mg PO BID Qty: 60 RF: 0 pantoprazole 40 mg Tablet,Delayed Release (Dr/Ec) 40 mg PO BID Qty: 60 RF: 0 Ure-Na 15 gram Powder In Packet 15 g PO BID Qty: 60 RF: 0 warfarin 2 mg Tablet 2 mg PO DAILY@1600 Qty: 10 RF: 0 Continued cyanocobalamin (vitamin B-12) [Vitamin B-12] 1,000 mcg tablet 1,000 mcg PO DAILY Qty: 30 RF: 0 simvastatin 40 mg tablet 40 mg PO HS Qty: 30 RF: 0 tamsulosin 0.4 mg capsule 0.4 mg PO DAILY Qty: 30 RF: 0 metformin 500 mg tablet extended release 24 hr 500 mg PO DAILY Qty: 30 RF: 0 cholecalciferol (vitamin D3) 1,250 mcg (50,000 unit) capsule 1,250 mcg PO WK Qty: 30 RF: 0 Trulicity 0.75 mg/0.5 mL pen injector 0.75 mg SUBCUT WK Qty: 2 RF: 0 lisinopril 10 mg tablet 10 mg PO DAILY Qty: 30 RF: 0 furosemide 20 mg tablet 20 mg PO DAILY Qty: 30 RF: 0 Discontinued metoprolol tartrate 25 mg tablet 25 mg PO BID RF: 0 aspirin 81 mg Tablet,Delayed Release (Dr/Ec) 81 mg PO DAILY RF: 0 Discharge Orders: Discharge Order (Routine); Ordered 05/25/21 Ordered By: Jo-Ann Ledezma/Other Patient Handouts: Managing Type 2 Diabetes Admission Data Admit Date/Time: 04/29/21 23:42 Attending Provider: Matilde Haskins Admit Provider: Juwan Knutson Primary Care Provider: Kadi Monroy Other Providers: Catrachita Bustamante ; Pankaj Francis ; Caden Harrison ; [facility] ; Juwan Knutson ; Pascual Stone ; Stanley Martin ; Derek Holm ; Aki Blackwell I. ; Jere Liu II ; Misty Live ; Theo Latif ; Garry Gaytan ; Vic Anthony ; Jo-Ann Elizabeth
== END 2021-05-25 13:14 | DRG 480 ==
LOC: ED 19:44 → SUATTDRO 23:42 → EDINP 23:42 → 2S 04-30 02:18 → 1E 05-01 11:10 → 2S 05-09 07:07 → 2W 05-11 14:44 → 3E 05-21 23:46